=== PATIENT | female | born 1945 | race Caucasian/White ===

== ENCOUNTER 2018-05-25 13:05 | Inpatient (IN) | payer OTHER ==
--- OUTSIDE RECORDS SUMMARY | 2018-05-25 13:14 | XMS REPORT | Clinical Summary ---
:1945 Author Organization [facility] Address [address] [place] [address] Care Team Providers Name Role Phone Bertha Apodaca DO Primary Care Provider Allergies Active Allergy Reactions Severity Noted Date Comments Codeine Rash Low 02/19/2017 Rash on face Enalapril 02/19/2017 hand/face swelling Nhqupuq-Zvv-Ryi Reductase 02/19/2017 muscle pain, hand/face Inhibitors swelling Medications Medication Sig Dispensed Refills Start End Date Status Date aspirin (ECOTRIN) Take 81 mg by 0 Active 81 MG enteric mouth daily. coated tablet magnesium oxide 250 Take 250 mg by 0 Active mg tablet mouth daily. omega-3 fatty Take 1 capsule by 0 Active acids-fish oil mouth daily. (FISH OIL) 360-1,200 mg capsule vitamin E 400 UNIT Take 400 Units by 0 Active capsule mouth daily. vit B comp Take 1 tablet by 0 Active no.0-vwgqm-M-biotin mouth daily. (NEPHRO-BOO RX) 1-60-300 mg-mg-mcg tablet ezetimibe (ZETIA) Take 10 mg by 0 Active 10 mg tablet mouth nightly. 8 JANUVIA 50 mg Take 50 mg by 0 Active tablet mouth daily. 8 metoprolol tartrate Take 1 tablet (25 180 tablet 3 09/25/19 Active (LOPRESSOR) 25 mg mg total) by 8 19 tablet mouth 2 (two) times a day. hydrALAZINE Take 25 mg by 0 Active (APRESOLINE) 25 MG mouth. tablet losartan (COZAAR) Take 50 mg by 0 Active 50 MG tablet mouth daily. loratadine Take 10 mg by 0 Active (CLARITIN) 10 mg mouth daily. tablet torsemide (DEMADEX) Take 2 tablets 180 tablet 3 01/08/20 Active 20 MG tablet (40 mg total) by 8 19 mouth daily. potassium chloride TAKE ONE TABLET 90 tablet 3 Active (KLOR-CON) 10 MEQ BY MOUTH ONCE 8 CR DAILY tabletIndications: Diastolic congestive heart failure (HCC), Essential hypertension, Pure hypercholesterolemi a, SOB (shortness of breath) losartan (COZAAR) Take 50 mg by 0 06/29/20 Discontinued 100 MG tablet mouth daily. 7 LANTUS 100 unit/mL Inject 100 Units 0 06/29/20 Discontinued injection (vial) under the skin 7 nightly. furosemide (LASIX) Take 1 tablet (40 90 tablet 3 06/29/20 Discontinued 40 mg mg total) by 7 17 tabletIndications: mouth daily. Diastolic congestive heart failure, unspecified congestive heart failure chronicity, Essential hypertension, Pure hypercholesterolemi a, SOB (shortness of breath) potassium chloride Take 1 tablet (10 90 tablet 3 04/07/20 Discontinued (KLOR-CON) 10 MEQ mEq total) by 7 18 CR mouth daily. tabletIndications: Diastolic congestive heart failure, unspecified congestive heart failure chronicity, Essential hypertension, Pure hypercholesterolemi a, SOB (shortness of breath) DOCOSAHEXANOIC Take by mouth. 0 06/05/20 Discontinued ACID/EPA (FISH OIL 17 ORAL) spironolactone Take 25 mg by 0 06/29/20 Discontinued (ALDACTONE) 25 MG mouth daily. 17 tablet acetaminophen Take 2 tablets 0 07/29/19 (TYLENOL) 325 MG (650 mg total) by 7 18 tablet mouth every 6 (six) hours as needed for fever (GREATER than 100.4) for up to 30 days. traMADol (ULTRAM) Take 1 tablet (50 0 07/29/19 50 mg tablet mg total) by 7 18 mouth every 6 (six) hours as needed for moderate pain for up to 30 days. hydrALAZINE Take 1 tablet (25 90 tablet 0 07/29/19 (APRESOLINE) 25 MG mg total) by 7 18 tablet mouth every 8 (eight) hours for 30 days. ipratropium-albuter Take 3 mL by 270 mL 0 07/29/19 ol (DUO-NEB) nebulization 7 18 0.5-2.5 mg/mL every 6 (six) nebulizer hours while awake for 30 days. metoprolol tartrate Take 0.5 tablets 30 tablet 0 07/29/19 (LOPRESSOR) 25 mg (12.5 mg total) 7 18 tablet by mouth 2 (two) times a day for 30 days. insulin GLARGINE Inject 38 Units 11.4 mL 0 07/30/19 (LANTUS) 100 under the skin 7 18 unit/mL injection daily for 30 (vial) days. insulin lispro Inject 0-7 Units 10 mL 12 07/29/19 (HumaLOG) 100 under the skin 3 7 18 unit/mL injection (three) times a day with meals for 30 days. insulin lispro Inject 14 Units 10 mL 12 07/23/19 Discontinued (HumaLOG) 100 under the skin 7 18 unit/mL injection daily with breakfast for 30 days. insulin lispro Inject 14 Units 10 mL 12 07/23/19 Discontinued (HumaLOG) 100 under the skin 7 18 unit/mL injection daily before lunch for 30 days. insulin lispro Inject 16 Units 10 mL 12 07/29/19 (HumaLOG) 100 under the skin 7 18 unit/mL injection daily before dinner for 30 days. docusate sodium Take 1 capsule 60 capsule 0 07/29/19 (COLACE) 100 MG (100 mg total) by 7 18 capsule mouth 2 (two) times a day for 30 days. furosemide (LASIX) Take 1 tablet (40 30 tablet 0 07/23/19 Discontinued 40 mg tablet mg total) by 7 18 mouth daily for 30 days. isosorbide Take 1 tablet (10 90 tablet 0 07/29/19 dinitrate (ISORDIL) mg total) by 7 18 10 MG tablet mouth 3 (three) times a day for 30 days. cholecalciferol, Take 1 capsule 30 capsule 0 07/30/19 vitamin D3, (2,000 Units 7 18 (VITAMIN D3) 2,000 total) by mouth unit capsule daily for 30 capsule days. furosemide (LASIX) Take 1 tablet (40 30 tablet 4 08/22/19 40 mg tablet mg total) by 8 18 mouth 2 (two) times a day for 30 days. furosemide (LASIX) Take 40 mg by 0 01/08/20 Discontinued 40 mg tablet mouth. 8 18 Active Problems Problem Noted Date Edema 01/07/2018 Coronary artery disease involving [place] coronary artery of [place] heart 09/24 without angina pectoris PAD (peripheral artery disease) 09/24/2017 Atelectasis of left lung 06/18/2017 Pleural effusion, left 06/18/2017 Acute postoperative respiratory insufficiency 06/18/2017 S/P CABG x 4 06/12/2017 Anemia due to surgical blood loss, acute superimposed on chronic anemia 2016 Acute kidney injury superimposed on chronic kidney disease 06/12/2017 Ischemic cardiomyopathy 06/12/2017 Type 2 diabetes mellitus with stage 3 chronic kidney disease, with 06/12/2017 long-term current use of insulin NSTEMI (non-ST elevated myocardial infarction) 06/05/2017 SOB (shortness of breath) 02/19/2017 Essential hypertension 02/19/2017 Pure hypercholesterolemia 02/19/2017 Type 2 diabetes mellitus Resolved Problems Problem Noted Date Resolved Date Metabolic acidosis 06/12/2017 06/19/2017 Encounters Date Type Specialty Care Team Description 04/11/2018 Documentation Endocrinology Jennie Pardo MA 04/07/2018 Refill Cardiology Bro Aburto Med Refill 01/15/2018 Telephone Cardiology Muriel Quintana MA Result - Labs 01/07/2018 Lab Lab Bro Aburto MD 01/07/2018 Office Visit Cardiology Bro Aburto, Edema, unspecified type (Primary Dx); Coronary artery disease involving [place] coronary artery of [place] heart without angina pectoris; S/P CABG x 4 10/11/2017 Orders Only Cardiology Mark Fish MA 10/03/2017 Telephone Cardiology Mark Fish MA Results (lower extremity aterial report) 10/02/2017 Orders Only Cardiology Mark Fish MA 09/24/2017 Office Visit Cardiology Bro Aburto, Coronary artery disease involving [place] coronary artery of [place] heart without angina pectoris (Primary Dx); PAD (peripheral artery disease); S/P CABG x 4; Essential hypertension 07/23/2017 Office Visit Cardiology Bro Aburto, S/P CABG x 4 MD (Primary Dx) 06/12/2017 Surgery Cardiothoracic MacGabriel, Cabg, With Surgery Cecelia Casillas MD Endoscopic Vein Harvesting on Left leg CRUZ - LAD, SVG- PDA, OM , Diagonal 06/12/2017 Anesthesia Event Cardiology Brian Jacques MD 06/05/2017 Hospital Encounter Cardiology Quintana, NSTEMI (non-ST elevated myocardial infarction) (Primary Dx); - [place] Coronary artery disease involving [place] heart with unstable angina pectoris, unspecified vessel or lesion type; 06/29/2017 MD [place] Chronic congestive heart failure, unspecified congestive heart failure type; Bro Aburto, Chronic obstructive pulmonary disease, unspecified COPD type; SOB (shortness of breath); S/P CABG x 4 after 05/24/2017 Family History Relation Name Status Comments Father Mother Social History Tobacco Use Types Packs/Day Years Used Date Never Smoker Smokeless Tobacco: Never Used Alcohol Use Drinks/Week oz/Week Comments No Sex Assigned at Date Recorded Not on file Job Start Date Occupation Industry Not on file Not on file Not on file Travel History Travel Start Travel End No recent travel history available. Last Filed Vital Signs Vital Sign Reading Time Taken Blood Pressure 158/72 01/07/2018 11:30 AM CDT Pulse 49 01/07/2018 11:30 AM CDT Temperature 36.3 C (97.4 F) 06/29/2017 7:42 AM [employer] Respiratory Rate 20 06/29/2017 8:16 AM [employer] Oxygen Saturation 96% 06/29/2017 8:12 AM [employer] Inhaled Oxygen Concentration - - Weight 85.3 kg (188 lb) 01/07/2018 11:30 AM CDT Height 162.6 cm (5' 4") 01/07/2018 11:30 AM CDT Body Mass Index 32.27 01/07/2018 11:30 AM CDT Plan of Treatment Date Type Specialty Care Team Description 06/03/2018 Office Visit Cardiology Bro Aburto MD [address] [facility] [address] [place] [id number] 09/23/2018 Office Visit Cardiology Bro Aburto MD [address] [facility] [address] [place] [id number] [phone] Health Maintenance Due Date Last Done Comments DIABETIC RETINAL EYE EXAM 1945 DIABETIC FOOT EXAM 1954 BREAST CANCER SCREENING 1994 SHINGRIX VACCINE (1 of 2) 1994 ZOSTER VACCINE 2004 PNEUMOCOCCAL POLYSACCHARIDE VACCINE AGE 65 AND OVER 2009 PNEUMOCOCCAL-13 2009 INFLUENZA VACCINE 01/29/2018 COLON CANCER SCREENING 06/06/2027 06/06/2017 Implants Implanted Type Area Vp Packaging Device Shelf Model / Identifier Expiration Serial / Date Lot Lead Pace Francesco Mycrdl Unipol Tmpry Streamline - [id number] Cardiovascular N/A : MEDTRON[employer] RUST - [id number] / Implanted: 06/12/2017 (Quantity not on file) Implants N/A CARDIAC SRGRY / Procedures Procedure Name Priority Date/Time Associated Comments Diagnosis TRANSFUSE RED BLOOD CELLS Routine 03/05/2018 5:45 PM CDT BASIC METABOLIC PANEL Routine 01/07/2018 11:55 Edema, unspecified Results for this AM CDT type procedure are in Coronary artery the results disease involving section. [place] coronary artery of [place] heart without angina pectoris ECHOCARDIOGRAM 2D COMPLETE Routine 09/30/2017 11:02 Coronary artery Results for this W MMODE SPECTRAL COLOR AM CDT disease involving procedure are in DOPPLER (18330) [place] coronary the results artery of [place] section. heart without angina pectoris PAD (peripheral artery disease) US DUPLEX ARTERIAL LOWER Routine 09/24/2017 2:38 Coronary artery Results for this EXTREMITY BILATERAL PM CDT disease involving procedure are in [place] coronary the results artery of [place] section. heart without angina pectoris PAD (peripheral artery disease) POC GLUCOSE Routine 06/29/2017 12:00 Results for this PM [employer] procedure are in the results section. POC GLUCOSE Routine 06/29/2017 7:50 Results for this AM [employer] procedure are in the results section. POC GLUCOSE Routine 06/28/2017 9:02 Results for this PM [employer] procedure are in the results section. POC GLUCOSE Routine 06/28/2017 5:25 Results for this PM [employer] procedure are in the results section. XR CHEST 2 VW Routine 06/28/2017 5:02 Results for this PM [employer] procedure are in the results section. POC GLUCOSE Routine 06/28/2017 12:10 Results for this PM [employer] procedure are in the results section. POC GLUCOSE Routine 06/28/2017 7:54 Results for this AM [employer] procedure are in the results section. ZZESTIMATED GFR Routine 06/28/2017 4:00 Results for this AM [employer] procedure are in the results section. BASIC METABOLIC PANEL Routine 06/28/2017 4:00 Results for this AM [employer] procedure are in the results section. POC GLUCOSE Routine 06/27/2017 8:07 Results for this PM [employer] procedure are in the results section. POC GLUCOSE Routine 06/27/2017 5:44 Results for this PM [employer] procedure are in the results section. POC GLUCOSE Routine 06/27/2017 12:08 Results for this PM [employer] procedure are in the results section. POC GLUCOSE Routine 06/27/2017 7:43 Results for this AM [employer] procedure are in the results section. ZZESTIMATED GFR Routine 06/27/2017 4:00 Results for this AM [employer] procedure are in the results section. BASIC METABOLIC PANEL Routine 06/27/2017 4:00 Results for this AM [employer] procedure are in the results section. POC GLUCOSE Routine 06/26/2017 10:03 Results for this PM [employer] procedure are in the results section. POC GLUCOSE Routine 06/26/2017 5:15 Results for this PM [employer] procedure are in the results section. POC GLUCOSE Routine 06/26/2017 12:24 Results for this PM [employer] procedure are in the results section. POC GLUCOSE Routine 06/26/2017 7:44 Results for this AM [employer] procedure are in the results section. ZZESTIMATED GFR Routine 06/26/2017 4:45 Results for this AM [employer] procedure are in the results section. BASIC METABOLIC PANEL Routine 06/26/2017 4:45 Results for this AM [employer] procedure are in the results section. CBC HEMOGRAM Routine 06/26/2017 4:45 Results for this AM [employer] procedure are in the results section. POC GLUCOSE Routine 06/25/2017 8:42 Results for this PM [employer] procedure are in the results section. XR CHEST 1 VW PORTABLE Routine 06/25/2017 5:59 Results for this PM [employer] procedure are in the results section. POC GLUCOSE Routine 06/25/2017 5:39 Results for this PM [employer] procedure are in the results section. POC GLUCOSE Routine 06/25/2017 11:55 Results for this AM [employer] procedure are in the results section. POC GLUCOSE Routine 06/25/2017 7:37 Results for this AM [employer] procedure are in the results section. CBC HEMOGRAM Routine 06/25/2017 4:30 Results for this AM [employer] procedure are in the results section. ZZESTIMATED GFR Routine 06/25/2017 4:00 Results for this AM [employer] procedure are in the results section. TOTAL IRON BINDING Routine 06/25/2017 4:00 Results for this CAPACITY AM [employer] procedure are in the results section. FERRITIN LEVEL Routine 06/25/2017 4:00 Results for this AM [employer] procedure are in the results section. BASIC METABOLIC PANEL Routine 06/25/2017 4:00 Results for this AM [employer] procedure are in the results section. POC GLUCOSE Routine 06/24/2017 9:19 Results for this PM [employer] procedure are in the results section. POC GLUCOSE Routine 06/24/2017 5:11 Results for this PM [employer] procedure are in the results section. POC GLUCOSE Routine 06/24/2017 1:05 Results for this PM [employer] procedure are in the results section. POC GLUCOSE Routine 06/24/2017 8:57 Results for this AM [employer] procedure are in the results section. POC GLUCOSE Routine 06/24/2017 7:13 Results for this AM [employer] procedure are in the results section. CBC HEMOGRAM Routine 06/24/2017 4:45 Results for this AM [employer] procedure are in the results section. ZZESTIMATED GFR Routine 06/24/2017 4:00 Results for this AM [employer] procedure are in the results section. BASIC METABOLIC PANEL Routine 06/24/2017 4:00 Results for this AM [employer] procedure are in the results section. POC GLUCOSE Routine 06/23/2017 9:20 Results for this PM [employer] procedure are in the results section. POC GLUCOSE Routine 06/23/2017 5:38 Results for this PM [employer] procedure are in the results section. POC GLUCOSE Routine 06/23/2017 11:46 Results for this AM [employer] procedure are in the results section. ZZESTIMATED GFR Routine 06/23/2017 8:22 Results for this AM [employer] procedure are in the results section. BASIC METABOLIC PANEL Routine 06/23/2017 8:22 Results for this AM [employer] procedure are in the results section. POC GLUCOSE Routine 06/23/2017 7:33 Results for this AM [employer] procedure are in the results section. POC GLUCOSE Routine 06/22/2017 5:25 Results for this PM [employer] procedure are in the results section. POC GLUCOSE Routine 06/22/2017 11:51 Results for this AM [employer] procedure are in the results section. POC GLUCOSE Routine 06/22/2017 7:14 Results for this AM [employer] procedure are in the results section. CBC HEMOGRAM Routine 06/22/2017 4:48 Results for this AM [employer] procedure are in the results section. ZZESTIMATED GFR Routine 06/22/2017 12:00 Results for this AM [employer] procedure are in the results section. PHOSPHORUS LEVEL Routine 06/22/2017 12:00 Results for this AM [employer] procedure are in the results section. IONIZED CALCIUM Routine 06/22/2017 12:00 Results for this AM [employer] procedure are in the results section. MAGNESIUM LEVEL Routine 06/22/2017 12:00 Results for this AM [employer] procedure are in the results section. BASIC METABOLIC PANEL Routine 06/22/2017 12:00 Results for this AM [employer] procedure are in the results section. POC GLUCOSE Routine 06/21/2017 8:39 Results for this PM [employer] procedure are in the results section. POC GLUCOSE Routine 06/21/2017 6:02 Results for this PM [employer] procedure are in the results section. POC GLUCOSE Routine 06/21/2017 3:38 Results for this PM [employer] procedure are in the results section. POC GLUCOSE Routine 06/21/2017 11:30 Results for this AM [employer] procedure are in the results section. PROTHROMBIN TIME WITH INR STAT 06/21/2017 9:43 Results for this AM [employer] procedure are in the results section. POC GLUCOSE Routine 06/21/2017 7:38 Results for this AM [employer] procedure are in the results section. XR CHEST 1 VW PORTABLE Routine 06/21/2017 7:16 Results for this AM [employer] procedure are in the results section. POC GLUCOSE Routine 06/21/2017 4:11 Results for this AM [employer] procedure are in the results section. ZZESTIMATED GFR Routine 06/21/2017 12:32 Results for this AM [employer] procedure are in the results section. PHOSPHORUS LEVEL Routine 06/21/2017 12:32 Results for this AM [employer] procedure are in the results section. MAGNESIUM LEVEL Routine 06/21/2017 12:32 Results for this AM [employer] procedure are in the results section. IONIZED CALCIUM Routine 06/21/2017 12:32 Results for this AM [employer] procedure are in the results section. BASIC METABOLIC PANEL Routine 06/21/2017 12:32 Results for this AM [employer] procedure are in the results section. HC COMPLETE BLD COUNT Routine 06/21/2017 12:25 Results for this W/AUTO DIFF AM [employer] procedure are in the results section. POC GLUCOSE Routine 06/20/2017 4:00 Results for this PM [employer] procedure are in the results section. POC GLUCOSE Routine 06/20/2017 12:05 Results for this PM [employer] procedure are in the results section. POC GLUCOSE Routine 06/20/2017 8:06 Results for this AM [employer] procedure are in the results section. XR CHEST 1 VW PORTABLE Routine 06/20/2017 7:10 Results for this AM [employer] procedure are in the results section. ZZESTIMATED GFR Routine 06/20/2017 2:21 Results for this AM [employer] procedure are in the results section. PHOSPHORUS LEVEL Routine 06/20/2017 2:21 Results for this AM [employer] procedure are in the results section. MAGNESIUM LEVEL Routine 06/20/2017 2:21 Results for this AM [employer] procedure are in the results section. IONIZED CALCIUM Routine 06/20/2017 2:21 Results for this AM [employer] procedure are in the results section. BASIC METABOLIC PANEL Routine 06/20/2017 2:21 Results for this AM [employer] procedure are in the results section. TYPE AND SCREEN Routine 06/20/2017 2:10 Results for this AM [employer] procedure are in the results section. HC COMPLETE BLD COUNT Routine 06/20/2017 2:00 Results for this W/AUTO DIFF AM [employer] procedure are in the results section. POC GLUCOSE Routine 06/20/2017 12:02 Results for this AM [employer] procedure are in the results section. POC GLUCOSE Routine 06/19/2017 8:21 Results for this PM [employer] procedure are in the results section. POC GLUCOSE Routine 06/19/2017 3:52 Results for this PM [employer] procedure are in the results section. POC GLUCOSE Routine 06/19/2017 12:15 Results for this PM [employer] procedure are in the results section. POC GLUCOSE Routine 06/19/2017 9:50 Results for this AM [employer] procedure are in the results section. POC GLUCOSE Routine 06/19/2017 7:38 Results for this AM [employer] procedure are in the results section. XR CHEST 1 VW PORTABLE Routine 06/19/2017 7:10 Results for this AM [employer] procedure are in the results section. ECG 12-LEAD Routine 06/19/2017 6:14 Results for this AM [employer] procedure are in the results section. POC GLUCOSE Routine 06/19/2017 4:03 Results for this AM [employer] procedure are in the results section. ZZESTIMATED GFR Routine 06/19/2017 3:05 Results for this AM [employer] procedure are in the results section. IONIZED CALCIUM Routine 06/19/2017 3:05 Results for this AM [employer] procedure are in the results section. PHOSPHORUS LEVEL Routine 06/19/2017 3:05 Results for this AM [employer] procedure are in the results section. MAGNESIUM LEVEL Routine 06/19/2017 3:05 Results for this AM [employer] procedure are in the results section. BASIC METABOLIC PANEL Routine 06/19/2017 3:05 Results for this AM [employer] procedure are in the results section. HC COMPLETE BLD COUNT Routine 06/19/2017 3:05 Results for this W/AUTO DIFF AM [employer] procedure are in the results section. POC GLUCOSE Routine 06/19/2017 2:16 Results for this AM [employer] procedure are in the results section. POC GLUCOSE Routine 06/18/2017 10:55 Results for this PM [employer] procedure are in the results section. POC GLUCOSE Routine 06/18/2017 7:46 Results for this PM [employer] procedure are in the results section. POC GLUCOSE Routine 06/18/2017 6:07 Results for this PM [employer] procedure are in the results section. POC GLUCOSE Routine 06/18/2017 3:52 Results for this PM [employer] procedure are in the results section. XR CHEST 1 VW PORTABLE STAT 06/18/2017 3:51 Results for this PM [employer] procedure are in the results section. US THORACENTESIS WITH Routine 06/18/2017 2:47 Results for this IMAGING PM [employer] procedure are in the results section. GRAM STAIN Routine 06/18/2017 2:46 Results for this PM [employer] procedure are in the results section. ANAEROBIC CULTURE Routine 06/18/2017 2:46 Results for this PM [employer] procedure are in the results section. AEROBIC CULTURE Routine 06/18/2017 2:46 Results for this PM [employer] procedure are in the results section. CELL COUNT AND Routine 06/18/2017 2:39 Results for this DIFFERENTIAL, BODY FLUID PM [employer] procedure are in the results section. LDH, MISC FLUID Routine 06/18/2017 2:39 Results for this PM [employer] procedure are in the results section. GLUCOSE LEVEL, MISC FLUID Routine 06/18/2017 2:39 Results for this PM [employer] procedure are in the results section. POC GLUCOSE Routine 06/18/2017 2:04 Results for this PM [employer] procedure are in the results section. POC GLUCOSE Routine 06/18/2017 12:29 Results for this PM [employer] procedure are in the results section. US CHEST Routine 06/18/2017 10:55 Results for this AM [employer] procedure are in the results section. POC GLUCOSE Routine 06/18/2017 9:56 Results for this AM [employer] procedure are in the results section. CT CHEST WO CONTRAST STAT 06/18/2017 9:53 Results for this AM [employer] procedure are in the results section. POC GLUCOSE Routine 06/18/2017 7:56 Results for this AM [employer] procedure are in the results section. XR CHEST 1 VW PORTABLE Routine 06/18/2017 7:22 Results for this AM [employer] procedure are in the results section. POC GLUCOSE Routine 06/18/2017 6:26 Results for this AM [employer] procedure are in the results section. ECG 12-LEAD Routine 06/18/2017 6:17 Results for this AM [employer] procedure are in the results section. POC GLUCOSE Routine 06/18/2017 4:35 Results for this AM [employer] procedure are in the results section. POC GLUCOSE Routine 06/18/2017 2:31 Results for this AM [employer] procedure are in the results section. PARTIAL THROMBOPLASTIN Routine 06/18/2017 2:12 Results for this TIME (PTT) AM [employer] procedure are in the results section. PROTHROMBIN TIME WITH INR Routine 06/18/2017 2:12 Results for this AM [employer] procedure are in the results section. ZZESTIMATED GFR Routine 06/18/2017 2:10 Results for this AM [employer] procedure are in the results section. IONIZED CALCIUM Routine 06/18/2017 2:10 Results for this AM [employer] procedure are in the results section. PHOSPHORUS LEVEL Routine 06/18/2017 2:10 Results for this AM [employer] procedure are in the results section. MAGNESIUM LEVEL Routine 06/18/2017 2:10 Results for this AM [employer] procedure are in the results section. BASIC METABOLIC PANEL Routine 06/18/2017 2:10 Results for this AM [employer] procedure are in the results section. HC COMPLETE BLD COUNT Routine 06/18/2017 2:10 Results for this W/AUTO DIFF AM [employer] procedure are in the results section. HOMOCYSTINE, PLASMA Routine 06/18/2017 2:10 Results for this AM [employer] procedure are in the results section. FOLATE LEVEL Routine 06/18/2017 2:10 Results for this AM [employer] procedure are in the results section. VITAMIN D 25 HYDROXY LEVEL Routine 06/18/2017 2:10 Results for this AM [employer] procedure are in the results section. VITAMIN B12 LEVEL Routine 06/18/2017 2:10 Results for this AM [employer] procedure are in the results section. THYROID STIMULATING Routine 06/18/2017 2:10 Results for this HORMONE AM [employer] procedure are in the results section. T4, FREE Routine 06/18/2017 2:10 Results for this AM [employer] procedure are in the results section. POC GLUCOSE Routine 06/17/2017 10:16 Results for this PM [employer] procedure are in the results section. POC GLUCOSE Routine 06/17/2017 7:12 Results for this PM [employer] procedure are in the results section. MAGNESIUM LEVEL Routine 06/17/2017 6:19 Results for this PM [employer] procedure are in the results section. POTASSIUM LEVEL Routine 06/17/2017 6:19 Results for this PM [employer] procedure are in the results section. POC GLUCOSE Routine 06/17/2017 5:15 Results for this PM [employer] procedure are in the results section. POC GLUCOSE Routine 06/17/2017 3:03 Results for this PM [employer] procedure are in the results section. POC GLUCOSE Routine 06/17/2017 12:58 Results for this PM [employer] procedure are in the results section. POC GLUCOSE Routine 06/17/2017 11:01 Results for this AM [employer] procedure are in the results section. URINALYSIS, AUTOMATED WITH Routine 06/17/2017 10:49 Results for this MICROSCOPY AM [employer] procedure are in the results section. EEG AWAKE/DROWSY LESS THAN Routine 06/17/2017 10:00 Results for this 41 MIN AM [employer] procedure are in the results section. POC GLUCOSE Routine 06/17/2017 9:08 Results for this AM [employer] procedure are in the results section. XR CHEST 1 VW PORTABLE Routine 06/17/2017 7:33 Results for this AM [employer] procedure are in the results section. POC GLUCOSE Routine 06/17/2017 7:08 Results for this AM [employer] procedure are in the results section. ECG 12-LEAD Routine 06/17/2017 5:29 Results for this AM [employer] procedure are in the results section. POC GLUCOSE Routine 06/17/2017 5:04 Results for this AM [employer] procedure are in the results section. POC GLUCOSE Routine 06/17/2017 2:57 Results for this AM [employer] procedure are in the results section. IONIZED CALCIUM, ARTERIAL Timed 06/17/2017 2:45 Results for this AM [employer] procedure are in the results section. HC COMPLETE BLD COUNT Timed 06/17/2017 2:45 Results for this W/AUTO DIFF AM [employer] procedure are in the results section. ARTERIAL BLOOD GAS Timed 06/17/2017 2:45 Results for this AM [employer] procedure are in the results section. POC GLUCOSE Routine 06/17/2017 2:08 Results for this AM [employer] procedure are in the results section. ZZESTIMATED GFR Timed 06/17/2017 2:00 Results for this AM [employer] procedure are in the results section. PHOSPHORUS LEVEL Timed 06/17/2017 2:00 Results for this AM [employer] procedure are in the results section. MAGNESIUM LEVEL Timed 06/17/2017 2:00 Results for this AM [employer] procedure are in the results section. BASIC METABOLIC PANEL Timed 06/17/2017 2:00 Results for this AM [employer] procedure are in the results section. POC GLUCOSE Routine 06/17/2017 12:51 Results for this AM [employer] procedure are in the results section. POC GLUCOSE Routine 06/16/2017 11:55 Results for this PM [employer] procedure are in the results section. POC GLUCOSE Routine 06/16/2017 10:35 Results for this PM [employer] procedure are in the results section. POC GLUCOSE Routine 06/16/2017 9:06 Results for this PM [employer] procedure are in the results section. POC GLUCOSE Routine 06/16/2017 8:06 Results for this PM [employer] procedure are in the results section. POC GLUCOSE Routine 06/16/2017 7:06 Results for this PM [employer] procedure are in the results section. POC GLUCOSE Routine 06/16/2017 6:09 Results for this PM [employer] procedure are in the results section. POC GLUCOSE Routine 06/16/2017 5:11 Results for this PM [employer] procedure are in the results section. POC GLUCOSE Routine 06/16/2017 3:49 Results for this PM [employer] procedure are in the results section. POC GLUCOSE Routine 06/16/2017 2:31 Results for this PM [employer] procedure are in the results section. POC GLUCOSE Routine 06/16/2017 11:46 Results for this AM [employer] procedure are in the results section. POC GLUCOSE Routine 06/16/2017 9:53 Results for this AM [employer] procedure are in the results section. POC GLUCOSE Routine 06/16/2017 7:49 Results for this AM [employer] procedure are in the results section. ECG 12-LEAD Routine 06/16/2017 6:16 Results for this AM [employer] procedure are in the results section. XR CHEST 1 VW PORTABLE Routine 06/16/2017 6:14 Results for this AM [employer] procedure are in the results section. POC GLUCOSE Routine 06/16/2017 5:10 Results for this AM [employer] procedure are in the results section. POC GLUCOSE Routine 06/16/2017 3:13 Results for this AM [employer] procedure are in the results section. ZZESTIMATED GFR Routine 06/16/2017 2:00 Results for this AM [employer] procedure are in the results section. PHOSPHORUS LEVEL Routine 06/16/2017 2:00 Results for this AM [employer] procedure are in the results section. MAGNESIUM LEVEL Routine 06/16/2017 2:00 Results for this AM [employer] procedure are in the results section. IONIZED CALCIUM Routine 06/16/2017 2:00 Results for this AM [employer] procedure are in the results section. BASIC METABOLIC PANEL Routine 06/16/2017 2:00 Results for this AM [employer] procedure are in the results section. HC COMPLETE BLD COUNT Routine 06/16/2017 1:49 Results for this W/AUTO DIFF AM [employer] procedure are in the results section. POC GLUCOSE Routine 06/16/2017 12:22 Results for this AM [employer] procedure are in the results section. POC GLUCOSE Routine 06/15/2017 7:53 Results for this PM [employer] procedure are in the results section. POC GLUCOSE Routine 06/15/2017 5:49 Results for this PM [employer] procedure are in the results section. CV ECHO 2D FOLLOW UP OR STAT 06/15/2017 4:00 Results for this LIMITED STUDY PM [employer] procedure are in the results section. POC GLUCOSE Routine 06/15/2017 3:58 Results for this PM [employer] procedure are in the results section. ARTERIAL BLOOD GAS STAT 06/15/2017 2:50 Results for this PM [employer] procedure are in the results section. POC GLUCOSE Routine 06/15/2017 2:02 Results for this PM [employer] procedure are in the results section. MAGNESIUM LEVEL STAT 06/15/2017 1:55 Results for this PM [employer] procedure are in the results section. POTASSIUM LEVEL STAT 06/15/2017 1:55 Results for this PM [employer] procedure are in the results section. CT HEAD WO CONTRAST STAT 06/15/2017 12:32 Results for this PM [employer] procedure are in the results section. POC GLUCOSE Routine 06/15/2017 11:42 Results for this AM [employer] procedure are in the results section. T3, FREE Routine 06/15/2017 11:04 Results for this AM [employer] procedure are in the results section. T4, FREE Routine 06/15/2017 10:21 Results for this AM [employer] procedure are in the results section. THYROID STIMULATING Routine 06/15/2017 10:21 Results for this HORMONE AM [employer] procedure are in the results section. POC GLUCOSE Routine 06/15/2017 10:01 Results for this AM [employer] procedure are in the results section. POC GLUCOSE Routine 06/15/2017 7:45 Results for this AM [employer] procedure are in the results section. ECG 12-LEAD Routine 06/15/2017 7:11 Results for this AM [employer] procedure are in the results section. XR CHEST 1 VW PORTABLE Routine 06/15/2017 6:20 Results for this AM [employer] procedure are in the results section. POC GLUCOSE Routine 06/15/2017 6:05 Results for this AM [employer] procedure are in the results section. POC GLUCOSE Routine 06/15/2017 5:10 Results for this AM [employer] procedure are in the results section. POC GLUCOSE Routine 06/15/2017 3:28 Results for this AM [employer] procedure are in the results section. VITAMIN D 25 HYDROXY LEVEL Routine 06/15/2017 2:05 Results for this AM [employer] procedure are in the results section. ZZESTIMATED GFR Routine 06/15/2017 2:00 Results for this AM [employer] procedure are in the results section. TYPE AND SCREEN Timed 06/15/2017 2:00 Results for this AM [employer] procedure are in the results section. PHOSPHORUS LEVEL Routine 06/15/2017 2:00 Results for this AM [employer] procedure are in the results section. MAGNESIUM LEVEL Routine 06/15/2017 2:00 Results for this AM [employer] procedure are in the results section. IONIZED CALCIUM Routine 06/15/2017 2:00 Results for this AM [employer] procedure are in the results section. HC COMPLETE BLD COUNT Routine 06/15/2017 2:00 Results for this W/AUTO DIFF AM [employer] procedure are in the results section. BASIC METABOLIC PANEL Routine 06/15/2017 2:00 Results for this AM [employer] procedure are in the results section. POC GLUCOSE Routine 06/15/2017 1:35 Results for this AM [employer] procedure are in the results section. TROPONIN Timed 06/15/2017 12:00 Results for this AM [employer] procedure are in the results section. POC GLUCOSE Routine 06/14/2017 11:24 Results for this PM [employer] procedure are in the results section. POC GLUCOSE Routine 06/14/2017 10:19 Results for this PM [employer] procedure are in the results section. POC GLUCOSE Routine 06/14/2017 9:08 Results for this PM [employer] procedure are in the results section. POTASSIUM, SYRINGE Routine 06/14/2017 8:26 Results for this PM [employer] procedure are in the results section. POC GLUCOSE Routine 06/14/2017 7:43 Results for this PM [employer] procedure are in the results section. POC GLUCOSE Routine 06/14/2017 7:06 Results for this PM [employer] procedure are in the results section. ARTERIAL BLOOD GAS Routine 06/14/2017 4:56 Results for this PM [employer] procedure are in the results section. XR CHEST 1 VW PORTABLE STAT 06/14/2017 4:41 Results for this PM [employer] procedure are in the results section. NE INSERT NON-TUNNEL CV Routine 06/14/2017 3:58 S/P CABG x 4 Results for this CATH PM [employer] procedure are in the results section. POC GLUCOSE Routine 06/14/2017 3:56 Results for this PM [employer] procedure are in the results section. NE INSERT Routine 06/14/2017 3:54 S/P CABG x 4 Results for this CATH,ART,PERCUT,SHORTTERM PM [employer] procedure are in the results section. ZZESTIMATED GFR STAT 06/14/2017 3:25 Results for this PM [employer] procedure are in the results section. ARTERIAL BLOOD GAS STAT 06/14/2017 3:25 Results for this PM [employer] procedure are in the results section. TROPONIN STAT 06/14/2017 3:25 Results for this PM [employer] procedure are in the results section. BASIC METABOLIC PANEL STAT 06/14/2017 3:25 Results for this PM [employer] procedure are in the results section. HC COMPLETE BLD COUNT STAT 06/14/2017 3:25 Results for this W/AUTO DIFF PM [employer] procedure are in the results section. ECG 12-LEAD STAT 06/14/2017 2:09 Results for this PM [employer] procedure are in the results section. ECG 12-LEAD STAT 06/14/2017 2:09 PM [employer] POC GLUCOSE Routine 06/14/2017 1:08 Results for this PM [employer] procedure are in the results section. MAGNESIUM LEVEL STAT 06/14/2017 11:58 Results for this AM [employer] procedure are in the results section. POTASSIUM LEVEL STAT 06/14/2017 11:58 Results for this AM [employer] procedure are in the results section. POC GLUCOSE Routine 06/14/2017 11:37 Results for this AM [employer] procedure are in the results section. XR CHEST 1 VW PORTABLE STAT 06/14/2017 11:31 Results for this AM [employer] procedure are in the results section. LINE/DRAIN REMOVAL Routine 06/14/2017 10:54 S/P CABG x 4 Results for this AM [employer] procedure are in the results section. POC GLUCOSE Routine 06/14/2017 10:52 Results for this AM [employer] procedure are in the results section. POC GLUCOSE Routine 06/14/2017 8:55 Results for this AM [employer] procedure are in the results section. POC GLUCOSE Routine 06/14/2017 7:48 Results for this AM [employer] procedure are in the results section. ECG 12-LEAD Routine 06/14/2017 6:36 Results for this AM [employer] procedure are in the results section. POTASSIUM, SYRINGE Routine 06/14/2017 6:10 Results for this AM [employer] procedure are in the results section. POC GLUCOSE Routine 06/14/2017 5:57 Results for this AM [employer] procedure are in the results section. XR CHEST 1 VW PORTABLE Routine 06/14/2017 5:48 Results for this AM [employer] procedure are in the results section. POC GLUCOSE Routine 06/14/2017 5:04 Results for this AM [employer] procedure are in the results section. POC GLUCOSE Routine 06/14/2017 3:51 Results for this AM [employer] procedure are in the results section. POC GLUCOSE Routine 06/14/2017 3:08 Results for this AM [employer] procedure are in the results section. POC GLUCOSE Routine 06/14/2017 2:14 Results for this AM [employer] procedure are in the results section. ZZESTIMATED GFR Routine 06/14/2017 2:10 Results for this AM [employer] procedure are in the results section. IONIZED CALCIUM Routine 06/14/2017 2:10 Results for this AM [employer] procedure are in the results section. PHOSPHORUS LEVEL Routine 06/14/2017 2:10 Results for this AM [employer] procedure are in the results section. MAGNESIUM LEVEL Routine 06/14/2017 2:10 Results for this AM [employer] procedure are in the results section. BASIC METABOLIC PANEL Routine 06/14/2017 2:10 Results for this AM [employer] procedure are in the results section. HC COMPLETE BLD COUNT Routine 06/14/2017 1:43 Results for this W/AUTO DIFF AM [employer] procedure are in the results section. POC GLUCOSE Routine 06/14/2017 12:52 Results for this AM [employer] procedure are in the results section. POC GLUCOSE Routine 06/14/2017 12:07 Results for this AM [employer] procedure are in the results section. POC GLUCOSE Routine 06/13/2017 11:32 Results for this PM [employer] procedure are in the results section. POC GLUCOSE Routine 06/13/2017 10:35 Results for this PM [employer] procedure are in the results section. POC GLUCOSE Routine 06/13/2017 9:03 Results for this PM [employer] procedure are in the results section. POTASSIUM LEVEL Routine 06/13/2017 8:00 Results for this PM [employer] procedure are in the results section. POC GLUCOSE Routine 06/13/2017 7:55 Results for this PM [employer] procedure are in the results section. POC GLUCOSE Routine 06/13/2017 7:09 Results for this PM [employer] procedure are in the results section. POC GLUCOSE Routine 06/13/2017 5:58 Results for this PM [employer] procedure are in the results section. POC GLUCOSE Routine 06/13/2017 4:56 Results for this PM [employer] procedure are in the results section. POTASSIUM LEVEL Routine 06/13/2017 4:00 Results for this PM [employer] procedure are in the results section. POC GLUCOSE Routine 06/13/2017 3:31 Results for this PM [employer] procedure are in the results section. POC GLUCOSE Routine 06/13/2017 3:06 Results for this PM [employer] procedure are in the results section. POC GLUCOSE Routine 06/13/2017 12:57 Results for this PM [employer] procedure are in the results section. POTASSIUM LEVEL Routine 06/13/2017 12:15 Results for this PM [employer] procedure are in the results section. POC GLUCOSE Routine 06/13/2017 11:49 Results for this AM [employer] procedure are in the results section. POC GLUCOSE Routine 06/13/2017 10:57 Results for this AM [employer] procedure are in the results section. XR CHEST 1 VW PORTABLE STAT 06/13/2017 9:59 Results for this AM [employer] procedure are in the results section. POC GLUCOSE Routine 06/13/2017 9:46 Results for this AM [employer] procedure are in the results section. LINE/DRAIN REMOVAL Routine 06/13/2017 9:13 S/P CABG x 4 Results for this AM [employer] procedure are in the results section. POC GLUCOSE Routine 06/13/2017 8:53 Results for this AM [employer] procedure are in the results section. XR CHEST 1 VW PORTABLE Routine 06/13/2017 7:16 Results for this AM [employer] procedure are in the results section. POC GLUCOSE Routine 06/13/2017 7:02 Results for this AM [employer] procedure are in the results section. POC GLUCOSE Routine 06/13/2017 5:56 Results for this AM [employer] procedure are in the results section. POTASSIUM LEVEL STAT 06/13/2017 5:45 Results for this AM [employer] procedure are in the results section. HEMOGLOBIN & HEMATOCRIT STAT 06/13/2017 5:45 Results for this AM [employer] procedure are in the results section. ECG 12-LEAD Routine 06/13/2017 5:25 Results for this AM [employer] procedure are in the results section. POC GLUCOSE Routine 06/13/2017 5:04 Results for this AM [employer] procedure are in the results section. POC GLUCOSE Routine 06/13/2017 4:12 Results for this AM [employer] procedure are in the results section. ZZESTIMATED GFR Routine 06/13/2017 2:34 Results for this AM [employer] procedure are in the results section. IONIZED CALCIUM Routine 06/13/2017 2:34 Results for this AM [employer] procedure are in the results section. PHOSPHORUS LEVEL Routine 06/13/2017 2:34 Results for this AM [employer] procedure are in the results section. MAGNESIUM LEVEL Routine 06/13/2017 2:34 Results for this AM [employer] procedure are in the results section. BASIC METABOLIC PANEL Routine 06/13/2017 2:34 Results for this AM [employer] procedure are in the results section. PARTIAL THROMBOPLASTIN Routine 06/13/2017 2:15 Results for this TIME (PTT) AM [employer] procedure are in the results section. PROTHROMBIN TIME WITH INR Routine 06/13/2017 2:15 Results for this AM [employer] procedure are in the results section. HC COMPLETE BLD COUNT Routine 06/13/2017 2:15 Results for this W/AUTO DIFF AM [employer] procedure are in the results section. POC GLUCOSE Routine 06/13/2017 2:10 Results for this AM [employer] procedure are in the results section. POC GLUCOSE Routine 06/13/2017 1:13 Results for this AM [employer] procedure are in the results section. POC GLUCOSE Routine 06/12/2017 11:53 Results for this PM [employer] procedure are in the results section. POC GLUCOSE Routine 06/12/2017 11:29 Results for this PM [employer] procedure are in the results section. POC GLUCOSE Routine 06/12/2017 10:08 Results for this PM [employer] procedure are in the results section. POC GLUCOSE Routine 06/12/2017 9:00 Results for this PM [employer] procedure are in the results section. POC GLUCOSE Routine 06/12/2017 7:58 Results for this PM [employer] procedure are in the results section. ECG PRE/POST OP Routine 06/12/2017 6:12 Results for this PM [employer] procedure are in the results section. POC GLUCOSE Routine 06/12/2017 6:03 Results for this PM [employer] procedure are in the results section. ARTERIAL BLOOD GAS Routine 06/12/2017 6:00 Results for this PM [employer] procedure are in the results section. POC GLUCOSE Routine 06/12/2017 5:03 Results for this PM [employer] procedure are in the results section. XR CHEST 1 VW PORTABLE Routine 06/12/2017 4:36 Results for this PM [employer] procedure are in the results section. POC GLUCOSE Routine 06/12/2017 3:53 Results for this PM [employer] procedure are in the results section. IONIZED CALCIUM, ARTERIAL Routine 06/12/2017 3:30 Results for this PM [employer] procedure are in the results section. ZZESTIMATED GFR Routine 06/12/2017 3:30 Results for this PM [employer] procedure are in the results section. PROTHROMBIN TIME WITH INR Routine 06/12/2017 3:30 Results for this PM [employer] procedure are in the results section. PHOSPHORUS LEVEL Routine 06/12/2017 3:30 Results for this PM [employer] procedure are in the results section. PARTIAL THROMBOPLASTIN Routine 06/12/2017 3:30 Results for this TIME (PTT) PM [employer] procedure are in the results section. MAGNESIUM LEVEL Routine 06/12/2017 3:30 Results for this PM [employer] procedure are in the results section. FIBRINOGEN Routine 06/12/2017 3:30 Results for this PM [employer] procedure are in the results section. CBC HEMOGRAM Routine 06/12/2017 3:30 Results for this PM [employer] procedure are in the results section. BASIC METABOLIC PANEL Routine 06/12/2017 3:30 Results for this PM [employer] procedure are in the results section. ARTERIAL BLOOD GAS Routine 06/12/2017 3:30 Results for this PM [employer] procedure are in the results section. IONIZED CALCIUM, ARTERIAL STAT 06/12/2017 2:26 Results for this PM [employer] procedure are in the results section. GLUCOSE LEVEL, SYRINGE STAT 06/12/2017 2:26 Results for this PM [employer] procedure are in the results section. HEMOGLOBIN, SYRINGE STAT 06/12/2017 2:26 Results for this PM [employer] procedure are in the results section. POTASSIUM, SYRINGE STAT 06/12/2017 2:26 Results for this PM [employer] procedure are in the results section. SODIUM LEVEL, SYRINGE STAT 06/12/2017 2:26 Results for this PM [employer] procedure are in the results section. ARTERIAL BLOOD GAS, STAT 06/12/2017 2:26 Results for this CORRECTED PM [employer] procedure are in the results section. ROTATIONAL Routine 06/12/2017 12:11 Results for this THROMBOELASTOMETRY PM [employer] procedure are in the results section. ROTATIONAL Routine 06/12/2017 12:10 Results for this THROMBOELASTOMETRY PM [employer] procedure are in the results section. ANESTHESIA SANDRO Routine 06/12/2017 12:08 PM [employer] Procedure Note - Brian Jacques MD - 06/12/2017 12:06 PM NAVIGATION OFFICER Procedure Performed: SANDRO Start Time: End Time: Preanesthesia Checklist: Patient identified, IV assessed, risks and benefits discussed, monitors and equipment assessed, procedure being performed at surgeon's request, anesthesia consent obtained. General Procedure Information Diagnostic Indications for Echo: assessment of ascending aorta, assessment of surgical repair, defect repair evaluation and hemodynamic monitoring Physician Requesting Echo: CECELIA MACARIO Location performed: OR Intubated Bite block placed Heart visualized Probe Insertion: Easy Probe Type: Multiplane Modalities: Pulse wave Doppler, continuous wave Doppler, color flow mapping and 2D only Echocardiographic and Doppler Measurements Ventricles Right Ventricle: Cavity size normal. Hypertrophy not present. Thrombus not present. Global function mildly impaired. Left Ventricle: Cavity size normal. Hypertrophy present. Thrombus not present. Global Function moderately impaired. Ejection Fraction 35%. Valves Aortic Valve: Annulus normal. Stenosis not present. Regurgitation absent. Leaflets normal. Leaflet motions normal. Mitral Valve: Annulus normal. Regurgitation +2. Leaflets normal. Leaflet motions normal. Tricuspid Valve: Annulus normal. Stenosis not present. Regurgitation +1. Leaflets normal. Pulmonic Valve: Annulus normal. Stenosis not present. Regurgitation absent. Aorta Ascending Aorta: Size normal. Dissection not present. Plaque thickness less than 3 mm. Mobile plaque not present. Aortic Arch: Size normal. Dissection not present. Plaque thickness less than 3 mm. Mobile plaque not present. Descending Aorta: Size normal. Dissection not present. Plaque thickness less than 3 mm. Mobile plaque not present. Atria Right Atrium: Size normal. Spontaneous echo contrast not present. Left Atrium: Size normal. Spontaneous echo contrast not present. Left atrial appendage normal. Septa Atrial Septum: Intra-atrial septal morphology normal. Ventricular Septum: Intra-ventricular septum morphology normal. Diastolic Function Measurements: Diastolic Dysfunction Grade=I E=ms A=ms E/A Ratio= DT=ms S/D= IVRT= Other Findings Pericardium: normal Pleural Effusion: none Pulmonary Arteries: normal Pulmonary Venous Flow: blunted (decreased) systolic flow Anesthesia Information Performed Personally Anesthesiologist: BRIAN JACQUES ARTERIAL LINE Routine 06/12/2017 12:06 PM NAVIGATION OFFICER Procedure Note - Brian Jacques MD - 06/12/2017 12:06 PM NAVIGATION OFFICER Arterial line Performed by: BRIAN JACQUES Authorized by: BRIAN JACQUES Patient Location: OR Staff: Anesthesiologist: BRIAN JACQUES Performed by: Anesthesiologist Pre-procedure: patient identified, IV checked, site and side verified, risks and benefits discussed, procedure verified, surgical consent complete, patient position confirmed, monitors and equipment checked and pre-op evaluation complete MSBT: antiseptic used, all elements of maximal sterile barrier technique followed, hand hygiene performed, cap/gown used by other personnel and solutions labeled Indications: Indications: hemodynamic monitoring Anesthesia: Anesthesia: General Procedure Details: Arterial Line placement: Placed post induction Line placement site: Femoral Line placement side: Right Arterial line gauge: 20 G Number of attempts: 1 Ultrasound guidance used: Yes Post-procedure: Post-procedure: Line sutured Post procedure circulation, sensation, movement: Normal Patient tolerance: Patient tolerated the procedure well with no immediate complications FIBRINOGEN STAT 06/12/2017 12:05 PM NAVIGATION OFFICER ARTERIAL BLOOD GAS STAT 06/12/2017 12:05 PM NAVIGATION OFFICER PROTHROMBIN TIME WITH INR STAT 06/12/2017 12:05 PM NAVIGATION OFFICER PLATELET COUNT STAT 06/12/2017 12:05 PM NAVIGATION OFFICER GLUCOSE LEVEL, SYRINGE STAT 06/12/2017 12:05 PM NAVIGATION OFFICER IONIZED CALCIUM, ARTERIAL STAT 06/12/2017 12:05 PM NAVIGATION OFFICER HEMOGLOBIN, SYRINGE STAT 06/12/2017 12:05 PM NAVIGATION OFFICER POTASSIUM, SYRINGE STAT 06/12/2017 12:05 PM NAVIGATION OFFICER SODIUM LEVEL, SYRINGE STAT 06/12/2017 12:05 PM NAVIGATION OFFICER GLUCOSE LEVEL, SYRINGE STAT 06/12/2017 11:35 AM NAVIGATION OFFICER IONIZED CALCIUM, ARTERIAL STAT 06/12/2017 11:35 AM NAVIGATION OFFICER HEMOGLOBIN, SYRINGE STAT 06/12/2017 11:35 AM NAVIGATION OFFICER SODIUM LEVEL, SYRINGE STAT 06/12/2017 11:35 AM NAVIGATION OFFICER POTASSIUM, SYRINGE STAT 06/12/2017 11:35 AM NAVIGATION OFFICER ARTERIAL BLOOD GAS, STAT 06/12/2017 11:35 AM NAVIGATION OFFICER Results for this CORRECTED procedure are in the results section. CENTRAL LINE Routine 06/12/2017 10:51 AM NAVIGATION OFFICER Procedure Note - Brian Jacques MD - 06/12/2017 10:43 AM NAVIGATION OFFICER Central line Performed by: BRIAN JACQUES Authorized by: BRIAN JACQUES Patient Location: OR Staff: Anesthesiologist: BRIAN JACQUES Resident/NUCLEAR AUXILIARY OPERATOR/AA: CHARLOTTE DAWSON Performed by: Resident/NUCLEAR AUXILIARY OPERATOR/AA Preprocedure:patient identified, IV checked, site and side verified, risks and benefits discussed, procedure verified, surgical consent complete, patient position confirmed, monitors and equipment checked and pre-op evaluation complete MSBT: antiseptic used during central venous catheter insertion, all elements of maximal sterile barrier technique followed, hand hygiene performed prior to central venous catheter insertion, cap/gown used by other personnel during central venous catheter insertion, solutions labeled and all ports not used during insertion clamped Indications: Indications: Central pressure monitoring and vascular access Anesthesia: Anesthesia: General Procedure details: Patient position: Trendelenburg Catheter Type: Triple lumen Catheter Size: 9 Fr Catheter Site: internal jugular vein Catheter site laterality: Right Ultrasound guidance used: Yes Ultrasound image saved: No Number of attempts: 1 Successful placement: Yes Guidewire removal: Guidewire removal is confirmed Guidewire removal witnessed by: BRIAN JACQUES Post-procedure: Post-procedure: line sutured, sterile dressing applied per protocol and ports flushed with saline Post-procedure: Blood cleaned with CHG and sterile caps on all hubs Assessment: Blood return through all ports and free fluid flow Patient tolerance: Patient tolerated the procedure well with no immediate complications PA CATHETER Routine 06/12/2017 10:51 AM NAVIGATION OFFICER Procedure Note - Brian Jacques MD - 06/12/2017 10:44 AM NAVIGATION OFFICER PA catheter Performed by: BRIAN JACQUES Authorized by: BRIAN JACQUES Patient Location: OR Staff: Anesthesiologist: BRIAN JACQUES Resident/NUCLEAR AUXILIARY OPERATOR/AA: CHARLOTTE DAWSON Performed by: Resident/NUCLEAR AUXILIARY OPERATOR/AA Preprocedure: patient identified, IV checked, site and side verified, risks and benefits discussed, procedure verified, surgical consent complete, patient position confirmed, monitors and equipment checked and pre-op evaluation complete MSBT: antiseptic used, all elements of maximal sterile barrier technique followed, hand hygiene performed, cap/gown used by other personnel and solutions labeled Procedure details: PA Catheter Type: DAY TRADER and oximetric PA Catheter Size: 9 PA Catheter Side: Right PA Catheter Site: Internal jugular PA Catheter secured at: 48 cm PA Catheter placed: PA Catheter placed without difficulty Waveform: PA Catheter wave confirmed Ports flushed: All ports flushed pre-procedure Balloon checked: Balloon checked prior to insertion Post-procedure: No arrhythmia: No arrhythmias noted Patient tolerance: Patient tolerated the procedure well with no immediate complications ARTERIAL LINE Routine 06/12/2017 10:43 AM NAVIGATION OFFICER Procedure Note - Brian Jacques MD - 06/12/2017 10:41 AM NAVIGATION OFFICER Arterial line Performed by: BRIAN JACQUES Authorized by: BRIAN JACQUES Patient Location: OR Staff: Anesthesiologist: BRIAN JACQUES Resident/NUCLEAR AUXILIARY OPERATOR/AA: CHARLOTTE DAWSON Performed by: Anesthesiologist and resident/NUCLEAR AUXILIARY OPERATOR/AA Pre-procedure: patient identified, IV checked, site and side verified, risks and benefits discussed, procedure verified, surgical consent complete, patient position confirmed, monitors and equipment checked and pre-op evaluation complete MSBT: antiseptic used, all elements of maximal sterile barrier technique followed, hand hygiene performed, cap/gown used by other personnel and solutions labeled Indications: Indications: multiple ABGs and hemodynamic monitoring Anesthesia: Anesthesia: General and local infiltration Procedure Details: Arterial Line placement: Placed pre-induction and placed post induction Line placement site: Radial and femoral Line placement side: Right Arterial line gauge: 20 G Number of attempts: 1 Ultrasound guidance used: Yes Post-procedure: Post-procedure: Line sutured and sterile dressing applied Post procedure circulation, sensation, movement: Unable to assess Patient tolerance: Patient tolerated the procedure well with no immediate complications Notes: Radial a line positional femoral a line subsequently placed NE AN ELECTIVE ENDOTRACHEAL AIRWAY Routine 06/12/2017 10:43 AM NAVIGATION OFFICER Procedure Note - Brian Jacques MD - 06/12/2017 10:40 AM NAVIGATION OFFICER Airway Performed by: BRIAN JACQUES Authorized by: BRIAN JACQUES Location: OR Urgency: Elective Difficult Airway: No Anesthesiologist: BRIAN JACQUES Resident/NUCLEAR AUXILIARY OPERATOR/AA: CHARLOTTE DAWSON Performed by: resident/NUCLEAR AUXILIARY OPERATOR/AA Preoxygenated with 100% O2: Yes C-spine Precautions Maintained Throughout: No Mask Ventilation: Easy mask Final Airway Type: Endotracheal airway Final Endotracheal Airway: ETT Cuffed: Yes Technique Used: Direct laryngoscopy Devices/Methods Used in Placement: Intubating stylet Insertion Site: Oral Blade Type: Art Laryngoscope Blade/Videolaryngoscope Blade Size: 2 ETT Size (mm): 7.0 Cuff at minimum occlusion pressure: Yes Measured from: Lips ETT to Lips (cm): 20 Placement Verified by: CO2 detection, direct visualization and equal breath sounds Laryngoscopic view: Grade I - full view of glottis Rapid Sequence Induction (RSI): No Modified RSI: No Number of Attempts at Approach: 1 GLUCOSE LEVEL, SYRINGE STAT 06/12/2017 9:18 AM NAVIGATION OFFICER IONIZED CALCIUM, ARTERIAL STAT 06/12/2017 9:18 AM NAVIGATION OFFICER HEMOGLOBIN, SYRINGE STAT 06/12/2017 9:18 AM NAVIGATION OFFICER POTASSIUM, SYRINGE STAT 06/12/2017 9:18 AM NAVIGATION OFFICER SODIUM LEVEL, SYRINGE STAT 06/12/2017 9:18 AM NAVIGATION OFFICER ARTERIAL BLOOD GAS, CORRECTED STAT 06/12/2017 9:18 AM NAVIGATION OFFICER POC GLUCOSE Routine 06/12/2017 6:00 AM NAVIGATION OFFICER US CAROTID DUPLEX BILATERAL Routine 06/11/2017 10:42 PM NAVIGATION OFFICER ECG 12-LEAD Routine 06/11/2017 10:06 PM NAVIGATION OFFICER POC GLUCOSE Routine 06/11/2017 8:57 PM NAVIGATION OFFICER PREPARE RBC Timed 06/11/2017 7:45 PM NAVIGATION OFFICER PREPARE RBC Timed 06/11/2017 7:45 PM NAVIGATION OFFICER TYPE AND SCREEN Timed 06/11/2017 7:45 PM NAVIGATION OFFICER POC GLUCOSE Routine 06/11/2017 5:29 PM NAVIGATION OFFICER POC GLUCOSE Routine 06/11/2017 11:20 AM NAVIGATION OFFICER POC GLUCOSE Routine 06/11/2017 7:20 AM NAVIGATION OFFICER ZZESTIMATED GFR Routine 06/11/2017 5:24 AM NAVIGATION OFFICER BASIC METABOLIC PANEL Routine 06/11/2017 5:24 AM NAVIGATION OFFICER HC COMPLETE BLD COUNT W/AUTO Routine 06/11/2017 5:24 AM NAVIGATION OFFICER Results for this DIFF procedure are in the results section. ANTI XA, UNFRACTIONATED Routine 06/11/2017 5:24 AM NAVIGATION OFFICER POC GLUCOSE Routine 06/10/2017 10:07 PM NAVIGATION OFFICER POC GLUCOSE Routine 06/10/2017 5:31 PM NAVIGATION OFFICER XR CHEST 2 VW Routine 06/10/2017 4:17 PM NAVIGATION OFFICER POC GLUCOSE Routine 06/10/2017 11:29 AM NAVIGATION OFFICER ECHOCARDIOGRAM Routine 06/10/2017 10:59 AM NAVIGATION OFFICER Results for this TRANSESOPHAGEAL procedure are in the results section. POC GLUCOSE Routine 06/10/2017 7:19 AM NAVIGATION OFFICER ANTI XA, UNFRACTIONATED Routine 06/10/2017 3:30 AM NAVIGATION OFFICER POC GLUCOSE Routine 06/09/2017 8:28 PM NAVIGATION OFFICER POC GLUCOSE Routine 06/09/2017 5:16 PM NAVIGATION OFFICER ANTI XA, UNFRACTIONATED Routine 06/09/2017 1:15 PM NAVIGATION OFFICER POC GLUCOSE Routine 06/09/2017 11:38 AM NAVIGATION OFFICER ZZESTIMATED GFR STAT 06/09/2017 9:55 AM NAVIGATION OFFICER B NATRIURETIC PEPTIDE STAT 06/09/2017 9:55 AM NAVIGATION OFFICER CBC HEMOGRAM STAT 06/09/2017 9:55 AM NAVIGATION OFFICER BASIC METABOLIC PANEL STAT 06/09/2017 9:55 AM NAVIGATION OFFICER POC GLUCOSE Routine 06/09/2017 8:37 AM NAVIGATION OFFICER ANTI XA, UNFRACTIONATED Routine 06/09/2017 6:42 AM NAVIGATION OFFICER POC GLUCOSE Routine 2017 11:58 PM NAVIGATION OFFICER ANTI XA, UNFRACTIONATED Routine 2017 11:00 PM NAVIGATION OFFICER POC GLUCOSE Routine 2017 8:52 PM NAVIGATION OFFICER POC GLUCOSE Routine 2017 8:36 PM NAVIGATION OFFICER POC GLUCOSE Routine 2017 5:47 PM NAVIGATION OFFICER ANTI XA, UNFRACTIONATED Routine 2017 5:03 PM NAVIGATION OFFICER POC GLUCOSE Routine 2017 12:42 PM NAVIGATION OFFICER ANTI XA, UNFRACTIONATED Routine 2017 8:29 AM NAVIGATION OFFICER TROPONIN Routine 2017 7:51 AM NAVIGATION OFFICER ECG 12-LEAD STAT 2017 7:38 AM NAVIGATION OFFICER POC GLUCOSE Routine 2017 7:21 AM NAVIGATION OFFICER ZZESTIMATED GFR Routine 2017 2:09 AM NAVIGATION OFFICER COMPREHENSIVE METABOLIC PANEL Routine 2017 2:09 AM NAVIGATION OFFICER ANTI XA, UNFRACTIONATED Timed 2017 2:00 AM NAVIGATION OFFICER HC COMPLETE BLD COUNT W/AUTO Routine 2017 2:00 AM NAVIGATION OFFICER Results for this DIFF procedure are in the results section. POC GLUCOSE Routine 06/07/2017 9:12 PM NAVIGATION OFFICER ANTI XA, UNFRACTIONATED Routine 06/07/2017 5:55 PM NAVIGATION OFFICER POC GLUCOSE Routine 06/07/2017 5:50 PM NAVIGATION OFFICER B NATRIURETIC PEPTIDE Routine 06/07/2017 12:32 PM NAVIGATION OFFICER TYPE AND SCREEN Routine 06/07/2017 12:32 PM NAVIGATION OFFICER HEMOGLOBIN A1C Routine 06/07/2017 12:32 PM NAVIGATION OFFICER POC GLUCOSE Routine 06/07/2017 12:12 PM NAVIGATION OFFICER BLOOD CULTURE, AEROBIC & Routine 06/07/2017 11:30 AM NAVIGATION OFFICER Results for this ANAEROBIC procedure are in the results section. BLOOD CULTURE, AEROBIC & Routine 06/07/2017 11:30 AM NAVIGATION OFFICER Results for this ANAEROBIC procedure are in the results section. ANTI XA, UNFRACTIONATED Routine 06/07/2017 8:35 AM NAVIGATION OFFICER POC GLUCOSE Routine 06/07/2017 8:04 AM NAVIGATION OFFICER ZZESTIMATED GFR Routine 06/07/2017 1:30 AM NAVIGATION OFFICER ANTI XA, UNFRACTIONATED Routine 06/07/2017 1:30 AM NAVIGATION OFFICER HC COMPLETE BLD COUNT W/AUTO Routine 06/07/2017 1:30 AM NAVIGATION OFFICER Results for this DIFF procedure are in the results section. COMPREHENSIVE METABOLIC PANEL Routine 06/07/2017 1:30 AM NAVIGATION OFFICER POC GLUCOSE Routine 06/07/2017 1:08 AM NAVIGATION OFFICER OCCULT BLOOD, STOOL Routine 06/06/2017 10:35 PM NAVIGATION OFFICER POC GLUCOSE Routine 06/06/2017 9:13 PM NAVIGATION OFFICER ANTI XA, UNFRACTIONATED Routine 06/06/2017 5:45 PM NAVIGATION OFFICER POC GLUCOSE Routine 06/06/2017 5:15 PM NAVIGATION OFFICER POC GLUCOSE Routine 06/06/2017 12:03 PM NAVIGATION OFFICER TROPONIN Timed 06/06/2017 12:00 PM NAVIGATION OFFICER ECHOCARDIOGRAM 2D COMPLETE W Routine 06/06/2017 10:32 AM NAVIGATION OFFICER Results for this MMODE SPECTRAL COLOR DOPPLER procedure are in the (99559) results section. ANTI XA, UNFRACTIONATED STAT 06/06/2017 8:53 AM NAVIGATION OFFICER TROPONIN Timed 06/06/2017 8:00 AM NAVIGATION OFFICER POC GLUCOSE Routine 06/06/2017 7:28 AM NAVIGATION OFFICER HC COMPLETE BLD COUNT W/AUTO Routine 06/06/2017 6:10 AM NAVIGATION OFFICER Results for this DIFF procedure are in the results section. ZZESTIMATED GFR Routine 06/06/2017 6:00 AM NAVIGATION OFFICER LIPID PANEL Routine 06/06/2017 6:00 AM NAVIGATION OFFICER COMPREHENSIVE METABOLIC PANEL Routine 06/06/2017 6:00 AM NAVIGATION OFFICER ECG 12-LEAD Routine 06/06/2017 5:30 AM NAVIGATION OFFICER ECG 12-LEAD Routine 06/06/2017 2:00 AM NAVIGATION OFFICER ANTI XA, UNFRACTIONATED Routine 06/06/2017 1:00 AM NAVIGATION OFFICER TROPONIN Timed 06/06/2017 12:00 AM NAVIGATION OFFICER POC GLUCOSE Routine 06/05/2017 10:42 PM NAVIGATION OFFICER ECG ED PRELIMINARY Routine 06/05/2017 5:39 PM NAVIGATION OFFICER Results for this INTERPRETATION procedure are in the results section. NE CRITICAL CARE, E/M 30-74 Routine 06/05/2017 5:39 PM NAVIGATION OFFICER Results for this MINUTES procedure are in the results section. ANTI XA, UNFRACTIONATED Routine 06/05/2017 5:05 PM NAVIGATION OFFICER PROTHROMBIN TIME WITH INR Routine 06/05/2017 5:05 PM NAVIGATION OFFICER PARTIAL THROMBOPLASTIN TIME Routine 06/05/2017 5:05 PM NAVIGATION OFFICER Results for this (PTT) procedure are in the results section. XR CHEST 1 VW PORTABLE STAT 06/05/2017 3:56 PM NAVIGATION OFFICER ZZESTIMATED GFR STAT 06/05/2017 3:46 PM NAVIGATION OFFICER B NATRIURETIC PEP, I-STAT STAT 06/05/2017 3:46 PM NAVIGATION OFFICER TROPONIN, I-STAT STAT 06/05/2017 3:46 PM NAVIGATION OFFICER COMPREHENSIVE METABOLIC PANEL STAT 06/05/2017 3:46 PM NAVIGATION OFFICER PROTHROMBIN TIME WITH INR, STAT 06/05/2017 3:46 PM NAVIGATION OFFICER Results for this I-STAT procedure are in the results section. HC COMPLETE BLD COUNT W/AUTO STAT 06/05/2017 3:46 PM NAVIGATION OFFICER Results for this DIFF procedure are in the results section. ECG 12-LEAD STAT 06/05/2017 3:33 PM NAVIGATION OFFICER after 05/24/2017 Results Transfuse RBC (03/05/2018 5:45 PM CDT)Basic metabolic panel (01/07/2018 11:55 AM CDT)Only the most recent of21 resultswithin the time period is included. Glucose 116 (H) 65 - 99 mg/dL [facility] BUN, whole blood 41 (H) 8 - 27 mg/dL [facility] Creatinine 1.51 (H) 0.57 - 1.00 mg/dL [facility] EGFR Non-Afr. [place]an 34 (L) >59 mL/min/1.73 [facility] EGFR 39 (L) >59 mL/min/1.73 [facility] BUN/creatinine ratio 27 12 - 28 [facility] Sodium 142 134 - 144 mmol/L [facility] Potassium 4.9 3.5 - 5.2 mmol/L [facility] Chloride 97 96 - 106 mmol/L [facility] CO2 28 20 - 29 mmol/L [facility] Calcium 9.7 8.7 - 10.3 mg/dL [facility] Specimen Blood Narrative Performed At Performed at:01 - [facility] [address] [place], [id number] Log Carrier Operator: Magdaleno Arredondo MD, Phone:[phone] Performing Organization Address City/State/Zipcode Phone Number [facility] Echocardiogram complete w contrast and 3D if needed (09/30/2017 11:02 AM CDT) Narrative Performed At [facility] Ech[facility] Report Pat.Name:MARILEE GONZALEZ Pat.ID:[id number] St.Date: 09/30/2017Refer.MD:BRO ABURTO MD Exam Time: 11:23:00 AM Study Type:Routine Echo Height:64inWeight: 186lb BSA: 1.9 r8RMBCyd:1945,72Y Sex: FEMALEBP:136/75 HR:67 bpmSonogrphr: Ge Ramires RDCS Pat. Stat.:OutpatientRoom:[address] Study Status:Final Echo Event ID:[id number] Order ID:[id number] Reason for Study:Coronary Artery Disease History / Clinical:Coronary Artery Disease Procedures:2D Echo, Colorflow Doppler Race:C SUMMARY: LV EF is grossly normal.Unable to assess regional wall motion; no RN available to administer IV contrast. Diastolic dysfunction Grade II (Moderate): Impaired relaxation with elevated LV filling pressures. Moderate pulmonary artery hypertension. FINDINGS: LV: LV size is normal. There is moderate concentric LV hypertrophy.LV EF is grossly normal. Unable to assess regionalwall motion; no RN available to administer IV contrast.Estimated EF is 50-60%. RV: RV size is normal. RV systolic function is grossly normal. LA: LA volume is enlarged. RA: RA volume is difficult to assess. AO: Aortic root diameter is normal. ELOY: No pericardial effusion. AV: No structural AV abnormalities noted. MV: No structural MV abnormalities noted. PV: Pulmonic valve not well seen. TV: Tricuspid valve not well seen. Mild tricuspid regurgitation Piper: Diastolic dysfunction Grade II (Moderate): Impaired relaxationwith elevated LV filling pressures. Other:Estimated PA systolic pressure is 63 mmHg, assuming a mean RAPof 10 mmHg. MEASUREMENTS: 2D Parasternal Long Guthrie LVOT 2 cmLVPWd1.6 cm LVIDd3.5 cmIndex1.9 cm/m LA Ds3.3 cm LVIDs2.5 cmAo Rtd 3.2 cm Index1.7 cm/m LV%fs 28.6 % LV Lwwe318.7 g(87-129) IVSd 1.3 cmRWT0.9 LA Biplane LA 4Ch Area 26.3 cm2 LA Vol 100.6 ml Index52.9 ml/m LA 2Ch Area 23.1 cm2 DOPPLER TV Pressure Gradient TV PkVel 364 cm/sTV PG 53 mmHg Signed 10/01/2017 12:32 PM Aravind Kohler M.D. Procedure Note Interface, Radiology Results In - 10/01/2017 12:32 PM CDT [facility] Echocardiography Report Pat.Name: MARILEE GONZALEZ Bubba Pat.ID: [id number] .Date: 09/30/2017 Refer.MD: BRO ABURTO MD Exam Time: 11:23:00 AM Study Type:Routine Echo Height: 64in Weight: 186lb BSA: 1.9 m2 Age: 11 1945,72Y Sex: FEMALE BP: 136/75 HR: 67 bpm Sonogrphr: Ge Ramires RDCS Pat. Stat.:Outpatient Room: [address] Study Status:Final Echo Event ID:[id number] Order ID: [id number] Reason for Study:Coronary Artery Disease History / Clinical:Coronary Artery Disease Procedures:2D Echo, Colorflow Doppler Race: C SUMMARY: LV EF is grossly normal. Unable to assess regional wall motion; no RN available to administer IV contrast. Diastolic dysfunction Grade II (Moderate): Impaired relaxation with elevated LV filling pressures. Moderate pulmonary artery hypertension. FINDINGS: LV: LV size is normal. There is moderate concentric LV hypertrophy. LV EF is grossly normal. Unable to assess regional wall motion; no RN available to administer IV contrast. Estimated EF is 50-60%. RV: RV size is normal. RV systolic function is grossly normal. LA: LA volume is enlarged. RA: RA volume is difficult to assess. AO: Aortic root diameter is normal. ELOY: No pericardial effusion. AV: No structural AV abnormalities noted. MV: No structural MV abnormalities noted. PV: Pulmonic valve not well seen. TV: Tricuspid valve not well seen. Mild tricuspid regurgitation Piper: Diastolic dysfunction Grade II (Moderate): Impaired relaxation with elevated LV filling pressures. Other: Estimated PA systolic pressure is 63 mmHg, assuming a mean RAP of 10 mmHg. MEASUREMENTS: 2D Parasternal Long Guthrie LVOT 2 cm LVPWd 1.6 cm LVIDd 3.5 cm Index 1.9 cm/m LA Ds 3.3 cm LVIDs 2.5 cm Ao Rtd 3.2 cm Index 1.7 cm/m LV%fs 28.6 % LV Mass 186.7 g (87-129) IVSd 1.3 cm RWT 0.9 LA Biplane LA 4Ch Area 26.3 cm2 LA Vol 100.6 ml Index 52.9 ml/m LA 2Ch Area 23.1 cm2 DOPPLER TV Pressure Gradient TV PkVel 364 cm/s TV PG 53 mmHg Signed 10/01/2017 12:32 PM Aravind Kohler M.D. Performing Organization Address City/State/Zipcode Phone Number [facility] [id number] [place] [address] Pv duplex arterial lower extremity (09/24/2017 2:38 PM CDT) Narrative Performed At [facility] Lower Extremity Arterial Report Pat.Name:MARILEE GONZALEZ Pat.ID:[id number] St.Date: 09/24/2017 Refer.MD:BRO ABURTO MD Exam Time: 1:29:00 PMStudy Type:LE Arterial DOBAge:1945,72Y Sex: FEMALE Sonogrphr: Vesna Tobias RDMS, RDCS, RVT Pat. Stat.:Outpatient Room:[place] [address]: [id number] Echo Event ID:[id number] Order ID:[id number] Reason for Study:Claudication Race:C SUMMARY: DUPLEX SCAN OBSERVATIONS: Duplex of the bilateral lower extremities was done. RIGHT: The common femoral, profunda, superfical femoral, popliteal, posterior tibial and anterior tibial have biphasic flow.There is no evidence of stenosis.The peroneal has monophasic flow. Limited visualization of the peroneal artery. LEFT: The common femoral, profunda femoral, superficial and popliteal arteries have biphasic flow. There is no evidence of stenosis.The proximal and mid segment of the posterior tibial artery has absent color and Doppler flow suggestive of an occlusion.Monophasic flow is seen distally in the posterior tibial.Dorsalis pedis has monophasic flow. The peroneal was not seen. PRELIMINARY FINDINGS: 1. 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 MEASUREMENTS: DOPPLER Right SENIOR GRAPHIC DESIGNER prox SENIOR GRAPHIC DESIGNER prox PSV 141 cm/sCFA prox EDV24.2 cm/s Right Profunda Profunda PSV94.9 cm/sProfunda EDV1.86 cm/s Profunda Right Profunda 60 deg Right SFA Dist SFA Dist PSV82.5 cm/sSFA Dist EDV5.63 cm/s Right SFA Mid SFA Mid KUC156 cm/sSFA Mid EDV 1.88 cm/s Right SFA Prox SFA Prox PSV92.1 cm/sSFA Prox EDV8.37 cm/s Right Pop Dist Pop Dist PSV49.1 cm/sPop Dist EDV5.95 cm/s Right Pop Prox Pop Prox PSV69.5 cm/sPop Prox EDV1.78 cm/s Right GUM ROLLING MACHINE TENDER Prox GUM ROLLING MACHINE TENDER Prox PSV68.3 cm/sPTA Prox EDV 0 cm/s Right GUM ROLLING MACHINE TENDER Dist GUM ROLLING MACHINE TENDER Dist PSV26.8 cm/s Tibial Post Right Tibial Po 0 cm/s Right GUM ROLLING MACHINE TENDER Mid GUM ROLLING MACHINE TENDER Mid PSV 35.6 cm/sPTA Mid EDV0 cm/s Right Peroneal Dist Peroneal Dist P51.3 cm/s Dors Pedis Right Dors Pedi55.3 cm/s Left Dors Pedis59.4 cm/s Right Dors Pedi 0 cm/s Left Dors Pedis 0 cm/s Right Dors Pedi54 degLeft Dors Pedis52 deg Left Profunda Profunda PSV96.2 cm/s Left SFA Dist SFA Dist PSV79 cm/sSFA Dist EDV 0 cm/s Left SFA Mid SFA Mid QLM708 cm/sSFA Mid EDV0 cm/s Left SFA Prox SFA Prox PSV 138 cm/s Left Pop Dist Pop Dist PSV61.3 cm/s Left Pop Prox Pop Prox PSV64.1 cm/s Left MICHELE Prox MICHELE Prox PSV55.6 cm/s Tibial Art Left Tibial Art 0 cm/s Left GUM ROLLING MACHINE TENDER Dist GUM ROLLING MACHINE TENDER Dist PSV41.5 cm/s Signed 09/25/2017 04:55 PM Bro Aburto MD Procedure Note Interface, Radiology Results In - 09/25/2017 4:56 PM CDT [facility] Lower Extremity Arterial Report Pat.Name: MARILEE GONZALEZ Pat.ID: [id number] St.Date: 09/24/2017 Refer.MD: BRO ABURTO MD Exam Time: 1:29:00 PM Study Type:LE Arterial Age: 12 1945,72Y Sex: FEMALE Sonogrphr: Vesna Tobias RDMS, RDCS, RVT Pat. Stat.:Outpatient Room: [place] CPT - 4: 91634 Echo Event ID:[id number] Order ID: [id number] Reason for Study:Claudication Race: C SUMMARY: DUPLEX SCAN OBSERVATIONS: Duplex of the bilateral lower extremities was done. RIGHT: The common femoral, profunda, superfical femoral, popliteal, posterior tibial and anterior tibial have biphasic flow. There is no evidence of stenosis. The peroneal has monophasic flow. Limited visualization of the peroneal artery. LEFT: The common femoral, profunda femoral, superficial and popliteal arteries have biphasic flow. There is no evidence of stenosis. The proximal and mid segment of the posterior tibial artery has absent color and Doppler flow suggestive of an occlusion. Monophasic flow is seen distally in the posterior tibial. Dorsalis pedis has monophasic flow. The peroneal was not seen. PRELIMINARY FINDINGS: 1. 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 MEASUREMENTS: DOPPLER Right SENIOR GRAPHIC DESIGNER prox SENIOR GRAPHIC DESIGNER prox PSV 141 cm/s SENIOR GRAPHIC DESIGNER prox EDV 24.2 cm/s Right Profunda Profunda PSV 94.9 cm/s Profunda EDV 1.86 cm/s Profunda Right Profunda 60 deg Right SFA Dist SFA Dist PSV 82.5 cm/s SFA Dist EDV 5.63 cm/s Right SFA Mid SFA Mid PSV 113 cm/s SFA Mid EDV 1.88 cm/s Right SFA Prox SFA Prox PSV 92.1 cm/s SFA Prox EDV 8.37 cm/s Right Pop Dist Pop Dist PSV 49.1 cm/s Pop Dist EDV 5.95 cm/s Right Pop Prox Pop Prox PSV 69.5 cm/s Pop Prox EDV 1.78 cm/s Right GUM ROLLING MACHINE TENDER Prox GUM ROLLING MACHINE TENDER Prox PSV 68.3 cm/s GUM ROLLING MACHINE TENDER Prox EDV 0 cm/s Right GUM ROLLING MACHINE TENDER Dist GUM ROLLING MACHINE TENDER Dist PSV 26.8 cm/s Tibial Post Right Tibial Po 0 cm/s Right GUM ROLLING MACHINE TENDER Mid GUM ROLLING MACHINE TENDER Mid PSV 35.6 cm/s GUM ROLLING MACHINE TENDER Mid EDV 0 cm/s Right Peroneal Dist Peroneal Dist P 51.3 cm/s Dors Pedis Right Dors Pedi 55.3 cm/s Left Dors Pedis 59.4 cm/s Right Dors Pedi 0 cm/s Left Dors Pedis 0 cm/s Right Dors Pedi 54 deg Left Dors Pedis 52 deg Left Profunda Profunda PSV 96.2 cm/s Left SFA Dist SFA Dist PSV 79 cm/s SFA Dist EDV 0 cm/s Left SFA Mid SFA Mid PSV 109 cm/s SFA Mid EDV 0 cm/s Left SFA Prox SFA Prox PSV 138 cm/s Left Pop Dist Pop Dist PSV 61.3 cm/s Left Pop Prox Pop Prox PSV 64.1 cm/s Left MICHELE Prox MICHELE Prox PSV 55.6 cm/s Tibial Art Left Tibial Art 0 cm/s Left GUM ROLLING MACHINE TENDER Dist GUM ROLLING MACHINE TENDER Dist PSV 41.5 cm/s Signed 09/25/2017 04:55 PM Bro Aburto MD Performing Organization Address City/State/Zipcode Phone Number [facility] [address] [place] [address] POC glucose (06/29/2017 12:00 PM NAVIGATION OFFICER)Only the most recent of171 resultswithin the time period is included. POC glucose 126 (H) 65 - 99 mg/dL [facility] DEPARTMENT OF PATHOLOGY AND Comment: GENOMIC MEDICINE [facility] Notified RN Meter ID: [id number] Carbonizer: Jessee Cat Performing Organization Address City/[facility]/Zipcode Phone Number [facility] DEPARTMENT OF PATHOLOGY AND [address] [place] [address] GENOMIC MEDICINE XR Chest 2 Vw (06/28/2017 5:02 PM NAVIGATION OFFICER)Only the most recent of2 resultswithin the time period is included. Narrative Performed At EXAMINATION:XR CHEST 2 VW [facility] CLINICAL HISTORY:Post-op surgery COMPARISON:06/25/2017 IMPRESSION: 1.Sternotomy wires are present. The cardiomediastinal silhouette is moderately enlarged. 2.There is no evidence of pulmonary edema. There is persistent retrocardiac consolidation, right basilar volume loss, and small bilateral pleural effusions, slightly greater on the left. 3.Regional skeletal structures are slightly osteopenic. 4.Status post cholecystectomy. Procedure Note Interface, Radiology Results Incoming - 06/28/2017 5:08 PM NAVIGATION OFFICER EXAMINATION: XR CHEST 2 VW CLINICAL HISTORY: Post-op surgery COMPARISON: 06/25/2017 IMPRESSION: 1. Sternotomy wires are present. The cardiomediastinal silhouette is moderately enlarged. 2. There is no evidence of pulmonary edema. There is persistent retrocardiac consolidation, right basilar volume loss, and small bilateral pleural effusions , slightly greater on the left. 3. Regional skeletal structures are slightly osteopenic. 4. Status post cholecystectomy. Performing Organization Address City/[facility]/Zipcode Phone Number [facility] [address] [place] [address] Estimated GFR (06/28/2017 4:00 AM NAVIGATION OFFICER)Only the most recent of24 resultswithin the time period is included. GFR Non Af Amer 32 (A) mL/min/1.73 m2 [facility] DEPARTMENT OF PATHOLOGY AND GENOMIC MEDICINE GFR Af Amer 38 (A) mL/min/1.73 m2 [facility] DEPARTMENT OF Comment: PATHOLOGY AND GENOMIC Chronic kidney disease: <60 mL/min/1.73m2 MEDICINE Kidney failure: <15 mL/min/1.73m2 The estimated GFR is calculated from the IDMS-traceable Modification of Diet in Renal Disease Equation. The accuracy of the calculation is poor when the creatinine is normal. Calculated values >90 mL/min/1.73m2 are not reported. This equation has not been validated in children (<18 years), women, the elderly (>70 years), or ethnic groups other than Caucasians and Americans. Specimen Plasma specimen Performing Organization Address City/State/Zipcode Phone Number [facility] PATHOLOGY AND [address] [place] [phone] [employer] [facility] CBC hemogram (06/26/2017 4:45 AM NAVIGATION OFFICER)Only the most recent of6 resultswithin the time period is included. WBC 12.99 (H) 4.50 - 11.00 k/uL [facility] DEPARTMENT OF PATHOLOGY AND GENOMIC MEDICINE RBC 2.73 (L) 4.20 - 5.50 m/uL [facility] DEPARTMENT OF PATHOLOGY AND GENOMIC MEDICINE HGB 8.6 (L) 12.0 - 16.0 g/dL [facility] DEPARTMENT OF PATHOLOGY AND GENOMIC MEDICINE HCT 26.5 (L) 37.0 - 47.0 % [facility] DEPARTMENT OF PATHOLOGY AND GENOMIC MEDICINE MCV 97.1 82.0 - 100.0 fL [facility] DEPARTMENT OF PATHOLOGY AND GENOMIC MEDICINE MCH 31.5 27.0 - 34.0 pg [facility] DEPARTMENT OF PATHOLOGY AND GENOMIC MEDICINE MCHC 32.5 31.0 - 37.0 g/dL [facility] DEPARTMENT OF PATHOLOGY AND GENOMIC MEDICINE RDW - SD 47.8 37.0 - 55.0 fL [facility] DEPARTMENT OF PATHOLOGY AND GENOMIC MEDICINE MPV 9.8 8.8 - 13.2 fL [facility] DEPARTMENT OF PATHOLOGY AND GENOMIC MEDICINE Platelet count 573 (H) 150 - 400 k/uL [facility] DEPARTMENT OF PATHOLOGY AND GENOMIC MEDICINE Nucleated RBC 0.00 /100 WBC [facility] DEPARTMENT OF PATHOLOGY AND GENOMIC MEDICINE Specimen Blood Performing Organization Address City/State/[facility] Phone Number [facility] DEPARTMENT PATHOLOGY AND [address] [place] [phone] [employer] [facility] XR Chest 1 Vw Portable (06/25/2017 5:59 PM NAVIGATION OFFICER)Only the most recent of16 resultswithin the time period is included. Narrative Performed At EXAMINATION: Portable chest x-ray HM [facility] CLINICAL HISTORY:Post-op surgery COMPARISON: Most recent available chest x-ray. The heart is enlarged. Sternal wires are aligned. There are degenerative changes in the dorsal spine. IMPRESSION: There isretrocardiac atelectasis and small/moderate left pleural effusion, unchanged from the prior study. [id number] Procedure Note Hm Interface, Radiology Results Incoming - 06/25/2017 6:06 PM NAVIGATION OFFICER EXAMINATION: Portable chest x-ray CLINICAL HISTORY: Post-op surgery COMPARISON: Most recent available chest x-ray. The heart is enlarged. Sternal wires are aligned. There are degenerative changes in the dorsal spine. IMPRESSION: There is retrocardiac atelectasis and small/moderate left pleural effusion, unchanged from the prior study. [id number] Performing Organization Address [facility] Phone Number [facility] [address] [place] [phone] Total iron binding capacity (06/25/2017 4:00 AM NAVIGATION OFFICER) Iron level 35 (L) 37 - 145 ug/dL [facility] DEPARTMENT OF PATHOLOGY AND GENOMIC MEDICINE Iron binding capacity 229 200 - 400 ug/dL [facility] DEPARTMENT OF PATHOLOGY AND GENOMIC MEDICINE % Saturation 15.3 15.0 - 38.0 % [facility] DEPARTMENT OF PATHOLOGY AND GENOMIC MEDICINE Specimen Plasma specimen Performing Organization Address [facility] Phone Number [facility] DEPARTMENT OF PATHOLOGY AND [address] [place] [phone] GENOMIC MEDICINE Ferritin level (06/25/2017 4:00 AM NAVIGATION OFFICER) Ferritin level 247 (H) 13 - 150 ng/mL [facility] DEPARTMENT OF PATHOLOGY AND GENOMIC MEDICINE Specimen Plasma specimen Performing Organization Address [facility] Phone Number [facility] DEPARTMENT OF PATHOLOGY AND [address] [place] [phone] GENOMIC MEDICINE Phosphorus level (06/22/2017 12:00 AM NAVIGATION OFFICER)Only the most recent of11 resultswithin the time period is included. Phosphorus 4.1 2.4 - 4.5 mg/dL [facility] DEPARTMENT OF PATHOLOGY AND GENOMIC MEDICINE Specimen Plasma specimen Performing Organization Address [facility] Phone Number [facility] DEPARTMENT OF PATHOLOGY AND [address] [place] [phone] GENOMIC MEDICINE Magnesium level (06/22/2017 12:00 AM NAVIGATION OFFICER)Only the most recent of14 resultswithin the time period is included. Magnesium 2.5 (H) 1.6 - 2.4 mg/dL [facility] DEPARTMENT OF PATHOLOGY AND GENOMIC MEDICINE Specimen Plasma specimen Performing Organization Address [facility] Phone Number [facility] DEPARTMENT OF PATHOLOGY AND [address] [place] [address] Ionized calcium (06/22/2017 12:00 AM NAVIGATION OFFICER)Only the most recent of9 resultswithin the time period is included. pH 7.48 [facility] DEPARTMENT OF PATHOLOGY AND GENOMIC MEDICINE Ionized calcium 1.11 1.11 - 1.32 mmol/L [facility] DEPARTMENT OF PATHOLOGY AND GENOMIC MEDICINE Specimen Plasma specimen Performing Organization Address [facility] Phone Number [facility] DEPARTMENT OF PATHOLOGY AND [address] [place] [address] Prothrombin time with INR (06/21/2017 9:43 AM NAVIGATION OFFICER)Only the most recent of6 resultswithin the time period is included. Prothrombin time 14.7 12.0 - 15.0 sec [facility] DEPARTMENT OF PATHOLOGY AND GENOMIC MEDICINE INR 1.1 [facility] DEPARTMENT OF Comment: PATHOLOGY AND GENOMIC The International Normalized Ratio (INR) is a therapeutic MEDICINE monitoring tool for patients who are stable on oral anticoagulant therapy. An INR of 2.0-3.0 is suggested for deep vein thrombosis/pulmonary embolism. Specimen Blood Performing Organization Address [facility] Phone Number [facility] DEPARTMENT OF PATHOLOGY AND [address] [place] [address] CBC with platelet and differential (06/21/2017 12:25 AM NAVIGATION OFFICER)Only the most recent of15 resultswithin the time period is included. WBC 14.08 (H) 4.50 - 11.00 k/uL [facility] DEPARTMENT OF PATHOLOGY AND GENOMIC MEDICINE RBC 2.69 (L) 4.20 - 5.50 m/uL [facility] DEPARTMENT OF PATHOLOGY AND GENOMIC MEDICINE HGB 8.4 (L) 12.0 - 16.0 g/dL [facility] DEPARTMENT OF PATHOLOGY AND GENOMIC MEDICINE HCT 25.2 (L) 37.0 - 47.0 % [facility] DEPARTMENT OF PATHOLOGY AND GENOMIC MEDICINE MCV 93.7 82.0 - 100.0 fL [facility] DEPARTMENT OF PATHOLOGY AND GENOMIC MEDICINE MCH 31.2 27.0 - 34.0 pg [facility] DEPARTMENT OF PATHOLOGY AND GENOMIC MEDICINE MCHC 33.3 31.0 - 37.0 g/dL [facility] DEPARTMENT OF PATHOLOGY AND GENOMIC MEDICINE RDW - SD 45.3 37.0 - 55.0 fL [facility] DEPARTMENT OF PATHOLOGY AND GENOMIC MEDICINE MPV 10.1 8.8 - 13.2 fL [facility] DEPARTMENT OF PATHOLOGY AND GENOMIC MEDICINE Platelet count 407 (H) 150 - 400 k/uL [facility] DEPARTMENT OF PATHOLOGY AND GENOMIC MEDICINE Nucleated RBC 0.00 /100 WBC [facility] DEPARTMENT OF PATHOLOGY AND GENOMIC MEDICINE Neutrophils 74.4 (H) 39.0 - 69.0 % [facility] DEPARTMENT OF PATHOLOGY AND GENOMIC MEDICINE Lymphocytes 10.7 (L) 25.0 - 45.0 % [facility] DEPARTMENT OF PATHOLOGY AND GENOMIC MEDICINE Monocytes 8.4 0.0 - 10.0 % [facility] DEPARTMENT OF PATHOLOGY AND GENOMIC MEDICINE Eosinophils 5.0 0.0 - 5.0 % [facility] DEPARTMENT OF PATHOLOGY AND GENOMIC MEDICINE Basophils 0.5 0.0 - 1.0 % [facility] DEPARTMENT OF PATHOLOGY AND GENOMIC MEDICINE Immature granulocytes 1.0Comment: 0.0 - 1.0 % [facility] DEPARTMENT OF "Immature PATHOLOGY AND GENOMIC granulocytes" MEDICINE (promyelocytes, myelocytes, metamyelocytes) Specimen Blood Performing Organization Address City/[facility]/Zipcode Phone Number [facility] DEPARTMENT OF PATHOLOGY AND [address] [place] [address] GENOMIC MEDICINE Type and screen (06/20/2017 2:10 AM NAVIGATION OFFICER)Only the most recent of4 resultswithin the time period is included. ABO grouping B [facility] DEPARTMENT OF PATHOLOGY AND GENOMIC MEDICINE Rh type POS [facility] DEPARTMENT OF PATHOLOGY AND GENOMIC MEDICINE Antibody screen (gel) NEG [facility] DEPARTMENT OF PATHOLOGY AND GENOMIC MEDICINE Specimen Blood Performing Organization Address City/[facility]/Zipcode Phone Number [facility] DEPARTMENT OF PATHOLOGY AND [address] [place] [address] [phone] [facility] MEDICINE ECG 12 lead (06/19/2017 6:14 AM NAVIGATION OFFICER)Only the most recent of13 resultswithin the time period is included. Ventricular rate 82 [facility] Atrial rate 82 [facility] NE interval 166 [facility] QRSD interval 144 [facility] QT interval 396 [facility] QTC interval 462 [facility] P axis 1 49 [facility] QRS axis 1 -33 [facility] T wave axis 47 [facility] EKG impression Normal sinus rhythm-Possible Left atrial enlargement-Left axis deviation-Right bundle branch block-Inferior infarct , age undetermined- Abnormal ECG-In automated comparison with ECG of 18-JUN-2017 06:17, [facility] MUSE -Sinus rhythm has replaced Electronic ventricular pacemaker- 9: 54:15 PM Performing Organization Address [facility] Phone Number [facility] MUSE [address] [place] [address] US Thoracentesis With Imaging (06/18/2017 2:47 PM NAVIGATION OFFICER) Narrative Performed At EXAMINATION:US THORACENTESIS WITH IMAGING [facility] CLINICAL HISTORY: pleural effusion COMPARISON:None. TECHNIQUE: The procedure's risks, benefits, and alternatives were discussed with the patient and written, informed consent was obtained. Using ultrasound guidance, left pleural effusion was localized and the overlying posterior chest was prepped and draped in the usual sterile fashion. 1% buffered lidocaine was used for local anesthesia. A 5 Bahraini Yueh catheter was inserted into the pleural space. 450 cc of pleural fluid was removed. The patient tolerated the procedure without difficulty and postprocedure chest x-ray is pending. IMPRESSION: Successful ultrasound-guided left thoracentesis. [facility]-[id number] Procedure Note [facility], Radiology Results Incoming - 06/18/2017 3:32 PM NAVIGATION OFFICER EXAMINATION: US THORACENTESIS WITH IMAGING CLINICAL HISTORY: pleural effusion COMPARISON:None. TECHNIQUE: The procedure's risks, benefits, and alternatives were discussed with the patient and written, informed consent was obtained. Using ultrasound guidance, left pleural effusion was localized and the overlying posterior chest was prepped and draped in the usual sterile fashion. 1 % buffered lidocaine was used for local anesthesia. A 5 Bahraini Yueh catheter was inserted into the pleural space. 450 cc of pleural fluid was removed. The patient tolerated the procedure without difficulty and postprocedure chest x-ray is pending. IMPRESSION: Successful ultrasound-guided left thoracentesis. [facility]-[id number] Performing Organization Address City/[facility] Phone Number [facility] [address] [place] [address] Aerobic culture (06/18/2017 2:46 PM NAVIGATION OFFICER) Aerobic culture isolate No growth after 3 days. [facility] DEPARTMENT OF Comment: PATHOLOGY AND GENOMIC Specimen Information MEDICINE Specimen Source: Pleural fluid Specimen Site: Left chest Specimen Pleural fluid - Pleural Fluid Performing Organization Address City/[facility] Cent[facility]ode Phone Number [facility] DEPARTMENT OF PATHOLOGY AND [address] [place] [phone] GENOMIC MEDICINE Gram stain (06/18/2017 2:46 PM NAVIGATION OFFICER) Gram stain isolate Rare WBC's [facility] DEPARTMENT OF PATHOLOGY No organisms seen AND GENOMIC MEDICINE Comment: Specimen Information Specimen Source: Pleural fluid Specimen Site: Left chest Specimen Pleural fluid Performing Organization Address City/[facility] Cent[facility]ode Phone Number [facility] DEPARTMENT OF PATHOLOGY AND [address] [place] [phone] [facility] MEDICINE Anaerobic culture (06/18/2017 2:46 PM NAVIGATION OFFICER) Anaerobic culture No anaerobic organisms isolated. [facility] DEPARTMENT OF isolate Comment: PATHOLOGY AND GENOMIC Specimen Information MEDICINE Specimen Source: Pleural fluid Specimen Site: Left chest Specimen Pleural fluid - Pleural Fluid Performing Organization Address [facility] Phone Number [facility] DEPARTMENT OF PATHOLOGY AND [address] [place] [phone] GENOMIC MEDICINE Cell count and differential, body fluid (06/18/2017 2:39 PM NAVIGATION OFFICER) [facility] fluid type Pleural [facility] DEPARTMENT OF PATHOLOGY AND GENOMIC MEDICINE Color, fluid [place] [facility] DEPARTMENT OF PATHOLOGY AND GENOMIC MEDICINE Appearance, fluid Cloudy (A) [facility] DEPARTMENT OF PATHOLOGY AND GENOMIC MEDICINE RBC, fluid 46,000 /CMM [facility] DEPARTMENT OF PATHOLOGY AND GENOMIC MEDICINE Nucleated cells, fluid 1,771 /CMM [facility] DEPARTMENT OF PATHOLOGY AND GENOMIC MEDICINE Fluid mononuclear cell See Diff [facility] DEPARTMENT OF PATHOLOGY AND GENOMIC MEDICINE Neutrophils, fluid 28 % [facility] DEPARTMENT OF PATHOLOGY AND GENOMIC MEDICINE Lymphocytes, fluid 42 % [facility] DEPARTMENT OF PATHOLOGY AND GENOMIC MEDICINE Eosinophils, fluid 1 % [facility] DEPARTMENT OF PATHOLOGY AND GENOMIC MEDICINE Mesothelial cells, fluid 1 % [facility] DEPARTMENT OF PATHOLOGY AND GENOMIC MEDICINE Macrophages, fluid 28 % [facility] DEPARTMENT OF PATHOLOGY AND GENOMIC MEDICINE Specimen Fluid Performing Organization Address [facility] Cent[facility]ode Phone Number [facility] DEPARTMENT OF PATHOLOGY AND [address] [place] [phone] GENOMIC MEDICINE LDH, misc fluid (06/18/2017 2:39 PM NAVIGATION OFFICER) Fluid type Pleural [facility] DEPARTMENT OF PATHOLOGY AND GENOMIC MEDICINE LDH, fluid 956 U/L [facility] DEPARTMENT OF PATHOLOGY AND Comment: GENOMIC MEDICINE Analysis performed on Alia 8000 analyzer. This is not an approved methodology for this specimen type;accuracy and clinical significance uncertain. Specimen Fluid Performing Organization Address City/[facility]/Zipcode Phone Number [facility] DEPARTMENT OF PATHOLOGY AND [address] [place] [address] GENOMIC MEDICINE Glucose level, misc fluid (06/18/2017 2:39 PM NAVIGATION OFFICER) Fluid type Pleural [facility] DEPARTMENT OF PATHOLOGY AND GENOMIC MEDICINE Glucose, fluid 90 mg/dL [facility] DEPARTMENT OF PATHOLOGY Comment: AND GENOMIC MEDICINE Analysis performed on Alia 8000 analyzer. This is not an approved methodology for this specimen type;accuracy and clinical significance uncertain. Specimen Fluid Performing Organization Address [facility]/Zipcode Phone Number [facility] DEPARTMENT OF PATHOLOGY AND [address] [place] [address] GENOMIC MEDICINE US Chest (06/18/2017 10:55 AM NAVIGATION OFFICER) Narrative Performed At EXAM: [facility] Limited chest ultrasound. INDICATION: Evaluate for pleural effusion. COMPARISON: None. TECHNIQUE: Multiple grayscale images of the chest were obtained. FINDINGS: Limited evaluation of the right chest demonstrates a small right pleural effusion with approximately 150 cc. No definite internal septation/loculation. Limited evaluation of the left chest demonstrates a moderate left pleural effusion containing approximately 500 cc. Again, no evidence of internal septation/loculation. Incidental note of atelectatic lung floating within the both pleural effusions. IMPRESSION: Small right and moderate left simple pleural effusions with adjacent, commensurate atelectasis. Procedure Note [facility], Radiology Results Incoming - 06/18/2017 11:17 AM NAVIGATION OFFICER EXAM: Limited chest ultrasound. INDICATION: Evaluate for pleural effusion. COMPARISON: None. TECHNIQUE: Multiple grayscale images of the chest were obtained. FINDINGS: Limited evaluation of the right chest demonstrates a small right pleural effusion with approximately 150 cc. No definite internal septation/loculation. Limited evaluation of the left chest demonstrates a moderate left pleural effusion containing approximately 500 cc. Again, no evidence of internal septation/loculation. Incidental note of atelectatic lung floating within the both pleural effusions. IMPRESSION: Small right and moderate left simple pleural effusions with adjacent, commensurate atelectasis. Performing Organization Address City/[facility]/Zipcode Phone Number [facility] [address] [place] [address] CT Chest Wo Contrast (06/18/2017 9:53 AM NAVIGATION OFFICER) Narrative Performed At EXAMINATION: CT CHEST WO CONTRAST HM [facility] CLINICAL HISTORY: pleural effusion TECHNIQUE:Axial images of the chest were obtained without intravenous contrast. The lack of intravenous contrast reduces the sensitivity of the exam and evaluating vasculature. CT imaging was performed with iterative reconstruction technique and/or automated exposure control to reduce radiation dose. COMPARISON:Chest radiograph dated 06/18/2017 FINDINGS: CHEST: 1. Aorta: The thoracic aorta is nonaneurysmal. 2. Heart: Heart is mildly enlarged. 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 Epicardial pacing leads in place. 3. Pericardial Fluid: No pericardial effusion. 4. Mediastinum: No enlarged adenopathy at the base the neck. No suspicious adenopathy within the axilla, mediastinum, or hilum. 5. Airways: Central airways are patent. Small mucous plugs are present within the subsegmental bronchi of the left lower lobe. . Mild peripheral bronchiectasis. 6. Lungs: There is complete left lower lobe atelectasis with partial atelectasis of the left upper lobe. Partial right lower lobe atelectasis. 7. Pleural Fluid: Small right pleural effusion. Moderate size left pleural effusion. Minimal hyperdensity layering within the left pleural effusion posteriorly as seen on series 2, image 71 may represent blood products or proteinaceous material. 8. Bones: Prior sternotomy with diastases of the manubrium by approximately 2 cm. No evidence of an abscess in the subcutaneous fat of the chest wall. Minimal edema within the anterior mediastinum is likely postoperative. 9. Upper Abdomen: Limited evaluation of the upper abdomen demonstrate mild atherosclerotic disease. No free air or fluid. 10. Other Findings: None IMPRESSION: Moderate size left pleural effusion with complete collapse of the left lower lobe and partial left upper lobe atelectasis. Layering hyperdensity within the posterior aspect of the pleural fluid may represent blood products or proteinaceous material. Small right pleural effusion. Additional findings as above. [id number] Procedure Note Hm Interface, Radiology Results Incoming - 06/18/2017 10:09 AM NAVIGATION OFFICER EXAMINATION: CT CHEST WO CONTRAST CLINICAL HISTORY: pleural effusion TECHNIQUE: Axial images of the chest were obtained without intravenous contrast. The lack of intravenous contrast reduces the sensitivity of the exam and evaluating vasculature. CT imaging was performed with iterative reconstruction technique and/or automated exposure control to reduce radiation dose. COMPARISON: Chest radiograph dated 06/18/2017 FINDINGS: CHEST: 1. Aorta: The thoracic aorta is nonaneurysmal. 2. Heart: Heart is mildly enlarged. 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 Epicardial pacing leads in place. 3. Pericardial Fluid: No pericardial effusion. 4. Mediastinum: No enlarged adenopathy at the base the neck. No suspicious adenopathy within the axilla, mediastinum, or hilum. 5. Airways: Central airways are patent. Small mucous plugs are present within the subsegmental bronchi of the left lower lobe. . Mild peripheral bronchiectasis. 6. Lungs: There is complete left lower lobe atelectasis with partial atelectasis of the left upper lobe. Partial right lower lobe atelectasis. 7. Pleural Fluid: Small right pleural effusion. Moderate size left pleural effusion. Minimal hyperdensity layering within the left pleural effusion posteriorly as seen on series 2, image 71 may represent blood products or proteinaceous material. 8. Bones: Prior sternotomy with diastases of the manubrium by approximately 2 cm. No evidence of an abscess in the subcutaneous fat of the chest wall. Minimal edema within the anterior mediastinum is likely postoperative. 9. Upper Abdomen: Limited evaluation of the upper abdomen demonstrate mild atherosclerotic disease. No free air or fluid. 10. Other Findings: None IMPRESSION: Moderate size left pleural effusion with complete collapse of the left lower lobe and partial left upper lobe atelectasis. Layering hyperdensity within the posterior aspect of the pleural fluid may represent blood products or proteinaceous material. Small right pleural effusion. Additional findings as above. [id number] Performing Organization Address [facility] Phone Number [facility] [address] [place] [address] Partial thromboplastin time, activated (06/18/2017 2:12 AM NAVIGATION OFFICER)Only the most recent of4 resultswithin the time period is included. PTT 32.8 23.0 - 36.0 sec [facility] PATHOLOGY Comment: AND [employer] PTT therapeutic range for unfractionated heparin is 61.0-112.0 seconds which corresponds to Anti-Xa 0.3-0.7 U/ml. Specimen Blood Performing Organization Address [facility] Cent[facility]ode Phone Number [facility]OLOGY AND [address] [place] [address] [employer] Homocystine, plasma (06/18/2017 2:10 AM NAVIGATION OFFICER) Homocysteine 18.6 (H) 0.0 - 15.0 umol/L [facility] DEPART[facility] OF Comment: PATHOLOGY AND GENOMIC The risk for coronary vascular disease increases progressively MEDICINE with homocysteine concentration.A 3.4 times greater risk is associated with a homocysteine concentration of greater than 15.8 umol/L as compared to a concentration below 14.1 umol/L. Specimen Plasma specimen Performing Organization Address City/[facility]ode Phone Number [facility] OF PATHOLOGY AND [address] [place] [address] Vitamin D 25 hydroxy level (06/18/2017 2:10 AM NAVIGATION OFFICER)Only the most recent of2 resultswithin the time period is included. Vitamin D, 25-hydroxy 24.0 (L) 30.0 - 150.0 [facility] DEPART[facility] OF Comment: ng/mL PATHOLOGY AND GENOMIC This assay reports the sum of 25-hydroxy vitamin D3 and 25-hydroxy vitamin MEDICINE D2. Reference range: 0-17 years: Deficiency: less than 20ng/mL Optimum level: greater than or equal to 20 ng/mL. 18 years and older: Deficiency: less than 20ng/mL Insufficiency: 20-29 ng/mL Optimum Level: 30-80 ng/mL The assay reportable range is 3.4155.9 ng/mL. Levels higher than 150 ng/mL may be associated with toxicity. If toxicity is clinically suspected and the reported result is >155.9 ng/mL,contact lab for alternative methods to obtain a definitivelevel. If separate quantitation of 25-hydroxy vitamin D3 and 25-hydroxy vitamin D2 is needed, please contact lab for alternative methods. Specimen Blood Performing Organization Address [facility] Cent[facility]ode Phone Number [facility] DE[facility] OF PATHOLOGY AND [address] [place] [phone] [facility] Thyroid stimulating hormone (06/18/2017 2:10 AM NAVIGATION OFFICER)Only the most recent of2 resultswithin the time period is included. TSH 3.15 0.27 - 4.20 uIU/mL [facility] DEPARTMENT OF PATHOLOGY AND GENOMIC [facility] Specimen Plasma specimen Performing Organization Address City/[facility]/Zipcode Phone Number [facility] DEPARTMENT OF PATHOLOGY AND [address] [place] [phone] [facility] T4, free (06/18/2017 2:10 AM NAVIGATION OFFICER)Only the most recent of2 resultswithin the time period is included. T4, free 1.0 0.9 - 1.7 ng/dL [facility] DEPART[facility] OF PATHOLOGY AND GENOMIC MEDICINE Specimen Plasma specimen Performing Organization Address City/[facility]ode Phone Number [facility] OF PATHOLOGY AND [address] [place] [address] Folate level (06/18/2017 2:10 AM NAVIGATION OFFICER) Folate 16.8 4.8 - 24.2 ng/mL [facility] DEPARTMENT OF PATHOLOGY AND GENOMIC MEDICINE Specimen Serum Performing Organization Address [facility]ode Phone Number [facility] DE[facility] OF PATHOLOGY AND [address] [place] [address] Vitamin B12 level (06/18/2017 2:10 AM NAVIGATION OFFICER) Vitamin B12 767 211 - 946 pg/mL [facility] OF PATHOLOGY Comment: AND [facility] MEDICINE Significant overlap exists between normal and deficiency states. However, most patients with deficiencies will have Serum B12 <200 pg/mL. Specimen Serum Performing Organization Address [facility] Phone Number [facility] DEPARTMENT OF PATHOLOGY AND [address] [place] [address] Potassium level (06/17/2017 6:19 PM NAVIGATION OFFICER)Only the most recent of7 resultswithin the time period is included. Potassium 3.9 3.5 - 5.0 mEq/L [facility] DEPARTMENT OF PATHOLOGY AND GENOMIC MEDICINE Specimen Plasma specimen Performing Organization Address [facility] Phone Number [facility] DEPARTMENT OF PATHOLOGY AND [address] [place] [address] Urinalysis, automated with microscopy (06/17/2017 10:49 AM NAVIGATION OFFICER) Color, UA Straw [facility] DEPARTMENT OF PATHOLOGY AND GENOMIC MEDICINE Appearance, UA Clear [facility] DEPARTMENT OF PATHOLOGY AND GENOMIC MEDICINE Specific gravity, UA 1.011 1.001 - 1.035 [facility] DE[facility] OF PATHOLOGY AND GENOMIC MEDICINE pH, UA 5.0 5.0 - 8.5 [facility] DEPARTMENT OF PATHOLOGY AND GENOMIC MEDICINE Protein, UA Negative Negative [facility] DE[facility]MENT OF PATHOLOGY AND GENOMIC MEDICINE Glucose, UA Negative Negative [facility] DE[facility]MENT OF PATHOLOGY AND GENOMIC MEDICINE Ketones, UA Negative Negative [facility] DE[facility]MENT OF PATHOLOGY AND GENOMIC MEDICINE Bilirubin, UA Negative Negative [facility] DEPARTMENT OF PATHOLOGY AND GENOMIC MEDICINE Blood, UA Negative Negative [facility] DE[facility]MENT OF PATHOLOGY AND GENOMIC MEDICINE Nitrite, UA Negative Negative [facility] DE[facility]MENT OF PATHOLOGY AND GENOMIC MEDICINE Urobilinogen, UA <2.0 <2.0 [facility] DEPARTMENT OF PATHOLOGY AND GENOMIC MEDICINE Leukocyte esterase, UA Negative Negative [facility] DE[facility]MENT OF PATHOLOGY AND GENOMIC MEDICINE Epithelial cells, UA <1 /HPF [facility] DE[facility]MENT OF PATHOLOGY AND GENOMIC MEDICINE Round epithelial cells, UA <1 0 - 1 /HPF [facility] DEPARTMENT OF PATHOLOGY AND GENOMIC MEDICINE WBC, UA <1 0 - 4 /HPF [facility] DEPARTMENT OF PATHOLOGY AND GENOMIC MEDICINE RBC, UA <1 0 - 2 /HPF [facility] DEPARTMENT OF PATHOLOGY AND GENOMIC MEDICINE Bacteria, UA None seen None seen [facility] DEPARTMENT OF PATHOLOGY AND GENOMIC MEDICINE Hyaline casts, UA 1 /LPF [facility] DE[facility]MENT OF PATHOLOGY AND GENOMIC MEDICINE Yeast, UA None seen [facility] DE[facility]MENT OF PATHOLOGY AND GENOMIC MEDICINE Yeast with pseudohyphae, UA None seen [facility] DE[facility]MENT OF PATHOLOGY AND GENOMIC MEDICINE Specimen Urine Performing Organization Address [facility] Phone Number [facility] DEPART[facility] PATHOLOGY AND [address] EEG (routine) (06/17/2017 10:00 AM NAVIGATION OFFICER) Narrative Performed At EEG AWAKE AND DROWSY Date of Service: 06/17/17 Awake Recordings: The occipital dominant rhythm is 7-9 Hz. 4-5 Hz and 1.5-3 Hz activity is present in all regions. 18-22 Hz activity was present in all regions. Sleep Recording: No sleep was recorded. Hyperventilation: Was not performed. Photic Stimulation: Was not performed. Impression: The findings are consistent with a mild diffuse disturbance in brain function. No seizures occurred. ICD-10 Code: R569 Ionized calcium, arterial (06/17/2017 2:45 AM NAVIGATION OFFICER)Only the most recent of6 resultswithin the time period is included. Ionized calcium, arterial 1.10 (L) 1.11 - 1.32 mmol/L [facility] DEPARTMENT OF PATHOLOGY AND GENOMIC MEDICINE Specimen Blood Performing Organization Address City/[facility] Phone Number [facility] DEPARTMENT OF PATHOLOGY AND [address] [place] [address] [facility] Arterial blood gas (06/17/2017 2:45 AM NAVIGATION OFFICER)Only the most recent of7 resultswithin the time period is included. pH, arterial 7.44 7.35 - 7.45 [facility] DEPARTMENT OF PATHOLOGY AND GENOMIC MEDICINE pCO2, arterial 44 35 - 45 mmHg [facility] DEPARTMENT OF PATHOLOGY AND GENOMIC MEDICINE pO2, arterial 86 80 - 90 mmHg [facility] DEPARTMENT OF PATHOLOGY AND GENOMIC MEDICINE Bicarbonate, arterial 29.3 (H) 21.0 - 28.0 mmol/L [facility] DE[facility]MENT OF PATHOLOGY AND GENOMIC MEDICINE Base excess, arterial 5 (H) -2 - 2 mEq/L [facility] DEPARTMENT OF PATHOLOGY AND GENOMIC MEDICINE O2 saturation, arterial 97 95 - 100 % [facility] DEPARTMENT OF PATHOLOGY AND GENOMIC MEDICINE Specimen Blood Performing Organization Address City/State/Zipcode Phone Number [facility] DEPARTMENT OF PATHOLOGY AND [address] [place] [address] [employer] MEDICINE Echocardiogram 2d limited (06/15/2017 4:00 PM NAVIGATION OFFICER) Narrative Performed At [facility] Echocardiography Report [address] [place] [address] Pat.Name:MARILEE GONZALEZ Pat.ID:[id number] .Date: 06/15/2017Refer.MD:CECELIA MACARIO MD Exam Time: 4:31:00 PMStudy Type:Routine Echo Height:64inWeight: 195lb BSA: 1.94 m2 DOBAge:1945,72Y Sex: FEMALEBP:129/55 HR:83 bpmSonogrphr: SIMON Underwood, [facility] Pat. Stat.:Inpatient Room:[place] [address] Study Status:Final Echo Event ID:[id number] Order ID:[id number] Reason for Study:Post Cardiac Arrest Procedures:Portable, Stat, Intravenous Optison Contrast, 2D Echo,Colorflow Doppler Limited Race:C SUMMARY: Wall motion abnormalities present. LV EF is moderately depressed. Wall motion abnormalities are similar to prior report on 06-06-2017. No pericardial effusion. FINDINGS: LV: LV size is normal. LV EF is moderately depressed. Septal motionis paradoxical secondary to LBBB or conduction abnormality.Estimated EF is 35-39%. RV: RV size is normal. RV systolic function is normal. LA: LA size is normal. RA: RA size is normal. AO: Aortic root diameter is normal. ELOY: No pericardial effusion. AV: No structural AV abnormalities noted. MV: No structural MV abnormalities noted. PV: No structural PV abnormalities noted. TV: No structural TV abnormalities noted. Piper: Unable to assess diastolic function. Other:Insufficient TR jet to estimate PA systolic pressure. MEASUREMENTS: 2D Parasternal Long [place]rie LVIDs2.8 cmLA Ds4 cm LV%fs 30.4 % Ao An2.2 cm LVOT 2.2 cmAo Rtd 3.1 cm Index1.6 cm/m LVIDd4.2 cmIndex2.1 cm/m LV Awdg292.6 g(87-129) IVSd 1.1 cmLVM Index 80.7 g/m2 LVPWd1.1 cmRWT0.5 WALL MOTION: RESTING WALL MOTION: Wall Index=1.5 Signed 06/15/2017 04:56 PM Aravind Kohler M.D. Procedure Note Interface, Radiology Results In - 06/15/2017 4:56 PM NAVIGATION OFFICER Echocardiography Report [address] [address], [place] [address] [facility].Name: MARILEE GONZALEZ Pat.ID: [id number] .Date: 06/15/2017 Refer.MD: CECELIA MACARIO MD Exam Time: 4:31:00 PM Study Type:Routine Echo Height: 64in Weight: 195lb BSA: 1.94 m2 Age: 11 1945,72Y Sex: FEMALE BP: 129/55 HR: 83 bpm Sonogrphr: SIMON Underwood, [facility] Pat. Stat.:Inpatient Room: [place] [address] Study Status:Final Echo Event ID:[id number] Order ID: [id number] Reason for Study:Post Cardiac Arrest Procedures:Portable, Stat, Intravenous Optison Contrast, 2D Echo,Colorflow Doppler Limited Race: C SUMMARY: Wall motion abnormalities present. LV EF is moderately depressed. Wall motion abnormalities are similar to prior report on 06-06-2017. No pericardial effusion. FINDINGS: LV: LV size is normal. LV EF is moderately depressed. Septal motion is paradoxical secondary to LBBB or conduction abnormality. Estimated EF is 35-39%. RV: RV size is normal. RV systolic function is normal. LA: LA size is normal. RA: RA size is normal. AO: Aortic root diameter is normal. ELOY: No pericardial effusion. AV: No structural AV abnormalities noted. MV: No structural MV abnormalities noted. PV: No structural PV abnormalities noted. TV: No structural TV abnormalities noted. Piper: Unable to assess diastolic function. Other: Insufficient TR jet to estimate PA systolic pressure. MEASUREMENTS: 2D Parasternal Long G[place]rie LVIDs 2.8 cm LA Ds 4 cm LV%fs 30.4 % Ao An 2.2 cm LVOT 2.2 cm Ao Rtd 3.1 cm Index 1.6 cm/m LVIDd 4.2 cm Index 2.1 cm/m LV Mass 156.6 g (87-129) IVSd 1.1 cm LVM Index 80.7 g/m2 LVPWd 1.1 cm RWT 0.5 WALL MOTION: RESTING WALL MOTION: Wall Index=1.5 Signed 06/15/2017 04:56 PM Aravind Kohler M.D. Performing Organization Address City/State/[facility] Cent[facility]ode Phone Number [facility] [address] [place] [address] CT Head Wo Contrast (06/15/2017 12:32 PM NAVIGATION OFFICER) Narrative Performed At EXAMINATION:CT HEAD WO CONTRAST [facility] CLINICAL HISTORY:AMSr o brain bleed COMPARISON:None. TECHNIQUE: Noncontrast head CT performed using radiation dose reduction techniques.Technical factors are evaluated and adjusted to ensure appropriate moderation of exposure.Automated dose management technology is applied to adjust radiation exposure while achieving a diagnostic quality image. FINDINGS: There is no evidence of intracranial hemorrhage, mass lesion, or midline shift. There is chronic lacunar infarction involving the left basal ganglia. There are mild nonspecific areas of hypoattenuation in the periventricular white matter, likely sequela from chronic ischemic microangiopathy. There is no evidence of acute territorial infarction. Ventricles, sulci, and cisterns are mildly prominent from cerebral volume loss. There is no extra-axial fluid collection. There is calcification along bilateral cavernous-supraclinoid ICAs. Visualized paranasal sinuses and mastoid air cells are clear. Bones, orbits, and soft tissues are unremarkable. IMPRESSION: 1. No evidence of acute intracranial abnormality. 2. Chronic ischemic changes as described. [facility]-[id number] Procedure Note Hm Interface, Radiology Results Incoming - 06/15/2017 12:48 PM NAVIGATION OFFICER EXAMINATION: CT HEAD WO CONTRAST CLINICAL HISTORY: AMS r o brain bleed COMPARISON: None. TECHNIQUE: Noncontrast head CT performed using radiation dose reduction techniques. Technical factors are evaluated and adjusted to ensure appropriate moderation of exposure. Automated dose management technology is applied to adjust radiation exposure while achieving a diagnostic quality image. FINDINGS: There is no evidence of intracranial hemorrhage, mass lesion, or midline shift. There is chronic lacunar infarction involving the left basal ganglia. There are mild nonspecific areas of hypoattenuation in the periventricular white matter, likely sequela from chronic ischemic microangiopathy. There is no evidence of acute territorial infarction. Ventricles, sulci, and cisterns are mildly prominent from cerebral volume loss. There is no extra-axial fluid collection. There is calcification along bilateral cavernous-supraclinoid ICAs. Visualized paranasal sinuses and mastoid air cells are clear. Bones, orbits, and soft tissues are unremarkable. IMPRESSION: 1. No evidence of acute intracranial abnormality. 2. Chronic ischemic changes as described. [facility]-[id number] Performing Organization Address City/[facility]/Zipcode Phone Number [facility] [address] [place] [address] T3, free (06/15/2017 11:04 AM NAVIGATION OFFICER) T3, free 1.4 (L) 2.4 - 4.2 pg/mL [facility] Comment: REFERENCE INTERVAL: Triiodothyronine, Free (Free T3) Access complete set of age- and/or gender-specific reference intervals for this test in the [facility] Test Directory ([employer]). Performed by [facility], [address] [place], [place] [id number] [email or web address], Balta Romero MD - Lab. Director Specimen Serum Performing Organization Address [facility] Centercode Phone Number [facility] [address] [place] [address] Troponin (06/15/2017 12:00 AM NAVIGATION OFFICER)Only the most recent of6 resultswithin the time period is included. Troponin 1.24 (H) 0.00 - 0.30 ng/mL [facility] DEPARTMENT OF PATHOLOGY Comment: AND GENOMIC MEDICINE 0.30 - 1.49 ng/mlMay indicate increased risk of acute coronary syndrome. >=1.5 ng/mlConsistent with acute myocardial infarction. The diagnostic value of a single normal or non-diagnostic result is questionable.Serial samples at 2-6 hour intervals are required to rule out acute myocardial injury. Specimen Plasma specimen Performing Organization Address City/State/Zipcode Phone Number [facility] DEPARTMENT OF PATHOLOGY AND [address] [place] [address] [employer] Potassium, syringe (06/14/2017 8:26 PM NAVIGATION OFFICER)Only the most recent of6 resultswithin the time period is included. Potassium, syringe 4.7 3.5 - 5.0 mEq/L [facility] DEPARTMENT OF PATHOLOGY AND GENOMIC MEDICINE Specimen Blood Performing Organization Address City/[facility]ode Phone Number [facility] DEPARTMENT OF PATHOLOGY AND [address] [place] [address] [facility] CENTRAL LINE (06/14/2017 3:58 PM NAVIGATION OFFICER) Narrative Performed At Arpita Teresa NP 06/14/20173:58 PM Central Line Insertion Performed by: ARPITA TERESA Authorized by: ARPITA TERESA Consent: Consent obtained:Emergent situation Pre-procedure details: Skin preparation:2% chlorhexidine Anesthesia (see MAR for exact dosages): Anesthesia method:Local infiltration Local anesthetic:Lidocaine 1% w/o epi Procedure details: Catheter size:7 Fr Catheter site: femoral vein Catheter Site Laterality:Left Patient position:Flat Landmarks identified: yes Ultrasound guidance: yes Sterile ultrasound techniques: Sterile gel and sterile probe covers were used Number of attempts:2 Successful placement: yes Post-procedure details: Post-procedure:Dressing applied and line sutured Assessment:Blood return through all ports and free fluid flow Patient tolerance of procedure:Tolerated well, no immediate complications Insert arterial line (06/14/2017 3:54 PM NAVIGATION OFFICER) Narrative Performed At Arpita Teresa NP 06/14/20173:54 PM Arterial Line Insertion Date/Time: 06/14/2017 3:53 PM Performed by: ARPITA TERESA Authorized by: ARPITA TERESA Consent: Consent obtained:Emergent situation Consent given by:Patient Indications: Indications: hemodynamic monitoring Pre-procedure details: Skin preparation:2% Chlorhexidine Anesthesia (see MAR for exact dosages): Anesthesia method:Local infiltration Local anesthetic:Lidocaine 1% w/o epi Procedure details: Location:L femoral Needle gauge:20 G Placement technique:Ultrasound guided and Seldinger Number of attempts:2 Transducer: waveform confirmed Post-procedure details: Post-procedure:Biopatch applied, secured with tape, sterile dressing applied and sutured Patient tolerance of procedure:Tolerated well, no immediate complications Line/Drain Removal (06/14/2017 10:54 AM NAVIGATION OFFICER) Narrative Performed At Arpita Teresa NP 06/14/2017 10:54 AM Line/Drain Removal Date/Time: 06/14/2017 10:53 AM Performed by: ARPITA TERESA Authorized by: ARPITA TERESA Pre-procedure details: Line or drain removed:Chest tube Patient position:Supine Chest Tube Removal: Chest tube removed from suction: Yes Removal procedure: Catheter intact?:Yes Insertion site:No redness, no swelling and no drainage Breath held: Yes Dressing applied::4x4 sterile gauze, adhesive bandage and occlusive Patient tolerance of procedure: Patient tolerated the procedure well with no immediate complications Comments: Amnjeet chest tube removed. CXR ordered. Line/Drain Removal (06/13/2017 9:13 AM NAVIGATION OFFICER) Narrative Performed At Arpita Teresa NP 06/13/20179:13 AM Line/Drain Removal Date/Time: 06/13/2017 9:12 AM Performed by: ARPITA TERESA Authorized by: ARPITA TERESA Pre-procedure details: Line or drain removed:Chest tube Patient position:Supine Chest Tube Removal: Chest tube removed from suction: Yes Removal procedure: Catheter intact?:Yes Insertion site:No redness, no swelling and no drainage Breath held: Yes Dressing applied::4x4 sterile gauze, adhesive bandage and occlusive Patient tolerance of procedure: Patient tolerated the procedure well with no immediate complications Comments: 2 chest tubes removed. Manjeet chest tube remains per [facility]. CXR ordered. Hemoglobin & hematocrit (06/13/2017 5:45 AM NAVIGATION OFFICER) HGB 8.4 (L) 12.0 - 16.0 g/dL [facility] DEPARTMENT OF PATHOLOGY AND GENOMIC MEDICINE HCT 24.7 (L) 37.0 - 47.0 % [facility] DEPARTMENT OF PATHOLOGY AND GENOMIC MEDICINE Specimen Blood Performing Organization Address City/State/Zipcode Phone Number [facility] DEPARTMENT OF PATHOLOGY AND [address] [place] [address] GENOMIC MEDICINE ECG Pre/Post Op (06/12/2017 6:12 PM NAVIGATION OFFICER) Ventricular rate 92 [facility] Atrial rate 92 [facility] NE interval 184 [facility] QRSD interval 124 [facility] QT interval 386 [facility] QTC interval 477 [facility] P axis 1 35 [facility] QRS axis 1 -54 [facility] T wave axis 62 [facility] MUSE EKG impression Normal sinus rhythm with sinus arrhythmia-Right bundle branch block-Left anterior fascicular block-^^^ Bifascicular block ^^^-Inferior infarct (cited on or before 06-JUN-2017)-T wave abnormality, consider lateral ischemia-Abnormal ECG-In automated [facility] comparison with ECG of 11-JUN-2017 22:06,-Left anterior fascicular block is now present-Minimal criteria for Anterior infarct are no longer present-Serial changes of Inferior infarct present- Performing Organization Address City/[facility] Phone Number [facility] [address] [place] [id number] Fibrinogen (06/12/2017 3:30 PM NAVIGATION OFFICER)Only the most recent of2 resultswithin the time period is included. Fibrinogen 191 (L) 200 - 450 mg/dL [facility] DEPARTMENT OF PATHOLOGY AND GENOMIC MEDICINE Specimen Blood Performing Organization Address [facility] Phone Number [facility] DEPARTMENT OF PATHOLOGY AND [address] [place] [phone] GENOMIC MEDICINE Sodium level, syringe (06/12/2017 2:26 PM NAVIGATION OFFICER)Only the most recent of4 resultswithin the time period is included. Sodium, syringe 138 135 - 148 mEq/L [facility] DEPARTMENT OF PATHOLOGY AND GENOMIC MEDICINE Specimen Blood Performing Organization Address City/[facility] Phone Number [facility] DEPARTMENT OF PATHOLOGY AND [address] [place] [address] GENOMIC MEDICINE Hemoglobin, syringe (06/12/2017 2:26 PM NAVIGATION OFFICER)Only the most recent of4 resultswithin the time period is included. Hemoglobin, syringe 8.0 (L) 12.0 - 16.0 g/dL [facility] DEPARTMENT OF PATHOLOGY AND GENOMIC MEDICINE Specimen Blood Performing Organization Address City/[facility] Phone Number [facility] DEPARTMENT OF PATHOLOGY AND [address] [place] [address] Glucose level, syringe (06/12/2017 2:26 PM NAVIGATION OFFICER)Only the most recent of4 resultswithin the time period is included. Glucose, syringe 170 (H) 65 - 99 mg/dL [facility] DEPARTMENT OF PATHOLOGY AND GENOMIC MEDICINE Specimen Blood Performing Organization Address [facility] Phone Number [facility] DEPARTMENT OF PATHOLOGY AND [address] [place] [address] Arterial blood gas, corrected (06/12/2017 2:26 PM NAVIGATION OFFICER)Only the most recent of3 resultswithin the time period is included. pH, arterial 7.32 (L) 7.35 - 7.45 [facility] DEPARTMENT OF PATHOLOGY AND GENOMIC MEDICINE pCO2, arterial 40 35 - 45 mmHg [facility] DEPARTMENT OF PATHOLOGY AND GENOMIC MEDICINE pO2, arterial 230 (H) 80 - 90 mmHg [facility] DEPARTMENT OF PATHOLOGY AND GENOMIC MEDICINE Temperature, Celsius 37.0 Degrees C [facility] DEPARTMENT OF PATHOLOGY AND GENOMIC MEDICINE O2 saturation, arterial 99 95 - 100 % [facility] DEPARTMENT OF PATHOLOGY AND GENOMIC MEDICINE pH, arterial corrected 7.32 [facility] DEPARTMENT OF PATHOLOGY AND GENOMIC MEDICINE pCO2, arterial corrected 40 mmHg [facility] DEPARTMENT OF PATHOLOGY AND GENOMIC MEDICINE pO2, arterial corrected 230 mmHg [facility] DEPARTMENT OF PATHOLOGY AND GENOMIC MEDICINE Base excess, arterial -5 (L) -2 - 2 mEq/L [facility] DEPARTMENT OF PATHOLOGY AND GENOMIC MEDICINE Specimen Blood Performing Organization Address City/[facility] Phone Number [facility] DEPARTMENT OF PATHOLOGY AND [address] [place] [address] Rotational thromboelastometry (06/12/2017 12:11 PM NAVIGATION OFFICER)Only the most recent of2 resultswithin the time period is included. Test type FIBTEM [facility] DEPARTMENT OF PATHOLOGY AND GENOMIC MEDICINE Specimen description On Pump [facility] DEPARTMENT OF PATHOLOGY AND GENOMIC MEDICINE Amplitude, 20 min 16 mm [facility] DEPARTMENT OF PATHOLOGY AND GENOMIC MEDICINE Maximum clot firmness 17 mm [facility] DEPARTMENT OF PATHOLOGY AND GENOMIC MEDICINE Reference see below [facility] DEPARTMENT OF Comment: PATHOLOGY AND GENOMIC MEDICINE Test TypeCT (sec)CFT (sec)a angle(deg)A20 (mm)MCF (mm) [id number] 45-110 70-81 51-72 51-72 [id number] 48-127 65-80 50-70 52-70 FIBTEM n/a n/an/a -24 HEPTEM HEPTEM should be compared to INTEM. INTEM-HEPTEM results allow assessment of hemostasis without the overlaying heparin effect. APTEM APTEM should be compared to EXTEM in order to obtain evidence of fibrinolytic activity. Specimen Plasma specimen Performing Organization Address City/[facility]/Zipcode Phone Number [facility] DEPARTMENT OF PATHOLOGY AND [address] [place] [address] Platelet count (06/12/2017 12:05 PM NAVIGATION OFFICER) Platelet count 219 150 - 400 k/uL [facility] DEPARTMENT OF PATHOLOGY AND GENOMIC MEDICINE Performing Organization Address [facility] Phone Number [facility] DEPARTMENT OF PATHOLOGY AND [address] [place] [address] PV carotid duplex (06/11/2017 10:42 PM NAVIGATION OFFICER) Narrative Performed At [facility] Carotid Artery Duplex Report [id number] [place] [address] For quality control supervisor purposes, the categorization of the degree of the stenosis of this exam is based on criteria described in the IAC carotid stenosis grading white paper( www.intersocietal.org/Vascular) and [address] Michael Hogan., et al. Carotid artery stenosis: clinton-scale and Doppler US diagnosis--Society of Radiologists in Ultrasound Consensus Conference. Radiology. 2003 Nov; 229(2):340-6. Pat.Name:MARILEE GONZALEZ Pat.ID:[id number] St.Date: 06/11/2017Refer.MD:BRO ABURTO MD Exam Time: 9:13:00 PMStudy Type:Carotid Height:64inWeight: 194lb BSA: 1.93 m2 DOBAge:1945,72Y Sex: FEMALESonogrphr: Dung Robles RVT, JERMAINE Pat. Stat.:Inpatient Room:[address] TapeVol: ROBBIN, CPT - 4: 91858 Echo Event ID:[id number] Order ID:[id number] Reason for Study:Pre cardiac work-up. PMH of CHF, HTN, HLD, DM, LA, COPD. Race:C SUMMARY: PHYSICAL ASSESSMENT BloodPulsesCarotid Pressure Carotid TemporalBruit Right 138/64 ++0 Left IV ++0 CAROTID ARTERY SCAN RIGHT: There is hard plaque in the common carotid artery. There is hard and calcified plaque noted in the bulb extending into the proximal internal carotid artery. Colorflow is disturbed with elevated velocities noted in the proximal internal carotid artery. LEFT: There is hard plaque in the common carotid artery. There is hard and calcified plaque noted in the bulb extending into the proximal internal carotid artery. Colorflow is normal PRELIMINARY FINDINGS 1. Non-stenotic plaque in the common carotid artery,bilaterally. 2. 50- 69% stenosis in the right internal carotid artery. 3. <50%stenosis in the left internal carotid artery. 4. Antegrade vertebral artery flow, bilaterally. PHYSICIAN INTERPRETATION Bilateral carotid duplex examination demonstrated atherosclerotic plaques in the bulbs/CCAs. 50- 69% stenosis in the right internal carotid artery.<50% stenosis in the left internal carotid artery. Both vertebral arteries are antegrade. Carotid Findings:RightLeft Verteb.Flw AntegradeAntegrade Subclavian Biphasic Biphasic MEASUREMENTS: DOPPLER Right CCA Dist CCA Dist PSV67.7 cm/sCCA Dist EDV17.6 cm/s Right CCA Mid CCA Mid PSV 77.4 cm/sCCA Mid EDV 19.2 cm/s Right CCA Prox CCA Prox PSV 130 cm/sCCA Prox EDV20.7 cm/s Right ECA ECA QQL738 cm/sECA EDV 11.1 cm/s Right ICA Dist ICA Dist PSV82.5 cm/Isabelle Dist EDV16 cm/s Right ICA Mid ICA Mid QBE071 cm/Isabelle Mid EDV 25.6 cm/s Right Vertebral Vertebral PSV 31.4 cm/sVertebral EDV0 cm/s Right Subclavian Subclavian PSV96.4 cm/sSubclavian EDV 0 cm/s Left CCA Dist CCA Dist PSV84.3 cm/sCCA Dist EDV19.3 cm/s Left CCA Mid CCA Mid PSV 74.2 cm/sCCA Mid EDV 20.8 cm/s Left CCA Prox CCA Prox PSV 105 cm/sCCA Prox EDV19.2 cm/s Left ECA ECA PSV 89.4 cm/sECA EDV 9.61 cm/s Left ICA Dist ICA Dist PSV62.1 cm/Isabelle Dist EDV17.7 cm/s Left ICA Mid ICA Mid PSV 78.7 cm/Isabelle Mid EDV 21.5 cm/s Left Vertebral Vertebral PSV 59 cm/sVertebral EDV 15.6 cm/s Left Subclavian Subclavian PSV 101 cm/sSubclavian EDV 0 cm/s ICA Prox ICA Prox PSV 160 cm/s Right ICA Prox ICA Prox EDV41.7 cm/s Left ICA Prox ICA Prox PSV 112 cm/Isabelle Prox EDV37.3 cm/s Right ECA Prox ECA Prox PSV 128 cm/sECA Prox EDV11.1 cm/s Left ECA Prox ECA Prox PSV89.4 cm/sECA Prox EDV 9.6 cm/s ICA/CCA Ratio ICA/CCA PSV 2.07 Left ICA/CCA Ratio ICA/CCA PSV 1.51 Signed 06/11/2017 11:50 PM Yola Astorga MD, RPVI Procedure Note Interface, Radiology Results In - 06/11/2017 11:50 PM [facility] Carotid Artery Duplex Report [id number] [address] For quality control supervisor purposes, the categorization of the degree of the stenosis of this exam is based on criteria described in the IAC carotid stenosis grading white paper( www.intersocietal.org/Vascular) and [address] Michael Hogan., et al. Carotid artery stenosis: clinton-scale and Doppler US diagnosis--Society of Radiologists in Ultrasound Consensus Conference. Radiology. 2003 May; 229(2):340-6. Pat.Name: MARILEE GONZALEZ Pat.ID: [id number] .Date: 06/11/2017 Refer.MD: BRO ABURTO MD Exam Time: 9:13:00 PM Study Type:Carotid Height: 64in Weight: 194lb BSA: 1.93 m2 Age: 11 1945,72Y Sex: FEMALE Sonogrphr: Dung Robles RVT, RDMS Pat. Stat.:Inpatient Room: R4380-Z Tape Vol: , CPT - 4: 80756 Echo Event ID:[id number] Order ID: [id number] Reason for Study:Pre cardiac work-up. PMH of CHF, HTN, HLD, DM, LA, COPD. Race: C SUMMARY: PHYSICAL ASSESSMENT Blood Pulses Carotid Pressure Carotid Temporal Bruit Right 138/64 + + 0 Left IV + + 0 CAROTID ARTERY SCAN RIGHT: There is hard plaque in the common carotid artery. There is hard and calcified plaque noted in the bulb extending into the proximal internal carotid artery. Colorflow is disturbed with elevated velocities noted in the proximal internal carotid artery. LEFT: There is hard plaque in the common carotid artery. There is hard and calcified plaque noted in the bulb extending into the proximal internal carotid artery. Colorflow is normal PRELIMINARY FINDINGS 1. Non-stenotic plaque in the common carotid artery, bilaterally. 2. 50- 69% stenosis in the right internal carotid artery. 3. <50% stenosis in the left internal carotid artery. 4. Antegrade vertebral artery flow, bilaterally. PHYSICIAN INTERPRETATION Bilateral carotid duplex examination demonstrated atherosclerotic plaques in the bulbs/CCAs. 50- 69% stenosis in the right internal carotid artery. <50% stenosis in the left internal carotid artery. Both vertebral arteries are antegrade. Carotid Findings: Right Left Verteb.Flw Antegrade Antegrade Subclavian Biphasic Biphasic MEASUREMENTS: DOPPLER Right CCA Dist CCA Dist PSV 67.7 cm/s CCA Dist EDV 17.6 cm/s Right CCA Mid CCA Mid PSV 77.4 cm/s CCA Mid EDV 19.2 cm/s Right CCA Prox CCA Prox PSV 130 cm/s CCA Prox EDV 20.7 cm/s Right ECA ECA PSV 127 cm/s ECA EDV 11.1 cm/s Right ICA Dist ICA Dist PSV 82.5 cm/s ICA Dist EDV 16 cm/s Right ICA Mid ICA Mid PSV 107 cm/s ICA Mid EDV 25.6 cm/s Right Vertebral Vertebral PSV 31.4 cm/s Vertebral EDV 0 cm/s Right Subclavian Subclavian PSV 96.4 cm/s Subclavian EDV 0 cm/s Left CCA Dist CCA Dist PSV 84.3 cm/s CCA Dist EDV 19.3 cm/s Left CCA Mid CCA Mid PSV 74.2 cm/s CCA Mid EDV 20.8 cm/s Left CCA Prox CCA Prox PSV 105 cm/s CCA Prox EDV 19.2 cm/s Left ECA ECA PSV 89.4 cm/s ECA EDV 9.61 cm/s Left ICA Dist ICA Dist PSV 62.1 cm/s ICA Dist EDV 17.7 cm/s Left ICA Mid ICA Mid PSV 78.7 cm/s ICA Mid EDV 21.5 cm/s Left Vertebral Vertebral PSV 59 cm/s Vertebral EDV 15.6 cm/s Left Subclavian Subclavian PSV 101 cm/s Subclavian EDV 0 cm/s ICA Prox ICA Prox PSV 160 cm/s Right ICA Prox ICA Prox EDV 41.7 cm/s Left ICA Prox ICA Prox PSV 112 cm/s ICA Prox EDV 37.3 cm/s Right ECA Prox ECA Prox PSV 128 cm/s ECA Prox EDV 11.1 cm/s Left ECA Prox ECA Prox PSV 89.4 cm/s ECA Prox EDV 9.6 cm/s ICA/CCA Ratio ICA/CCA PSV 2.07 Left ICA/CCA Ratio ICA/CCA PSV 1.51 Signed 06/11/2017 11:50 PM Yola Astorga MD, RPVI Performing Organization Address [facility] Phone Number [facility] [address] [place] [address] Prepare RBC, 1 Units (06/11/2017 7:45 PM NAVIGATION OFFICER)Only the most recent of2 resultswithin the time period is included. Product name Aph Red Cells AS1 LR Irrad [facility] DEPARTMENT OF PATHOLOGY AND GENOMIC MEDICINE Unit number [id number] [facility] DEPARTMENT OF PATHOLOGY AND GENOMIC MEDICINE Product code [id number] [facility] DEPARTMENT OF PATHOLOGY AND GENOMIC MEDICINE Dispense status Transfused [facility] DEPARTMENT OF PATHOLOGY AND GENOMIC MEDICINE Blood expiration date [id number] [facility] DEPARTMENT OF PATHOLOGY AND GENOMIC MEDICINE Blood type code 7300 [facility] DEPARTMENT OF PATHOLOGY AND GENOMIC MEDICINE Blood type B POSITIVE [facility] DEPARTMENT OF PATHOLOGY AND GENOMIC MEDICINE Performing Organization Address [facility] Phone Number [facility] DEPARTMENT OF PATHOLOGY AND [address] [place] [address] MEDICINE Anti Xa, unfractionated (06/11/2017 5:24 AM NAVIGATION OFFICER)Only the most recent of15 resultswithin the time period is included. Anti Xa, unfractionated <0.10 (L)Comment: 0.30 - 0.70 U/mL [facility] DEPARTMENT OF Therapeutic Range: PATHOLOGY AND GENOMIC 0.30 - 0.70 U/mL MEDICINE Specimen Blood Performing Organization Address [facility] Phone Number [facility] DEPARTMENT PATHOLOGY AND [address] [place] [address] Echocardiogram transesophageal (06/10/2017 10:59 AM NAVIGATION OFFICER) Narrative Performed At [facility] Transesophageal Echo Report [address] [place] [address], , [place] [address] Pat.Name:MARILEE GONZALEZ Pat.ID:[id number] .Date: 06/10/2017Refer.MD:BRO ABURTO MD Exam Time: 8:48:00 AMStudy Type:SANDRO Height:64inWeight: 192lb BSA: 1.92 m2 DOBAge:1945,72Y Sex: FEMALEBP:128/61 HR:67 bpmSonogrphr: Gallo Bahena MD Pat. Stat.:Inpatient Study Status:Final Echo Event ID:[id number] Order ID:[id number] Procedures:Transesophageal Echo with Colorflow Doppler Race:C SUMMARY: Mitral annular calcification. No abnormal mass identified. FINDINGS: SANDRO:The attending shovel logger performed the SANDRO procedure and waspresent for the entire duration. The patient was counseledand an informed consent was obtained. Topical and intravenousanesthesia was administered. The esophagus was intubatedwithout difficulty. The probe was passed to the gastricfundus and all standard echocardiographic views wereobtained. The patient tolerated the procedure well. LV: LV size is normal. LV EF is normal. Overall wall motion is normal.Estimated EF is 60-64%. RV: RV size is normal. RV systolic function is normal. LA: LA volume is enlarged. No thrombus or mass is visualized in theLA or LA appendage. RA: RA size is normal. AO: Mild atherosclerotic changes seen in the aortic arch and descendingaorta. ELOY: No pericardial effusion. AV: Mild thickening and calcification of AV leaflets. Lambl's Excresence. MV: Mild thickening and calcification of mitral leaflets. Mild mitralannular calcification. Mild mitral regurgitation. PV: No structural PV abnormalities noted. TV: No structural TV abnormalities noted. Mild tricuspid regurgitation SANDRO: Anesthesia: Moderate SedationASA Class: 3 Physician: Kulwant Escobar MD Manifold Operator: Gallo Bahena MD Pre TEEBP HR Post SANDRO BP HR 128/61 09913/58 58 Meds:Viscous xylocaine, Cetacaine spray to oropharynx, Versed 2 mg IV, Fentanyl 50 mcg IV Complications: None Condition: Stable Signed 06/10/2017 11:07:00 AM Kulwant Escobar MD Procedure Note Interface, Radiology Results In - 06/10/2017 12:14 PM NAVIGATION OFFICER Transesophageal Echo Report [id number], [place], [place] [address] Pat.Name: MARILEE GONZALEZ Pat.ID: [id number] St.Date: 06/10/2017 Refer.MD: BRO ABURTO MD Exam Time: 8:48:00 AM Study Type:SANDRO Height: 64in Weight: 192lb BSA: 1.92 m2 Age: 11 1945,72Y Sex: FEMALE BP: 128/61 HR: 67 bpm Sonogrphr: Gallo Bahena MD Pat. Stat.:Inpatient Study Status:Final Echo Event ID:[id number] Order ID: [id number] Procedures:Transesophageal Echo with Colorflow Doppler Race: C SUMMARY: Mitral annular calcification. No abnormal mass identified. FINDINGS: SANDRO: The attending shovel logger performed the SANDRO procedure and was present for the entire duration. The patient was counseled and an informed consent was obtained. Topical and intravenous anesthesia was administered. The esophagus was intubated without difficulty. The probe was passed to the gastric fundus and all standard echocardiographic views were obtained. The patient tolerated the procedure well. LV: LV size is normal. LV EF is normal. Overall wall motion is normal. Estimated EF is 60-64%. RV: RV size is normal. RV systolic function is normal. LA: LA volume is enlarged. No thrombus or mass is visualized in the LA or LA appendage. RA: RA size is normal. AO: Mild atherosclerotic changes seen in the aortic arch and descending aorta. ELOY: No pericardial effusion. AV: Mild thickening and calcification of AV leaflets. Lambl's Excresence. MV: Mild thickening and calcification of mitral leaflets. Mild mitral annular calcification. Mild mitral regurgitation. PV: No structural PV abnormalities noted. TV: No structural TV abnormalities noted. Mild tricuspid regurgitation SANDRO: Anesthesia: Moderate Sedation ASA Class: 3 Physician: Kulwant Escobar MD Manifold Operator: Gallo Bahena MD Pre SANDRO BP HR Post SANDRO BP HR 128/61 67 109/58 58 Meds: Viscous xylocaine, Cetacaine spray to oropharynx, Versed 2 mg IV, Fentanyl 50 mcg IV Complications: None Condition: Stable Signed 06/10/2017 11:07:00 AM Kulwant Escobar MD Performing Organization Address [facility] Phone Number [facility] [address] [place] [address] B natriuretic peptide (06/09/2017 9:55 AM NAVIGATION OFFICER)Only the most recent of2 resultswithin the time period is included. BNP 130 (H) 0 - 100 pg/mL [facility] DEPARTMENT OF PATHOLOGY AND GENOMIC MEDICINE Specimen Blood Performing Organization Address City/[facility] Phone Number [facility] DEPARTMENT OF PATHOLOGY AND [address] [place] [address] GENOMIC MEDICINE Comprehensive metabolic panel (2017 2:09 AM NAVIGATION OFFICER)Only the most recent of4 resultswithin the time period is included. Sodium 137 135 - 148 mEq/L [facility] DEPARTMENT OF PATHOLOGY AND GENOMIC MEDICINE Potassium 4.5 3.5 - 5.0 mEq/L [facility] DEPARTMENT OF PATHOLOGY AND GENOMIC MEDICINE Chloride 96 (L) 98 - 112 mEq/L [facility] DEPARTMENT OF PATHOLOGY AND GENOMIC MEDICINE CO2 26 24 - 31 mEq/L [facility] DEPARTMENT OF PATHOLOGY AND GENOMIC MEDICINE Anion gap 15 7 - 15 mEq/L [facility] DEPARTMENT OF Comment: PATHOLOGY AND GENOMIC Starting from September , anion gap calculation MEDICINE no longer incorporates potassium. Please note the change. BUN 43 (H) 8 - 23 mg/dL [facility] DEPARTMENT OF PATHOLOGY AND GENOMIC MEDICINE Creatinine 1.6 (H) 0.5 - 0.9 mg/dL [facility] DEPARTMENT OF PATHOLOGY AND GENOMIC MEDICINE Glucose 316 (H) 65 - 99 mg/dL [facility] DEPARTMENT OF PATHOLOGY AND GENOMIC MEDICINE Calcium 9.2 8.8 - 10.2 mg/dL [facility] DEPARTMENT OF PATHOLOGY AND GENOMIC MEDICINE Protein 7.3 6.3 - 8.3 g/dL [facility] DEPARTMENT OF Comment: PATHOLOGY AND GENOMIC 4.6-7.0 g/dL MEDICINE 1 week 4.4-7.6 g/dL 7 months-1year5.1-7.3 g/dL 1-2 years5.6-7.5 g/dL >3 years6.0-8.0 g/dL 18-150 6.3-8.3 g/dL Albumin 3.2 (L) 3.5 - 5.0 g/dL [facility] DEPARTMENT OF PATHOLOGY AND GENOMIC MEDICINE A/G ratio 0.8 0.7 - 3.8 [facility] DEPARTMENT OF PATHOLOGY AND GENOMIC MEDICINE Alkaline phosphatase 70 35 - 104 U/L [facility] DEPARTMENT OF PATHOLOGY AND GENOMIC MEDICINE AST 20 10 - 35 U/L [facility] DEPARTMENT OF PATHOLOGY AND GENOMIC MEDICINE ALT 16 5 - 50 U/L [facility] DEPARTMENT OF PATHOLOGY AND GENOMIC MEDICINE Total bilirubin <0.2 0.0 - 1.2 mg/dL [facility] DEPARTMENT OF PATHOLOGY AND GENOMIC MEDICINE Specimen Plasma specimen Performing Organization Address City/State/Zipcode Phone Number [facility] DEPARTMENT OF PATHOLOGY AND [address] [place] [address] [facility] Hemoglobin A1c (06/07/2017 12:32 PM NAVIGATION OFFICER) Hemoglobin A1C 9.0 (H) 4.0 - 5.6 % [facility] DEPARTMENT OF PATHOLOGY Comment: AND [facility] HbA1c cutoffs for diagnosing diabetes: 4.0% - 5.6%=normal 5.7% - 6.4%=increased risk for diabetes (prediabetes) >=6.5%=diabetes Goals for glycemic control (ADA 2016) < 7.0%Target for non adults with diabetes. More or less stringent targets may be appropriate for individual patients. <7.5% Target for Children and adolescents with type 1 diabetes. Specimen Blood Performing Organization Address City/[facility] Phone Number [facility] DEPARTMENT OF PATHOLOGY AND [address] [place] [address] Blood culture, aerobic & anaerobic (06/07/2017 11:30 AM NAVIGATION OFFICER)Only the most recent of2 resultswithin the time period is included. Blood culture isolate No growth after 5 days of incubation. [facility] DEPARTMENT OF Comment: PATHOLOGY AND GENOMIC Specimen Information MEDICINE Specimen Source: Blood Specimen Site: Antecubital Specimen Blood - Antecubital Performing Organization Address [facility] Phone Number [facility] DEPARTMENT OF PATHOLOGY AND [address] [place] [address] MEDICINE Occult blood, stool (06/06/2017 10:35 PM NAVIGATION OFFICER) Occult blood, stool Negative for occult blood. [facility] DEPARTMENT OF PATHOLOGY Comment: AND [employer] MEDICINE Specimen Information Specimen Source: Stool Specimen Site: Nonpreserved Specimen Stool - Nonpreserved Performing Organization Address [facility] Phone Number [facility] DEPARTMENT OF PATHOLOGY AND [address] [place] [address] Echocardiogram complete w contrast and 3D if needed (06/06/2017 10:32 AM NAVIGATION OFFICER) Narrative Performed At [facility] Echocardiography Report [id number] [place] [address] Pat.Name:MARILEE GONZALEZ Pat.ID:[id number] .Date: 06/06/2017 Refer.MD:BRO ABURTO MD Exam Time: 9:57:00 AMStudy Type:Routine Echo Height:64inWeight: 193lb BSA: 1.93 m2 DOBAge:1945,71Y Sex: FEMALEBP:154/74 HR:84 bpmSonogrphr: MARCUS Prather Pat. Stat.:Inpatient Room:D1017 Study Status:Final Echo Event ID:[id number] Order ID:[id number] Reason for Study:SOB, NSTEMI Procedures:2D Echo, Colorflow Doppler, Intravenous Definity Contrast Race:C SUMMARY: LV EF is mildly depressed. Overall wall motion is normal except for the apex and mid anterior septum which are akinetic. RV systolic function is normal. Moderate mitral annular calcification.There appears to be a small mobile echogenic mass attached to the calcified posterior annulus. This may be a vegetation.Recommend further evaluation with SANDRO if clinically indicated. Diastolic dysfunction Grade II (Moderate): Impaired relaxation with elevated LV filling pressures. FINDINGS: LV: LV size is normal. LV EF is mildly depressed. Estimated EF is45-49%. Overall wall motion is normal except for the apexand mid anterior septum which are akinetic. RV: RV size is normal. RV systolic function is normal. RV wall motionis normal. LA: LA volume is difficult to assess. RA: RA volume is difficult to assess. AO: Aortic root diameter is normal in size. Calcifications in ascendingaorta. ELOY: No pericardial effusion. AV: Mild calcification of AV leaflets. MV: Moderate mitral annular calcification.There appears to be asmall mobile echogenic mass attached to the calcified posteriorannulus.This may be a vegetation.Recommend furtherevaluation with SANDRO if clinically indicated. PV: Pulmonic valve not well seen. TV: No structural TV abnormalities noted. Piper: Diastolic dysfunction Grade II (Moderate): Impaired relaxationwith elevated LV filling pressures. Other:Insufficient TR jet to estimate PA systolic pressure. MEASUREMENTS: 2D Parasternal Long [place] LVOT 2 cmLA Ds3.1 cm LVIDd4.9 cmIndex2.5 cm/m Ao Rtd 3.1 cm Index1.6 cm/m LVIDs2.8 cmLV Vkra559.3 g(87-129) LV%fs 43 % LVM Index 87.7 g/m2 IVSd 1.1 cmRWT0.3 LVPWd0.8 cm DOPPLER Stroke Vol mario 1.8 cm CO3.9 l/min TVI21.1 cm CI2 l/m/m2 Tm320 aiudIO04 bpm SV 53.6 ml Signed 06/06/2017 07:26 PM Naa Saul M.D. Procedure Note Interface, Radiology Results In - 06/06/2017 7:27 PM NAVIGATION OFFICER Echocardiography Report [id number] [place] [address] Pat.Name: MARILEE GONZALEZ Pat.ID: [id number] St.Date: 06/06/2017 Refer.MD: BRO ABURTO MD Exam Time: 9:57:00 AM Study Type:Routine Echo Height: 64in Weight: 193lb BSA: 1.93 m2 Age: 11 1945,71Y Sex: FEMALE BP: 154/74 HR: 84 bpm Sonogrphr: MARCUS Prather Pat. Stat.:Inpatient Room: [facility] Study Status:Final Echo Event ID:[id number] Order ID: [id number] Reason for Study:SOB, NSTEMI Procedures:2D Echo, Colorflow Doppler, Intravenous Definity Contrast Race: C SUMMARY: LV EF is mildly depressed. Overall wall motion is normal except for the apex and mid anterior septum which are akinetic. RV systolic function is normal. Moderate mitral annular calcification. There appears to be a small mobile echogenic mass attached to the calcified posterior annulus. This may be a vegetation. Recommend further evaluation with SANDRO if clinically indicated. Diastolic dysfunction Grade II (Moderate): Impaired relaxation with elevated LV filling pressures. FINDINGS: LV: LV size is normal. LV EF is mildly depressed. Estimated EF is 45-49%. Overall wall motion is normal except for the apex and mid anterior septum which are akinetic. RV: RV size is normal. RV systolic function is normal. RV wall motion is normal. LA: LA volume is difficult to assess. RA: RA volume is difficult to assess. AO: Aortic root diameter is normal in size. Calcifications in ascending aorta. ELOY: No pericardial effusion. AV: Mild calcification of AV leaflets. MV: Moderate mitral annular calcification. There appears to be a small mobile echogenic mass attached to the calcified posterior annulus. This may be a vegetation. Recommend further evaluation with SANDRO if clinically indicated. PV: Pulmonic valve not well seen. TV: No structural TV abnormalities noted. Piper: Diastolic dysfunction Grade II (Moderate): Impaired relaxation with elevated LV filling pressures. Other: Insufficient TR jet to estimate PA systolic pressure. MEASUREMENTS: 2D Parasternal Long G[place]rie LVOT 2 cm LA Ds 3.1 cm LVIDd 4.9 cm Index 2.5 cm/m Ao Rtd 3.1 cm Index 1.6 cm/m LVIDs 2.8 cm LV Mass 169.3 g (87-129) LV%fs 43 % LVM Index 87.7 g/m2 IVSd 1.1 cm RWT 0.3 LVPWd 0.8 cm DOPPLER Stroke Vol mario 1.8 cm CO 3.9 l/min TVI 21.1 cm CI 2 l/m/m2 Tm 320 msec HR 72 bpm SV 53.6 ml Signed 06/06/2017 07:26 PM Naa Saul M.D. Performing Organization Address City/State/Zipcode Phone Number [facility] [address] [place] [address] Lipid panel (06/06/2017 6:00 AM NAVIGATION OFFICER) Cholesterol 275 (H) <200 mg/dL [facility] DEPARTMENT OF PATHOLOGY AND GENOMIC MEDICINE Triglycerides 420 (H) <150 mg/dL [facility] DEPARTMENT OF PATHOLOGY AND GENOMIC MEDICINE HDL cholesterol 22 (L) >40 mg/dL [facility] DEPARTMENT OF PATHOLOGY AND GENOMIC MEDICINE LDL cholesterol 187 (H)Comment: Result <100 mg/dL [facility] DEPARTMENT obtained by direct LDL PATHOLOGY AND GENOMIC measurement MEDICINE Lipid panel interpretation SeeBelow [facility] DEPARTMENT OF Comment: PATHOLOGY AND GENOMIC Total Cholesterol (mg/dL) MEDICINE <200 Desirable 476-939Rcbctocsme-lsyy >=240High Triglycerides (mg/dL) <150 Normal 056-973Hdzmzgnols-zbjp 200-499High >=500Very high HDL Cholesterol (mg/dL) <40Low (male) <40Low (female) LDL Cholesterol (mg/dL) <100 Optimal 100-129Near or above optimal 134-833Vwsnaxkyqv-gvyo 160-189High >=190Very high Risk Catergories that modify LDL goals. Risk CatergoriesLDL goal (mg/dL) CHD and CHD risk equivalent<100 (10-year risk >20%) Multiple (2+) risk factors <130 (10-year risk=<20%) 0-1 risk factors <160 (<10-year risk) Defining levels of lipids in metabolic syndrome Triglycerides>=150 mg/dL HDL Cholesterol Men<40 mg/dL Women<40 mg/dL Non-HDL cholesterol is a second target for therapy in persons with high triglycerides (>=200 mg/dL) Specimen Plasma specimen Performing Organization Address City/State/Zipcode Phone Number [facility] DEPARTMENT OF PATHOLOGY AND [address] [place] [address] GENOMIC MEDICINE ECG ED Preliminary Interpretation - NOT AN ORDER (06/05/2017 5:39 PM NAVIGATION OFFICER) Narrative Performed At Nelda Quintana MD 06/05/20175:39 PM ECG ED Preliminary Interpretation - Not an Order Performed by: NELDA QUINTANA Authorized by: NELDA QUINTANA ECG reviewed by ED Physician in the absence of a shovel logger: yes Previous ECG: Previous ECG:Unavailable Interpretation: Interpretation: abnormal Rate: ECG rate:73 ECG rate assessment: normal Rhythm: Rhythm: sinus rhythm Ectopy: Ectopy: none QRS: QRS intervals:Wide Conduction: Conduction: abnormal Abnormal conduction: bifascicular block ST segments: ST segments:Normal T waves: T waves: inverted Inverted:V2 Comments: bifasicular block, unable to view prior ekg but based on read, change is noted CRITICAL CARE (06/05/2017 5:39 PM NAVIGATION OFFICER) Narrative Performed At Nelda Quintana MD 06/05/20175:39 PM Critical Care Performed by: NELDA QUINTANA Authorized by: NELDA QUINTANA Critical care provider statement: Critical care time (minutes):30 Critical care was necessary to treat or prevent imminent or life-threatening deterioration of the following conditions: nstemi. Critical care was time spent personally by me on the following activities:Discussions with consultants, discussions with primary provider, evaluation of patient's response to treatment, examination of patient, ordering and performing treatments and interventions, ordering and review of laboratory studies, ordering and review of radiographic studies, pulse oximetry, re-evaluation of patient's condition, review of old charts and development of treatment plan with patient or surrogate Troponin, I-Stat (06/05/2017 3:46 PM NAVIGATION OFFICER) Troponin, I-Stat 0.79 (H) 0.00 - 0.08 ng/mL DEPARTMENT OF Comment: PATHOLOGY AND GENOMIC 0.09 - 1.49 ng/mlMay indicate increased risk of acute [facility] coronary syndrome. [facility] >=1.5 ng/mlConsistent with acute myocardial infarction. The diagnostic value of a single normal or non-diagnostic result is questionable.Serial samples at 2-6 hour intervals are required to rule out acute myocardial injury. Specimen Plasma specimen Performing Organization Address City/State/Zipcode Phone Number DEPARTMENT OF PATHOLOGY AND [address] [place] [address] [facility] Prothrombin time with INR, I-Stat (06/05/2017 3:46 PM NAVIGATION OFFICER) POC prothrombin time 12.4 11.0 - 14.5 sec [facility] POC INR 1.0 DEPARTMENT OF Comment: PATHOLOGY AND GENOMIC The International Normalized Ratio (INR) is a [facility] monitoring tool for patients who are stable on oral [facility] vitamin K antagonist therapy. An INR of 2.0-3.0 is suggested for deep vein thrombosis/pulmonary embolism. An INR of 2.5-3.5 (high dose) is suggested for some patients with mechanical heart valves) Specimen Blood Performing Organization Address City/[facility]/Zipcode Phone Number DEPARTMENT OF PATHOLOGY AND [address] [place] [phone] [facility] B natriuretic pep, I-Stat (06/05/2017 3:46 PM NAVIGATION OFFICER) BNP, I-Stat 323 (H) 0 - 100 pg/mL DEPARTMENT OF PATHOLOGY AND GENOMIC [facility] Specimen Blood Performing Organization Address City/[facility]/Zipcode Phone Number DEPARTMENT OF PATHOLOGY AND [address] [place] [phone] [facility] after 05/24/2017 Insurance Payer Benefit Plan / Group Subscriber ID Type Phone Address [employer] [facility] xxxxxxxxx HMO Advance Directives Patient has advance care planning documents on file. For more information, please contact:Claude Ellington[address] [place] [address]
--- OUTSIDE RECORDS SUMMARY | 2018-05-25 13:15 | XMS REPORT ---
:1945 Author Organization eClinicalWorks Care Team Providers Name Role Phone Apodaca, Na Provider Role Unavailable Allergies, Adverse Reactions, Alerts Substance Reaction Event Type Vicodin Info Not Available Drug Allergy Neurontin Info Not Available Drug Allergy Lyrica Info Not Available Drug Allergy Lipitor Info Not Available Drug Allergy Glucophage Info Not Available Drug Allergy Codeine Sulfate Info Not Available Drug Allergy Problems Problem Type Condition Code Onset Dates Condition Status Problem Atherosclerosis of coronary artery I25.10 Active of [place] heart without angina pectoris, unspecified vessel or lesion type Assessment 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 B96.1 Active pneumoniae] as the cause of diseases classified elsewhere Problem Hypertension I10 Active Assessment Urinary tract infection, site not N39.0 Active specified Problem Mixed hyperlipidemia E78.2 Active Problem Seasonal allergic rhinitis J30.2 Active Problem Renal failure N19 Active Problem Rosacea L71.9 Active Assessment Hypertension I10 Active Assessment Diabetes mellitus, type 2 E11.9 Active Assessment Dermatitis L30.9 Active Assessment Mixed hyperlipidemia E78.2 Active Problem Klebsiella pneumoniae [K. B96.1 Active pneumoniae] as the cause of diseases classified elsewhere Problem Stage 3 chronic kidney disease N18.3 Active Problem Dermatitis L30.9 Active Problem Urinary tract infection, site not N39.0 Active specified Medications Medication Code Code Instructions Start End Status Dosage System Date Date Furosemide ND 31543757822 40 MG Orally Active 1 tablet Once a day Zetia [facility] 90481266581 10 MG Orally Active 1 tablet Once a day Tresiba ND 01766850200 100 UNIT/ML November 07, Active 40 units once FlexTouch Subcutaneous 2018 daily and increase by 2 unit every 4 days until fastng glucose less 120 Januvia [facility] 98340457726 50 MG Orally Active not defined HydrALAZINE HCl ND 87724563933 25 MG Orally Aug 15, Active 1 tablet with Three times a 2018 food day Lantus MahsaoStar [facility] 74161504448 100 UNIT/ML Active not defined Subcutaneous Metoprolol [facility] [address]-64 25 MG Orally Active 1/2 tablet Tartrate Twice a day with food NovoFine Plus [facility] 97590518747 32G X 4 MM SC Active as directed once daily Combivent [facility] 84033957187 20-100 MCG/ACT Active 1 puff Respimat Inhalation Four times a day Albuterol-Ipratr ND 0 Active not defined opium Ryan Contour [facility] 17832604825 N/A Active USE TO TEST Test BLOOD GLUCOSE THREE TIMES DAILY Triamcinolone [facility] 10366764116 0.1 % Active 1 application Acetonide Externally to affected Twice a day area Docusate Sodium [facility] [address]-84 100 MG Orally Active 1 capsule as Twice a day needed Tramadol HCl ND 55198178166 50 MG Orally Active 1 tablet as every 6 hrs needed TRUEplus Lancets [facility] 68480253733 N/A Active USE TO TEST 28G BLOOD GLUCOSE THREE TIMES DAILY Senexon [facility] 73595231920 8.6 MG Orally Active 2 tablets at Once a day bedtime as needed Results No Known Results Summary Purpose eClinicalWorks Submission
--- OUTSIDE RECORDS SUMMARY | 2018-05-25 13:15 | XMS REPORT ---
[...] Type Condition Code Onset Dates Condition Status Assessment Nonadherence with dietary Z91.11 Active restriction Assessment Nonadherence to medication Z91.14 Active Assessment Mixed hyperlipidemia E78.2 Active Problem Renal failure N19 Active Assessment Hypertension I10 Active Problem GERD (gastroesophageal reflux K21.9 Active disease) Assessment Uncontrolled type 2 diabetes E11.65 Active mellitus with hyperglycemia Problem Obesity E66.9 Active Problem Urinary incontinence, unspecified R32 Active type Problem Hypertension I10 Active Problem Uncontrolled type 2 diabetes E11.65 Active mellitus with hyperglycemia Problem Nonadherence to medication Z91.14 Active Assessment Blurry vision, bilateral H53.8 Active Problem Diabetic retinopathy associated E11.319 Active with controlled type 2 diabetes mellitus Assessment Diabetic retinopathy associated E11.319 Active with controlled type 2 diabetes mellitus Problem Diabetes mellitus, type 2 E11.9 Active Problem Sleep apnea, unspecified G47.30 Active Problem Nonadherence with dietary Z91.11 Active restriction Problem Seasonal allergic rhinitis J30.2 Active Problem Stage 3 chronic kidney disease N18.3 Active Problem Dermatitis L30.9 Active Problem Atherosclerosis of coronary artery I25.10 Active of [place] heart without angina pectoris, unspecified vessel or lesion type Problem Klebsiella pneumoniae [K. 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 Medications Medication Code Code Instructions Start End Status Dosage System Date Date Tresiba [facility] 31654684312 100 UNIT/ML Active 40 units once FlexTouch Subcutaneous daily and increase by 2 unit every 4 days until fastng glucose less 120 Ryan Contour [facility] 46062790753 N/A Active USE TO TEST Test BLOOD GLUCOSE THREE TIMES DAILY Senexon [facility] 13150570441 8.6 MG Orally Active 2 tablets at Once a day bedtime as needed Tramadol HCl ND 56288856033 50 MG Orally Active 1 tablet as every 6 hrs needed Albuterol-Iprat ND 0 Active not defined ropium TRUEplus [facility] 41621645589 N/A Active USE TO TEST Lancets 28G BLOOD GLUCOSE THREE TIMES DAILY Combivent [facility] 37499303547 20-100 MCG/ACT Active 1 puff Respimat Inhalation Four times a day Metoprolol [facility] [address]-80 25 MG Orally Active 1/2 tablet with Tartrate Twice a day food Zetia [facility] 13112925670 10 MG Orally Active 1 tablet Once a day Januvia [facility] 18672562902 50 MG Orally Active not defined NovoFine Plus [facility] 10792842762 32G X 4 MM SC Active as directed once daily Tresiba [facility] 44237845095 200 UNIT/ML Active INJECT 80 UNITS FlexTouch SUBCUTANEOUSLY ONCE DAILY AND INCREASE BY 3 UNITS EVERY 4 DAYS UNTIL FASTING BLOOD GLUCOSE LESS THAN 120 Lantus SoloStar [facility] 95452734862 100 UNIT/ML Active not defined Subcutaneous Docusate Sodium [facility] [address]-42 100 MG Orally Active 1 capsule as Twice a day needed Triamcinolone [facility] 96901164377 0.1 % Active 1 application Acetonide Externally to affected Twice a day area HydrALAZINE HCl ND 39188437331 25 MG Orally Aug 15, Active 1 tablet with Three times a 2018 food day Furosemide ND 26043256141 40 MG Orally Active 1 tablet Once a day Results No Known Results Summary Purpose eClinicalWorks Submission
--- NOTE | 2018-05-25 14:23 | RAD REPORT ---
EXAM DESCRIPTION: RAD - Chest Single View - 05/25/2018 2:10 pm CLINICAL HISTORY: SWELLING Chest pain. COMPARISON: Chest Pa And Lat (2 Views) dated 10/28/2017; Chest Single View dated 12/05/2016; CHEST PA A ND LAT 2 VIEW dated 04/26/2015; CHEST SINGLE VIEW dated 08/13/2014 FINDINGS: Portable technique limits examination quality. Mild interstitial pulmonary edema is present. The heart is mildly enlarged in size with changes of a prior CABG. No displaced fractures. IMPRESSION: Mild CHF versus volume overload.
--- NOTE | 2018-05-25 14:47 | RAD REPORT ---
EXAM DESCRIPTION: US - Extrem Venous W Compress Nick - 05/25/2018 2:41 pm CLINICAL HISTORY: SWELLING Bilateral leg edema and swelling. COMPARISON: Extrem Venous W Compress Nick dated 12/05/2016 TECHNIQUE: Real-time sonographic interrogation of the left and right lower extremity deep venous sys tems was performed. FINDINGS: Normal compressibility, flow augmentation, phasic flow and spontaneous flow is identified in both the left and right lower extremity deep venous systems. IMPRESSION: No sonographic evidence of left or right lower extremity deep venous thrombosis.
[2018-05-25 15:16] LABS: Absolute Lymphocytes (CBC) 1.5 K/uL (0.7-4.9); Absolute Monocytes 0.6 K/uL (0.1-1.3); Absolute Neutrophil 6.9 K/uL (1.8-8.0); Basophils % 1.1 % (0-1.3); Eosinophils % 2.4 % (0-4.4); Hematocrit 39.9 % (36.0-45.0); Lymphocytes % 16.5 % (15.3-44.8); MCH 31.9 pg (27.0-35.0); MCV 91.3 fL (80-100); MPV 8.5 fL (7.6-11.3); Monocytes % 6.6 % (3.3-12.3); RBC Red Blood Cell Count 4.37 M/uL (3.86-4.86)
[2018-05-25 15:17] LABS: Protime INR 1.07
[2018-05-25 15:36] LABS: Magnesium 1.8 mg/dL (1.8-2.4)
[2018-05-25 15:39] LABS: Troponin (Emerg Dept Use Only) 0.59 ng/mL (0.0-0.045)
--- NOTE | 2018-05-25 16:11 | EDPHYS ---
Physician Documentation [facility] Name: Agata Felix Age: 72 yrs Sex: Female : 1945 Arrival Date: 05/25/2018 Time: 13:09 Bed 30 Private MD: Bertha Apodaca ED Physician Stewart Resendiz HPI: 05/25 16:13 This 72 yrs old Female presents to ER via Ambulatory with complaints of kb Blisters On Legs. 16:13 The patient presents with swelling, blisters . The complaints affect the right and left kb lower legs. Context: resulted from CHF, the patient can fully bear weight, the patient is able to ambulate. Onset: The symptoms/episode began/occurred 1 week(s) ago. Modifying factors: The symptoms are alleviated by nothing. the symptoms are aggravated by nothing. Associated signs and symptoms: Pertinent positives: swelling, Pertinent negatives calf tenderness, fever, nausea, numbness, rash, tingling, vomiting, warmth, weakness. Treatment prior to arrival includes: no previous treatment. Severity of symptoms: At their worst the symptoms were moderate, in the emergency department the symptoms are unchanged. The patient has experienced similar episodes in the past. The patient has not recently seen a physician. Pt presents with swelling to right and left lower legs and blisters to right lower leg. Reports this happens when she gets fluid overload from CHF. Denies shortness of breath or chest pain. Denies fever. Historical: - Allergies: 13:34 Codeine; aj1 13:34 Ttxpevf-Zib-Ayi Reductase Inhibitors; aj1 13:34 Hydrocodone-Acetaminophen; aj1 - Home Meds: 13:37 furosemide 40 mg Oral tab 1 tab once daily [Active]; aspirin 81 mg Oral TbEC 1 tab once aj1 daily [Active]; ezetimibe oral oral once daily [Active]; hydralazine 10 mg Oral tab 1 tab three times daily [Active]; metoprolol tartrate 25 mg Oral tab 1 tab 2 times per day [Active]; biotin 1,000 mcg oral chew daily [Active]; Vitamin D Oral 1,000 unit daily [Active]; magnesium oxide 250 mg Oral tab daily [Active]; Vitamin E Oral once daily [Active]; potassium chloride 10 mEq Oral cpER 1 cap once daily [Active]; - PMHx: 13:34 Diabetes - NIDDM; Hyperlipidemia; aj1 - Immunization history:: Flu vaccine is up to date. - Social history:: Smoking status: Patient/guardian denies using tobacco. - Ebola Screening: : Patient denies travel to an Ebola-affected area in the 21 days before illness onset. ROS: 16:11 Constitutional: Negative for fever, chills, and weight loss, ENT: Negative for injury, kb pain, and discharge, Neck: Negative for injury, pain, and swelling, Respiratory: Negative for shortness of breath, cough, wheezing, and pleuritic chest pain, Abdomen/GI: Negative for abdominal pain, nausea, vomiting, diarrhea, and constipation, MS/Extremity: Negative for injury and deformity, Neuro: Negative for headache, weakness, numbness, tingling, and seizure. 16:11 Cardiovascular: Positive for edema, Negative for chest pain, orthopnea, palpitations, paroxysmal nocturnal dyspnea. 16:11 Skin: Positive for erythema, swelling, blisters to right lower leg. Exam: 16:11 Constitutional: This is a well developed, well nourished patient who is awake, alert, kb and in no acute distress. Head/Face: Normocephalic, atraumatic. Chest/axilla: Normal chest wall appearance and motion. Nontender with no deformity. No lesions are appreciated. Cardiovascular: Regular rate and rhythm with a normal S1 and S2. No gallops, murmurs, or rubs. Normal PMI, no JVD. No pulse deficits. Respiratory: Lungs have equal breath sounds bilaterally, clear to auscultation and percussion. No rales, rhonchi or wheezes noted. No increased work of breathing, no retractions or nasal flaring. Abdomen/GI: Soft, non-tender, with normal bowel sounds. No distension or tympany. No guarding or rebound. No evidence of tenderness throughout. Neuro: Awake and alert, GCS 15, oriented to person, place, time, and situation. Cranial nerves II-XII grossly intact. Motor strength 5/5 in all extremities. Sensory grossly intact. Cerebellar exam normal. Normal gait. 16:11 Musculoskeletal/extremity: Extremities: grossly normal except: noted in the right lower leg and left lower leg: erythema, swelling, ROM: intact in all extremities, Circulation is intact in all extremities. Sensation intact. 16:11 Skin: blisters to right lower leg. 16:13 Cardiovascular: Edema: 1+ edema to level of left ankle and right ankle. kb Vital Signs: 13:37 BP 159 / 69; Pulse 62; Resp 20; Temp 97.2; Pulse Ox 96% on R/A; Weight 82.55 kg (R); aj1 Height 5 ft. 4 in. (162.56 cm) (R); 16:00 BP 145 / 69; Pulse 56; Resp 18; Pulse Ox 96% on R/A; tl3 17:30 BP 177 / 68; Pulse 59; Resp 18; Pulse Ox 96% on R/A; tl3 19:41 BP 139 / 68; Pulse 62; Resp 18; Pulse Ox 94% on R/A; tl3 13:37 Body Mass Index 31.24 (82.55 kg, 162.56 cm) aj1 MDM: 13:40 Patient medically screened. kb 16:00 Data reviewed: vital signs, nurses notes. Data interpreted: Pulse oximetry: on room air kb is 96 %. Interpretation: normal. Counseling: I had a detailed discussion with the patient and/or guardian regarding: the historical points, exam findings, and any diagnostic results supporting the discharge/admit diagnosis, lab results, radiology results, the need for further work-up and treatment in the hospital. Physician consultation: Edith Hatch MD was contacted at 16:00, regarding admission, to the telemetry unit. patient's condition, and will see patient in ED, shortly. 05/25 13:55 Order name: Basic Metabolic Panel kb 05/25 13:55 Order name: CBC with Diff; Complete Time: 15:17 kb 05/25 13:55 Order name: Magnesium; Complete Time: 15:40 kb 05/25 13:55 Order name: NT PRO-BNP; Complete Time: 15:40 kb 05/25 13:55 Order name: PT-INR; Complete Time: 15:19 kb 05/25 13:55 Order name: Troponin (emerg Dept Use Only); Complete Time: 15:40 kb 05/25 13:55 Order name: XRAY Chest (1 view); Complete Time: 14:30 kb 05/25 13:55 Order name: Procalcitonin; Complete Time: 15:54 kb 05/25 13:55 Order name: Blood Culture Adult (2) kb 05/25 13:55 Order name: US Extremity Venous W Compression Nick; Complete Time: 14:51 kb 05/25 13:56 Order name: Basic Metabolic Panel; Complete Time: 15:40 EDMS 05/25 17:29 Order name: Troponin (emerg Dept Use Only) tl3 05/25 18:05 Order name: Troponin (Emerg Dept Use Only) EDMS 05/25 13:55 Order name: EKG; Complete Time: 13:57 kb 05/25 13:55 Order name: Cardiac monitoring; Complete Time: 14:15 kb 05/25 13:55 Order name: EKG - Nurse/Tech; Complete Time: 15:17 kb 05/25 13:55 Order name: IV Saline Lock; Complete Time: 14:14 kb 05/25 13:55 Order name: Labs collected and sent; Complete Time: 15:17 kb 05/25 13:55 Order name: O2 Per Protocol; Complete Time: 14:15 kb 05/25 13:55 Order name: O2 Sat Monitoring; Complete Time: 14:15 kb 05/25 14:49 Order name: Labs - recollect needed; Complete Time: 16:03 eb Administered Medications: 16:15 Drug: Aspirin Chewable Tablet 324 mg Route: PO; tl3 17:28 Follow up: Response: No adverse reaction tl3 17:27 Drug: Lovenox 1 mg/kg Route: Sub-Q; Site: abdomen; tl3 17:28 Follow up: Response: No adverse reaction tl3 Disposition: 05/26 08:28 Co-signature as Attending Physician, Stewart Resendiz MD I agree with the assessment and christiano plan of care. Disposition: 05/25/18 16:10 Hospitalization ordered by Edith Hatch for Inpatient Admission. Preliminary diagnosis are Fluid overload, unspecified, Heart failure, unspecified, Non-ST elevation (NSTEMI) myocardial infarction. - Bed requested for Telemetry/MedSurg (Inpatient). - Status is Inpatient Admission. tl3 - Condition is Stable. - Problem is new. - Symptoms are unchanged. UTI on Admission? No Signatures: Dispatcher [employer] EDTX Marina Mullen, CAROL-C CASTING WHEEL OPERATOR HELPER-Addie Winters RN RN aj1 Karolina Rodriguez RN Stewart Palomares MD MD cha Lowrey, Tammy, RN RN tl3 Merline Vickers Corrections: (The following items were deleted from the chart) 11/25 17:19 16:10 Hospitalization Ordered by Edith Hatch MD for Inpatient Admission. Preliminary dw diagnosis is Fluid overload, unspecified; Heart failure, unspecified; Non-ST elevation (NSTEMI) myocardial infarction. Bed requested for Telemetry/MedSurg (Inpatient). Status is Inpatient Admission. Condition is Stable. Problem is new. Symptoms are unchanged. UTI on Admission? No. kb 19:59 17:19 05/25/2018 16:10 Hospitalization Ordered by Edith Hatch MD for Inpatient tl3 Admission. Preliminary diagnosis is Fluid overload, unspecified; Heart failure, unspecified; Non-ST elevation (NSTEMI) myocardial infarction. Bed requested for Telemetry/MedSurg (Inpatient). Status is Inpatient Admission. Condition is Stable. Problem is new. Symptoms are unchanged. UTI on Admission? No. dw
--- NOTE | 2018-05-25 16:11 | ER ---
Nurse's Notes [facility] Name: Agata Felix Age: 72 yrs Sex: Female : 1945 Arrival Date: 05/25/2018 Time: 13:09 Bed 30 Private MD: Bertha Apodaca Diagnosis: Fluid overload, unspecified;Heart failure, unspecified;Non-ST elevation (NSTEMI) myocardial infarction Presentation: 05/25 13:31 Presenting complaint: Patient states: Redness to her right lower leg for the past week, aj1 that started blistering 2 days ago. Now shes starting to have blistering on right left leg as well. Denies fever. Transition of care: patient was not received from another setting of care. Onset of symptoms was May 2018. Risk Assessment: Do you want to hurt yourself or someone else? Patient reports no desire to harm self or others. Initial Sepsis Screen: Does the patient meet any 2 criteria? No. Patient's initial sepsis screen is negative. Does the patient have a suspected source of infection? Yes: Skin breakdown/wound. Care prior to arrival: None. 13:31 Method Of Arrival: Ambulatory aj1 13:31 Acuity: LUBA 3 aj1 Triage Assessment: 13:34 General: Appears in no apparent distress. comfortable, Behavior is calm, cooperative, aj1 appropriate for age. Pain: Complains of pain in right leg Pain currently is 2 out of 10 on a pain scale. Neuro: Level of Consciousness is awake, alert, obeys commands. Cardiovascular: Patient's skin is warm and dry. Respiratory: Airway is patent Respiratory effort is even, unlabored, Respiratory pattern is regular, symmetrical. Historical: - Allergies: 13:34 Codeine; aj1 13:34 Wscydae-Bju-Fon Reductase Inhibitors; aj1 13:34 Hydrocodone-Acetaminophen; aj1 - Home Meds: 13:37 furosemide 40 mg Oral tab 1 tab once daily [Active]; aspirin 81 mg Oral TbEC 1 tab once aj1 daily [Active]; ezetimibe oral oral once daily [Active]; hydralazine 10 mg Oral tab 1 tab three times daily [Active]; metoprolol tartrate 25 mg Oral tab 1 tab 2 times per day [Active]; biotin 1,000 mcg oral chew daily [Active]; Vitamin D Oral 1,000 unit daily [Active]; magnesium oxide 250 mg Oral tab daily [Active]; Vitamin E Oral once daily [Active]; potassium chloride 10 mEq Oral cpER 1 cap once daily [Active]; - PMHx: 13:34 Diabetes - NIDDM; Hyperlipidemia; aj1 - Immunization history:: Flu vaccine is up to date. - Social history:: Smoking status: Patient/guardian denies using tobacco. - Ebola Screening: : Patient denies travel to an Ebola-affected area in the 21 days before illness onset. Screenin:00 Abuse screen: Denies threats or abuse. Nutritional screening: No deficits noted. tl3 Tuberculosis screening: No symptoms or risk factors identified. Fall Risk None identified. Assessment: 14:00 General: Appears in no apparent distress. comfortable, well groomed, well developed, tl3 well nourished, Behavior is calm, cooperative, appropriate for age. Pain: Complains of pain in right leg. Neuro: Level of Consciousness is awake, alert, obeys commands, Oriented to person, place, time, situation, Appropriate for age. Cardiovascular: Patient's skin is warm and dry. Respiratory: Airway is patent Respiratory effort is even, unlabored, Respiratory pattern is regular, symmetrical. GI: No signs and/or symptoms were reported involving the gastrointestinal system. : Denies incontinence. EENT: No deficits noted. No signs and/or symptoms were reported regarding the EENT system. Derm: Wound noted right leg. Musculoskeletal: No signs and/or symptoms reported regarding the musculoskeletal system. 16:01 Reassessment: No changes from previously documented assessment. Patient and/or family tl3 updated on plan of care and expected duration. Pain level reassessed. Patient is alert, oriented x 3, equal unlabored respirations, skin warm/dry/pink. pt bed changed, new gown and brief provided, no further needs at this time. 17:30 Reassessment: Patient appears in no apparent distress at this time. No changes from tl3 previously documented assessment. Patient and/or family updated on plan of care and expected duration. Pain level reassessed. Patient is alert, oriented x 3, equal unlabored respirations, skin warm/dry/pink. 2nd Troponin drawn and sent to lab, no needs at this time. 19:41 Reassessment: Patient appears in no apparent distress at this time. No changes from tl3 previously documented assessment. Patient and/or family updated on plan of care and expected duration. Pain level reassessed. Patient is alert, oriented x 3, equal unlabored respirations, skin warm/dry/pink. Vital Signs: 13:37 BP 159 / 69; Pulse 62; Resp 20; Temp 97.2; Pulse Ox 96% on R/A; Weight 82.55 kg (R); aj1 Height 5 ft. 4 in. (162.56 cm) (R); 16:00 BP 145 / 69; Pulse 56; Resp 18; Pulse Ox 96% on R/A; tl3 17:30 BP 177 / 68; Pulse 59; Resp 18; Pulse Ox 96% on R/A; tl3 19:41 BP 139 / 68; Pulse 62; Resp 18; Pulse Ox 94% on R/A; tl3 13:37 Body Mass Index 31.24 (82.55 kg, 162.56 cm) aj1 ED Course: 13:09 Patient arrived in ED. rg4 13:09 Bertha Apodaca MD is Private Physician. rg4 13:33 Triage completed. aj1 13:37 Arm band placed on Patient placed in an exam room. aj1 13:40 Marina Mullen FNP-C is PHCP. kb 13:40 Stewart Resendiz MD is Attending Physician. kb 14:07 Latesha Chew, MARIO is Primary Nurse. tl3 14:10 XRAY Chest (1 view) In Process Unspecified. EDMS 14:14 Inserted saline lock: 20 gauge in right antecubital area, using aseptic technique. mt Blood collected. 14:20 Patient taken to ultrasound. via wheelchair. aa4 14:41 US Extremity Venous W Compression Nick In Process Unspecified. EDMS 14:42 Ultrasound completed. Patient tolerated well. Patient moved back from ultrasound. aa4 16:00 Patient has correct armband on for positive identification. Placed in gown. Bed in low tl3 position. Call light in reach. Side rails up X2. Adult w/ patient. Pulse ox on. NIBP on. 16:00 No provider procedures requiring assistance completed. tl3 16:10 Edith Hatch MD is Hospitalizing Provider. kb 17:29 Basic Metabolic Panel Sent. tl3 19:48 Patient admitted, IV remains in place. tl3 Administered Medications: 16:15 Drug: Aspirin Chewable Tablet 324 mg Route: PO; tl3 17:28 Follow up: Response: No adverse reaction tl3 17:27 Drug: Lovenox 1 mg/kg Route: Sub-Q; Site: abdomen; tl3 17:28 Follow up: Response: No adverse reaction tl3 Outcome: 16:10 Decision to Hospitalize by Provider. kb 19:47 Admitted to Med/surg accompanied by tech, via wheelchair, with chart, Report called to tl3 MARIO Renae 19:47 Condition: stable 19:47 Instructed on the need for admit, Demonstrated understanding of instructions. 19:59 Patient left the ED. tl3 Signatures: Dispatcher [employer] EDMS Marina Mullen, DUMPER BAILER OPERATOR-C DUMPER BAILER OPERATOR-Addie Winters, RN RN aj1 Grace Burt Rubi rg4 Thompson, Moriah mt Lowrey, Tammy, RN RN tl3
[2018-05-25] MEDS ORDERED: ENOXAPARIN 80 MG/0.8 ML SQ ONE (16:15)
[2018-05-25] MEDS ORDERED: ASPIRIN 81 MG CHEWABLE TABLET ONE (16:15)
[2018-05-25] MEDS ORDERED: ALBUTEROL 2.5 MG/3 ML NEB SOL NEB PRN (19:55)
[2018-05-25] MEDS ORDERED: ONDANSETRON 4 MG/2 ML VIAL IV PRN (19:55)
[2018-05-25 22:17] VITALS: BMI 31.0
[2018-05-26] MEDS: HOME MED 1 EA UNK (Ipratropium/Albuterol Sulfate [Combivent Respimat 20-100 Mcg] 4 GM) IH SCH ×5 (05:15→23:55)
[2018-05-26 06:29] LABS: Absolute Lymphocytes (CBC) 1.7 K/uL (0.7-4.9); Absolute Monocytes 0.8 K/uL (0.1-1.3); Absolute Neutrophil 5.8 K/uL (1.8-8.0); Basophils % 0.9 % (0-1.3); Eosinophils % 2.5 % (0-4.4); Hematocrit 35.3 % (36.0-45.0); Lymphocytes % 19.8 % (15.3-44.8); MCH 31.4 pg (27.0-35.0); MCV 90.5 fL (80-100); MPV 8.4 fL (7.6-11.3); Monocytes % 9.4 % (3.3-12.3)
[2018-05-26 06:31] LABS: Urine Appearance CLOUDY; Urine Bilirubin NEGATIVE (NEG); Urine Blood TRACE (NEG); Urine Color YELLOW; Urine Glucose NEGATIVE (NEG); Urine Protein 2+ (NEG)
[2018-05-26 06:33] LABS: Urine Microscopic Reflex ORDER UMIC
[2018-05-26 06:42] LABS: Albumin 2.6 g/dL (3.4-5.0); Bilirubin Total 0.4 mg/dL (0.2-1.0); Magnesium 1.9 mg/dL (1.8-2.4); Potassium 3.7 mmol/L (3.5-5.1); Protein, Total 6.8 g/dL (6.4-8.2)
[2018-05-26 06:44] LABS: Urine Bacteria LOADED /HPF (<20); Urine Culture Reflex Order REFLEXED; Urine RBC <5 /HPF (NONE SEEN)
[2018-05-26] MEDS ORDERED: POTASSIUM CL SA 10 MEQ TAB PO ONE (07:00)
--- NOTE | 2018-05-26 07:36 | EKG ---
Test Date: 2018-05-25 Test Time: 15:13:45 Hand Mold Maker: HUONG MEASUREMENT RESULTS: Intervals: Rate: 62 SD: 206 QRSD: 124 QT: 466 QTc: 472 [place]: P: 63 SD: 206 QRS: -49 T: 86 INTERPRETIVE STATEMENTS: Normal sinus rhythm Possible Left atrial enlargement Right bundle branch block Left anterior fascicular block Bifascicular block Possible Lateral infarct, age undetermined Abnormal ECG Compared to ECG 12/05/2016 17:05:16 Right bundle-branch block now present Left anterior fascicular block now present Bifascicular block now present Myocardial infarct finding still present Electronically Signed On 05-26-18 07:35:29 BUSINESS PLANNING ANALYST by Carlos Retana
[2018-05-26] MEDS ORDERED: ENOXAPARIN 40 MG/0.4 ML SQ SCH (09:00)
[2018-05-26] MEDS ORDERED: VALSARTAN 160 MG TAB PO SCH (09:00)
[2018-05-26] MEDS ORDERED: VALSARTAN 80 MG TAB PO SCH (09:00)
[2018-05-26] MEDS: ENOXAPARIN 30 MG/0.3 ML SQ SCH (09:03)
--- NOTE | 2018-05-26 11:14 | P.HP ---
Certification for Inpatient Patient admitted to: Inpatient With expected LOS: >2 Midnights Patient will require the following post-hospital care: None Practitioner: I am a practitioner with admitting privileges, knowledge of patient current condition, hospital course, and medical plan of care. Services: Services provided to patient in accordance with Admission requirements found in Title 42 Section 412.3 of the Code of Federal Regulations Patient History Date of Service: 05/25/18 Reason for admission: ANJANA; NSTEMI; Dehydration; Bullous lesions of the legs; ?? pemphigus History of Present Illness: Patient is a 72-year-old female who is admitted to the hospital with erythema of the bilateral lower extremities. She has bullous lesions on the legs. This could be bullous pemphigus. However, she has been treated for cellulitis. She is also on diuretics and she looks to be in acute renal failure. Will go ahead and put her on IV antibiotics but she may need Dermatology and steroids. Her chest x-ray shows some mild pulmonary edema; however, patient is not short of breath nor is she hypoxic. At this time will go ahead and admit patient to the hospital and continue with IV antibiotics. She will need to follow with Dermatology and evaluation for bullous pemphigus. At this time I would star steroids however with the acute renal insufficiency I would hold off until this improves. Once the renal function improves then may be able to give her steroids to see if this improves her lesions until she can get in to see Dermatology. Allergies codeine Allergy (Unknown, Verified 05/26/18 04:53) Itching/Hives/Rash hydrocodone Allergy (Unknown, Verified 05/26/18 04:53) Increased heartbeat Ybkbliq-Bub-Viq Reductase Inhibitor Allergy (Unknown, Verified 05/26/18 04:53) Hives gabapentin Allergy (Verified 05/26/18 04:53) Shortness of breath metformin Allergy (Verified 05/26/18 04:53) Diarrhea Home Medications: Aspirin 81 mg PO DAILY 05/26/18 Biotin 1,000 mcg PO DAILY 05/26/18 Cholecalciferol (Vitamin D3) [Vitamin D 1000 Iu Tab] 1,000 unit PO DAILY Ezetimibe 10 mg PO DAILY 05/26/18 Hydralazine [Apresoline] 25 mg PO TID 05/26/18 Insulin Degludec [Tresiba Flextouch U-100] 50 unit SQ DAILY 05/26/18 Magnesium Oxide [Magnesium] 250 mg PO BID 05/26/18 Metoprolol Tartrate [Lopressor] 25 mg PO BID 05/26/18 Cutler-3 Fatty Acids/Fish Oil [Fish Oil 1,000 mg Capsule] 2 each PO DAILY Omeprazole 20 mg PO DAILY 05/26/18 Potassium Chloride [K-Tab] 10 meq PO DAILY 05/26/18 Torsemide [Demadex*] 40 mg PO BID 05/26/18 Vitamin B Complex [B Complex] 1 each PO DAILY 05/26/18 Vitamin E 400 unit PO DAILY 05/26/18 - Past Medical/Surgical History Has patient received pneumonia vaccine in the past: Yes Diabetic: Yes -: htn, diabetes -: Hyperlipidemia -: appendectomy -: cholecystectomy -: tubal ligation - Family History Mother Medical History: Kidney disease Father Medical History: Heart disease Sister Medical History: Cancer Notes: Kidney cancer - Social History Smoking Status: Never smoker Alcohol use: No CD- Drugs: No Caffeine use: Yes Place of Residence: Home Review of Systems 10-point ROS is otherwise unremarkable Physical Examination - Vital Signs Temperature: 97.9 F Blood Pressure: 146/65 Pulse: 57 Respirations: 18 Pulse Ox (%): 95 - Physical Exam General: Alert, In no apparent distress, Oriented x3 HEENT: Atraumatic, PERRLA, Mucous membr. moist/pink, EOMI, Sclerae nonicteric Neck: Supple, 2+ carotid pulse no bruit, No LAD, Without JVD or thyroid abnormality Respiratory: Clear to auscultation bilaterally, Normal air movement Cardiovascular: Regular rate/rhythm, Normal S1 S2, No murmurs Gastrointestinal: Normal bowel sounds, Soft and benign, Non-distended, No tenderness Integumentary: Tenderness/swelling, Other (Blistering on the bilateral lower extremities) Neurological: Normal gait, Normal speech, Normal strength at 5/5 x4 extr, Normal tone, Sensation intact, Cranial nerves 3-12 intact, Normal affect Lymphatics: No axilla or inguinal lymphadenopathy - Studies Laboratory Data (last 24 hrs) 05/25/18 14:55: PT 12.6 H, INR 1.07 05/25/18 14:55: WBC 9.4, Hgb 13.9, Hct 39.9, Plt Count 290 05/25/18 14:55: Sodium 142, Potassium 4.0, BUN 38 H, Creatinine 1.90 H, Glucose 217 H, Magnesium 1.8 Assessment & Plan - Problems (Diagnosis) (1) Bilateral lower leg cellulitis Current Visit: Yes Status: Acute (2) Acute kidney injury Current Visit: Yes Status: Acute (3) Dehydration Current Visit: Yes Status: Acute (4) Bullous eruption, localized Current Visit: Yes Status: Acute (5) Diabetes mellitus Current Visit: No Status: Acute (6) Hypertension Current Visit: No Status: Acute (7) NSTEMI (non-ST elevated myocardial infarction) Current Visit: Yes Status: Acute - Plan 1. Continue with IV antibiotic 2. Continue with local wound care 3. Wound care consultation 4. Gentle IV hydration 5. Monitor CBC 6. ?? oral steroids once renal function improved 7. Echo to evaluate EF 8. Medical treatment 9. GI and DVT prophylaxis Discharge Plan: Home Plan to discharge in: Greater than 2 days - Advance Directives Does patient have a Living Will: Yes Does patient have a Durable POA for Healthcare: Yes - Code Status/Comfort Care Code Status Assessed: Yes Code Status: Full Code Critical Care: No Time Spent Managing PTS Care (In Minutes): 50
[2018-05-26] MEDS: HYDRALAZINE HCL 25 MG TABLET PO SCH ×2 (13:03→20:47)
--- NOTE | 2018-05-26 14:28 | P.PN ---
Subjective Date of Service: 05/26/18 Chief Complaint: ANJANA; NSTEMI; Dehydration; Bullous lesions of the legs; ?? pemphigus Patient seen and examined at bedside. No family at bedside. Chart reviewed and Case discussed with nursing staff. Patient reports bullous lesions on right lower extremity, not as painful as the were initially. States that overnight there was some discharge/weeping from them. Denies any chest pain, shortness of breath, dizziness, syncopal/presyncopal episode, fevers, chills, abdominal pain, nausea or vomiting. Review of Systems As noted Physical Examination - Vital Signs Temperature: 97.9 F Blood Pressure: 146/65 Pulse: 57 Respirations: 18 Pulse Ox (%): 95 - Physical Exam General: Alert, In no apparent distress, Oriented x3 HEENT: Atraumatic, PERRLA, EOMI Neck: Supple, JVD not distended Respiratory: Clear to auscultation bilaterally, Normal air movement Cardiovascular: Regular rate/rhythm, Normal S1 S2 Gastrointestinal: Normal bowel sounds, No tenderness Musculoskeletal: No tenderness Integumentary: Other (2 bullae noted a right lower extremity, no discharge/ weeping noted at this time. Did note a fluid level inside bullae. Redness noted on bilateral lower extremities.) Neurological: Normal speech, Normal tone, Normal affect Lymphatics: No axilla or inguinal lymphadenopathy - Studies Laboratory Data (last 24 hrs) 05/25/18 14:55: PT 12.6 H, INR 1.07 05/25/18 14:55: WBC 9.4, Hgb 13.9, Hct 39.9, Plt Count 290 05/25/18 14:55: Sodium 142, Potassium 4.0, BUN 38 H, Creatinine 1.90 H, Glucose 217 H, Magnesium 1.8 Assessment And Plan - Plan This is a 72-year-old female with: Bilateral lower leg cellulitis Continue IV antibiotics Acute kidney injury Creatinine improving, though not back to baseline. Baseline creatinine seems to be 1.2-1.4 Continue to monitor Avoid nephrotoxic drugs and renally dose antibiotics as needed Bullous eruption, localized Wound care consultation placed Cultures of discharge from lesions, if possible Continue IV antibiotics with ciprofloxacin. Possible or steroids once renal function has improved ( ? Bullous pemphigoid) Diabetes mellitus, type 2, insulin dependent. Continue Accu-Cheks. Sliding scale insulin. Will adjust as needed Essential hypertension Restart home medication Elevated troponin levels Patient with prior elevated troponin levels in November of 2016, workup at that time negative. At this time denying any chest pain, shortness of breath, dizziness, lightheadedness. Cardiology consulted Echo ordered to evaluate for ejection fraction Stress test ordered by Cardiology, pending for tomorrow. DVT prophylaxis: Lovenox GI prophylaxis: Not needed Diet: Regular, NPO after midnight for pending stress test Disposition: Pending symptomatic treatment, stress test and echo. Continue IV antibiotics
[2018-05-26] MEDS: ACETAMINOPHEN 500 MG TAB PO PRN (17:34)
--- NOTE | 2018-05-26 19:09 | CON ---
CARDIOLOGY CONSULT Chief Complaint: Swelling of her legs. Reason For Consult: Abnormal troponin test. History Of Present Illness: Mrs. Felix has a history of diabetes for more than 20 years, coronary heart disease with coronary bypass surgery roughly a year ago at [facility]. She did well f ollowing her bypass surgery, did not need any revascularization after that. She has had other episod es of cellulitis, but this time they are blisters, especially on the right leg. The patient has laurence l insufficiency. Creatinine 2.0. GFR in the mid 20s. She is not having chest pain or shortness of breath. She has a history of congestive heart failure, coronary heart disease, diabetes, hypertensio n, dyslipidemia. It seems she is intolerant of all of the statins that have been tried on her. Also , intolerant to codeine and hydrocodone. Medications: Insulin, Tarceva, Zetia, Demadex, aspirin, omeprazole, hydralazine, metoprolol, choleca lciferol, magnesium oxide, and potassium chloride. Physical Examination: General: She is alert, oriented, pleasant. She is not in any distress. Lungs: Clear. Heart: Reveals no significant murmur or gallop. Abdomen: Soft. Extremities: Revealed very dense and hard edema of both legs from the shins downward. There are mil dly red, not warm to the touch, not tender, and some blisters about 1-1/2 to 2 cm in diameter are pre sent on the inner aspect of the right blakely. Distal pulses are not palpable. The wounds from her byp ass surgery on the left leg seemed to have healed nicely. Laboratory Data: Reveals troponins of 0.59 and 0.53. Her electrocardiogram shows sinus rhythm, left atrial enlargement, right bundle-branch block, left anterior fascicular block, possible lateral infa rct. Impression: The patient's troponins do not seem to have that typical rise and fall pattern consisten t with acute coronary syndrome, not associated with chest pain or EKG changes. I am going to recomme nd we get an echo and nuclear stress test while we see if her heart is unstable without chest pain an d knowing she has renal insufficiency it is probably best not to have even drawn the troponin, but si nce it is we are obligated to try and make sure she is not suffering from an acute coronary syndrome without symptoms, so we will do the noninvasive workup. Thank you very much for your kind referral of Mrs. Felix. I will follow her with you. OBDULIA/NAYE Voice ID: [id number] Report ID: [id number]
[2018-05-26] MEDS: INSULIN GLARGINE 100 UNITS/ML SQ SCH (20:46)
[2018-05-26] MEDS: Ciprofloxacin 200mg IV 200 MG/100 ML IV.SOLN. IV SCH (20:47)
[2018-05-26] MEDS: METOPROLOL TAR 25 MG TAB PO SCH (20:47)
[2018-05-26] MEDS ORDERED: NA CHLORIDE 0.9% 250 ML ONE (20:59)
[2018-05-26] MEDS ORDERED: INSULIN GLARGINE 100 UNITS/ML SQ SCH (21:00)
[2018-05-26] MEDS ORDERED: D50W 25 GM/50 ML SYRINGE IV PRN (23:21)
[2018-05-26] MEDS ORDERED: GLUCAGON 1 MG/VIAL IM PRN (23:21)
[2018-05-27] MEDS: HOME MED 1 EA UNK (Ipratropium/Albuterol Sulfate [Combivent Respimat 20-100 Mcg] 4 GM) IH SCH ×4 (05:28→23:27)
[2018-05-27 06:00] LABS: Absolute Lymphocytes (CBC) 1.6 K/uL (0.7-4.9); Absolute Monocytes 0.7 K/uL (0.1-1.3); Absolute Neutrophil 5.5 K/uL (1.8-8.0); Basophils % 0.9 % (0-1.3); Eosinophils % 2.8 % (0-4.4); Hematocrit 36.5 % (36.0-45.0); Lymphocytes % 19.8 % (15.3-44.8); MCH 31.5 pg (27.0-35.0); MCV 90.8 fL (80-100); MPV 8.6 fL (7.6-11.3); Monocytes % 8.4 % (3.3-12.3); RBC Red Blood Cell Count 4.02 M/uL (3.86-4.86)
[2018-05-27 06:20] LABS: Albumin 2.7 g/dL (3.4-5.0); Bilirubin Total 0.4 mg/dL (0.2-1.0); Potassium 4.2 mmol/L (3.5-5.1)
[2018-05-27] MEDS: INSULIN -REGULAR HUMAN 50 UNIT/0.5 ML ML SQ SCH ×4 (07:30→21:04)
[2018-05-27] MEDS: ENOXAPARIN 30 MG/0.3 ML SQ SCH (08:10)
[2018-05-27] MEDS: EZETIMIBE 10 MG TAB PO SCH (08:10)
[2018-05-27] MEDS: Ciprofloxacin 200mg IV 200 MG/100 ML IV.SOLN. IV SCH ×2 (08:10→21:01)
[2018-05-27] MEDS: VITAMIN D 1000 UNIT TAB PO SCH (08:11)
[2018-05-27] MEDS: METOPROLOL TAR 25 MG TAB PO SCH ×2 (08:11→21:01)
[2018-05-27] MEDS: ASPIRIN 81 MG CHEWABLE TABLET PO SCH (08:11)
[2018-05-27] MEDS: HYDRALAZINE HCL 25 MG TABLET PO SCH ×3 (08:11→21:02)
[2018-05-27] MEDS: VITAMIN E 400 IU CAP PO SCH (08:11)
[2018-05-27] MEDS: VITAMIN B COMPLEX 1 CAP PO SCH (08:11)
[2018-05-27] MEDS: BIOTIN 1000 MCG PO SCH (08:12)
[2018-05-27] MEDS ORDERED: REGADENOSON 0.4 MG/5 ML SYR IV ONE (08:23)
--- NOTE | 2018-05-27 12:44 | TREADPHA ---
DX: ABNORMAL TROPONIN Date of Study: 05/27/2018 Ht: 5 4 Wt: 188 lb 6 oz Consulting Physician: WILIAN MEDICATIONS: TYLENOL, ASPIRIN, CIPRO, DEXTROSE, LOVENOX, ZETIA. GLUCAGEN, APRESOLINE, NOVOLIN R, LOPRESSOR HISTORY: 72 YEAR OLD FEMALE WITH COMPLAINTS OF CHEST PAIN. MEDICAL HISTORY OF CONGESTIVE HEART FAILURE, DIABETES MELLITUS AND HYPERLIPIDEMIA PHYSICIAL EXAMINATION: RESTING B.P.: 144/57 RESTING H.R.: 55 RESTING EKG: SINUS BRADYCARDIA. RIGHT BUNDLE BRANCH BLOCK, LEFT AXIS DEVIATION PROTOCOL: LEXISCAN EXERCISE TIME: 3:30 B.P. AT PEAK STRESS: 112/55 IMPRESSION: LEXISCAN INJECTED. CARDIOLITE INJECTED PER PROTOCOL. SEE NUCLEAR MEDICINE REPORT. NO SUPRAVENTRICULAR TACHYCARDIA. NO VENTRICULAR TACHYCARDIA. ONE PREMATURE VENTRICULAR COMPLEX DURING RECOVERY.
[2018-05-27] MEDS: INSULIN GLARGINE 100 UNITS/ML SQ SCH (21:04)
[2018-05-27] MEDS: ACETAMINOPHEN 500 MG TAB PO PRN (21:51)
--- NOTE | 2018-05-27 21:52 | PN ---
Date of Progress Note: 05/27/2018 Subjective: The patient was seen and examined. Chart reviewed, and case discussed with RN. Dorothy cho atus is full. Review of Systems: Negative except as above. The patient denies any chest pain. Medications: List reviewed. Physical Examination: Vital Signs: Temperature 97.6, heart rate 58, blood pressure 151/67, respirations 20, and O2 97% on 1 L via nasal cannula. General: Awake, alert, and oriented x3. Elderly female, obese. CV: S1, S2. Regular rate and rhythm. Peripheral pulses present. No murmurs. Respiratory: Moving air well bilaterally. No wheezing or stridor. Gastrointestinal: Abdomen is soft, nontender, nondistended. Positive bowel sounds. Extremities: No clubbing, cyanosis, or edema. Neurologic: Nonfocal. Cranial nerves 2-12 intact grossly. Speech is normal. Skin: No rashes. Normal skin turgor. Laboratory Data: Sodium 142, potassium 4.2, chloride 105, CO2 32, BUN 40, creatinine 1.5, glucose 24 2, and calcium 8.6. WBC 8.1, H and H 12.6 and 36.5, and platelets 270. Urine culture, 4+ gram-negat rosalio rods. Blood cultures, no growth to date. Pharmacological stress test: No SVT, no ventricular t achycardia, and 1 premature ventricular complex during recovery. Cardiac imaging, nuclear medicine s tudy pending. Assessment And Plan: A 72-year-old female with; 1.Bilateral lower extremity cellulitis. We will continue with IV antibiotics. Blood cultures negat rosalio to date. 2.Acute cystitis without hematuria. Urine culture growing gram-negative rods. We will await on ID and sensitivity. Continue IV antibiotics. 3.Acute on chronic kidney injury. Baseline creatinine is around 1.4, stage III. We will continue t o monitor creatinine level. Avoid nephrotoxins. 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 We will continue with wound care. May need s teroids once renal function improves and we will need to have Dermatology evaluation as an outpatient and continue antibiotics for now. We will obtain cultures if the patient has any drainage. 5.Diabetes mellitus, type 2, insulin dependent, with hyperglycemia. We will continue sliding scale insulin and Accu-Cheks. 6.Essential hypertension, stable. 7.Elevated troponin level. Cardiac stress test is being done today. No NSTEMI. Echocardiogram pen ding. We will follow up with stress results. Continue current treatment. Await results from urine culture, stress test, and echocardiogram. Like ly discharge in the next 24-48 hours depending on clinical response. GI and DVT prophylaxis addresse vargas BINGHAM/NAYE Voice ID: [id number] Report ID: [id number]
--- NOTE | 2018-05-27 23:52 | PN ---
Dr. Retana saw her for diastolic congestive heart failure, diabetes, hypertension, and dyslipidemia. She had come in with leg blisters. Leg blisters have improved. She had a bifascicular block on EKG . Lexiscan was ordered and was pending at the time of this dictation. No change in therapy at this point. LEON/NAYE Voice ID: [id number] Report ID: [id number]
[2018-05-28] MEDS: HOME MED 1 EA UNK (Ipratropium/Albuterol Sulfate [Combivent Respimat 20-100 Mcg] 4 GM) IH SCH (04:40)
[2018-05-28 06:06] LABS: Absolute Monocytes 0.8 K/uL (0.1-1.3); Absolute Neutrophil 5.5 K/uL (1.8-8.0); Eosinophils % 3.1 % (0-4.4); Hematocrit 34.6 % (36.0-45.0); Lymphocytes % 23.2 % (15.3-44.8); MCH 31.7 pg (27.0-35.0); MCV 90.5 fL (80-100); MPV 8.2 fL (7.6-11.3); Monocytes % 9.1 % (3.3-12.3); RBC Red Blood Cell Count 3.83 M/uL (3.86-4.86)
[2018-05-28 06:19] LABS: Albumin 2.6 g/dL (3.4-5.0); Bilirubin Total 0.4 mg/dL (0.2-1.0); Potassium 4.1 mmol/L (3.5-5.1); Protein, Total 6.8 g/dL (6.4-8.2)
--- NOTE | 2018-05-28 06:21 | RAD REPORT ---
EXAM DESCRIPTION: NM - Rest Stress Cardiac Imaging - 05/27/2018 12:36 pm CLINICAL HISTORY: Chest pain COMPARISON: None. TECHNIQUE: The patient was administered approximately 10 mCi of Tc 99m Sestamibi prior to resting SP ECT imaging of the heart. The patient was then administered approximately 30 mCi of Tc 99m Sestamibi following exercise or pharmacologic stress. Multiplanar SPECT images were reviewed. FINDINGS: The end diastolic volume is 127 ml, the end systolic volume is 69 ml, and the ejection fra ction is 46 %. No stress-induced ischemic changes are identifiable. There is a large fixed defect involving anterior wall base to apex. Moderately large fixed defect involves the inferolateral wall also from base to a pex. IMPRESSION: No stress-induced ischemia. Large area of scarring on the anterior wall and moderately large area of scarring inferolateral wall. End-diastolic volume of 127 mL and ejection fraction of 46%.
[2018-05-28] MEDS: INSULIN -REGULAR HUMAN 50 UNIT/0.5 ML ML SQ SCH (07:30)
--- NOTE | 2018-05-28 08:57 | ECHO ---
HEIGHT: 5 ft 4 in WEIGHT: 191 lb 0 oz DATE OF STUDY: 05/26/[address]: Carlos Retana MD 2-DIMENSIONAL: YES M.MODE: YES DOPPLER: YES COLOR FLOW: YES TDS: NO PORTABLE: NO DEFINITY: NO BUBBLE STUDY: NO DIAGNOSIS: EDEMA CARDIAC HISTORY: CATHERIZATION: YES SURGERY: YES PROSTHETIC VALVE: NO PACEMAKER: NO MEASUREMENTS (cm) DIASTOLIC (NORMALS) SYSTOLIC (NORMALS) IVSd 1.1 (0.6-1.2) LA Diam 4.5 (1.9-4.0) LVEF 61% LVIDd 4.7 (3.5-5.7) LVIDs 3.2 (2.0-3.5) %FS 33% LVPWd 1.1 (0.6-1.2) Ao Diam 2.8 (2.0-3.7) 2 DIMENSIONAL ASSESSMENT: RIGHT ATRIUM: NORAML LEFT ATRIUM: DILATED RIGHT VENTRICLE: NORMAL LEFT VENTRICLE: NORMAL TRICUSPID VALVE: NORMAL MITRAL VALVE: NORMAL PULMONIC VALVE: NORMAL AORTIC VALVE: NORMAL PERICARDIAL EFFUSION: NONE AORTIC ROOT: NORMAL LEFT VENTRICULAR WALL MOTION: NORMAL. DOPPLER/COLOR FLOW: TRACE OF MITRAL AND TRICUSPID REGURGITATION. NORMAL RIGHT VENTRICULAR SYSTOLIC PRESSURE. COMMENTS: NORMAL LEFT VENTRICULAR EJECTION FRACTION. DILATED LEFT ATRIUM. TRACE OF MITRAL AND TRICUSPID REGURGITATION. TECHNOLOGIST: NICOLE PAZ
[2018-05-28] MEDS: BIOTIN 1000 MCG PO SCH (09:00)
[2018-05-28] MEDS: METOPROLOL TAR 25 MG TAB PO SCH (09:00)
[2018-05-28] MEDS: Ciprofloxacin 200mg IV 200 MG/100 ML IV.SOLN. IV SCH (09:01)
[2018-05-28] MEDS: VITAMIN B COMPLEX 1 CAP PO SCH (09:04)
[2018-05-28] MEDS: ASPIRIN 81 MG CHEWABLE TABLET PO SCH (09:04)
[2018-05-28] MEDS: HYDRALAZINE HCL 25 MG TABLET PO SCH (09:05)
[2018-05-28] MEDS: VITAMIN E 400 IU CAP PO SCH (09:05)
[2018-05-28] MEDS: ENOXAPARIN 30 MG/0.3 ML SQ SCH (09:06)
[2018-05-28] MEDS: VITAMIN D 1000 UNIT TAB PO SCH (09:06)
[2018-05-28] MEDS: EZETIMIBE 10 MG TAB PO SCH (09:06)
[2018-05-28 09:51] VITALS: BP 196/74; TEMP 97.8
[2018-05-28 10:36] VITALS: O2SAT 92
--- NOTE | 2018-05-29 09:44 | DS ---
Date of Discharge: 05/28/2018 Consultants: Dr. Retana with Cardiology and Dr. Correa with Cardiology. Admitting Diagnoses: 1.Bilateral lower leg cellulitis. 2.Acute kidney injury. 3.Dehydration. 4.Bullous pemphigoid. 5.Diabetes mellitus type 2. 6.Essential hypertension. 7.Plc-NK-lthwqwdpo myocardial infarction. Discharge Diagnoses: 1.Bilateral lower extremity cellulitis. Blood cultures negative. 2.Acute cystitis without hematuria secondary to Klebsiella. 3.Wsrdd-va-gpkpfse kidney injury stage III, improving. 4.Bullous pemphigoid of the lower extremity, localized. 5.Diabetes mellitus type 2, insulin dependent with hyperglycemia. 6.Essential hypertension. 7.Elevated troponin level. No gfa-YN-ryjauzwgw myocardial infarction. Echocardiogram shows EF of 6 1%. Stress test negative. 8.Obesity, body mass index of 32. Hospital Course: The patient is a 72-year-old female with past medical history of diabetes, hyperten samia, hyperlipidemia, comes in with lower extremity erythema. The patient also had some bullous lesi ons on the legs, likely bullous pemphigoid. The patient was started on treatment for cellulitis, how ever, was also found to be in acute kidney failure along with some pulmonary edema. She also had jen e elevated troponin levels. The patient was seen by Cardiology and a stress test was done which did not show any stress-induced ischemia. The patient did have large scarred areas. The patient's kidne y function improved. She, otherwise, did well. Her white count was normal. She did not appear sept ic. Her procalcitonin was negative. Regarding her bullous pemphigoid, she states allergies to stero ids, says that she has swelling with steroids, therefore, she will need to go to Dermatology versus i mmunologist for further evaluation and treatment. The patient did also have the UTI secondary to Kle bsiella oxytoca, which was pansensitive. Echocardiogram was done, which showed EF of 61%. The patie nt was then cleared for discharge from Cardiology standpoint. The patient will be discharged home on antibiotics. Followup: Follow up with primary care physician in 2-3 days. Follow up with crime scene examiner in 2 week s. Follow up with per diem physical therapist, Dr. Retana in 2 weeks. Return to ER for worsening condition. Diet: Low-sodium, fluid-restricted diet. Activity: As tolerated. Physical Examination: General: Awake, alert, oriented x3, in no acute distress. CV: S1, S2. No murmurs. Respiratory: Moving air well bilaterally. Abdomen: Abdomen is soft, nontender, nondistended. Positive bowel sounds. Extremities: No clubbing, cyanosis. Trace pedal edema. Skin: Redness on the right lower extremity with some bullous pemphigoid lesions. Neurologic: Nonfocal. Total time spent in discharging the patient was 33 minutes. /NAYE Voice ID: [id number] Report ID: [id number]
== END 2018-05-28 11:11 | disposition home health service (06) | DRG 603 ==
LOC: ER 13:05 → ERHOLD 16:08 → 2ND 19:50
PROVIDERS: ADMIT Family Medicine; ATTEND Family Medicine
DX: L03.116 Cellulitis of left lower limb (principal); L12.0 Bullous pemphigoid; N30.00 Acute cystitis without hematuria; N17.9 Acute kidney failure, unspecified; I13.0 Hypertensive heart and chronic kidney disease with heart failure and stage 1 through stage 4 chronic kidney disease, or unspecified chronic kidney disease; I50.32 Chronic diastolic (congestive) heart failure; L03.115 Cellulitis of right lower limb; B96.1 Klebsiella pneumoniae [K. pneumoniae] as the cause of diseases classified elsewhere; E11.22 Type 2 diabetes mellitus with diabetic chronic kidney disease; E11.65 Type 2 diabetes mellitus with hyperglycemia; N18.3 Chronic kidney disease, stage 3 (moderate); Z79.4 Long term (current) use of insulin; E66.9 Obesity, unspecified; Z68.32 Body mass index [BMI] 32.0-32.9, adult; Z88.5 Allergy status to narcotic agent; Z88.8 Allergy status to other drugs, medicaments and biological substances; E86.0 Dehydration; I25.10 Atherosclerotic heart disease of native coronary artery without angina pectoris; Z95.1 Presence of aortocoronary bypass graft
CPT/HCPCS: 36415; 71045; 78452; 80048; 80053; 81003; 81015; 82962; 83735; 83880; 84100; 84145; 84484; 85025; 85610; 87040; 87077; 87086; 87088; 87186; 93005; 93017; 93306; 93970; 94760; 96372; 99285; A9500; J0744; J1650; J2785

== ENCOUNTER 2018-11-17 17:57 | Inpatient (IN) | payer MEDICARE, OTHER ==
--- OUTSIDE RECORDS SUMMARY | 2018-11-17 17:59 | XMS REPORT | Clinical Summary ---
:1945 Author Organization [facility] Address [address] [place] [address] Care Team Providers Name Role Phone Bertha Apodaca DO Primary Care Provider Allergies Active Allergy Reactions Severity Noted Date Comments Codeine Rash Low 02/19/2017 Rash on face Enalapril 02/19/2017 hand/face swelling Ynqiqgi-Ffo-Jin Reductase 02/19/2017 muscle pain, hand/face Inhibitors swelling Medications Medication Sig Dispensed Refills Start Date End Date Status aspirin (ECOTRIN) Take 81 mg by 0 Active 81 MG enteric mouth daily. coated tablet magnesium oxide Take 250 mg by 0 Active 250 mg tablet mouth daily. omega-3 fatty Take 1 capsule 0 Active acids-fish oil by mouth (FISH OIL) daily. 360-1,200 mg capsule vitamin E 400 UNIT Take 400 Units 0 Active capsule by mouth daily. vit B comp Take 1 tablet 0 Active no.1-vifbw-O-bioti by mouth n (NEPHRO-BOO RX) daily. 1-60-300 mg-mg-mcg tablet ezetimibe (ZETIA) Take 10 mg by 0 07/12/2017 Active 10 mg tablet mouth nightly. JANUVIA 50 mg Take 50 mg by 0 07/12/2017 Active tablet mouth daily. hydrALAZINE Take 25 mg by 0 Active (APRESOLINE) 25 MG mouth. tablet losartan (COZAAR) Take 50 mg by 0 Active 50 MG tablet mouth daily. loratadine Take 10 mg by 0 Active (CLARITIN) 10 mg mouth daily. tablet torsemide Take 2 tablets 180 tablet 3 01/07/2018 01/07/2019 Active (DEMADEX) 20 MG (40 mg total) tablet by mouth daily. potassium chloride TAKE ONE 90 tablet 3 04/07/2018 Active (KLOR-CON) 10 MEQ TABLET BY CR MOUTH ONCE tabletIndications: DAILY Diastolic congestive heart failure (HCC), Essential hypertension, Pure hypercholesterolem ia, SOB (shortness of breath) furosemide (LASIX) TAKE ONE 90 tablet 3 06/05/2018 Active 40 mg TABLET BY tabletIndications: MOUTH ONCE Diastolic DAILY congestive heart failure (HCC), Essential hypertension, Pure hypercholesterolem ia, SOB (shortness of breath) potassium chloride Take 1 tablet 90 tablet 3 02/19/2017 04/07/2018 Discontinued (KLOR-CON) 10 MEQ (10 mEq total) CR by mouth tabletIndications: daily. Diastolic congestive heart failure, unspecified congestive heart failure chronicity, Essential hypertension, Pure hypercholesterolem ia, SOB (shortness of breath) metoprolol Take 1 tablet 180 tablet 3 09/24/2017 09/24/2018 tartrate (25 mg total) (LOPRESSOR) 25 mg by mouth 2 tablet (two) times a day. furosemide (LASIX) Take 40 mg by 0 12/29/2017 01/07/2018 Discontinued 40 mg tablet mouth. Active Problems Problem Noted Date Edema 01/07/2018 Coronary artery disease involving solomon coronary artery of solomon heart 09/24 without angina pectoris PAD (peripheral [...] Pure hypercholesterolemia 02/19/2017 Type 2 diabetes mellitus Encounters Date Type Specialty Care Team Description 11/11/2018 Office Visit Cardiology Ankit Reis MD S/P CABG x 4 ( Primary Dx); Edema, unspecified type; Essential hypertension; Coronary artery disease involving solomon coronary artery of solomon heart without angina pectoris 10/03/2018 Orders Only Cardiology Dulce Maria Mukherjee MA 06/04/2018 Refill Cardiology Ankit Reis MD Med Refill 06/03/2018 Office Visit Cardiology Ankit Reis MD Chest pain, unspecified type (Primary Dx); S/P CABG x 4 05/26/2018 Telephone Cardiology Mark Fish MA Patient 04/11/2018 Documentation Endocrinology Jennie Pardo MA 04/07/2018 Refill Cardiology Ankit Reis MD Med Refill 01/15/2018 Telephone Cardiology Muriel Quintana MA Result - Labs 01/07/2018 Lab Lab Ankit Reis MD 01/07/2018 Office Visit Cardiology Ankit Reis MD Edema, unspecified type (Primary Dx); Coronary artery disease involving solomon coronary artery of solomon heart without angina pectoris; S/P CABG x 4 after 11/16/2017 Family History Relation Name Status Comments Father [...] Vital Sign Reading Time Taken Blood Pressure 190/77 11/11/2018 2:58 PM CDT Pulse 54 11/11/2018 2:58 PM CDT Temperature - - Respiratory Rate - - Oxygen Saturation - - Inhaled Oxygen Concentration - - Weight 88 kg (194 lb) 11/11/2018 2:58 PM CDT Height 162.6 cm (5' 4") 11/11/2018 2:58 PM CDT Body Mass Index 33.3 11/11/2018 2:58 PM CDT Plan of Treatment Date Type Specialty Care Team Description 11/21/2018 Appointment Procedural Cardiology 05/12/2019 Office Visit Cardiology Ankit Reis MD [address] [facility] [address] [place] [id number] Health Maintenance Due Date Last Done Comments DIABETIC RETINAL EYE EXAM 1944 DIABETIC FOOT EXAM 1954 CERVICAL CANCER SCREENING 1965 BREAST CANCER SCREENING 1994 SHINGLES VACCINES (#1) 1994 65+ PNEUMOCOCCAL VACCINE (1 of 2 - PCV13) 2009 PNEUMOCOCCAL POLYSACCHARIDE VACCINE AGE 65 AND OVER 2009 INFLUENZA VACCINE 01/29/2019 COLON CANCER SCREENING 06/06/2027 06/06/2017 Implants Implanted Type Area Drug Room Operator Device Shelf Model / Identifier Expiration Serial / Date Lot Lead Pace Francesco Mycrdl Unipol Tmpry Streamline - [id number] Cardiovascular N/A : [employer] [place] - [id number] / Implanted: 06/12/2017 (Quantity not on file) Implants N/A CARDIAC SRGRY / Procedures Procedure Name Priority Date/Time Associated Diagnosis Comments ECG 12-LEAD Routine 06/03/2018 11:33 AM Chest pain, Results for this BULK CLERK unspecified type procedure are in the results section. TRANSFUSE RED BLOOD Routine 03/05/2018 5:45 PM CELLS CDT BASIC METABOLIC Routine 01/07/2018 11:55 AM Edema, unspecified Results for this PANEL CDT type procedure are in Coronary artery the results disease involving section. solomon coronary artery of solomon heart without angina pectoris after 11/16/2017 Results ECG 12 lead (06/03/2018 11:33 AM BULK CLERK) Ventricular rate 55 [facility] Atrial rate 55 [facility] TN interval 222 [facility] QRSD interval 130 [facility] QT interval 464 [facility] QTC interval 443 [facility] P axis 1 63 [facility] QRS axis 1 -48 [facility] T wave axis 84 [facility] EKG impression Sinus bradycardia with 1st degree AV block-Right bundle branch block-Left anterior fascicular block-^^^ Bifascicular block ^^^-Abnormal ECG-In automated comparison with ECG of 19-JUN-2017 06:14,-Signifi [facility] cant changes have occurred- Specimen Narrative Performed At Performing Organization Address City/State/Zipcode Phone Number [facility] [address] [place] [address] Transfuse RBC (03/05/2018 5:45 PM CDT)Basic metabolic panel (01/07/2018 11:55 AM CDT) Glucose 116 (H) 65 - 99 mg/dL [facility] BUN, whole blood 41 (H) 8 - 27 mg/dL [facility] Creatinine 1.51 (H) 0.57 - 1.00 mg/dL [facility] EGFR Non-Afr. Nepalese 34 (L) >59 mL/min/1.73 [facility] EGFR 39 (L) >59 mL/min/1.73 [facility] BUN/creatinine ratio 27 12 - 28 [facility] Sodium 142 134 - 144 mmol/L [facility] Potassium 4.9 3.5 - 5.2 mmol/L [facility] Chloride 97 96 - 106 mmol/L [facility] CO2 28 20 - 29 mmol/L [facility] Calcium 9.7 8.7 - 10.3 mg/dL [facility] Specimen Blood Narrative Performed At Performed at:[address] - [facility] [address] [place], [id number] Fishing Accessories Maker: Magdaleno Arredondo MD, Phone:[phone] Performing Organization Address City/State/Zipcode Phone Number [facility] after 11/16/2017 Advance Directives Patient has advance care planning documents on file. For more information, please contact:Claude Ellington[address] [place] [address]
--- OUTSIDE RECORDS SUMMARY | 2018-11-17 18:00 | XMS REPORT ---
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 B96.1 Active pneumoniae] as the cause of diseases classified elsewhere Problem Sleep apnea, unspecified G47.30 Active Problem Nonadherence to medication Z91.14 Active Problem Nonadherence with dietary Z91.11 Active restriction Problem Bullous pemphigoid L12.0 Active Problem Cellulitis of left leg L03.116 Active Problem Dermatitis L30.9 Active Problem Urinary tract infection, site not N39.0 Active specified Problem Hospital discharge follow-up Z09 Active Problem Stage 3 chronic kidney disease N18.3 Active Problem Diabetic retinopathy associated E11.319 Active with controlled type 2 diabetes mellitus Problem Uncontrolled type 2 diabetes E11.65 Active mellitus with hyperglycemia Problem Hypertensive urgency I16.0 Active Problem Mild congestive heart failure I50.9 Active Problem Hypertension I10 Active Problem Rosacea L71.9 Active Problem GERD (gastroesophageal reflux K21.9 Active disease) Problem Obesity E66.9 Active Problem Urinary incontinence, unspecified R32 Active type Problem Diabetes mellitus, type 2 E11.9 Active Problem Renal failure N19 Active Problem Mixed hyperlipidemia E78.2 Active Medications No Known Medications Results No Known Results Summary Purpose eClinical[employer] Submission
--- OUTSIDE RECORDS SUMMARY | 2018-11-17 18:00 | XMS REPORT ---
[...] Atherosclerosis of coronary artery I25.10 Active of [place] [facility] without angina pectoris, unspecified vessel or [...] Atherosclerosis of coronary artery I25.10 Active of [place] [facility] without angina pectoris, unspecified vessel or [...] Status Dosage System Date Date Furosemide ND 32426203863 40 MG Orally Active 1 tablet Once a day Zetia [facility] 37546100480 10 MG Orally Active 1 tablet Once a day Tresiba ND 13778644663 100 UNIT/ML November 07, Active 40 units once FlexTouch Subcutaneous 2018 daily and increase by 2 unit every 4 days until fastng glucose less 120 Januvia [facility] 10944338462 50 MG Orally Active not defined HydrALAZINE HCl ND 29513366900 25 MG Orally Aug 15, Active 1 tablet with Three times a 2018 food day Lantus MahsaoStar [facility] 81298925814 100 UNIT/ML Active not defined Subcutaneous Metoprolol [facility] [address]-22 25 MG Orally Active 1/2 tablet Tartrate Twice a day with food NovoFine Plus [facility] 74351315362 32G X 4 MM SC Active as directed once daily Combivent [facility] 68056071118 20-100 MCG/ACT Active 1 puff Respimat Inhalation Four times a day Albuterol-Ipratr ND 0 Active not defined opium Ryan Contour [facility] 29895548648 N/A Active USE TO TEST Test BLOOD GLUCOSE THREE TIMES DAILY Triamcinolone [facility] 56758747444 0.1 % Active 1 application Acetonide Externally to affected Twice a day area Docusate Sodium [facility] [address]-77 100 MG Orally Active 1 capsule as Twice a day needed Tramadol HCl ND 51865920314 50 MG Orally Active 1 tablet as every 6 hrs needed TRUEplus Lancets [facility] 63730552103 N/A Active USE TO TEST 28G BLOOD GLUCOSE THREE TIMES DAILY Senexon [facility] 19074166305 8.6 MG Orally Active 2 tablets at Once a day bedtime as needed Results No Known Results Summary Purpose eClinicalWorks Submission
--- OUTSIDE RECORDS SUMMARY | 2018-11-17 18:00 | XMS REPORT ---
:1945 Author Organization eClinicalWorks Care Team Providers Name Role Phone Apodaca, Na Provider Role Unavailable Allergies No Known Allergies Problems Problem Type Condition Code Onset Dates Condition Status Problem Atherosclerosis of coronary artery I25.10 Active of [place] heart without angina pectoris, unspecified vessel or [...] Active Problem Mixed hyperlipidemia E78.2 Active Medications Medication Code System Code Instructions Start Date End Date Status Dosage Levaquin NDC 11766941914 500 MG Orally Jun 11, Jun 18, Active 1 tablet Once a day 2017 2017 Results No Known Results Summary Purpose eClinicalWorks Submission
--- OUTSIDE RECORDS SUMMARY | 2018-11-17 18:00 | XMS REPORT ---
:1945 Author Organization eClinicalWorks Care Team Providers Name Role Phone Apodaca, Na Provider Role Unavailable Allergies No Known Allergies Problems Problem Type Condition Code Onset Dates Condition Status Problem Atherosclerosis of coronary artery I25.10 Active of [place] heart without angina pectoris, unspecified vessel or [...]
--- OUTSIDE RECORDS SUMMARY | 2018-11-17 18:00 | XMS REPORT ---
:1945 Author Organization [facility] Address [address] [place] [address] Dr. Rivas [address] [place] [id number] Care Team Providers Name Role Phone Unavailable Unavailable Unavailable Problems This patient has no known problems. Allergies, Adverse Reactions, Alerts This patient has no known allergies or adverse reactions. Medications This patient has no known medications.
--- OUTSIDE RECORDS SUMMARY | 2018-11-17 18:00 | XMS REPORT ---
[...] Atherosclerosis of coronary artery I25.10 Active of [place] heart without angina pectoris, unspecified vessel or lesion type Problem Klebsiella pneumoniae [K. 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 Medications Medication Code Code Instructions Start End Status Dosage System Date Date Tresiba [facility] [id number] 100 UNIT/ML Active 40 units once FlexTouch Subcutaneous daily and increase by 2 unit every 4 days until fastng glucose less 120 Ryan Contour [facility] [id number] N/A Active USE TO TEST Test BLOOD GLUCOSE THREE TIMES DAILY Senexon [facility] 30558770839 8.6 MG Orally Active 2 tablets at Once a day bedtime as needed Tramadol HCl ND 83203440859 50 MG Orally Active 1 tablet as every 6 hrs needed Albuterol-Iprat ND 0 Active not defined ropium TRUEplus [facility] 40676802199 N/A Active USE TO TEST Lancets 28G BLOOD GLUCOSE THREE TIMES DAILY Combivent [facility] 39843574810 20-100 MCG/ACT Active 1 puff Respimat Inhalation Four times a day Metoprolol [facility] [address]-39 25 MG Orally Active 1/2 tablet with Tartrate Twice a day food Zetia [facility] 68086337491 10 MG Orally Active 1 tablet Once a day Januvia [facility] 11542381135 50 MG Orally Active not defined NovoFine Plus [facility] 05236891378 32G X 4 MM SC Active as directed once daily Tresiba [facility] 19567045225 200 UNIT/ML Active INJECT 80 UNITS FlexTouch SUBCUTANEOUSLY ONCE DAILY AND INCREASE BY 3 UNITS EVERY 4 DAYS UNTIL FASTING BLOOD GLUCOSE LESS THAN 120 Lantus SoloStar [facility] 68602781440 100 UNIT/ML Active not defined Subcutaneous Docusate Sodium [facility] [address]-66 100 MG Orally Active 1 capsule as Twice a day needed Triamcinolone [facility] 78734157138 0.1 % Active 1 application Acetonide Externally to affected Twice a day area HydrALAZINE HCl ND 46977477138 25 MG Orally Aug 15, Active 1 tablet with Three times a 2018 food day Furosemide ND 05627081445 40 MG Orally Active 1 tablet Once a day Results No Known Results Summary Purpose eClinicalWorks Submission
--- OUTSIDE RECORDS SUMMARY | 2018-11-17 18:01 | XMS REPORT ---
:1945 Author Organization eClinicalWorks Care Team Providers Name Role Phone Apodaca, Na Provider Role Unavailable Allergies No Known Allergies Problems Problem Type Condition Code Onset Dates Condition Status Problem Atherosclerosis of coronary artery I25.10 Active of [place] heart without angina pectoris, unspecified vessel or [...]
--- OUTSIDE RECORDS SUMMARY | 2018-11-17 18:01 | XMS REPORT ---
[...] Condition Code Onset Dates Condition Status Assessment Bullous pemphigoid L12.0 Active Assessment Mixed hyperlipidemia E78.2 Active Assessment Uncontrolled type 2 diabetes E11.65 Active mellitus with hyperglycemia Assessment Cellulitis of left leg L03.116 Active Assessment Hypertensive urgency I16.0 Active Assessment Diabetic retinopathy associated E11.319 Active with controlled type 2 diabetes mellitus Assessment Mild congestive heart failure I50.9 Active Assessment Hospital discharge follow-up Z09 Active Problem Atherosclerosis of coronary artery I25.10 Active of [place] heart without angina pectoris, unspecified vessel or [...] Problem Mild congestive heart failure I50.9 Active Assessment Blister (nonthermal), right lower S80.821A Active leg, initial encounter Problem Hypertension I10 Active Assessment Acute cystitis without hematuria N30.00 Active Problem Rosacea L71.9 Active Assessment Right low back pain, unspecified M54.5 Active chronicity, with sciatica presence unspecified Problem GERD (gastroesophageal reflux K21.9 Active disease) Assessment Local infection of the skin and L08.9 Active subcutaneous tissue, unspecified Problem Obesity E66.9 Active Problem Urinary incontinence, unspecified R32 Active type Assessment Stage 3 chronic kidney disease N18.3 Active Problem Diabetes mellitus, type 2 E11.9 Active Problem Renal failure N19 Active Problem Mixed hyperlipidemia E78.2 Active Medications Medication Code Code Instructions Start End Status Dosage System Date Date Triamcinolone [facility] 95155014345 0.1 % Active 1 application to Acetonide Externally affected area Twice a day HydrALAZINE HCl [facility] 51159858059 25 MG Orally Aug 15, Active 1 tablet with Three times a 2018 food day TRUEplus [facility] 33356435321 N/A Active USE TO TEST Lancets 28G BLOOD GLUCOSE THREE TIMES DAILY Januvia [facility] 49778833419 50 MG Orally Active not defined Albuterol-Iprat ND 0 Active not defined ropium Combivent [facility] 85841268822 20-100 MCG/ACT Active 1 puff Respimat Inhalation Four times a day Senexon [facility] 28810945140 8.6 MG Orally Active 2 tablets at Once a day bedtime as needed NovoFine Plus [facility] 96272116907 32G X 4 MM SC Active as directed once daily Ryan Contour [facility] 81835258545 N/A Active USE TO TEST Test BLOOD GLUCOSE THREE TIMES DAILY Zetia [facility] 60510658217 10 MG Orally Active 1 tablet Once a day Lantus SoloStar ND 18334556352 100 UNIT/ML Active not defined Subcutaneous Furosemide ND 67379137315 40 MG Orally Active 1 tablet Once a day Tramadol HCl [facility] 88279622095 50 MG Orally Active 1 tablet as every 6 hrs needed Metoprolol [facility] 54273973934 25 MG Orally Active 1/2 tablet with Tartrate Twice a day food Docusate Sodium ND 59333544487 100 MG Orally Active 1 capsule as Twice a day needed Tresiba [facility] 02795166294 200 UNIT/ML Active INJECT 80 UNITS FlexTouch SUBCUTANEOUSLY ONCE DAILY AND INCREASE BY 3 UNITS EVERY 4 DAYS UNTIL FASTING BLOOD GLUCOSE LESS THAN 120 Tresiba [facility] 18458772062 100 UNIT/ML Active 40 units once FlexTouch Subcutaneous daily and increase by 2 unit every 4 days until fastng glucose less 120 Results Name Result Date Reference Range Unit Abnormality Flag CULTURE, AEROBIC BACTERIA ----CULTURE, AEROBIC BACTERIA SEE NOTE [id number] Summary Purpose eClinicalWorks Submission
--- OUTSIDE RECORDS SUMMARY | 2018-11-17 18:01 | XMS REPORT ---
:1945 Author Organization eClinicalWorks Care Team Providers Name Role Phone Apodaca, Na Provider Role Unavailable Allergies No Known Allergies Problems Problem Type Condition Code Onset Dates Condition Status Problem Atherosclerosis of coronary artery I25.10 Active of [place] heart without angina pectoris, unspecified vessel or [...]
--- OUTSIDE RECORDS SUMMARY | 2018-11-17 18:02 | XMS REPORT ---
:1945 Author Organization eClinicalWorks Care Team Providers Name Role Phone Apodaca, Na Provider Role Unavailable Allergies No Known Allergies Problems Problem Type Condition Code Onset Dates Condition Status Problem Atherosclerosis of coronary artery I25.10 Active of [place] heart without angina pectoris, unspecified vessel or lesion type Problem Klebsiella pneumoniae [K. B96.1 Active pneumoniae] as the cause of diseases classified elsewhere Problem Stage 3 chronic kidney disease N18.3 Active Problem Sleep apnea, unspecified G47.30 Active Problem Nonadherence with dietary Z91.11 Active restriction Problem Urinary tract infection, site not N39.0 Active specified Problem Nonadherence to medication Z91.14 Active Problem Diabetic retinopathy associated E11.319 Active with controlled type 2 diabetes mellitus Problem Uncontrolled type 2 diabetes E11.65 Active mellitus with hyperglycemia Problem Psoriasis L40.9 Active Problem Hospital discharge follow-up Z09 Active Problem Obesity E66.9 Active Problem GERD (gastroesophageal reflux K21.9 Active disease) Problem Essential hypertension I10 Active Problem Dermatitis L30.9 Active Problem Hypertensive urgency I16.0 Active Problem Mild congestive heart failure I50.9 Active Problem Bullous pemphigoid L12.0 Active Problem Cellulitis of left leg L03.116 Active Problem Renal failure N19 Active Problem Mixed hyperlipidemia E78.2 Active Problem Hypertension I10 Active Problem Rosacea L71.9 Active Problem Seasonal allergic rhinitis J30.2 Active Problem 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
--- OUTSIDE RECORDS SUMMARY | 2018-11-17 18:02 | XMS REPORT ---
[...] Condition Code Onset Dates Condition Status Assessment Cellulitis of right lower limb L03.115 Active Assessment Cellulitis of left lower extremity L03.116 Active Assessment Mixed hyperlipidemia E78.2 Active Assessment Essential hypertension I10 Active Assessment Mild congestive heart failure I50.9 Active Assessment Uncontrolled type 2 diabetes E11.65 Active mellitus with hyperglycemia Problem Atherosclerosis of coronary artery I25.10 Active of [place] heart without angina pectoris, unspecified vessel or [...] Problem Cellulitis of left leg L03.116 Active Assessment Diabetic retinopathy associated E11.319 Active with controlled type 2 diabetes mellitus Problem Renal failure N19 Active Assessment Stage 3 chronic kidney disease N18.3 Active Problem Mixed hyperlipidemia E78.2 Active Problem Hypertension I10 Active Problem Rosacea L71.9 Active Problem Seasonal allergic rhinitis J30.2 Active Problem 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 54197230487 50 MG Orally Active not defined Senexon [facility] 56515574219 8.6 MG Orally Active 2 tablets at Once a day bedtime as needed Docusate Sodium ND 53136552879 100 MG Orally Active 1 capsule as Twice a day needed NovoFine Plus [facility] 75761901862 32G X 4 MM SC Active as directed once daily Zetia [facility] 02917726663 10 MG Orally Active 1 tablet Once a day Furosemide ND 62874757507 40 MG Orally Active 1 tablet Once a day HydrALAZINE HCl [facility] 33679184537 25 MG Orally Aug 15, Active 1 tablet with Three times a 2018 food day TRUEplus [facility] 25173667138 N/A Active USE TO TEST Lancets 28G BLOOD GLUCOSE THREE TIMES DAILY Albuterol-Iprat ND 0 Active not defined ropium Combivent [facility] 41636115219 20-100 MCG/ACT Active 1 puff Respimat Inhalation Four times a day Tresiba [facility] 33086006413 100 UNIT/ML Active 36 units once FlexTouch Subcutaneous daily and increase by 2 unit every 4 days until fastng glucose less [address] [facility] 76136186591 200 UNIT/ML Active INJECT 80 UNITS FlexTouch SUBCUTANEOUSLY ONCE DAILY AND INCREASE BY 3 UNITS EVERY 4 DAYS UNTIL FASTING BLOOD GLUCOSE LESS THAN [address] [facility] 75487974111 0.1 % Active 1 application to Acetonide Externally affected area Twice a day Lantus SoloStar [facility] 61015436352 100 UNIT/ML Active not defined Subcutaneous Tramadol HCl [facility] 83218950202 50 MG Orally Active 1 tablet as every 6 hrs needed Ryan Contour [facility] 19333819340 N/A Active USE TO TEST Test BLOOD GLUCOSE THREE TIMES DAILY Metoprolol [facility] 92320960602 25 MG Orally Active 1/2 tablet with Tartrate Twice a day food Results No Known Results Summary Purpose eClinicalWorks Submission
--- OUTSIDE RECORDS SUMMARY | 2018-11-17 18:02 | XMS REPORT ---
:1945 Author Organization eClinicalWorks Care Team Providers Name Role Phone Apodaca, Na Provider Role Unavailable Allergies No Known Allergies Problems Problem Type Condition Code Onset Dates Condition Status Problem Atherosclerosis of coronary artery I25.10 Active of [place] heart without angina pectoris, unspecified vessel or [...] Diabetes mellitus, type 2 E11.9 Active Medications No Known Medications Results No Known Results Summary Purpose eClinicalWorks Submission
--- OUTSIDE RECORDS SUMMARY | 2018-11-17 18:02 | XMS REPORT ---
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 Active with controlled type 2 diabetes mellitus Assessment Mixed hyperlipidemia E78.2 Active Assessment Mild congestive heart failure I50.9 Active Assessment Uncontrolled type 2 diabetes E11.65 Active mellitus with hyperglycemia Problem Atherosclerosis of coronary artery I25.10 Active of [place] heart without angina pectoris, unspecified vessel or [...] Cellulitis of left leg L03.116 Active Assessment Stage 3 chronic kidney disease N18.3 Active Problem Renal failure N19 Active Assessment Bullous pemphigoid L12.0 Active Problem Mixed hyperlipidemia E78.2 Active Problem Hypertension I10 Active Problem Rosacea L71.9 Active Problem Seasonal allergic rhinitis J30.2 Active Problem 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 Problem Urinary incontinence, unspecified R32 Active type Problem Diabetes mellitus, type 2 E11.9 Active Medications Medication Code Code Instructions Start End Status Dosage System Date Date Lina Baird [facility] 12898959257 100 UNIT/ML Active not defined Subcutaneous Furosemide ND 11197733548 40 MG Orally Active 1 tablet Once a day Docusate Sodium ND 04561565294 100 MG Orally Active 1 capsule as Twice a day needed Metoprolol [facility] 05289607297 25 MG Orally Active 1/2 tablet with Tartrate Twice a day food Tresiba [facility] 86655429676 200 UNIT/ML Active INJECT 80 UNITS FlexTouch SUBCUTANEOUSLY ONCE DAILY AND INCREASE BY 3 UNITS EVERY 4 DAYS UNTIL FASTING BLOOD GLUCOSE LESS THAN 120 TRUEplus [facility] 01998390043 N/A Active USE TO TEST Lancets 28G BLOOD GLUCOSE THREE TIMES DAILY NovoFine Plus [facility] 94400298455 32G X 4 MM SC Active as directed once daily Zetia [facility] 91827989357 10 MG Orally Active 1 tablet Once a day Tresiba [facility] 31583019425 100 UNIT/ML Active 36 units once FlexTouch Subcutaneous daily and increase by 2 unit every 4 days until fastng glucose less 120 Tramadol HCl ND 12464023844 50 MG Orally Active 1 tablet as every 6 hrs needed Albuterol-Iprat ND 0 Active not defined ropium Combivent [facility] 62783480226 20-100 MCG/ACT Active 1 puff Respimat Inhalation Four times a day Senexon [facility] 35129838092 8.6 MG Orally Active 2 tablets at Once a day bedtime as needed Ryan Contour [facility] 09417167863 N/A Active USE TO TEST Test BLOOD GLUCOSE THREE TIMES DAILY HydrALAZINE HCl [facility] 51909832129 25 MG Orally Aug 15, Active 1 tablet with Three times a 2018 food day Triamcinolone [facility] 88184579800 0.1 % Active 1 application to Acetonide Externally affected area Twice a day Januvia [facility] 09137368837 50 MG Orally Active not defined Results No Known Results Summary Purpose eClinicalWorks Submission
--- OUTSIDE RECORDS SUMMARY | 2018-11-17 18:03 | XMS REPORT ---
[...] Atherosclerosis of coronary artery I25.10 Active of [place] heart without angina pectoris, unspecified vessel or [...] Start End Status Dosage System Date Date NovoFine Plus [facility] 40761760564 32G X 4 MM SC Active as directed once daily Combivent [facility] 37552407021 20-100 MCG/ACT Active 1 puff Respimat Inhalation Four times a day Furosemide [facility] 54842504384 40 MG Orally Active 1 tablet Once a day Tresiba [facility] 44915552187 200 UNIT/ML Active INJECT 80 UNITS FlexTouch SUBCUTANEOUSLY ONCE DAILY AND INCREASE BY 3 UNITS EVERY 4 DAYS UNTIL FASTING BLOOD GLUCOSE LESS THAN [address] [facility] 09803503480 50 MG Orally Active not defined Ryan Contour [facility] 83821689465 N/A Active USE TO TEST Test BLOOD GLUCOSE THREE TIMES DAILY Tresiba [facility] 27289110898 100 UNIT/ML Active 36 units once FlexTouch Subcutaneous daily and increase by 2 unit every 4 days until fastng glucose less 120 Tramadol HCl ND 64917886899 50 MG Orally Active 1 tablet as every 6 hrs needed TRUEplus [facility] 79474672985 N/A Active USE TO TEST Lancets 28G BLOOD GLUCOSE THREE TIMES DAILY Zetia [facility] 16674439817 10 MG Orally Active 1 tablet Once a day HydrALAZINE HCl [facility] 58475095724 25 MG Orally Aug 15, Active 1 tablet with Three times a 2018 food day Senexon [facility] 75027514273 8.6 MG Orally Active 2 tablets at Once a day bedtime as needed Albuterol-Iprat ND 0 Active not defined ropium Triamcinolone [facility] 11241787381 0.1 % Active 1 application to Acetonide Externally affected area Twice a day Lantus SoloStar ND 60458142774 100 UNIT/ML Active not defined Subcutaneous Docusate Sodium ND 21952100777 100 MG Orally Active 1 capsule as Twice a day needed Metoprolol ND 01721999527 25 MG Orally Active 1/2 tablet with Tartrate Twice a day food Prilosec OTC [facility] 89619912131 20 MG Orally March Active 1 tablet Once a day 2018 Results No Known Results Summary Purpose eClinicalWorks Submission
--- OUTSIDE RECORDS SUMMARY | 2018-11-17 18:03 | XMS REPORT ---
:1945 Author Organization [employer] Care Team Providers Name Role Phone Apodaca, Na Provider Role Unavailable Allergies No Known Allergies Problems Problem Type Condition Code Onset Dates Condition Status Assessment Uncontrolled type 2 diabetes E11.65 Active mellitus with hyperglycemia Problem Atherosclerosis of coronary artery I25.10 Active of knik heart without angina pectoris, unspecified vessel or [...] Status Dosage System Date Date Tresiba [facility] [id number] 100 UNIT/ML Active 36 units once FlexTouch Subcutaneous daily and increase by 2 unit every 4 days until fastng glucose less 120 Triamcinolone ND [id number] 0.1 % Active 1 application Acetonide Externally to affected Twice a day area HydrALAZINE HCl [facility] [id number] 25 MG Orally Aug 15, Active 1 tablet with Three times a 2018 food day Metoprolol [facility] [id number] 25 MG Orally Active 1/2 tablet Tartrate Twice a day with food Results No Known Results Summary Purpose eClinicalWorks Submission
[2018-11-17] MEDS ORDERED: IPRATROPIUM BROM 0.5MG/2.5ML ONE ×2 (18:56→21:24)
[2018-11-17] MEDS ORDERED: ALBUTEROL 2.5 MG/3 ML NEB SOL ONE ×2 (18:56→21:24)
[2018-11-17 19:18] LABS: Absolute Monocytes 0.6 K/uL (0.1-1.3); Absolute Neutrophil 5.8 K/uL (1.8-8.0); Basophils % 0.6 % (0-1.3); Eosinophils % 1.8 % (0-4.4); Hematocrit 40.6 % (36.0-45.0); Lymphocytes % 23.1 % (15.3-44.8); MPV 8.6 fL (7.6-11.3); Monocytes % 7.2 % (3.3-12.3); RBC Red Blood Cell Count 4.45 M/uL (3.86-4.86)
[2018-11-17 19:23] LABS: Protime INR 1.08
--- NOTE | 2018-11-17 19:24 | RAD REPORT ---
EXAM DESCRIPTION: Nesha Single View11/17/2018 7:19 pm CLINICAL HISTORY: sob COMPARISON: May 2018 FINDINGS: Mild right basilar opacity. The heart is mildly enlarged. Postsurgical changes involve the chest. IMPRESSION: Mild right basilar opacity may represent infiltrate or atelectasis
[2018-11-17] MEDS ORDERED: ASPIRIN 81 MG CHEWABLE TABLET ONE (19:29)
[2018-11-17 19:54] LABS: Albumin 3.1 g/dL (3.4-5.0); Bilirubin Direct 0.3 mg/dL (0-0.2); Bilirubin Total 0.6 mg/dL (0.2-1.0); Magnesium 2.6 mg/dL (1.8-2.4); Protein, Total 7.6 g/dL (6.4-8.2); Troponin (Emerg Dept Use Only) 0.41 ng/mL (0.0-0.045)
--- NOTE | 2018-11-17 20:49 | EDPHYS ---
Physician Documentation [facility] Name: Agata Felix Age: 73 yrs Sex: Female : 1945 Arrival Date: 11/17/2018 Time: 17:58 Bed 5 Private MD: Bertha Apodaca ED Physician Ora Espinosa HPI: 11/17 18:40 This 73 yrs old Female presents to ER via Wheelchair with complaints of cp Breathing Difficulty. Historical: - Allergies: 18:05 Codeine; aj1 18:05 Hydrocodone-Acetaminophen; aj1 18:05 Gjxspjy-Ter-Dsf Reductase Inhibitors; aj1 - Home Meds: 18:05 furosemide 40 mg Oral tab 1 tab once daily [Active]; aspirin 81 mg Oral TbEC 1 tab once aj1 daily [Active]; ezetimibe 10 mg Oral once daily [Active]; hydralazine 25 mg oral tab three times a day [Active]; metoprolol tartrate 25 mg Oral tab 1 tab 2 times per day [Active]; biotin 1,000 mcg Oral chew daily [Active]; Vitamin D Oral 1000 unit daily [Active]; magnesium oxide 250 mg Oral tab daily [Active]; vitamin E Oral once daily [Active]; potassium chloride 10 mEq Oral cpER 1 cap once daily [Active]; Tresiba FlexTouch U-100 100 unit/mL (3 mL) subcutaneous inpn 50 units [Active]; omeprazole 20 mg Oral cpDR 1 cap once daily [Active]; - PMHx: 18:05 Diabetes - NIDDM; Hyperlipidemia; CHF; aj1 - Immunization history:: Flu vaccine is up to date. - Social history:: Smoking status: Patient/guardian denies using tobacco. - Ebola Screening: : Patient denies travel to an Ebola-affected area in the 21 days before illness onset. ROS: 18:45 Constitutional: Negative for body aches, chills, fever, poor PO intake. cp 18:45 Eyes: Negative for injury, pain, redness, and discharge. cp 18:45 ENT: Negative for drainage from ear(s), ear pain, sore throat, difficulty swallowing, difficulty handling secretions. 18:45 Cardiovascular: Positive for chest tightness, Negative for edema, palpitations. 18:45 Respiratory: Positive for shortness of breath, at rest. Negative for cough, wheezing. 18:45 Abdomen/GI: Negative for abdominal pain, nausea, vomiting, and diarrhea, black/tarry stool, rectal bleeding. 18:45 Back: Negative for pain at rest, pain with movement. 18:45 : Negative for urinary symptoms. 18:45 Skin: Negative for cellulitis, rash. 18:45 Neuro: Negative for altered mental status, dizziness, headache, syncope, weakness. 18:45 All other systems are negative. Exam: 18:52 Constitutional: The patient appears in no acute distress, alert, awake, cp non-diaphoretic, non-toxic, well developed, well nourished. 18:52 Head/Face: Normocephalic, atraumatic. Eyes: Pupils equal round and reactive to light, cp extra-ocular motions intact. Lids and lashes normal. Conjunctiva and sclera are non-icteric and not injected. Cornea within normal limits. Periorbital areas with no swelling, redness, or edema. ENT: Nares patent. No nasal discharge, no septal abnormalities noted. Tympanic membranes are normal and external auditory canals are clear. Oropharynx with no redness, swelling, or masses, exudates, or evidence of obstruction, uvula midline. Mucous membranes moist. 18:52 Neck: ROM/movement: is normal, is supple, no meningismus, no nuchal rigidity. 18:52 Chest/axilla: Inspection: normal, Palpation: is normal, no crepitus, no tenderness. 18:52 Cardiovascular: Rate: bradycardic, Rhythm: regular, Edema: is not appreciated, JVD: is not appreciated. 18:52 Respiratory: mild respiratory distress is noted, Respirations: labored breathing, that is mild, Breath sounds: decreased breath sounds, that are mild, throughout, stridor, is not appreciated. 18:52 Abdomen/GI: Inspection: abdomen appears normal, Bowel sounds: active, all quadrants, Palpation: abdomen is soft and non-tender, in all quadrants, rebound tenderness, is not appreciated, involuntary guarding, is not appreciated. 18:52 Back: pain, is absent, ROM is normal. 18:52 Skin: no rash present. 18:52 Neuro: Orientation: to person, place \T\ time. Mentation: is normal, Motor: moves all fours, strength is normal. 19:06 ECG was reviewed by the Attending Physician. Vital Signs: 18:05 BP 157 / 51; Pulse 53; Resp 18; Temp 97.3; Pulse Ox 96% on R/A; Weight 91.17 kg (R); aj1 Height 5 ft. 4 in. (162.56 cm) (R); Pain 0/10; 19:05 BP 197 / 59; Pulse 58; Resp 22; Temp 97.9; Pulse Ox 98% on 2 lpm NC; Pain 0/10; rr5 20:40 BP 192 / 77; Pulse 62; Resp 19; Temp 97.8; Pulse Ox 98% on 2 lpm NC; rr5 22:35 BP 166 / 110; Pulse 64; Resp 17; Pulse Ox 99% on 2 lpm NC; rr5 23:00 BP 178 / 105; Pulse 61; Resp 17; Temp 98; Pulse Ox 99% on 2 lpm NC; Pain 0/10; rr5 23:30 BP 154 / 67; Pulse 62; Resp 18; Temp 98; Pulse Ox 97% on 2 lpm NC; Pain 0/10; rr5 23:57 BP 147 / 51; Pulse 63; Resp 17; Temp 97.9; Pulse Ox 99% on 2 lpm NC; Pain 0/10; rr5 18:05 Body Mass Index 34.50 (91.17 kg, 162.56 cm) aj1 MDM: 18:38 Patient medically screened. cp 19:00 Differential diagnosis: CHF exacerbation, Chronic Obstructive Pulmonary Disease cp Myocardial Infarction pneumonia, Pneumothorax pulmonary edema, Pulmonary Embolism Sepsis Unstable Angina. 20:45 Data reviewed: vital signs, nurses notes, lab test result(s), EKG, radiologic studies, cp plain films, and as a result, I will admit patient. 20:45 Test interpretation: by ED physician or midlevel provider: ECG, plain radiologic cp studies. 20:46 Physician consultation: Ora Manriquez MD was called at 20:47, was contacted at 20:47, regarding admission, to the medical/surgical unit. patient's condition. 11/17 18:38 Order name: Basic Metabolic Panel; Complete Time: 20:11 11/17 18:38 Order name: CBC with Diff; Complete Time: 19:41 11/17 19:41 Interpretation: Reviewed. 11/17 18:38 Order name: LFT's; Complete Time: 20:11 cp 11/17 18:38 Order name: Magnesium; Complete Time: 20:11 cp 11/17 18:38 Order name: NT PRO-BNP; Complete Time: 20:11 cp 11/17 18:38 Order name: PT-INR; Complete Time: 19:41 cp 11/17 19:41 Interpretation: Reviewed. cp 11/17 18:38 Order name: Troponin (emerg Dept Use Only); Complete Time: 20:11 cp 11/17 18:38 Order name: XRAY Chest (1 view); Complete Time: 19:41 cp 11/17 21:18 Order name: Troponin I EDMS 11/17 21:21 Order name: Echo with Doppler EDMS 11/17 21:21 Order name: Echo with Doppler EDMS 11/17 21:22 Order name: Renal Ultrasound-Complete EDNJ 11/17 21:33 Order name: Urine Dipstick--Ancillary (enter results) [facility] 11/17 21:44 Order name: Urine Dipstick-Ancillary; Complete Time: 23:06 EDNJ 11/17 18:38 Order name: EKG; Complete Time: 18:40 cp 11/17 18:38 Order name: Cardiac monitoring; Complete Time: 18:40 cp 11/17 18:38 Order name: EKG - Nurse/Tech; Complete Time: 19:13 cp 11/17 18:38 Order name: IV Saline Lock; Complete Time: 19:13 cp 11/17 18:38 Order name: Labs collected and sent; Complete Time: 19:13 cp 11/17 21:18 Order name: CONS Physician Consult EDNJ 11/17 21:19 Order name: CONS Physician Consult EDNJ 11/17 21:19 Order name: NPO EDNJ 11/17 18:38 Order name: O2 Per Protocol; Complete Time: 18:40 cp 11/17 18:38 Order name: O2 Sat Monitoring; Complete Time: 18:40 cp EC:06 Rate is 54 beats/min. Rhythm is regular. RI interval is prolonged at 212 msec. QRS cp interval is prolonged at 144 msec. QT interval is normal. T waves are Inverted in leads aVL, aVR, V1, V2. Interpreted by me. Reviewed by me. Administered Medications: 18:38 Drug: Albuterol - atroVENT (3:1) (2.5 mg - 0.5 mg) 3 ml Route: Nebulizer; hj 19:14 Follow up: Response: No adverse reaction hj 19:10 Drug: Aspirin Chewable Tablet 324 mg Route: PO; hj 19:18 Follow up: Response: No adverse reaction hj 20:40 Drug: Lasix 20 mg Route: IVP; Site: right antecubital; rr5 21:39 Follow up: Response: No adverse reaction rr5 20:42 Drug: Lovenox 1 mg/kg Route: Sub-Q; Site: right lower abdomen; rr5 21:39 Follow up: Response: No adverse reaction rr5 21:20 Drug: Albuterol 2.5 mg Route: Inhalation; rr5 22:30 Follow up: Response: No adverse reaction rr5 21:20 Drug: AtroVENT Aerosol 0.5 mg Route: Inhalation; rr5 22:30 Follow up: Response: No adverse reaction rr5 23:20 Drug: hydrALAZINE 5 mg Route: IV; Rate: bolus; Site: right antecubital; rr5 23:48 Follow up: Response: No adverse reaction; IV Status: Completed infusion rr5 23:21 Drug: HydrALAZINE 25 mg Route: PO; rr5 23:48 Follow up: Response: No adverse reaction rr5 Disposition: 21:00 Critical Care:. cp Disposition: 11/17/18 20:48 Hospitalization ordered by Ora Manriquez for Inpatient Admission. Preliminary diagnosis are Unspecified combined systolic (congestive) and diastolic (congestive) heart failure, Dyspnea. - Bed requested for Telemetry/MedSurg (Inpatient). - Status is Inpatient Admission. rr5 - Condition is Stable. - Problem is new. - Symptoms have improved. UTI on Admission? No Critical care time excluding procedures: 21:00 Critical care time: Bedside Care: 25 minutes, Consultation: 5 minutes, Family cp Intervention: 5 minutes. Total time: 35 minutes Addendum: 11/24/2018 19:54 Co-signature as Attending Physician, Ora Espinosa MD. m a2 Signatures: Dispatcher [employer] Addie Melendez RN RN aj1 Sher Turk RN RN hj Page, Corey, PA PA cp Garcia, Cindy, RN RN Ora Espinosa MD MD mt2 César Rapp RN RN rr5 Corrections: (The following items were deleted from the chart) 11/17 23:04 20:48 Hospitalization Ordered by Ora Manriquez MD for Inpatient Admission. Preliminary cg diagnosis is Unspecified combined systolic (congestive) and diastolic (congestive) heart failure; Dyspnea. Bed requested for Telemetry/MedSurg (Inpatient). Status is Inpatient Admission. Condition is Stable. Problem is new. Symptoms have improved. UTI on Admission? No. cp 11/18 00:04 11/17 23:04 11/17/2018 20:48 Hospitalization Ordered by Ora Manriquez MD for Inpatient rr5 Admission. Preliminary diagnosis is Unspecified combined systolic (congestive) and diastolic (congestive) heart failure; Dyspnea. Bed requested for Telemetry/MedSurg (Inpatient). Status is Inpatient Admission. Condition is Stable. Problem is new. Symptoms have improved. UTI on Admission? No. cg
--- NOTE | 2018-11-17 20:49 | ER ---
Nurse's Notes [facility] Name: Agata Felix Age: 73 yrs Sex: Female : 1945 Arrival Date: 11/17/2018 Time: 17:58 Bed 5 Private MD: Bertha Apodaca Diagnosis: Unspecified combined systolic (congestive) and diastolic (congestive) heart failure;Dyspnea Presentation: 11/17 17:59 Presenting complaint: Patient states: "I can't breath very well" Reports shortness of aj1 breath for the past couple of days. Denies fever, states that she has felt '"lousy" the past couple days. Reports history of CHF states that her legs were swollen a couple of days ago but are looking better now. Transition of care: patient was not received from another setting of care. Onset of symptoms was November 15, 2017. Risk Assessment: Do you want to hurt yourself or someone else? Patient reports no desire to harm self or others. Initial Sepsis Screen: Does the patient meet any 2 criteria? Does the patient have a suspected source of infection? No. Patient's initial sepsis screen is negative. 17:59 Method Of Arrival: Wheelchair aj1 17:59 Acuity: LUBA 3 aj1 Triage Assessment: 18:05 General: Appears in no apparent distress. comfortable, Behavior is calm, cooperative, aj1 appropriate for age. Pain: Denies pain. Neuro: Level of Consciousness is awake, alert, obeys commands, Oriented to person, place, time, situation. Cardiovascular: Patient's skin is warm and dry. Respiratory: Reports shortness of breath Airway is patent Respiratory effort is even, unlabored, Respiratory pattern is regular, symmetrical, Onset: The symptoms/episode began/occurred gradually, the patient has mild shortness of breath. Historical: - Allergies: 18:05 Codeine; aj1 18:05 Hydrocodone-Acetaminophen; aj1 18:05 Xwlwbwn-Owi-Uhw Reductase Inhibitors; aj1 - Home Meds: 18:05 furosemide 40 mg Oral tab 1 tab once daily [Active]; aspirin 81 mg Oral TbEC 1 tab once aj1 daily [Active]; ezetimibe 10 mg Oral once daily [Active]; hydralazine 25 mg oral tab three times a day [Active]; metoprolol tartrate 25 mg Oral tab 1 tab 2 times per day [Active]; biotin 1,000 mcg Oral chew daily [Active]; Vitamin D Oral 1000 unit daily [Active]; magnesium oxide 250 mg Oral tab daily [Active]; vitamin E Oral once daily [Active]; potassium chloride 10 mEq Oral cpER 1 cap once daily [Active]; Tresiba FlexTouch U-100 100 unit/mL (3 mL) subcutaneous inpn 50 units [Active]; omeprazole 20 mg Oral cpDR 1 cap once daily [Active]; - PMHx: 18:05 Diabetes - NIDDM; Hyperlipidemia; CHF; aj1 - Immunization history:: Flu vaccine is up to date. - Social history:: Smoking status: Patient/guardian denies using tobacco. - Ebola Screening: : Patient denies travel to an Ebola-affected area in the 21 days before illness onset. Screenin:30 Abuse screen: Denies threats or abuse. Denies injuries from another. Nutritional rr5 screening: No deficits noted. Tuberculosis screening: No symptoms or risk factors identified. Fall Risk IV access (20 points). Total Zambrano Fall Scale indicates No Risk (0-24 pts). Assessment: 19:05 General: Appears in no apparent distress. comfortable, Behavior is calm, cooperative, rr5 appropriate for age. Pain: Denies pain. Neuro: Level of Consciousness is awake, alert, obeys commands, Oriented to person, place, time, situation, Appropriate for age. Cardiovascular: Capillary refill < 3 seconds Patient's skin is warm and dry. Rhythm is sinus rhythm. 19:05 Respiratory: Reports Airway is patent Respiratory effort is even, unlabored, rr5 Respiratory pattern is regular, symmetrical, Breath sounds with wheezes. GI: No signs and/or symptoms were reported involving the gastrointestinal system. : No signs and/or symptoms were reported regarding the genitourinary system. EENT: No signs and/or symptoms were reported regarding the EENT system. Derm: Skin is intact, Skin temperature is warm. Musculoskeletal: Capillary refill < 3 seconds, Range of motion: intact in all extremities, Swelling present in right leg and left leg Reports she have cellulitis. but it much better now. 20:10 Reassessment: Patient appears in no apparent distress at this time. No changes from rr5 previously documented assessment. Patient is alert, oriented x 3, equal unlabored respirations, skin warm/dry/pink. 20:40 Reassessment: Patient appears in no apparent distress at this time. Patient is alert, rr5 oriented x 3, equal unlabored respirations, skin warm/dry/pink. for admission. agreed for the plan of care. sandwich given with good appetite noted. 21:10 Reassessment: Patient appears in no apparent distress at this time. audible wheezing rr5 sound. ED provider aware with order made and carried out. 22:00 Reassessment: Patient appears in no apparent distress at this time. Patient and/or rr5 family updated on plan of care and expected duration. Pain level reassessed. Patient is alert, oriented x 3, equal unlabored respirations, skin warm/dry/pink. 23:10 Reassessment: Patient appears in no apparent distress at this time. no complaints made. rr5 awaiting for room availability. 23:55 Reassessment: Patient appears in no apparent distress at this time. Patient is alert, rr5 oriented x 3, equal unlabored respirations, skin warm/dry/pink. BP rechecked 147/51 mmHg. transferred to room via stretcher Patient states symptoms have improved. Vital Signs: 18:05 BP 157 / 51; Pulse 53; Resp 18; Temp 97.3; Pulse Ox 96% on R/A; Weight 91.17 kg (R); aj1 Height 5 ft. 4 in. (162.56 cm) (R); Pain 0/10; 19:05 BP 197 / 59; Pulse 58; Resp 22; Temp 97.9; Pulse Ox 98% on 2 lpm NC; Pain 0/10; rr5 20:40 BP 192 / 77; Pulse 62; Resp 19; Temp 97.8; Pulse Ox 98% on 2 lpm NC; rr5 22:35 BP 166 / 110; Pulse 64; Resp 17; Pulse Ox 99% on 2 lpm NC; rr5 23:00 BP 178 / 105; Pulse 61; Resp 17; Temp 98; Pulse Ox 99% on 2 lpm NC; Pain 0/10; rr5 23:30 BP 154 / 67; Pulse 62; Resp 18; Temp 98; Pulse Ox 97% on 2 lpm NC; Pain 0/10; rr5 23:57 BP 147 / 51; Pulse 63; Resp 17; Temp 97.9; Pulse Ox 99% on 2 lpm NC; Pain 0/10; rr5 18:05 Body Mass Index 34.50 (91.17 kg, 162.56 cm) aj1 ED Course: 17:58 Patient arrived in ED. rg4 17:58 Bertha Apodaca MD is Private Physician. rg4 18:03 Triage completed. aj1 18:05 Arm band placed on Patient placed in an exam room. aj1 18:29 Stewart Ruelas PA is PHCP. cp 18:29 Ora Espinosa MD is Attending Physician. cp 18:30 Sher Turk, RN is Primary Nurse. hj 19:05 Patient has correct armband on for positive identification. Placed in gown. Bed in low rr5 position. Call light in reach. Side rails up X2. telemetry monitor on. Pulse ox on. NIBP on. 19:10 Initial lab(s) drawn, by me, sent to lab. Inserted saline lock: 22 gauge in right hj antecubital area, using aseptic technique. Blood collected. 19:14 XRAY Chest (1 view) In Process Unspecified. EDMS 20:47 Ora Manriquez MD is Hospitalizing Provider. cp 22:56 Primary Nurse role handed off by Sher Turk, RN bb 23:08 César Rapp, MARIO is Primary Nurse. rr5 23:42 No provider procedures requiring assistance completed. Patient admitted, IV remains in rr5 place. intact. Administered Medications: 18:38 Drug: Albuterol - atroVENT (3:1) (2.5 mg - 0.5 mg) 3 ml Route: Nebulizer; hj 19:14 Follow up: Response: No adverse reaction hj 19:10 Drug: Aspirin Chewable Tablet 324 mg Route: PO; hj 19:18 Follow up: Response: No adverse reaction hj 20:40 Drug: Lasix 20 mg Route: IVP; Site: right antecubital; rr5 21:39 Follow up: Response: No adverse reaction rr5 20:42 Drug: Lovenox 1 mg/kg Route: Sub-Q; Site: right lower abdomen; rr5 21:39 Follow up: Response: No adverse reaction rr5 21:20 Drug: Albuterol 2.5 mg Route: Inhalation; rr5 22:30 Follow up: Response: No adverse reaction rr5 21:20 Drug: AtroVENT Aerosol 0.5 mg Route: Inhalation; rr5 22:30 Follow up: Response: No adverse reaction rr5 23:20 Drug: hydrALAZINE 5 mg Route: IV; Rate: bolus; Site: right antecubital; rr5 23:48 Follow up: Response: No adverse reaction; IV Status: Completed infusion rr5 23:21 Drug: HydrALAZINE 25 mg Route: PO; rr5 23:48 Follow up: Response: No adverse reaction rr5 Outcome: 20:48 Decision to Hospitalize by Provider. cp 23:42 Admitted to Tele accompanied by tech, via stretcher, room 409, with oxygen, with chart, rr5 Report called to suzy 23:42 Condition: stable 23:42 Instructed on the need for admit. 11/18 00:04 Patient left the ED. rr5 Signatures: Dispatcher [employer] EDAddie Waldrop RN RN aj1 Jennie Powell RN RN bb Sher Turk RN RN hj Page, Corey, PA PA cp Garcia, Rubi rg4 César Rapp RN RN rr5 Corrections: (The following items were deleted from the chart) 11/17 23:32 23:30 BP 154 / 67; Pulse 62bpm; Resp 98bpm; Pulse Ox 97% 2 lpm Nasal Cannula; Temp 98F; rr5 Pain 0/10; rr5 23:56 19:05 Musculoskeletal: Capillary refill < 3 seconds, Range of motion: intact in all rr5 extremities, rr5
[2018-11-17] MEDS ORDERED: FUROSEMIDE 20 MG/ 2ML VIAL ONE (20:51)
[2018-11-17] MEDS ORDERED: ENOXAPARIN 100 MG/ML SYR SQ ONE (20:52)
[2018-11-17] MEDS ORDERED: ALPRAZOLAM 0.25 MG TABLET PO PRN (21:08)
[2018-11-17] MEDS ORDERED: ACETAMINOPHEN 500 MG TAB PO PRN (21:08)
[2018-11-17] MEDS ORDERED: ONDANSETRON 4 MG/2 ML VIAL IV PRN (21:08)
[2018-11-17] MEDS ORDERED: MAGNESIUM HYDROXIDE 8% 30 ML PO PRN (21:08)
[2018-11-17 21:40] LABS: Urine Blood 1+ (NEG); Urine Glucose NEGATIVE (NEG); Urine Protein 2+ (NEG); Urine pH 5.5 (5.0-7.0)
[2018-11-17] MEDS ORDERED: Levofloxacin500mg IV 500 MG/100 ML BAG IV ONE (22:00)
[2018-11-17] MEDS ORDERED: NA CHLORIDE 0.9% 1,000 ML IV SCH ×2 (22:00)
[2018-11-17] MEDS ORDERED: HYDRALAZINE HCL 20 MG/ML VIAL ONE (23:22)
[2018-11-17] MEDS ORDERED: HYDRALAZINE HCL 10 MG TABLET ONE (23:23)
[2018-11-18] MEDS ORDERED: Levofloxacin500mg IV 500 MG/100 ML BAG IV ONE (01:00)
[2018-11-18] MEDS: PIPER/TAZO/NS 2.25gm 2.25 GM/50 ML BAG IV SCH ×4 (01:00→17:00)
[2018-11-18] MEDS: FUROSEMIDE 40 MG/4 ML VIAL IV SCH ×2 (01:31→08:01)
[2018-11-18] MEDS ORDERED: PIPERACIL/TAZO 2.25 GM VIAL IV ONE (01:57)
[2018-11-18] MEDS ORDERED: NA CHLORIDE 0.9% 50 ML ONE (02:45)
[2018-11-18 05:16] VITALS: BMI 33.8
[2018-11-18] MEDS: METOPROLOL TAR 25 MG TAB PO SCH ×2 (06:00→16:13)
--- NOTE | 2018-11-18 06:16 | EKG ---
Test Date: 2018-11-17 Test Time: 18:52:03 Chicken Catcher: MICHELLE MEASUREMENT RESULTS: Intervals: Rate: 54 NM: 212 QRSD: 144 QT: 478 QTc: 453 Henry: P: 41 NM: 212 QRS: -48 T: 88 INTERPRETIVE STATEMENTS: Sinus bradycardia with 1st degree AV block Right bundle branch block Left anterior fascicular block Bifascicular block Possible Lateral infarct, age undetermined Cannot rule out Inferior infarct (masked by fascicular block?), age undetermined Abnormal ECG Compared to ECG 05/25/2018 15:13:45 First degree AV block now present Sinus rhythm no longer present Bifascicular block still present Myocardial infarct finding still present Electronically Signed On 11-18-18 06:15:57 CDT by Carlos Retana
[2018-11-18 06:19] LABS: Absolute Lymphocytes (CBC) 1.4 K/uL (0.7-4.9); Absolute Monocytes 0.7 K/uL (0.1-1.3); Absolute Neutrophil 5.5 K/uL (1.8-8.0); Basophils % 0.6 % (0-1.3); Eosinophils % 1.6 % (0-4.4); Hematocrit 37.3 % (36.0-45.0); Lymphocytes % 18.2 % (15.3-44.8); MPV 8.6 fL (7.6-11.3); Monocytes % 8.9 % (3.3-12.3); RBC Red Blood Cell Count 4.11 M/uL (3.86-4.86)
[2018-11-18 06:31] LABS: Albumin 2.9 g/dL (3.4-5.0); Bilirubin Total 0.8 mg/dL (0.2-1.0); Magnesium 2.3 mg/dL (1.8-2.4); Phosphorus 4.2 mg/dL (2.5-4.9); Potassium 4.5 mmol/L (3.5-5.1); Protein, Total 7.2 g/dL (6.4-8.2)
--- NOTE | 2018-11-18 08:26 | RAD REPORT ---
EXAM DESCRIPTION: US - Renal Ultrasound-Complete - 11/17/2018 10:52 pm CLINICAL HISTORY: ANJANA Flank pain COMPARISON: No comparisons FINDINGS: Both kidneys are normal in size, shape and echotexture. The right kidney measures 11.7 x 5.9 x 5.3 cm. No hydronephrosis, focal mass or perinephric fluid. The left kidney measures 11.3 x 6.0 x 5.3 cm. No hydronephrosis, focal mass or perinephric fluid. The urinary bladder is incompletely distended without gross abnormality seen. IMPRESSION: Unremarkable renal sonogram.
[2018-11-18] MEDS: ENOXAPARIN 30 MG/0.3 ML SQ SCH (10:00)
[2018-11-18] MEDS: CLOPIDOGREL 75 MG TABLET PO SCH (10:00)
[2018-11-18] MEDS: ASPIRIN EC 81 MG TAB PO SCH (10:00)
[2018-11-18] MEDS ORDERED: D50W 25 GM/50 ML SYRINGE IV PRN (10:16)
[2018-11-18] MEDS ORDERED: GLUCAGON 1 MG/VIAL IM PRN (10:16)
[2018-11-18] MEDS: INSULIN -REGULAR HUMAN 50 UNIT/0.5 ML ML SQ SCH ×3 (11:30→21:21)
--- NOTE | 2018-11-18 12:08 | P.CNS ---
Date of Consult: 11/18/18 Reason for Consult: CKD Chief Complaint: SOB History of Present Illness: A 73 Y/o woman with pMHx of DM, hypertension, CKD III recent GFR as per PT 25 pt presented for non-productive cough of 3 days duration pt denied sick contact or travel, stated her Wt increased no chest pain ,palpitation, nausea or vomiting Allergies codeine Allergy (Unknown, Verified 11/18/18 01:34) Itching/Hives/Rash hydrocodone Allergy (Unknown, Verified 11/18/18 01:34) Increased heartbeat Nulnmlp-Acv-Rbf Reductase Inhibitor Allergy (Unknown, Verified 11/18/18 01:34) Hives gabapentin Allergy (Verified 11/18/18 01:34) Shortness of breath metformin Allergy (Verified 11/18/18 01:34) Diarrhea Home Medications: Ascorbic Acid/Vitamin E/Biotin [Hair Skin Nails-Biotin Gummies] 1 each PO DAILY 11/18/18 Aspirin Chewable [Aspirin Chewable*] 1 tab PO DAILY 11/18/18 Biotin 1,000 mcg PO DAILY 11/18/18 Cholecalciferol (Vitamin D3) [Vitamin D 1000 Iu Tab*] 1 tab PO DAILY 11/18/18 Ezetimibe [Zetia] 10 mg PO DAILY 11/18/18 Fish Oil/Dha/Epa [Fish Oil 1,200 mg Fish Oil] 1 cap PO BID 11/18/18 Furosemide [Lasix] 40 mg PO DAILY 11/18/18 Hydralazine [Apresoline] 25 mg PO TID 11/18/18 Insulin Degludec [Tresiba] 50 units SQ DAILY 11/18/18 Magnesium Oxide [Magnesium] 500 mg PO DAILY 11/18/18 Metoprolol Succinate [Toprol Xl] 25 mg PO BID 11/18/18 Omeprazole 20 mg PO DAILY 11/18/18 Potassium Chloride [Klor-Con 10] 10 meq PO DAILY 11/18/18 Vitamin B Complex [B Complex] 1 tab PO DAILY 11/18/18 Vitamin E 400 unit PO DAILY 11/18/18 - Past Medical/Surgical History Diabetic: Yes -: htn, diabetes -: Hyperlipidemia -: chf -: appendectomy -: cholecystectomy -: tubal ligation - Family History Mother Medical History: Kidney disease Father Medical History: Heart disease Sister Medical History: Cancer Notes: Kidney cancer - Social History Alcohol use: No CD- Drugs: No Caffeine use: Yes Place of Residence: Home Physical Examination Temp Pulse Resp BP Pulse Ox 97.2 F 51 16 140/64 98 11/18/18 12:00 11/18/18 12:00 11/18/18 12:00 11/18/18 12:00 11/18/18 12:00 General: In no apparent distress, Oriented x3 HEENT: Atraumatic Neck: Supple, Without JVD or thyroid abnormality Respiratory: Normal air movement, Other (Decrease air entry to the bases ) Cardiovascular: No edema, Regular rate/rhythm, Normal S1 S2, No gallops, No rubs , No murmurs, Edema Gastrointestinal: Normal bowel sounds, Soft and benign Musculoskeletal: No swelling Laboratory Data (last 24 hrs) 11/17/18 19:10: PT 12.7 H, INR 1.08 11/17/18 19:10: WBC 8.6, Hgb 13.0, Hct 40.6, Plt Count 240 11/17/18 19:10: Sodium 144, Potassium 5.0, BUN 45 H, Creatinine 1.63 H, Glucose 88, Magnesium 2.6 H D, Total Bilirubin 0.6, AST 17, ALT 20, Alkaline Phosphatase 159 H - Problems (1) CKD (chronic kidney disease) stage 3, GFR 30-59 ml/min Current Visit: Yes Status: Chronic (2) Chronic diastolic CHF (congestive heart failure) Current Visit: No Status: Chronic (3) Diabetes mellitus Onset Date: 05/26/18 Current Visit: No Status: Chronic Conclusions/Impression: CKD III Cr at [facility] US : no hydro will dc IVF will give another 40mg of lasix and change to 40mg daily renal dose meds PNA cont abx CHF mild b/l pleural effusion Dc IVF lasix DM as per PCP
--- NOTE | 2018-11-18 12:25 | P.HP ---
Certification for Inpatient Patient admitted to: Inpatient With expected LOS: >2 Midnights Patient will require the following post-hospital care: None Practitioner: I am a practitioner with admitting privileges, knowledge of patient current condition, hospital course, and medical plan of care. Services: Services provided to patient in accordance with Admission requirements found in Title 42 Section 412.3 of the Code of Federal Regulations Patient History Date of Service: 11/17/18 Reason for admission: SOB History of Present Illness: Patient is a 73-year-old female who comes into the hospital with complaints of shortness of breath and chest pain. She has been having these symptoms for the last couple of days and her shortness of breath has gradually worsened. She came to the ER for further evaluation. In the ER she had multiple lab testing which revealed elevated troponin and worsening renal function. Patient also had elevated BNP. Patient recently had cardiac workup including echocardiogram and stress test. The echo was unremarkable and the stress test was negative. Patient was given IV hydration and patient will be admitted to the hospital for further evaluation. Allergies codeine Allergy (Unknown, Verified 11/18/18 01:34) Itching/Hives/Rash hydrocodone Allergy (Unknown, Verified 11/18/18 01:34) Increased heartbeat Gdjfscy-Fpk-Zux Reductase Inhibitor Allergy (Unknown, Verified 11/18/18 01:34) Hives gabapentin Allergy (Verified 11/18/18 01:34) Shortness of breath metformin Allergy (Verified 11/18/18 01:34) Diarrhea Home Medications: Ascorbic Acid/Vitamin E/Biotin [Hair Skin Nails-Biotin Gummies] 1 each PO DAILY 11/18/18 Aspirin Chewable [Aspirin Chewable*] 1 tab PO DAILY 11/18/18 Biotin 1,000 mcg PO DAILY 11/18/18 Cholecalciferol (Vitamin D3) [Vitamin D 1000 Iu Tab*] 1 tab PO DAILY 11/18/18 Ezetimibe [Zetia] 10 mg PO DAILY 11/18/18 Fish Oil/Dha/Epa [Fish Oil 1,200 mg Fish Oil] 1 cap PO BID 11/18/18 Furosemide [Lasix] 40 mg PO DAILY 11/18/18 Hydralazine [Apresoline] 25 mg PO TID 11/18/18 Insulin Degludec [Tresiba] 50 units SQ DAILY 11/18/18 Magnesium Oxide [Magnesium] 500 mg PO DAILY 11/18/18 Metoprolol Succinate [Toprol Xl] 25 mg PO BID 11/18/18 Omeprazole 20 mg PO DAILY 11/18/18 Potassium Chloride [Klor-Con 10] 10 meq PO DAILY 11/18/18 Vitamin B Complex [B Complex] 1 tab PO DAILY 11/18/18 Vitamin E 400 unit PO DAILY 11/18/18 - Past Medical/Surgical History Has patient received pneumonia vaccine in the past: Yes Diabetic: Yes -: HTN -: Hyperlipidemia -: CHF -: Diabetes -: appendectomy -: cholecystectomy -: tubal ligation - Family History Mother Medical History: Kidney disease Father Medical History: Heart disease Sister Medical History: Cancer Notes: Kidney cancer - Social History Smoking Status: Former smoker Alcohol use: No CD- Drugs: No Caffeine use: Yes Place of Residence: Home Review of Systems 10-point ROS is otherwise unremarkable Physical Examination - Vital Signs Temperature: 97.2 F Blood Pressure: 140/64 Pulse: 51 Respirations: 16 Pulse Ox (%): 98 - Physical Exam General: Alert, In no apparent distress, Oriented x3 HEENT: Atraumatic, PERRLA, Mucous membr. moist/pink, EOMI, Sclerae nonicteric Neck: Supple, 2+ carotid pulse no bruit, No LAD, Without JVD or thyroid abnormality Respiratory: Diminished, Crackles/rales Cardiovascular: Regular rate/rhythm, Normal S1 S2, No murmurs Gastrointestinal: Normal bowel sounds, Soft and benign, Non-distended, No tenderness Musculoskeletal: No clubbing, No swelling, No tenderness Integumentary: No rashes Neurological: Normal gait, Normal speech, Normal strength at 5/5 x4 extr, Normal tone, Sensation intact, Cranial nerves 3-12 intact, Normal affect Lymphatics: No axilla or inguinal lymphadenopathy - Studies Laboratory Data (last 24 hrs) 11/17/18 19:10: PT 12.7 H, INR 1.08 11/17/18 19:10: WBC 8.6, Hgb 13.0, Hct 40.6, Plt Count 240 11/17/18 19:10: Sodium 144, Potassium 5.0, BUN 45 H, Creatinine 1.63 H, Glucose 88, Magnesium 2.6 H D, Total Bilirubin 0.6, AST 17, ALT 20, Alkaline Phosphatase 159 H Assessment & Plan - Problems (Diagnosis) (1) CKD (chronic kidney disease) stage 3, GFR 30-59 ml/min Current Visit: Yes Status: Chronic (2) Hypertension Onset Date: 05/26/18 Current Visit: No Status: Acute (3) NSTEMI (non-ST elevated myocardial infarction) Onset Date: 12/06/16 Current Visit: No Status: Acute (4) SOB (shortness of breath) Onset Date: 12/06/16 Current Visit: No Status: Acute (5) Chronic diastolic CHF (congestive heart failure) Current Visit: No Status: Chronic (6) Diabetes mellitus Onset Date: 05/26/18 Current Visit: No Status: Chronic - Plan 1. Serial troponins and EKG 2. Cardiology consultation 3. Echocardiogram and further testing pending cardiology evaluation 4. Anti-platelet therapy, anti coagulation, beta-steven, statin, and O2 as needed 5. IV morphine for pain 6. Nitro p.r.n. 7. Nephrology consultation 8. GI/DVT prophylaxis Discharge Plan: Home Plan to discharge in: 48 Hours - Advance Directives Does patient have a Living Will: No Does patient have a Durable POA for Healthcare: Yes - Code Status/Comfort Care Code Status Assessed: Yes Code Status: Full Code Critical Care: No Time Spent Managing PTS Care (In Minutes): 45
[2018-11-18 13:09] LABS: Urine Appearance CLEAR; Urine Bilirubin NEGATIVE (NEG); Urine Blood TRACE (NEG); Urine Color YELLOW; Urine Glucose NEGATIVE (NEG); Urine Protein 2+ (NEG); Urine Urobilinogen 0.2 mg/dL (0.2-1.0); Urine pH 5.5 (5.0-7.0)
[2018-11-18 13:51] LABS: UR PROTEIN 102 mg/dL (<11.9)
[2018-11-18 13:56] LABS: UR CREAT < 13.0 mg/dL (20-320)
[2018-11-18 14:06] LABS: Urine Microscopic Reflex ORDER UMIC
[2018-11-18 14:13] LABS: Urine Bacteria NONE SEEN /HPF (<20); Urine Culture Reflex Order NOT NEEDED; Urine RBC <5 /HPF (NONE SEEN)
--- NOTE | 2018-11-18 14:49 | ECHO ---
HEIGHT: 5 ft 4 in WEIGHT: 197 lb 4.8 oz DATE OF STUDY: 11/18/[address]: Ora Manriquez MD 2-DIMENSIONAL: YES M.MODE: YES DOPPLER: YES COLOR FLOW: YES TDS: NO PORTABLE: NO DEFINITY: NO BUBBLE STUDY: NO DIAGNOSIS: CHEST PAIN RULE OUT ACS CARDIAC HISTORY: CATHERIZATION: YES SURGERY: YES PROSTHETIC VALVE: NO PACEMAKER: NO MEASUREMENTS (cm) DIASTOLIC (NORMALS) SYSTOLIC (NORMALS) IVSd 1.1 (0.6-1.2) LA Diam 3.2 (1.9-4.0) LVEF 51-55% LVIDd 4.2 (3.5-5.7) LVIDs 3.2 (2.0-3.5) %FS 23% LVPWd 1.2 (0.6-1.2) Ao Diam 2.7 (2.0-3.7) 2 DIMENSIONAL ASSESSMENT: RIGHT ATRIUM: NORMAL LEFT ATRIUM: DILATED RIGHT VENTRICLE: NORMAL LEFT VENTRICLE: NORMAL SIZE TRICUSPID VALVE: NORMAL MITRAL VALVE: MITRAL ANNULAR CALCIFICATION PULMONIC VALVE: NORMAL AORTIC VALVE: SCLEROSIS PERICARDIAL EFFUSION: NONE AORTIC ROOT: NORMAL LEFT VENTRICULAR WALL MOTION: DECREASED LEFT VENTRICULAR COMPLIANCE. DOPPLER/COLOR FLOW: MILD MITRAL AND TRICUSPID REGURGITATION. RIGHT VENTRICULAR SYSTOLIC PRESSURE 50mmHg. COMMENTS: NORMAL LEFT VENTRICULAR EJECTION FRACTION. DECREASED LEFT VENTRICULAR COMPLIANCE. MITRAL ANNULAR CALCIFICATION. AORTIC SCLEROSIS. MODERATE PULMONARY HYPERTENSION. RIGHT VENTRICULAR SYSTOLIC PRESSURE 50mmHg. TECHNOLOGIST: Bridget PATEL
[2018-11-18] MEDS ORDERED: FUROSEMIDE 40 MG/4 ML VIAL IV ONE (16:00)
--- NOTE | 2018-11-18 18:08 | P.PN ---
Subjective Date of Service: 11/18/18 Chief Complaint: SOB Subjective: Improving Patient seen and examined at bedside. No family at bedside. Chart reviewed and case discussed with nursing staff. Review of Systems 10-point ROS is otherwise unremarkable Physical Examination - Vital Signs Temperature: 97.6 F Blood Pressure: 186/54 Pulse: 61 Respirations: 16 Pulse Ox (%): 96 - Physical Exam General: Alert, In no apparent distress HEENT: Atraumatic, PERRLA, EOMI Neck: Supple, JVD not distended Respiratory: Clear to auscultation bilaterally, Normal air movement Cardiovascular: Regular rate/rhythm, Normal S1 S2 Gastrointestinal: Normal bowel sounds, No tenderness Musculoskeletal: No tenderness Integumentary: No rashes Neurological: Normal speech, Normal tone, Normal affect Lymphatics: No axilla or inguinal lymphadenopathy - Studies Laboratory Data (last 24 hrs) 11/17/18 19:10: PT 12.7 H, INR 1.08 11/17/18 19:10: WBC 8.6, Hgb 13.0, Hct 40.6, Plt Count 240 11/17/18 19:10: Sodium 144, Potassium 5.0, BUN 45 H, Creatinine 1.63 H, Glucose 88, Magnesium 2.6 H D, Total Bilirubin 0.6, AST 17, ALT 20, Alkaline Phosphatase 159 H Assessment And Plan - Current Problems (Diagnosis) (1) CKD (chronic kidney disease) stage 3, GFR 30-59 ml/min Current Visit: Yes Status: Chronic (2) Hypertension Onset Date: 05/26/18 Current Visit: No Status: Acute (3) Diabetes mellitus Onset Date: 05/26/18 Current Visit: No Status: Chronic (4) Chronic diastolic CHF (congestive heart failure) Current Visit: No Status: Chronic (5) NSTEMI (non-ST elevated myocardial infarction) Onset Date: 05/26/18 Current Visit: No Status: Acute (6) SOB (shortness of breath) Onset Date: 12/06/16 Current Visit: No Status: Acute (7) Pneumonia Current Visit: Yes Status: Acute Qualifiers: Pneumonia type: due to unspecified organism Laterality: right Lung location: lower lobe of lung Qualified Code(s): J18.1 - Lobar pneumonia, unspecified organism - Plan Unstable angina. Cardiology consulted, recommendations appreciated. No cardiac catheterization/intervention planned at this time. Echo ordered, pending. Continue Anti-platelet therapy, anti coagulation, beta-steven, statin, and O2 as needed IV morphine for pain Nitro p.r.n. Nephrology consultation, recommendations appreciated Continue IV antibiotics for pneumonia. Sputum cultures pending Accu-Cheks and mild sliding scale insulin for diabetes. GI/DVT prophylaxis
--- NOTE | 2018-11-19 00:24 | CON ---
Date of Consultation: 11/18/2018 Chief Complaint: Admitted on 11/17/2018 with shortness of breath and I saw the patient on 11/18/2018 . History Of Present Illness: Ms. Felix is a 73-year-old woman. She is known to us from previous o ffice visits and admissions. She has a complicated past medical history, which includes congestive h eart failure that is diastolic congestive heart failure, chronic. She came in with exacerbation of h er chronic congestive heart failure. She has a history of diabetes, dyslipidemia, gastroesophageal r eflux disease, hypertension, and history of CABG. She denied chest pain. Denied nausea, vomiting, d iaphoresis. She denied palpitation or syncope. She denied any fever, chills or cough. Allergies: SHE IS ALLERGIC TO IODINE, STATINS, METFORMIN, AND NEURONTIN. Medications: Her medications at home include Lasix, aspirin, Zetia, hydralazine, metoprolol, omepraz ole, and potassium. Review of Systems: Negative. Social History: Negative. Family History: Noncontributory. Physical Examination: Vital Signs: Stable. She was afebrile. She was in a sinus rhythm. HEENT Exam: Negative. Neck: Supple without any lymphadenopathy, bruit or JVD. Chest: Showed rales at both bases with some expiratory wheezing. Cardiac Exam: Revealed a regular rhythm and rate with an S4 gallops. No murmurs or rubs. Abdomen: Obese, but benign. Extremities: Revealed chronic venous changes with 1+ edema. The extremities were cool and dry. Pul ses were present distally bilaterally. Neurological: She was nonfocal. Diagnostic Data: Her EKG showed sinus bradycardia with right bundle-branch block and a left anterior hemiblock. Chest x-ray showed atelectasis versus bibasilar infiltrate. Labs: Laboratory evaluation showed , troponin was 0.41. Her BNP was 7912. Impression And Plan: 1.Acute exacerbation of chronic diastolic congestive heart failure. 2.Chronic renal insufficiency stage III. 3.Abnormal troponin and BNP secondary to congestive heart failure. 4.Abnormal EKG with sinus bradycardia and right bundle-branch block. 5.Diabetes, well controlled. 6.Dyslipidemia, well controlled. She is allergic to statins. 7.Gastroesophageal reflux disease. 8.Hypertension, well controlled. 9.Coronary artery disease, status post coronary artery bypass graft. I do not think we are dealing with acute coronary syndrome. Last echocardiogram in May 2018 was normal ejection fraction with decreased left ventricular compliance and we will get another echo today. A Lexiscan in May of 2018 was normal. I do not think we need to repeat that. If her symptoms do not improve, we will co nsider catheterization then. For now, I would continue aggressive diuresis while watching her kidney function. Again for diastolic congestive heart failure, the mainstay of therapy is beta blockers, L asix as well as . NB/MODL Voice ID: [id number] Report ID: [id number]
[2018-11-19] MEDS ORDERED: Levofloxacin 250mg IV 250 MG/50 ML BAG IV SCH (01:00)
[2018-11-19] MEDS: PIPER/TAZO/NS 2.25gm 2.25 GM/50 ML BAG IV SCH ×4 (01:31→16:56)
[2018-11-19] MEDS: METOPROLOL TAR 25 MG TAB PO SCH (06:00)
[2018-11-19] MEDS: INSULIN -REGULAR HUMAN 50 UNIT/0.5 ML ML SQ SCH ×4 (07:30→20:16)
[2018-11-19] MEDS ORDERED: HYDRALAZINE HCL 10 MG TABLET PO SCH (09:00)
[2018-11-19] MEDS ORDERED: FUROSEMIDE 40 MG/4 ML VIAL IV SCH ×2 (09:00→21:00)
[2018-11-19] MEDS: ENOXAPARIN 30 MG/0.3 ML SQ SCH (09:18)
[2018-11-19] MEDS: ASPIRIN EC 81 MG TAB PO SCH (09:18)
[2018-11-19] MEDS: CLOPIDOGREL 75 MG TABLET PO SCH (09:18)
[2018-11-19 10:43] LABS: Absolute Lymphocytes (CBC) 1.1 K/uL (0.7-4.9); Absolute Monocytes 0.6 K/uL (0.1-1.3); Absolute Neutrophil 4.7 K/uL (1.8-8.0); Basophils % 0.7 % (0-1.3); Eosinophils % 2.5 % (0-4.4); Lymphocytes % 16.8 % (15.3-44.8); MPV 8.7 fL (7.6-11.3); Monocytes % 9.3 % (3.3-12.3); RBC Red Blood Cell Count 3.99 M/uL (3.86-4.86)
[2018-11-19 10:54] LABS: Albumin 2.7 g/dL (3.4-5.0); Bilirubin Total 0.9 mg/dL (0.2-1.0); Potassium 4.2 mmol/L (3.5-5.1); Protein, Total 6.9 g/dL (6.4-8.2)
--- NOTE | 2018-11-19 12:00 | P.PN ---
Subjective Date of Service: 11/19/18 Chief Complaint: SOB Subjective: Improving Patient seen and examined at bedside. No family at bedside. Chart reviewed and case discussed with nursing staff. Reports improved breathing, still not back to baseline. Seems to be more sleepy this morning. Review of Systems 10-point ROS is otherwise unremarkable Physical Examination - Vital Signs Temperature: 97.1 F Blood Pressure: 139/72 Pulse: 59 Respirations: 18 Pulse Ox (%): 97 - Physical Exam General: Alert, In no apparent distress, Oriented x3, Other (Sleepy, arousable to answer questions appropriately) HEENT: Atraumatic, PERRLA, EOMI Neck: Supple, JVD not distended Respiratory: Diminished Cardiovascular: Regular rate/rhythm, Normal S1 S2 Gastrointestinal: Normal bowel sounds, No tenderness Musculoskeletal: No tenderness Integumentary: No rashes Neurological: Normal speech, Normal tone, Normal affect Lymphatics: No axilla or inguinal lymphadenopathy Assessment And Plan - Current Problems (Diagnosis) (1) NSTEMI (non-ST elevated myocardial infarction) Onset Date: 05/26/18 Current Visit: No Status: Acute Plan: Unstable angina. Cardiology consulted, recommendations appreciated. No cardiac catheterization/intervention planned at this time. Echo with 51-55% ejection fraction, diastolic dysfunction. Continue Anti-platelet therapy, anti coagulation, beta-steven, statin, and O2 as needed IV morphine for pain Nitro p.r.n. (2) Chronic diastolic CHF (congestive heart failure) Current Visit: No Status: Chronic Plan: Continue diuresis with IV Lasix b.i.d.. Continue heart failure guidelines Fluid restriction Daily weights (3) CKD (chronic kidney disease) stage 3, GFR 30-59 ml/min Current Visit: Yes Status: Chronic Plan: Nephrology consultation, recommendations appreciated (4) Pneumonia Current Visit: Yes Status: Acute Plan: Continue IV antibiotics for pneumonia. 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 Diabetes mellitus complication status: with kidney complications Diabetes mellitus complication detail: with chronic kidney disease Chronic kidney disease stage: stage 3 (moderate) Qualified Code(s): E11.22 - Type 2 diabetes mellitus with diabetic chronic kidney disease; N18.3 - Chronic kidney disease, stage 3 (moderate); Z79.4 - manager long term care (current) use of insulin (7) SOB (shortness of breath) Onset Date: 12/06/16 Current Visit: No Status: Acute Plan: Likely secondary to volume overload versus pneumonia Resolved - Plan DVT prophylaxis: Lovenox GI prophylaxis: Protonix Diet: Heart healthy/fluid restriction Disposition: Continue to monitor on the floor, pending symptomatic improvement. Continue diuresis. Anticipate discharge in the next 24-48 hr pending clinical improvement.
--- NOTE | 2018-11-19 12:52 | RAD REPORT ---
EXAM DESCRIPTION: RAD - Chest Single View - 11/19/2018 12:43 pm CLINICAL HISTORY: Shortness of breath COMPARISON: November 17 TECHNIQUE: AP portable chest image was obtained 1239 hours . FINDINGS: Lung volumes are low. Hazy opacification in the right base has not changed. No progressive mass or consolidation. Vasculature and interstitial markings are mildly prominent overall. Pattern i s not substantially changed. Heart and vasculature are normal. No measurable pleural effusion and no pneumothorax. No acute bony abnormality seen. No acute aortic findings suspected. IMPRESSION: Chest is not substantially different from November 17 examination. Mild failure or volume overload is favored over pneumonia.
[2018-11-19] MEDS: HYDRALAZINE HCL 25 MG TABLET PO SCH ×2 (13:54→20:05)
--- NOTE | 2018-11-19 15:08 | PN ---
Date of Progress Note: 11/19/2018 Subjective: The patient was admitted with shortness of breath, CHF exacerbation, chest pain. Objective: Vital Signs: When I saw the patient, blood pressure 141/77, pulse of 72. Chest: Faint crackles, bilateral base. The patient is on oxygen. Heart: S1, S2. Systolic murmur. Abdomen: Soft, nontender. Extremities: Trace edema. Laboratory Data: WBC 7.8, H and H 12.5/37.3, platelets 243. Sodium 146, potassium 4.5, bicarb 32, B UN 45, creatinine 1.6. GFR of 30. Calcium 9.3. BNP 6682. Current Medications: The patient on its include: 1.Levaquin. 2.Zosyn. 3.Plavix. 4.Lovenox. 5.Alprazolam. 6.Lasix 40. Assessment And Plan: 1.Acute kidney injury on chronic kidney disease, plateaued, close to her baseline. Baseline creatin ine back in 2018, 1.5 with GFR of 34. Still slightly on the wet side. I am going to go ahead and in crease Lasix to b.i.d. We will continue to monitor the patient. 2.Hypertension, controlled. We will utilize the blood pressure for more diuresis. I am going to pl mindy the patient on nitroglycerin patch. 3.Coronary artery disease as by Cardiology. 4.Hyperkalemia, has been resolved. KARINE Voice ID: [id number] Report ID: [id number]
[2018-11-19] MEDS: METOPROLOL XL 25 MG TAB PO SCH (20:05)
[2018-11-19] MEDS: DOCOSAHEXANOIC AC/EPA 1000 MG PO SCH (20:05)
[2018-11-20] MEDS: PIPER/TAZO/NS 2.25gm 2.25 GM/50 ML BAG IV SCH ×4 (06:00→17:10)
[2018-11-20 06:05] LABS: Absolute Lymphocytes (CBC) 1.3 K/uL (0.7-4.9); Absolute Monocytes 0.6 K/uL (0.1-1.3); Absolute Neutrophil 4.3 K/uL (1.8-8.0); Basophils % 0.8 % (0-1.3); Eosinophils % 3.7 % (0-4.4); Hematocrit 37.1 % (36.0-45.0); Lymphocytes % 20.5 % (15.3-44.8); MPV 8.8 fL (7.6-11.3); Monocytes % 9.2 % (3.3-12.3); RBC Red Blood Cell Count 4.14 M/uL (3.86-4.86)
[2018-11-20 06:20] LABS: Albumin 2.6 g/dL (3.4-5.0); Bilirubin Total 0.7 mg/dL (0.2-1.0); Phosphorus 4.2 mg/dL (2.5-4.9); Protein, Total 7.1 g/dL (6.4-8.2)
[2018-11-20] MEDS: PANTOPRAZOLE 40MG TABLET PO SCH (06:30)
[2018-11-20] MEDS: INSULIN -REGULAR HUMAN 50 UNIT/0.5 ML ML SQ SCH ×4 (07:30→21:18)
[2018-11-20] MEDS ORDERED: FUROSEMIDE 40 MG/4 ML VIAL IV SCH (08:00)
[2018-11-20] MEDS: BIOTIN 1000 MCG PO SCH (09:00)
[2018-11-20] MEDS: METOPROLOL XL 25 MG TAB PO SCH ×3 (09:00→21:19)
[2018-11-20] MEDS: HOME MED 1 EA UNK (Insulin Degludec [Tresiba] 50 UNITS) SQ SCH (09:00)
[2018-11-20] MEDS: [UNRECOGNIZED DRUG - OTHER] PO SCH (09:00)
[2018-11-20] MEDS: VITAMIN E PO SCH (09:00)
[2018-11-20] MEDS: ASCORBIC ACID PO SCH (09:00)
[2018-11-20] MEDS: BIOTIN PO SCH (09:00)
[2018-11-20] MEDS: NITROGLYCERIN 0.2 MG/HR (5 MG) PATCH TD SCH ×2 (09:28→10:15)
[2018-11-20] MEDS: EZETIMIBE 10 MG TAB PO SCH (09:28)
[2018-11-20] MEDS: HYDRALAZINE HCL 25 MG TABLET PO SCH ×3 (09:28→21:20)
[2018-11-20] MEDS: VITAMIN B COMPLEX 1 CAP PO SCH (09:28)
[2018-11-20] MEDS: POTASSIUM CL SA 10 MEQ TAB PO SCH (09:28)
[2018-11-20] MEDS: CLOPIDOGREL 75 MG TABLET PO SCH (09:29)
[2018-11-20] MEDS: VITAMIN D 1000 UNIT TAB PO SCH (09:29)
[2018-11-20] MEDS: DOCOSAHEXANOIC AC/EPA 1000 MG PO SCH ×2 (09:29→21:19)
[2018-11-20] MEDS: MAGNESIUM OXIDE 400 MG TAB PO SCH (09:29)
[2018-11-20] MEDS: VITAMIN E 400 IU CAP PO SCH (09:30)
[2018-11-20] MEDS: ENOXAPARIN 30 MG/0.3 ML SQ SCH (09:30)
[2018-11-20] MEDS: ASPIRIN 81 MG CHEWABLE TABLET PO SCH (09:30)
[2018-11-20] MEDS: HEPARIN 5000 UNIT/ML 1 ML VIAL IV SCH (17:09)
[2018-11-20] MEDS: FUROSEMIDE 40 MG/4 ML VIAL IV SCH (17:09)
--- NOTE | 2018-11-20 17:30 | P.PN ---
Subjective Date of Service: 11/20/18 Chief Complaint: SOB Subjective: Improving Patient seen and examined at bedside. No family at bedside. Chart reviewed and case discussed with nursing staff. Reports improved breathing, still not back to baseline. More awake and alert this morning. Review of Systems 10-point ROS is otherwise unremarkable Physical Examination - Vital Signs Temperature: 97.2 F Blood Pressure: 146/56 Pulse: 55 Respirations: 16 Pulse Ox (%): 98 - Physical Exam General: Alert, In no apparent distress HEENT: Atraumatic, PERRLA, EOMI Neck: Supple, JVD not distended Respiratory: Clear to auscultation bilaterally, Normal air movement Cardiovascular: Regular rate/rhythm, Normal S1 S2 Gastrointestinal: Normal bowel sounds, No tenderness Musculoskeletal: No tenderness Integumentary: No rashes Neurological: Normal speech, Normal tone, Normal affect Lymphatics: No axilla or inguinal lymphadenopathy Assessment And Plan - Current Problems (Diagnosis) (1) NSTEMI (non-ST elevated myocardial infarction) Onset Date: 05/26/18 Current Visit: No Status: Acute Plan: Unstable angina. Cardiology consulted, recommendations appreciated. No cardiac catheterization/intervention planned at this time. Echo with 51-55% ejection fraction, diastolic dysfunction. Continue Anti-platelet therapy, anti coagulation, beta-steven, statin, and O2 as needed IV morphine for pain Nitro p.r.n. (2) Chronic diastolic CHF (congestive heart failure) Current Visit: No Status: Chronic Plan: Continue diuresis with IV Lasix b.i.d.. Continue heart failure guidelines Fluid restriction Daily weights (3) CKD (chronic kidney disease) stage 3, GFR 30-59 ml/min Current Visit: Yes Status: Chronic Plan: Nephrology consultation, recommendations appreciated (4) Pneumonia Current Visit: Yes Status: Acute Plan: Continue IV antibiotics for pneumonia. Repeat chest x-ray stable, seems to favor volumer overload over PNA. Will likely DC antibiotics upon discharge. 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 Diabetes mellitus complication status: with kidney complications Diabetes mellitus complication detail: with chronic kidney disease Chronic kidney disease stage: stage 3 (moderate) Qualified Code(s): E11.22 - Type 2 diabetes mellitus with diabetic chronic kidney disease; N18.3 - Chronic kidney disease, stage 3 (moderate); Z79.4 - regional intermodal truck driver (current) use of insulin (7) SOB (shortness of breath) Onset Date: 12/06/16 Current Visit: No Status: Acute Plan: Likely secondary to volume overload versus pneumonia Resolved - Plan DVT prophylaxis: Lovenox GI prophylaxis: Protonix Diet: Heart healthy/fluid restriction Disposition: Continue to monitor on the floor, pending symptomatic improvement. Continue diuresis. Anticipate discharge in the next 24 hr pending clinical improvement.
--- NOTE | 2018-11-20 17:49 | PN ---
Date of Progress Note: 11/20/2018 Subjective: The patient was admitted with CHF exacerbation, acute kidney injury, patient being on di uresis, still has some shortness of breath but better. The patient with difficulty ambulating. Physical Examination: Vital Signs: When I saw the patient blood pressure 150/78, pulse of 52. Chest: Crackles bilateral. Heart: S1, S2 regular. Abdomen: Soft, nontender. Extremities: Plus edema. Laboratory Data: H and H 12.4/37.1. Sodium 142, potassium 4, bicarb 33, BUN 41, creatinine down to 1.8, GFR of 27, phos 4.2, calcium of 9. Current Medications: The patient on its include; Zosyn 2.25, Plavix, Lovenox, hydralazine 25 t.i.d., metoprolol, nitroglycerin, Lasix and pantoprazole. Assessment And Plan: 1.Acute kidney injury secondary to cardio renal. We will continue the patient on diuresis. I am go ing to go ahead and increase Lasix to 80 mg b.i.d. to establish better volume control as patient even balance on the last couple of days and I am going to go ahead and put the patient on fluid restricti on. 2.Hypertension. We will utilize blood pressure for more diuresis. 3.Bronchitis. Continue current antibiotic. Follow up with the primary. KARINE Voice ID: [id number] Report ID: [id number]
[2018-11-20 23:55] VITALS: TEMP 97.8
[2018-11-21] MEDS: HEPARIN 5000 UNIT/ML 1 ML VIAL IV SCH ×2 (00:48→08:44)
[2018-11-21] MEDS: PIPER/TAZO/NS 2.25gm 2.25 GM/50 ML BAG IV SCH ×3 (00:48→12:09)
[2018-11-21 06:08] LABS: Absolute Lymphocytes (CBC) 1.6 K/uL (0.7-4.9); Absolute Monocytes 0.8 K/uL (0.1-1.3); Absolute Neutrophil 4.9 K/uL (1.8-8.0); Eosinophils % 4.6 % (0-4.4); Hematocrit 37.5 % (36.0-45.0); Lymphocytes % 20.7 % (15.3-44.8); MPV 8.6 fL (7.6-11.3); Monocytes % 9.9 % (3.3-12.3)
[2018-11-21] MEDS: PANTOPRAZOLE 40MG TABLET PO SCH (06:29)
[2018-11-21 06:40] LABS: Albumin 2.6 g/dL (3.4-5.0); Bilirubin Total 0.6 mg/dL (0.2-1.0); Phosphorus 3.5 mg/dL (2.5-4.9); Potassium 3.7 mmol/L (3.5-5.1); Protein, Total 7.4 g/dL (6.4-8.2)
[2018-11-21 06:42] VITALS: O2SAT 95
[2018-11-21] MEDS: INSULIN -REGULAR HUMAN 50 UNIT/0.5 ML ML SQ SCH ×2 (07:30→12:09)
[2018-11-21] MEDS: NITROGLYCERIN 0.2 MG/HR (5 MG) PATCH TD SCH (08:42)
[2018-11-21] MEDS: DOCOSAHEXANOIC AC/EPA 1000 MG PO SCH (08:42)
[2018-11-21] MEDS: POTASSIUM CL SA 10 MEQ TAB PO SCH (08:42)
[2018-11-21] MEDS: CLOPIDOGREL 75 MG TABLET PO SCH (08:42)
[2018-11-21] MEDS: ASPIRIN 81 MG CHEWABLE TABLET PO SCH (08:42)
[2018-11-21] MEDS: HYDRALAZINE HCL 25 MG TABLET PO SCH ×2 (08:43→14:16)
[2018-11-21] MEDS: METOPROLOL XL 25 MG TAB PO SCH (08:43)
[2018-11-21] MEDS: VITAMIN B COMPLEX 1 CAP PO SCH (08:44)
[2018-11-21] MEDS: FUROSEMIDE 40 MG/4 ML VIAL IV SCH (08:44)
[2018-11-21] MEDS: VITAMIN D 1000 UNIT TAB PO SCH (08:44)
[2018-11-21] MEDS: MAGNESIUM OXIDE 400 MG TAB PO SCH (08:44)
[2018-11-21] MEDS: EZETIMIBE 10 MG TAB PO SCH (08:44)
[2018-11-21] MEDS: VITAMIN E 400 IU CAP PO SCH (08:44)
[2018-11-21] MEDS: BIOTIN 1000 MCG PO SCH (08:45)
[2018-11-21] MEDS: HOME MED 1 EA UNK (Insulin Degludec [Tresiba] 50 UNITS) SQ SCH (08:45)
[2018-11-21] MEDS: VITAMIN E PO SCH (08:45)
[2018-11-21] MEDS: [UNRECOGNIZED DRUG - OTHER] PO SCH (08:45)
[2018-11-21] MEDS: ASCORBIC ACID PO SCH (08:45)
[2018-11-21] MEDS: BIOTIN PO SCH (08:45)
[2018-11-21 13:41] VITALS: BP 174/65
--- NOTE | 2018-11-24 18:18 | P.DS ---
Admission Date: 11/17/18 Discharge Date: 11/21/18 Disposition: ROUTINE DISCHARGE Discharge Condition: GOOD Reason for Admission: SOB Consultations: Cardiology Nephrology - Problems (1) NSTEMI (non-ST elevated myocardial infarction) Onset Date: 05/26/18 Status: Acute (2) Chronic diastolic CHF (congestive heart failure) Status: Chronic (3) CKD (chronic kidney disease) stage 3, GFR 30-59 ml/min Status: Chronic (4) Pneumonia Status: Acute Qualifiers: Pneumonia type: due to unspecified organism Laterality: right Lung location: lower lobe of lung Qualified Code(s): J18.1 - Lobar pneumonia, unspecified organism (5) Hypertension Onset Date: 05/26/18 Status: Acute Qualifiers: Hypertension type: essential hypertension Qualified Code(s): I10 - Essential (primary) hypertension (6) Diabetes mellitus Onset Date: 05/26/18 Status: Chronic Qualifiers: Diabetes mellitus type: type 2 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 insulin use: with vermin exterminator use Diabetes mellitus complication status: with kidney complications Diabetes mellitus complication detail: with chronic kidney disease Chronic kidney disease stage: stage 3 (moderate) Qualified Code(s): E11.22 - Type 2 diabetes mellitus with diabetic chronic kidney disease; N18.3 - Chronic kidney disease, stage 3 (moderate); Z79.4 - residential (current) use of insulin (7) SOB (shortness of breath) Onset Date: 12/06/16 Status: Acute Brief History of Present Illness: Patient is a 73-year-old female who comes into the hospital with complaints of shortness of breath and chest pain. She has been having these symptoms for the last couple of days and her shortness of breath has gradually worsened. She came to the ER for further evaluation. In the ER she had multiple lab testing which revealed elevated troponin and worsening renal function. Patient also had elevated BNP. Patient recently had cardiac workup including echocardiogram and stress test. The echo was unremarkable and the stress test was negative. Patient was given IV hydration and patient will be admitted to the hospital for further evaluation. Hospital Course: Patient was admitted for non Stemi, stable angina. Cardiology was consulted. No cardiac catheterization/intervention was planned at this time. An echocardiogram was done, with 51-55% ejection fraction diastolic dysfunction. She was started on chest pain guidelines. She was provided with IV diuresis and heart failure guidelines were followed. Nephrology was consulted for her chronic kidney disease. Nephrotoxic medications were avoided. She was started on IV antibiotics for pneumonia but repeat chest x-ray seemed to favor volume overload over pneumonia and therefore her antibiotics were discontinued. She otherwise remained stable throughout the stay. Her diagnoses and treatment plan were explained to her, all questions were answered and patient verbalized understanding. She was then discharged home in a safe and stable manner. Vital Signs/Physical Exam: Temp Pulse Resp BP Pulse Ox 97.8 F 59 20 174/65 H 93 11/21/18 12:00 11/21/18 12:00 11/21/18 12:00 11/21/18 12:00 11/21/18 12:00 General: Alert, In no apparent distress HEENT: Atraumatic, PERRLA, EOMI Neck: Supple, JVD not distended Respiratory: Clear to auscultation bilaterally, Normal air movement Cardiovascular: Regular rate/rhythm, Normal S1 S2 Gastrointestinal: Normal bowel sounds, No tenderness Musculoskeletal: No tenderness Integumentary: No rashes Neurological: Normal speech, Normal tone, Normal affect Lymphatics: No axilla or inguinal lymphadenopathy Laboratory Data at Discharge: WBC 7.7 K/uL (4.3-10.9) D 11/21/18 05:34 Hgb 12.6 g/dL (12.0-15.0) 11/21/18 05:34 Hct 37.5 % (36.0-45.0) 11/21/18 05:34 Plt Count 250 K/uL (152-406) 11/21/18 05:34 PT 12.7 SECONDS (9.5-12.5) H 11/17/18 19:10 INR 1.08 11/17/18 19:10 Sodium 142 mmol/L (136-145) 11/21/18 05:34 Potassium 3.7 mmol/L (3.5-5.1) 11/21/18 05:34 BUN 39 mg/dL (7-18) H 11/21/18 05:34 Creatinine 2.09 mg/dL (0.55-1.3) H 11/21/18 05:34 Glucose 127 mg/dL (74-106) H 11/21/18 05:34 Phosphorus 3.5 mg/dL (2.5-4.9) 11/21/18 05:34 Magnesium 2.3 mg/dL (1.8-2.4) 11/18/18 05:53 Total Bilirubin 0.6 mg/dL (0.2-1.0) 11/21/18 05:34 AST 18 U/L (15-37) 11/21/18 05:34 ALT 18 U/L (12-78) 11/21/18 05:34 Alkaline Phosphatase 125 U/L (45-117) H 11/21/18 05:34 Troponin I 0.38 ng/mL (0.0-0.045) H 11/18/18 05:53 Triglycerides 118 mg/dL (<150) 11/18/18 05:53 Cholesterol 152 mg/dL (<200) 11/18/18 05:53 HDL Cholesterol 31 mg/dL (40-60) L 11/18/18 05:53 Cholesterol/HDL Ratio 4.90 11/18/18 05:53 Home Medications: Ascorbic Acid/Vitamin E/Biotin [Hair Skin Nails-Biotin Gummies] 1 each PO DAILY 11/18/18 Aspirin Chewable [Aspirin Chewable*] 1 tab PO DAILY 11/18/18 Biotin 1,000 mcg PO DAILY 11/18/18 Cholecalciferol (Vitamin D3) [Vitamin D 1000 Iu Tab*] 1 tab PO DAILY 11/18/18 Ezetimibe [Zetia] 10 mg PO DAILY 11/18/18 Fish Oil/Dha/Epa [Fish Oil 1,200 mg Fish Oil] 1 cap PO BID 11/18/18 Hydralazine [Apresoline] 25 mg PO TID 11/18/18 Insulin Degludec [Tresiba] 50 units SQ DAILY 11/18/18 Magnesium Oxide [Magnesium] 500 mg PO DAILY 11/18/18 Metoprolol Succinate [Toprol Xl] 25 mg PO BID 11/18/18 Omeprazole 20 mg PO DAILY 11/18/18 Potassium Chloride [Klor-Con 10] 10 meq PO DAILY 11/18/18 Vitamin B Complex [B Complex] 1 tab PO DAILY 11/18/18 Vitamin E 400 unit PO DAILY 11/18/18 Furosemide [Lasix] 80 mg PO BID #60 tablet 11/21/18 New Medications: Furosemide [Lasix] 80 mg PO BID #60 tablet Patient Discharge Instructions: Please follow up with your primary care physician in 2-3 days. Please follow up with Nephrology in 2 weeks. Diet: Renal Activity: Ad marilyn Followup: Ifeanyi Licona MD [ACTIVE - CAN ADMIT] - 1-2 Weeks (call to schedule an appointment ) Time spent managing pt's care (in minutes): 45
== END 2018-11-21 14:39 | disposition home or self-care (01) | DRG 281 ==
LOC: ER 17:57 → ERHOLD 21:08 → 4TH 23:43
PROVIDERS: ADMIT Hospitalist; ATTEND Family Medicine
DX: I21.4 Non-ST elevation (NSTEMI) myocardial infarction (principal); I50.32 Chronic diastolic (congestive) heart failure; I13.0 Hypertensive heart and chronic kidney disease with heart failure and stage 1 through stage 4 chronic kidney disease, or unspecified chronic kidney disease; N18.3 Chronic kidney disease, stage 3 (moderate); E11.22 Type 2 diabetes mellitus with diabetic chronic kidney disease; I12.9 Hypertensive chronic kidney disease with stage 1 through stage 4 chronic kidney disease, or unspecified chronic kidney disease; I45.10 Unspecified right bundle-branch block; R00.1 Bradycardia, unspecified; E78.5 Hyperlipidemia, unspecified; K21.9 Gastro-esophageal reflux disease without esophagitis; E66.9 Obesity, unspecified; Z68.33 Body mass index [BMI] 33.0-33.9, adult; Z79.82 Long term (current) use of aspirin; Z79.4 Long term (current) use of insulin; Z87.891 Personal history of nicotine dependence; Z95.1 Presence of aortocoronary bypass graft; Z88.5 Allergy status to narcotic agent
CPT/HCPCS: 36415; 71045; 76770; 80048; 80053; 80061; 80069; 80076; 81003; 81015; 82570; 82962; 83735; 83880; 84100; 84156; 84484; 85025; 85610; 93005; 93306; 94640; 96365; 96367; 96372; 96375; 97116; 97163; 97530; 99285; J0360; J1644; J1650; J1940; J2543; J7030

== ENCOUNTER 2020-05-26 10:23 | Emergency (ER) | payer OTHER ==
--- OUTSIDE RECORDS SUMMARY | 2020-05-26 10:25 | XMS REPORT | Clinical Summary ---
:1945 Author Organization [facility] Address [address] [place] [address] Care Team Providers Name Role Phone Betzy Apodaca DO Primary Care Provider Allergies Active Allergy Reactions Severity Noted Date Comments Codeine Rash Low 02/19/2017 Rash on face Enalapril 02/19/2017 hand/face swell ing Boxuztv-Qbr-Veb Reductase 02/19/2017 mu scle pain, hand/face Inhibitors swelling Medications Medication Sig Dispensed Refills Start Date End Date Status aspirin (ECOTRIN) Take 81 mg 0 A ctive 81 MG enteric by mouth coated tablet daily. magnesium oxide 250 Take 250 mg 0 Active mg tablet by mouth daily. omega-3 fatty Take 1 0 Active acids-fish oil capsule by (FISH OIL) mouth daily. 360-1,200 mg capsule vitamin E 400 UNIT Take 400 0 A ctive capsule Units by mouth daily. vit B comp Take 1 0 Active no.4-zpnvc-O-biotin tablet by (NEPHRO-BOO RX) mouth daily. 1-60-300 mg-mg-mcg tablet JANUVIA 50 mg Take 50 mg 0 07/12/2017 Acti ve tablet by mouth daily. hydrALAZINE Take 25 mg 0 Active (APRESOLINE) 25 MG by mouth 2 tablet (two) times a day. Patient is taking 25mg(50mg) 2 tablets twice a day loratadine Take 10 mg 0 Active (CLARITIN) 10 mg by mouth tablet daily. furosemide (LASIX) TAKE ONE 90 tablet 3 06/05/2018 Active 40 mg TABLET BY tabletIndications: MOUTH ONCE Diastolic DAILY congestive heart failure (HCC), Essential hypertension, Pure hypercholesterolemi a, SOB (shortness of breath) ezetimibe (ZETIA) Take 1 90 tablet 0 12/21/2019 A ctive 10 mg tablet tablet by mouth nightly spironolactone Take 1 90 tablet 0 05/23/2020 Acti ve (ALDACTONE) 25 MG tablet by tablet mouth once daily potassium chloride Take 1 90 tablet 0 05/23/2020 Active (KLOR-CON) 10 MEQ tablet by CR mouth once tabletIndications: daily Diastolic congestive heart failure (HCC), Essential hypertension, Pure hypercholesterolemi a, SOB (shortness of breath) ezetimibe (ZETIA) Take 10 mg 0 07/12/2017 Discontinued 10 mg tablet by mouth 0 (Reorde r) nightly. potassium chloride Take 1 90 tablet 3 12/25/2018 Discontinued (KLOR-CON) 10 MEQ tablet (10 0 CR mEq total) tabletIndications: by mouth Diastolic daily. congestive heart failure (HCC), Essential hypertension, Pure hypercholesterolemi a, SOB (shortness of breath) spironolactone Take 1 90 tablet 3 05/12/2019 Disc ontinued (ALDACTONE) 25 MG tablet (25 0 tablet mg total) by mouth daily. potassium chloride Take 1 90 tablet 0 09/25/2019 Discontinued (KLOR-CON) 10 MEQ tablet by 0 CR mouth once tabletIndications: daily Diastolic congestive heart failure (HCC), Essential hypertension, Pure hypercholesterolemi a, SOB (shortness of breath) ezetimibe (ZETIA) Take 1 90 tablet 0 10/26/2019 D iscontinued 10 mg tablet tablet (10 0 mg total) by mouth nightly. potassium chloride Take 1 90 tablet 0 12/14/2019 Discontinued (KLOR-CON) 10 MEQ tablet by 0 CR mouth once tabletIndications: daily Diastolic congestive heart failure (HCC), Essential hypertension, Pure hypercholesterolemi a, SOB (shortness of breath) Active Problems Problem Noted Date Stenosis of right carotid artery 06/16/2019 Edema 01/07/2018 CAD in [place] artery 09/24/2017 PAD (peripheral artery disease) 09/24/2017 Atelectasis of left lung 06/18/2017 Pleural effusion, left 06/18/2017 Acute postoperative respiratory insufficiency 06/18/20 17 Hx of CABG 06/12/2017 Anemia due to surgical blood loss, acute superimposed on chronic anemia 06/12/2017 Acute kidney injury superimposed on chronic kidney dis ease 06/12/2017 Ischemic cardiomyopathy 06/12/2017 Type 2 diabetes mellitus with stage 3 chronic kidney d isease, with 06/12/2017 long-term current use of insulin NSTEMI (non-ST elevated myocardial infarction) 017 SOB (shortness of breath) 02/19/2017 Essential hypertension 02/19/2017 Pure hypercholesterolemia 02/19/2017 Type 2 diabetes mellitus Encounters Date Type Specialty Care Team Description 05/22/2020 Refill Cardiology Ankit Aburto MD Med Refi ll 12/18/2019 Refill Cardiology Ankit Aburto MD Med Refi ll 12/12/2019 Refill Cardiology Ankit Aburto MD Med Refi ll 10/26/2019 Refill Cardiology Dulce Maria Mukherjee MA Med Ref ill 09/24/2019 Refill Cardiology Ankit Aburto MD Med Refi ll 06/16/2019 Office Visit Cardiology Ankit Aburto MD Hx of CA BG (Primary Dx); Ischemic cardio myopathy; Stenosis of rig ht carotid artery 06/12/2019 Telephone Cardiology Mark Fish MA Results (Nucle ar stress test) after 05/26/2019 Surgical History Surgery Date Site/Laterality Comments APPENDECTOMY CHOLECYSTECTOMY TUBAL LIGATION CARDIAC CATHERIZATION CABG, WITH ENDOSCOPIC VEIN 06/12/2017 Chest/N/A Proce dure: Cabg, With HARVESTING Endoscopic Vein Harvesting on Left leg JACKSON A - LAD, SVG- PDA, OM , D iagonal; Surgeon: Mian Elizabeth MD ; Location: [facility]; Service: Cardiot horacic; Laterality: N/A; Medical devices from this surgery are in t he Implants section . Medical History Medical History Date Comments CHF (congestive heart failure) (HCC) Hypertension Hyperlipidemia Type 2 diabetes mellitus (HCC) GA (mitral incompetence) COPD (chronic obstructive pulmonary disease) (HCC) Disease of thyroid gland HYPERTHYROID Family History Relation Name Status Comments Father Mother Social History Tobacco Use Types Packs/Day Years Used Date Never Smoker Smokeless Tobacco: Never Used Alcohol Use Drinks/Week oz/Week Comments No Sex Assigned at Date Recorded Not on file Last Filed Vital Signs Vital Sign Reading Time Taken Comments Blood Pressure 150/66 06/16/2019 8:58 AM BOOK JACKET COVER 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 Pulse 48 06/16/2019 8:58 AM BOOK JACKET COVER MACHINE OPERATOR Temperature - - Respiratory Rate - - Oxygen Saturation - - Inhaled Oxygen Concentration - - Weight 87.5 kg (193 lb) 06/16/2019 8:58 AM BOOK JACKET COVER MACHINE OPERATOR Height 162.6 cm (5' 4") 06/16/2019 8:58 AM BOOK JACKET COVER MACHINE OPERATOR Body Mass Index 33.13 06/16/2019 8:58 AM BOOK JACKET COVER MACHINE OPERATOR Plan of Treatment Date Type Specialty Care Team Description 06/14/2020 Office Visit Cardiology Ankit Aburto MD [address] [facility] [address] [place], [place] [address] [phone] Health Maintenance Due Date Last Done Comments DIABETES: RETINAL EYE EXAM 1954 DIABETIC FOOT EXAM 1954 BREAST CANCER SCREENING 1994 COLONOSCOPY SCREENING 1994 SHINGLES VACCINES (#1) 1994 65+ PNEUMOCOCCAL VACCINE (1 of 1 - PPSV23) 2009 INFLUENZA VACCINE 01/30/2020 Implants Implanted Type Area Mechanical Energy Engineer Device Shelf Model / Identifier Expiration Serial / Date Lot Lead Pace Francesco Mycrdl Unipol Tmpry Streamline - [id number] Cardio vascular N/A: [employer] [place] - [id number] / Implanted: 06/12/2017 at [facility] (Quantity not on file) Imp lants N/A CARDIAC SRGRY / Procedures Procedure Name Priority Date/Time Associated Comments Diagnosis NM MYOCARDIAL Routine 06/12/2019 3:20 PM CAD in [place] Result s for this PERFUSION REST BOOK JACKET COVER MACHINE OPERATOR artery procedure are in STRESS 1 DAY Hx of CABG the results section. CV STRESS TEST Routine 06/09/2019 11:30 AM CAD in [place] Resul ts for this BOOK JACKET COVER MACHINE OPERATOR artery procedure are in Hx of CABG the results section. after 05/26/2019 Results Nm myocardial perfusion (06/12/2019 3:20 PM BOOK JACKET COVER MACHINE OPERATOR) Pathologist Sig nature Target HR 145.00 bpm [facility] Specimen Narrative Performed At [facility] Nuclear Cardi ology and Cardiac CT [address] [address] Myocardial Pe rfusion Imaging Report Stress ECG tracings are availab le in MUSE, EPIC and CV Web All ECG interpretations a re included in this report Pat.Name: MARILEE GONZALEZ Pat.ID: [id number]Date: 06/09/2019 Refer.MD: ANKIT ABURTO MD Exam Time: 3:20:00 PM Study Type:Myocardial Perfusion Imaging Height: 64in Weight: 183lb BSA: 1.89 m2 Ag e: 1945,74Y Sex: FEMALE Nuclear Tech:Jayden CummingsNEHEMIAS Nuclear Event ID:[id number] Order ID: [id number] Reason for Study:CAD, unspecified*, hist ory of CABG Procedures: Single Day Rest / Stress Race: C Clinical Symptoms:Regadenoson SUMMARY: BASELINE ECG Normal Sinus Rhythm STRESS TEST RESULTS Maximal Predicted HR 145 beats/minute 85% Maximal Predicted HR 123 beats/minute Stress Test Duration 1 minutes 00 seco nds Resting Heart Rate 47 beats/minute Max imal Heart Rate 65 beats/minute Resting Blood Pressure 142/83 mmHg Max imal Blood Pressure 142/83 mmHg % Maximal Heart Rate Achieved 45% Symptoms During Test Nausea, Dyspnea Reason for Stopping Test As per regade noson protocol Maximal ST-segment shift None Stress-Induced Arrhythmias None Ischemic electrocardiographic changes (S T-segment depression) did not occur at peak regadenoson stress. _. STRESS TEST INTERPRETATION Normal ruddy l regadenoson stress test. _. SCINTIGRAPHIC RESULTS Perfusion Defect Size (% LV) 23% Total 0% Ischemia 23% Scar Left Ventricular Perfusion Results There is a mild apical septal, apical an terior, apical perfusion defect during stress which remains uncha nged with rest imaging. There is a mild basal and mid inferior and inf erolateral perfusion defect during stress which remains unchanged wi rest imaging. Gated SPECT Results The post stress left ventricular ejectio n fraction is 51% with hypokinesis of all hypoperfused comer. Left ventricular end-diastolic volume is 154 ml; end-systolic volume is 76 ml. The left ventricle is of normal size at stress and rest. The right ventricle is of normal size with normal wall motion. Conclusion Abnormal regadenoson Tc-99m sestamibi my ocardial perfusion study compatible with scar in the left anterio r descending and circumflex coronary artery vascular territory. The LVEF is low-normal. Comments The study results indicate a intermediat e (1%-2%) annual risk for a cardiac or non-fatal myocardial in farction. Study Quality/Artifacts The study quality is good. Comparison to Previous Study None available. FINDINGS: Signed 06/10/2019 04:09 PM Kulwant Escobar MD Procedure Note Interface, Radiology Results In - 2018 4:11 PM [facility] Nuclear Cardiology and Cardiac CT [address] [address] Myocardial Perfusion I maging Report Stress ECG tracings are available in [employer], [employer] and [employer] All ECG interpretations are in cluded in this report Pat.Name: MARILEE GONZALEZ Pat.I D: [id number] St.Date: 06/09/2019 Refer .MD: ANKIT ABURTO MD Exam Time: 3:20:00 PM Study Type:Myocardial Perfusion Imaging Height: 64in Weigh t: 183lb BSA: 1.89 m2 Age: 11 1945,74Y Sex: FEMALE Nucle ar Tech:NEHEMIAS [place] Nuclear Event ID:[id number] Order ID: [id number] Reason for Study:CAD, unspecified*, hist ory of CABG Procedures: Single Day Rest / Stress Race: C Clinical Symptoms:Regadenoson SUMMARY: BASELINE ECG Normal Sinus Rhythm STRESS TEST RESULTS Maximal Predicted HR 145 beats/minute 8 5% Maximal Predicted HR 123 beats/minute Stress Test Duration 1 minutes 00 secon ds Resting Heart Rate 47 beats/minute Maxi mal Heart Rate 65 beats/minute Resting Blood Pressure 142/83 mmHg Maxi mal Blood Pressure 142/83 mmHg % Maximal Heart Rate Achieved 45% Symptoms During Test Nausea, Dyspnea Reason for Stopping Test As per regaden oson protocol Maximal ST-segment shift None Stress-Induced Arrhythmias None Ischemic electrocardiographic changes (S T-segment depression) did not occur at peak regadenoson stress. _. STRESS TEST INTERPRETATION Normal ruddy l regadenoson stress test. _. SCINTIGRAPHIC RESULTS Perfusion Defect Size (% LV) 23% Total 0% Ischemia 23% Scar Left Ventricular Perfusion Results There is a mild apical septal, apical an terior, apical perfusion defect during stress which remains uncha nged with rest imaging. There is a mild basal and mid inferior and inf erolateral perfusion defect during stress which remains unchanged wi th rest imaging. Gated SPECT Results The post stress left ventricular ejectio n fraction is 51% with hypokinesis of all hypoperfused comer. Left ventricular end-diastolic volume is 154 ml; end-systolic volume is 76 ml. The left ventricle is of normal size at stress and rest. T he right ventricle is of normal size with normal wall motion. Conclusion Abnormal regadenoson Tc-99m sestamibi my ocardial perfusion study compatible with scar in the left anterio r descending and circumflex coronary artery vascular territory. The LVEF is low-normal. Comments The study results indicate a intermediat e (1%-2%) annual risk for a cardiac or non-fatal myocardial in farction. Study Quality/Artifacts The study quality is good. Comparison to Previous Study None available. FINDINGS: Signed 06/10/2019 04:09 PM Kulwant Escobar MD Performing Organization Address City/State/ZIP Code Phon e Number [facility] [id number] [place] [address] Cv stress test (06/09/2019 11:30 AM BOOK JACKET COVER MACHINE OPERATOR) Resting HR 47 [facility] Resting BP 142 [facility] Peak MET Achieved 1.0 [facility] Protocol Name Mark [facility] MUSE Time in Exercise 00:01:00 [facility] Phase Max Systolic BP 142 [facility] Max Diastolic BP 83 [facility] Max Heart Rate 65 [facility] Max Predicted Heart 145 [facility] Rate Target HR Formula (220 - Age)*85% [facility] Test Indication CORONARY ARTERY DISEASE [facility] Arrhy During Ex [facility] ECG Interp Before EX [facility] ECG Interp During Ex [facility] Ex Summary Comment [facility] MUSE Chest Pain Statement none [facility] MUSE Overall HR Response [facility] to Exercise Overall BP Response [facility] To Exercise Reason for As per Lexiscan [facility] MUSE Termination protocol Stress Test Waveform interpreted in [facility] MUSE Impression report associated with image study. No interpretation is provided as part of this Stress ECG report.--Electronically Signed By Kulwant Escobar MD ([id number]), newspaper photo editor Justin Villavicencio ([id number]) on 06/11/2019 3:16:26 PM Specimen Narrative Performed At This result has an attachment that is no t available. Performing Organization Address City/State/ZIP Code Phon e Number [facility] MUSE [address] [place] [address] after 05/26/2019 Insurance Payer Benefit Plan / Subscriber ID Effective Dates Phone Addre ss Type Group [employer] [id number] 2019-Presen O HMO MCR ADV t Advance Directives For more information, please contact: [phone] Type Date Recorded Patient Metal Checker Explanati on Advance Directives, Living Will and Medical Power of Bond Writer
--- OUTSIDE RECORDS SUMMARY | 2020-05-26 10:26 | XMS REPORT | Continuity of Care Document ---
:1945 Author Organization [facility] t Address [address] [place] [address] Care Team Providers Name Role Phone Betzy Apodaca DO Primary Care Physician Rachele Reis MD Attending Clinician Doctor Unassigned, Name Attending Clinician Unavailable Swapna MARTIN Attending Clinician Jozef LIM Attending Clinician Kvng LIM Attending Clinician Yaz ZAPATA Attending Clinician Unavailable Adriel Manriquez MD Attending Clinician Unavailable Polina ZAPATA Attending Clinician Unavailable Kvng LIM Admitting Clinician Payers Payer Name Policy Type Policy Effective Date Expiration Source Number Date [facility]NA [id number] [facility] [facility] [id number] 2020-Pr esentHMO Problems Condition Condition Condition Status Onset Resolution Last Treating Co mments Source Name Details Category Date Date Treatment Clinician Date Stenosis Stenosis Disease Active 2018-07 [place] of right of right 2-17 Method i carotid carotid 00:00: st artery artery 00 Edema Edema Disease Active [place] 7-10 Methodi 00:00: st 00 CAD in CAD in Disease Active [place] 3-27 Methodi artery artery 00:00: st 00 PAD PAD Disease Active [place] (periphera (periphera 3-27 Me thodi l artery l artery 00:00: st disease) disease) 00 Atelectasi Atelectasi Disease Active 2016-07 [place] s of left s of left 2-19 [place] lung lung 00:00: st 00 Pleural Pleural Disease Active 2016-07 [place] effusion, effusion, 2-19 [place] left left 00:00: st 00 Acute Acute Disease Active 2016-07 [place] postoperat postoperat 2-19 Me thodi rosalio rosalio 00:00: st respirator respirator 00 y y insufficie insufficie ncy ncy Hx of CABG Hx of CABG Disease Active 2016-07 H [place] 2-13 Methodi 00:00: st 00 Anemia due Anemia due Disease Active 2016-07 [place] to to 2-13 Methodi surgical surgical 00:00: st blood blood 00 loss, loss, acute acute superimpos superimpos ed on ed on chronic chronic anemia anemia Acute Acute Disease Active 2016-07 [place] kidney kidney 2-13 Methodi injury injury 00:00: st superimpos superimpos 00 ed on ed on chronic chronic kidney kidney disease disease Ischemic Ischemic Disease Active 2016-07 [place] cardiomyop cardiomyop 2-13 Me thodi athy athy 00:00: st 00 NSTEMI NSTEMI Disease Active 2016-07 [place] (non-ST (non-ST 2-06 Methodi elevated elevated 00:00: st myocardial myocardial 00 infarction infarction ) ) SOB SOB Disease Active [place] (shortness (shortness 8-22 Me thodi of breath) of breath) 00:00: st 00 Essential Essential Disease Active Sara ston hypertensi hypertensi 8-22 Me [place] on on 00:00: st 00 Pure Pure Disease Active [place] hyperchole hyperchole 8-22 Me thodi sterolemia sterolemia 00:00: st 00 Coronary Coronary Diagnosis Active [facility] artery artery [facility] - disease disease Memoria involving involving l [place] Outpati coronary coronary ent artery of artery of Clin ics [place] heart heart without without angina angina pectoris pectoris Secondary Secondary Problem Active [facility] diabetes diabetes [facility] - with with Memoria peripheral peripheral l neuropathy neuropathy [facility] ent Clinics Stage 3 Stage [address] [facility] chronic chronic [facility] - kidney kidney Memoria disease disease l [facility] ent Clinics Urinary Urinary Problem Active [facility] incontinen incontinen Erlinda kes - ce, ce, Memoria unspecifie unspecifie l d type d type [facility] Clinics Diabetes Diabetes Problem Active [facility] mellitus, mellitus, Luke s - type 2 type 2 Memoria l [facility] ent Clinics Sleep Sleep Problem Active [facility] apnea, apnea, Lukes - unspecifie unspecifie Me moria d d l [facility] ent Clinics Obesity Obesity Problem Active [facility] (BMI (BMI Lukes - 30.0-34.9) 30.0-34.9) Me moria l [facility] ent Clinics GERD GERD Problem Active [facility] (gastroeso (gastroeso Erlinda kes - phageal phageal Memoria reflux reflux l disease) disease) Outpat i ent Clinics Klebsiella Klebsiella Problem Active [facility] pneumoniae pneumoniae Erlinda kes - [K. [K. Memoria pneumoniae pneumoniae l ] as the ] as the Outpat i cause of cause of ent diseases diseases Clinic s classified classified elsewhere elsewhere Essential Essential Diagnosis Active C [facility] hypertensi hypertensi Erlinda kes - on on Memoria l [facility] ent Clinics Urinary Urinary Problem Active [facility] tract tract [facility] - infection, infection, Me moria site not site not l specified specified Outp at ent Clinics Mixed Mixed Diagnosis Active [facility] hyperlipid hyperlipid Erlinda kes - emia emia Memoria l [facility] Clinics Seasonal Seasonal Problem Active [facility] allergic allergic Lukes - rhinitis rhinitis Memori a l [facility] ent Clinics Renal Renal Problem Active [facility] failure failure [facility] - Memoria l [facility] Clinics Rosacea Rosacea Problem Active [facility] - Memoria l [facility] Clinics Dermatitis Dermatitis Problem Active [facility] - Memoria l [facility] ent Clinics Nonadheren Nonadheren Problem Active [facility] ce with ce with Lukes - dietary dietary Memoria restrictio restrictio l n n [facility] ent Clinics Nonadheren Nonadheren Problem Active [facility] ce to ce to [facility]ukes - medication medication Me moria l [facility] ent Clinics Uncontroll Uncontroll Diagnosis Active [facility] ed type 2 ed type 2 Luke s - diabetes diabetes Memori a mellitus mellitus l with with Outpati hyperglyce hyperglyce en t [email or web address] Diabetic Diabetic Problem Active [facility] retinopath retinopath Erlinda kes - y y Memoria associated associated l with with Outpati controlled controlled en t type 2 type 2 Clinics diabetes diabetes mellitus mellitus 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 Erlinda kes - Memoria l [facility] ent Clinics Cellulitis Cellulitis Problem Active [facility] of left of left [facility]ukes - leg leg Memoria l [facility] ent Clinics [facility] Problem Active [facility] discharge discharge Luke s - follow-up follow-up Emanuel zachary l [facility] ent Clinics Hypertensi Hypertensi Problem Active [facility] ve urgency ve urgency Erlinda kes - Memoria l [facility] ent Clinics Mild Mild Problem Active [facility] congestive congestive Erlinda kes - heart heart Memoria failure failure l [facility] ent Clinics Psoriasis Psoriasis Problem Active [facility] - Memoria l [facility] Clinics Chronic Chronic Problem Active [facility] diastolic diastolic Luke s - heart heart Memoria failure failure l [facility] ent Clinics Hypertensi Hypertensi Problem Active [facility] ve chronic ve chronic Erlinda kes - kidney kidney Memoria disease disease l with stage with stage Ou tpati 1 through 1 through ent stage 4 stage 4 Clinics chronic chronic kidney kidney disease, disease, or or unspecifie unspecifie d chronic d chronic kidney kidney disease disease Type 2 Type [address] diabetes diabetes [facility] - mellitus mellitus Memori a with with l diabetic diabetic Outpat i chronic chronic ent kidney kidney Clinics disease disease Stage 4 Stage [address] chronic chronic [facility] - kidney kidney Memoria disease disease l [facility] ent Clinics PAD PAD Problem Active [facility] (periphera (periphera Erlinda kes - l artery l artery Memori a disease) disease) l [facility] ent Clinics Biventricu Biventricu Problem Active [facility] lar heart lar heart Luke s - failure failure Memoria l [facility] ent Clinics Unspecifie Unspecifie Problem Active [facility] d systolic d systolic Erlinda kes - (congestiv (congestiv Me moria e) heart e) heart l failure failure [facility] Clinics 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 [facility]ukes - systolic systolic Memori a and and l diastolic diastolic Outp ati congestive congestive en t heart heart Clinics failure failure H/O four H/O four Problem Active [facility] vessel vessel [facility] - coronary coronary Memori a artery artery l bypass bypass Outpati graft graft ent Clinics Low back Low back Problem Active [facility] pain pain [facility] - Memoria l [facility] ent Clinics Other Other Problem Active [facility] chronic chronic [facility] - pain pain Memoria l [facility] ent Clinics On On Problem Active [facility] supplement supplement Erlinda kes - al oxygen al oxygen Emanuel zachary by nasal by nasal l cannula cannula [facility] ent Clinics Type 2 Type [address] diabetes diabetes [facility]ukes - mellitus mellitus Memori a with with l diabetic diabetic Outpat i nephropath nephropath en t y y Clinics Type 2 Type 2 Disease Active [place] diabetes diabetes Method i mellitus mellitus st Allergies, Adverse Reactions, Alerts Allergy Allergy Status Severity Reaction(s) Onset Inactive Treating Comm ents Source Name Type Date Date Clinician Codeine Propensi Active Rash Rash on [place] ty to 02-19 face Methodi adverse 00:00: st reaction 00 s to drug Enalapri Propensi Active hand/face Sara ston l ty to 02-19 swelling Methodi adverse 00:00: st reaction 00 s to drug Statins- Propensi Active muscle [place] Hmg-Coa ty to 02-19 pain, Methodi Reductas adverse 00:00: hand/face st e reaction 00 swelling Inhibito s to rs drug Neuronti Adverse Active Info Not [facility] n Reaction Available [facility] - Memoria l [facility] ent [facility] Lyrica Adverse Active Info Not [facility] Reaction Available [facility] - Memoria l [facility] ent [facility] Lipitor Adverse Active Info Not [facility] Reaction Available [facility] - Memoria l [facility] ent [facility] Vicodin Adverse Active Info Not [facility] Reaction Available [facility] - Memoria l [facility] ent [facility] Glucopha Adverse Active Info Not [facility] t ge Reaction Available [facility] - Memoria l [facility] ent [facility] Codeine Adverse Active Info Not [facility] Sulfate Reaction Available [place] s - Memoria l [facility] ent Clinics Social History Social Habit Start Date Stop Date Quantity Comments Source Sex Assigned At [facility] ethodist Tobacco use and 2018-06-03 2018-06-03 Never used [facility] ethodist exposure 00:00:00 00:00:00 Alcohol intake 2018-06-03 2018-06-03 Current [facility] thodist 00:00:00 00:00:00 non-drinker of alcohol (finding) Smoking Status Start Date Stop Date Source Never smoker Claude Julesis yas Medications Ordered Filled Start Stop Current Ordering Indication Dosage Frequency Signature Comments Components Source Medication Medication Date Date Medication? Clinician (SIG) Name Name spironolact 2019-07 Yes Take 1 [place] one -23 tablet by Methodi (ALDACTONE) 00:00: mouth once st 25 MG 00 daily tablet potassium 2019-07 Yes SOB Take 1 [place] chloride 1-23 (shortness tablet by Methodi (KLOR-CON) 00:00: of breath) mouth once st 10 MEQ CR 00 daily tablet Glucose Glucose Yes Miriam as [facility] testing testing 03-01 [place] directed [facility] - strips strips 00:00: (dispense Emanuel zachary 00 testing l strips of Outpati record) ent Clinics ezetimibe Yes Take 1 [place] (ZETIA) 10 6-22 tablet by [place] mg tablet 00:00: mouth st 00 nightly potassium 2020- No SOB Take 1 [place] chloride 6-15 -23 (shortness tablet by Methodi (KLOR-CON) 00:00: 00:00 of breath) mouth once st 10 MEQ CR 00 :00 daily tablet ezetimibe 2020- No 10mg QD Take 1 [place] (ZETIA) 10 4-27 -22 tablet (10 Me thodi mg tablet 00:00: 00:00 mg total) st 00 :00 by mouth nightly. potassium 2020- No SOB Take 1 [place] chloride 3-27 06-15 (shortness tablet by Methodi (KLOR-CON) 00:00: 00:00 of breath) mouth once st 10 MEQ CR 00 :00 daily tablet aspirin 2018-07 Yes 81mg QD Take 81 mg [place] (ECOTRIN) 1-12 by mouth Method i 81 MG 14:05: daily. st enteric 28 coated tablet magnesium 2018-07 Yes 250mg QD Take 250 Sara ston oxide 250 1-12 mg by Methodi mg tablet 14:05: mouth st 28 daily. hydrALAZINE 2018-07 Yes 25mg Q.5D Take 25 mg Arce (APRESOLINE 1-12 by mouth 2 Me thodi ) 25 MG 14:05: (two) st tablet 28 times a day. Patient is taking 25mg(50mg) 2 tablets twice a day loratadine 2018-07 Yes 10mg QD Take 10 mg [place] (CLARITIN) 1-12 by mouth Metho di 10 mg 14:05: daily. st tablet 28 spironolact 2018-07- No 25mg QD Take 1 Sara ston one 1-12 11-23 tablet (25 Methodi (ALDACTONE) 00:00: 00:00 mg total) st 25 MG 00 :00 by mouth tablet daily. potassium 2019- No SOB 10meq QD Take 1 [place] chloride 27 -27 (shortness tablet (10 Methodi (KLOR-CON) 00:00: 00:00 of breath) mEq total) st 10 MEQ CR 00 :00 by mouth tablet daily. Prilosec Prilosec Yes Miriam [address] [facility] OTC OTC 3-25 [place] [facility] furosemide 2017-07 Yes SOB TAKE ONE Sara ston (LASIX) 40 2-06 (shortness TABLET BY Methodi mg tablet 00:00: of breath) MOUTH ONCE st 00 DAILY omega-3 2017-07 Yes 1{capsu QD Take 1 [place] fatty 2-04 le} capsule by Methodi acids-fish 11:28: mouth st oil (FISH 12 daily. OIL) 360-1,200 mg capsule vitamin E 2017-07 Yes 400U QD Take 400 [place] 400 UNIT 2-04 Units by Methodi capsule 11:28: mouth st 12 daily. vit B comp 2017-07 Yes 1{tbl} QD Take 1 Sara ston no.3-folic- 2-04 tablet by Met palacios C-biotin 11:28: mouth st (NEPHRO-VIT 12 daily. E RX) 1-60-300 mg-mg-mcg tablet JANUVIA 50 Yes 50mg QD Take 50 mg [place] mg tablet 1-12 by mouth Method i 00:00: daily. st 00 ezetimibe 2019- No 10mg QD Take 10 mg [place] (ZETIA) 10 1-12 -27 by mouth Meth [place] mg tablet 00:00: 00:[address] 00 :00 Metoprolol Metoprolol Yes Miriam [address] Tartrate Tartrate [facility] Miguel A Grady Yes Miriam [address] [facility] Millender [facility] - Memoria l Outpati ent Clinics Zetia Zetia Yes Miriam [address] [facility] [address] Millender [facility] - Memoria l Outpati ent Clinics Potassium Potassium Yes Miriam [address] Chloride Chloride Mill[place] with food Lukes - Cece ER Cece ER Memoria l Outpati ent Clinics Tramadol Tramadol Yes Miriam [address] HCl HCl Mill[place] as needed [facility] - Memoria l Outpati ent Clinics HydrALAZINE HydrALAZINE Yes Miriam [address] [facility] [address] HCl HCl [place] with food [facility] - Memoria l Outpati ent Clinics Ezetimibe Ezetimibe Yes Miriam [address] [facility] [address] Millender [facility] - Memoria l Outpati ent Clinics Ryan Ryan Yes Miriam USE TO [facility] Contour Contour Millender TEST BLOOD Lukes - Test Test GLUCOSE Memoria THREE l TIMES Outpati DAILY ent Clinics TRUEplus TRUEplus Yes Miriam USE TO [facility] Lancets 28G Lancets 28G Millender TEST BLOOD Lukes - GLUCOSE Memoria THREE l TIMES Outpati DAILY ent Clinics Prilosec Prilosec Yes Miriam TAKE [address] [facility] Millender CAPSULE BY Luke s - MOUTH Memoria ONCE A DAY l Outpati ent Clinics Magnesium Magnesium Yes Miriam [address] Millender with a Lukes - meal Memoria l Outpati ent Clinics HydrALAZINE HydrALAZINE Yes Miriam [address] [facility] HCl HCl Millender [facility] - Memoria l Outpati ent Clinics Triamcinolo Triamcinolo Yes Miriam [address] [facility] ne ne Millender applicatio Luke s - Acetonide Acetonide n to Memor ia affected l area Outpati ent Clinics Lantus Lantus Yes Miriam not [facility] SoloStar SoloStar Mill[place] defined [facility] - Memoria l Outpati ent Clinics Tresiba Tresiba Yes Miriam [address] [facility] FlexTouch FlexTouch Mill[place] once daily [facility]ukes - and Memoria increase l by 2 unit Outpati every 4 ent days until Clinics fastng glucose less 120 Biotin Biotin Yes Miriam [address] Millender [facility] - Memoria l Outpati ent Clinics Aspir-Low Aspir-Low Yes Miriam [address] Millender [facility] Outpati ent Clinics Docusate Docusate Yes Miriam [address] Sodium Sodium Millender as needed L ukes - Memoria l [facility] ent Clinics Senexon Senexon Yes Miriam [address] Millender at bedtime Luke s - as needed Memoria l [facility] Clinics Furosemide Furosemide Yes Miriam [address] Millender [facility] - Memoria l [facility] Clinics Tresiba Tresiba Yes Miriam inject [facility]u [facility] FlexTouch FlexTouch [place] sub-q once Lukes - daily; Memoria increase l by 3 units Outpati every 4 ent days until Clinics fasting bg <120; max daily dose 100u Albuterol-I Albuterol-I Yes Miriam not [facility] pratropium pratropium [place] defined [facility] - Memoria l [facility] Clinics Combivent Combivent Yes Miriam [address] Respimat Respimat Millender Erlinda kes - Memoria l [facility] ent Clinics NovoFine NovoFine Yes Miriam as [facility] Plus Plus [place] directed [facility] - Memoria l [facility] ent Clinics Immunizations Ordered Filled Immunization Date Status Comments Chau e Immunization Name Name FluAD FluAD 2019-03-[address] [facility] - 00:[facility]00 [facility] Vital Signs Vital Name Observation Time Observation Value Comments Source Systolic blood 2019-06-16 08:58:00 150 mm[Hg] Amandato n Confucianism pressure Diastolic blood 2019-06-16 08:58:00 66 mm[Hg] [place] on Confucianism pressure Heart rate 2019-06-16 08:58:00 48 /min Claude Ellington Body height 2019-06-16 08:58:00 162.6 cm Claude Ellington Body weight 2019-06-16 08:58:00 87.544 kg Claude Ellington BMI 2019-06-16 08:58:00 33.13 kg/m2 Claude Ellington Procedures Procedure Date / Time Performed Performing Clinician Chau andrade NM MYOCARDIAL PERFUSION 2019-06-12 15:20:11 Ankit Reis Confucianism REST STRESS 1 DAY CV STRESS TEST 2019-06-09 11:30:34 Ankit Reis Plan of Care Planned Activity Planned Date Details Comments Source Future Scheduled 2020-01-30 INFLUENZA VACCINE [place] Confucianism Test 00:00:00 [code = INFLUENZA VACCINE] Future Scheduled 2009 65+ PNEUMOCOCCAL Ar[place] Confucianism Test 00:00:00 VACCINE (1 of 1 - PPSV23) [code = 65+ PNEUMOCOCCAL VACCINE (1 of 1 - PPSV23)] Future Scheduled 1994 BREAST CANCER [facility] Mn thodist Test 00:00:00 SCREENING [code = BREAST CANCER SCREENING] Future Scheduled 1994 COLONOSCOPY SCREENING [facility] Confucianism Test 00:00:00 [code = COLONOSCOPY SCREENING] Future Scheduled 1994 SHINGLES VACCINES (#1) [place] Confucianism Test 00:00:00 [code = SHINGLES VACCINES (#1)] Future Scheduled 1954 DIABETES: RETINAL EYE [place] Confucianism Test 00:00:00 EXAM [code = DIABETES: RETINAL EYE EXAM] Future Scheduled 1954 DIABETIC FOOT EXAM [place] Confucianism Test 00:00:00 [code = DIABETIC FOOT EXAM] Encounters Start End Encounter Admission Attending Care Care Encounter Source Date/Time Date/Time Type Type Clinicians Facility Department ID 2020-03-01 2020-03-01 [place] [facility] [id number] [facility] 13:26:00 13:26:00 [facility] Family Medicine Medicine Outpati ent Clinics 2020-03-01 2020-03-01 [facility] [place] [id number] 10:20:00 10:20:00 [facility] Medicine l Medicine Outpati ent Clinics 2020-02-29 2020-02-29 [facility] [place] [id number] 10:34:00 10:34:00 [facility] Medicine l Medicine Outpati ent Clinics 2020-01-25 2020-01-25 [place] [facility] [id number] 16:00:00 16:00:00 [facility]ate [place] [facility] Medicine l Medicine Outpati ent Clinics 2019-12-19 2019-12-19 Orders Doctor MENENDEZ [id number] 00:00:00 00:00:00 Only Unassigned, KIM [id number] [place] [facility] [id number] 2019-11-27 2019-11-27 Orders Doctor MENENDEZ [id number] 00:00:00 00:00:00 Only Unassigned, KIM [id number] [place] [facility] [id number] 2019-11-13 2019-11-13 [facility] [id number] 13:27:00 13:27:00 [facility] 2019-11-13 2019-11-13 [facility] [place] [id number] 10:13:00 10:13:00 Info[facility]ate [facility] ent [facility] 2019-11-11 2019-11-11 Transition Andre Barcenas [id number] 00:00:00 00:00:00 of Care Tori Todd [id number] Patrick [id number] 2019-11-07 2019-11-09 [facility] [id number] 22:15:27 15:27:00 Encounter Kristine Calderon [id number] [place] [id number] [place] [id number] 2019-10-26 2019-10-26 Refceleste Manriquez [facility] [id number] 00:00:00 00:00:00 Le [place] [id number] [place] [id number] Professio [id number] [facility] Building 2019-10-18 2019-10-18 [facility] [id number] 00:00:00 00:00:00 Le Gardner [id number] [facility] [id number] Professio [id number] [facility] Building 2019-10-15 2019-10-15 [facility] [id number] [address] 16:04:00 16:04:[address] [facility] l Medicine Outpati ent Clinics 2019-10-09 2019-10-09 Mery Manriquez [facility] [id number] 00:00:00 00:00:00 Le [place] [id number] Adriel Worley [id number] [place] [id number] [address] 2019-09-22 2019-09-22 [facility] [id number] 15:35:00 15:35:00 [place] [facility] l Medicine Outpati ent Clinics 2019-09-11 2019-09-11 [facility] [place] [id number] 11:45:00 11:45:00 [place] [facility] Medicine Outpati ent Clinics 2019-09-03 2019-09-03 [facility] [place] [id number] 15:31:00 15:31:00 t [place] [facility] Medicine Outpati ent Clinics 2019-08-20 2019-08-20 [facility] [place] [id number] 16:47:00 16:47:00 t [place] [facility] Medicine Outpati ent Clinics 2019-08-11 2019-08-11 [facility] [place] [id number] 09:20:00 09:20:00 [place] [facility] Medicine Medicine Outpati ent Clinics 2019-07-10 2019-07-10 [facility] [place] [facility] [id number] 10:00:00 10:00:00 t [place] [facility] Medicine Medicine Outpati ent Clinics 2019-07-08 2019-07-08 [facility] [place] [id number] 08:59:00 08:59:00 t [place] [facility] Medicine Outpati ent Clinics 2019-06-19 2019-06-19 [facility] [id number] 14:55:00 14:55:00 t [place] [employer] [facility] Medicine Outpati ent Clinics 2019-06-12 2019-06-12 [facility] [id number] 10:48:00 10:48:00 t [facility] [address] Luke s - Road [facility] Family Medicine l Medicine Outpati ent Clinics 2019-05-21 2019-05-21 [facility] [id number] 11:21:00 11:21:[address] Luke s - [address] [facility] Medicine l Medicine Outpati ent Clinics 2019-04-27 2019-04-27 [facility] [id number] 13:40:00 13:40:[address] Luke s - [address] [place] [facility] Medicine l Medicine Outpati ent Clinics 2019-03-24 2019-03-24 [facility] [id number] [facility] 14:40:00 14:40:[address] [place] [address] - Drive [facility] Medicine l Medicine Outpati ent Clinics 2019-03-17 2019-03-17 [facility] [id number] [facility] 09:00:00 09:00:[address] [place] - Drive [facility] Medicine l Medicine Outpati ent Clinics 2019-02-09 2019-02-09 [facility] [id number] [facility] [address] 14:31:00 14:31:[address] [place] - Drive [facility] Medicine l Medicine Outpati ent Clinics 2018-12-18 2018-12-18 [facility] [id number] [facility] 11:40:00 11:40:[address] [place] - Drive [facility] Medicine l Medicine Outpati ent Clinics 2018-12-02 2018-12-02 [facility] [id number] [facility] 09:20:00 09:20:[address] [place] - Drive [facility] Medicine l Medicine Outpati ent Clinics 2018-10-30 2018-10-30 [facility] [id number] [address] 15:21:00 15:21:[address] [place] - Drive [facility] Medicine l Medicine Outpati ent Clinics 2018-10-16 2018-10-16 [facility] [id number] 15:20:00 15:20:[address] [place] - Drive [facility] Medicine Medicine Outpati ent Clinics 2018-09-30 2018-09-30 [facility] [id number] 15:00:00 15:00:[address] [place] - Drive [facility] Medicine l Medicine Outpati ent Clinics 2018-09-22 2018-09-22 [facility] [id number] [address] 15:53:00 15:53:[address] [employer] s - Drive [facility] Medicine Medicine Outpati ent Clinics 2018-09-18 2018-09-18 [facility] [id number] 11:00:00 11:00:00 [place] [employer] s - Drive [facility] l Medicine Outpati ent Clinics 2018-08-21 2018-08-21 [facility] [id number] [facility] 10:30:00 10:30:00 t [place] [employer] s - Drive [facility] Medicine Outpati ent Clinics 2018-08-06 2018-08-06 [facility] [id number] [address] 16:58:00 16:58:00 [place] [employer] s - Drive [facility] Medicine l Medicine Outpati ent Clinics 2018-07-17 2018-07-17 [facility] [id number] [address] 14:50:00 14:50:00 t [place] [employer] - Drive [facility] Medicine l Medicine Outpati ent Clinics 2018-07-08 2018-07-08 [facility] [id number] [facility] 10:23:00 10:23:00 [address] [place] [employer] - Drive [facility] Medicine Medicine Outpati ent Clinics 2018-06-09 2018-06-09 [facility] [id number] [address] 08:21:00 08:21:00 t [facility] [employer] s - Road [facility] l Medicine Outpati ent Clinics 2018-06-06 2018-06-06 [facility] [id number] [address] 09:41:00 09:41:00 [place] [employer] s - Drive [facility] l Medicine Outpati ent Clinics 2018-06-05 2018-06-05 [facility] [id number] 11:15:00 11:15:[address] [place] [facility] Outpati ent Clinics 2018-04-07 2018-04-07 [facility] [id number] [facility] [address] 15:00:00 15:00:[address] [place] [facility] 2017-11-07 2017-11-07 Outpatient Brazaiden Brittt [id number] [facility] [address] 09:00:00 09:00:[address] [facility] Results This patient has no known results.
--- OUTSIDE RECORDS SUMMARY | 2020-05-26 10:27 | XMS REPORT ---
:1945 Author Organization eClinicalWorks Care Team Providers Name Role Phone Miriam Govea Provider Role Unavailable Allergies, Adverse Reactions, Alerts Substance Reaction Event Type Vicodin Info Not Available Drug Allergy Neurontin Info Not Available Drug Allergy Lyrica Info Not Available Drug Allergy Lipitor Info Not Available Drug Allergy Glucophage Info Not Available Drug Allergy Codeine Sulfate Info Not Available Drug Allergy Problems Problem Type Condition Code Onset Dates Condition Statu s Problem Diabetes mellitus, type 2 E11.9 Ac tive Problem Hypertension I10 Active Problem Mixed hyperlipidemia E78.2 Active Problem Seasonal allergic rhinitis J30.2 A ctive Problem Sleep apnea, unspecified G47.30 Act rosalio Problem Urinary incontinence, unspecified R32 Active type Problem 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 Problem Diabetic retinopathy associated E11.319 Active with controlled type 2 diabetes mellitus Problem Nonadherence with dietary Z91.11 Ac tive restriction Problem Nonadherence to medication Z91.14 A ctive Problem Uncontrolled type 2 diabetes E11.65 Active mellitus with hyperglycemia Problem Hypertensive urgency I16.0 Active Problem Cellulitis of left leg L03.116 Activ e Problem Mild congestive heart failure I50.9 Active Problem Essential hypertension I10 Activ e Problem Psoriasis L40.9 Active Problem Bullous pemphigoid L12.0 Active Problem Hospital discharge follow-up Z09 Active Problem Chronic diastolic heart failure I50.32 Active Problem Type 2 diabetes mellitus with E11.22 Active diabetic chronic kidney disease Problem PAD (peripheral artery disease) I73.9 Active Problem Chronic kidney disease, stage 4 N18.4 Active (severe) Assessment Mixed hyperlipidemia E78.2 Active Assessment Obesity (BMI 30.0-34.9) E66.9 Acti ve Assessment Low back pain M54.5 Active Assessment Other chronic pain G89.29 Active Assessment Type 2 diabetes mellitus with E11.21 Active diabetic nephropathy Assessment Uncontrolled type 2 diabetes E11.65 Active mellitus with hyperglycemia Assessment On supplemental oxygen by nasal Z78.9 Active cannula Assessment 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 Problem Hypertensive chronic kidney disease I12.9 Active with stage 1 through stage 4 chronic kidney disease, or unspecified chronic kidney disease Assessment Stage 4 chronic kidney disease N18.4 Active Problem Unspecified systolic (congestive) I50.20 Active heart failure Problem 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 Problem 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 Problem Biventricular heart failure I50.82 Active Problem Low back pain M54.5 Active Problem Other chronic pain G89.29 Active Problem Obesity (BMI 30.0-34.9) E66.9 Acti ve Problem Stage 3 chronic kidney disease N18.3 Active Problem Stage 4 chronic kidney disease N18.4 Active Problem Atherosclerosis of coronary artery I25.10 Active of [place] heart without angina pectoris, unspecified vessel or lesion type Problem On supplemental oxygen by nasal Z78.9 Active cannula Problem Type 2 diabetes mellitus with E11.21 Active diabetic nephropathy Assessment Essential hypertension I10 Activ e Problem Coronary artery disease involving I25.10 Active [place] coronary artery of [place] heart without angina pectoris Assessment Coronary artery disease involving I25.10 Active [place] coronary artery of [place] heart without angina pectoris Problem Renal failure N19 Active Problem GERD (gastroesophageal reflux K21.9 Active disease) Problem Dermatitis L30.9 Active Problem Rosacea L71.9 Active Problem Klebsiella pneumoniae [K. B96.1 Ac tive pneumoniae] as the cause of diseases classified elsewhere Problem Urinary tract infection, site not N39.0 Active specified Medications Medication Code Code Instructions Start End Status Dosage System Date Date Potassium [facility] [address]-40 10 MEQ Orally Active 1 tablet with Chloride Cece Once a day food ER Tramadol HCl [facility] 25752533128 50 MG Orally Active 1 tablet as every 6 hrs needed HydrALAZINE HCl [facility] 31012650209 25 MG Orally Active 1 tablet with Three times a food day, hold if BP less 150/90 Ezetimibe [facility] 11465035729 10 MG Orally Active 1 tab let Once a day Metoprolol [facility] 21114157322 25 MG Orally Active 1 ta blet Tartrate Twice a day Ryan Contour [facility] 90308039335 N/A Active USE TO TEST Test BLOOD GLUCOSE THREE TIMES DAILY TRUEplus [facility] 58340456013 N/A Active USE TO TEST Lancets 28G BLOOD GLUCOS E THREE TIMES DAILY Prilosec [facility] 59809456107 20 MG Active TAKE 1 CAPSULE BY MOUTH ONCE A DAY Magnesium [facility] 19294941672 250 MG Orally Active 1 ta blet with Once a day a meal Zetia [facility] 27080767675 10 MG Orally Active 1 table t Once a day Januvia [facility] 80916584011 50 MG Orally Inactive 1 tabl et Once a day HydrALAZINE HCl [facility] 25246105773 25 mg Orally Active 1 tablet Three times a day Prilosec OTC [facility] 94995676693 20 MG Orally August Active 1 tablet Once a day 2018 Glucose testing [facility] [address] n/s Sept Active as d irected strips subcutaneous , (dispense Test BS three 2019 testing times daily strips of record) Triamcinolone [facility] 41779626141 0.1 % Active 1 appl ication Acetonide Externally to affected Twice a day area Lantus SoloStar [facility] 86199813563 100 UNIT/ML Active not defined Subcutaneous Tresiba [facility] 29477710414 100 UNIT/ML Active 36 units once FlexTouch Subcutaneous daily and increase by 2 unit every 4 days until fastng glucose less 120 Biotin [facility] 48328665351 1000 MCG Active 1 tablet Orally Once a day Aspir-Low [facility] 67495922787 81 MG Orally Active 1 tab let Once a day Docusate Sodium [facility] 35556460997 100 MG Orally Active 1 capsule as Twice a day needed Senexon [facility] 53651298323 8.6 MG Orally Active 2 tabl ets at Once a day bedtime as needed Furosemide ND 96698235860 80 MG Orally Active 1 ta blet Once a day Tresiba [facility] 42220216139 200 UNIT/ML Active inject 5 0u FlexTouch Subcutaneous sub-q onc e as directed daily; increase by 3 units every 4 days until fasting bg <120; max daily dose 100u Albuterol-Iprat ND 0 Active not defi tony ropium Combivent [facility] 00217980246 20-100 MCG/ACT Active 1 p uff Respimat Inhalation Four times a day NovoFine Plus [facility] 21479674410 32G X 4 MM SC Active as directed once daily Results No Known Results Summary Purpose eClinicalWorks Submission
--- OUTSIDE RECORDS SUMMARY | 2020-05-26 10:27 | XMS REPORT ---
:1945 Author Organization eClinicalWorks Care Team Providers Name Role Phone Miriam Govea Provider Role Unavailable Allergies No Known Allergies Problems Problem Type Condition Code Onset Dates Condition Statu s Problem Klebsiella pneumoniae [K. B96.1 Ac tive pneumoniae] as the cause of diseases classified elsewhere Problem Stage 3 chronic kidney disease N18.3 Active Problem Urinary tract infection, site not N39.0 Active specified Problem Dermatitis L30.9 Active Problem Mixed hyperlipidemia E78.2 Active Problem Rosacea L71.9 Active Problem Renal failure N19 Active Problem GERD (gastroesophageal reflux K21.9 Active disease) Problem Obesity E66.9 Active Problem Hypertension I10 Active Problem Hospital discharge follow-up Z09 Active Problem Bullous pemphigoid L12.0 Active Problem Diabetes mellitus, type 2 E11.9 Ac tive Problem Essential hypertension I10 Activ e Problem Chronic kidney disease, stage 4 N18.4 Active (severe) Problem Psoriasis L40.9 Active Problem 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 Problem Biventricular heart failure I50.82 Active Problem 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 Problem Sleep apnea, unspecified G47.30 Act rosalio Problem Unspecified systolic (congestive) I50.20 Active heart failure Problem Seasonal allergic rhinitis J30.2 A ctive Problem Type 2 diabetes mellitus with E11.22 Active diabetic chronic kidney disease Problem PAD (peripheral artery disease) I73.9 Active Problem Hypertensive chronic kidney disease I12.9 Active with stage 1 through stage 4 chronic kidney disease, or unspecified chronic kidney disease Problem Chronic diastolic heart failure I50.32 Active Problem Nonadherence to medication Z91.14 A ctive Problem Atherosclerosis of coronary artery I25.10 Active of [place] heart without angina pectoris, unspecified vessel or lesion type Problem Uncontrolled type 2 diabetes E11.65 Active mellitus with hyperglycemia Problem Urinary incontinence, unspecified R32 Active type Problem Nonadherence with dietary Z91.11 Ac tive restriction Problem Hypertensive urgency I16.0 Active Problem Cellulitis of left leg L03.116 Activ e Problem Diabetic retinopathy associated E11.319 Active with controlled type 2 diabetes mellitus Problem Mild congestive heart failure I50.9 Active Medications No Known Medications Results No Known Results Summary Purpose eClinicalWorks Submission
--- OUTSIDE RECORDS SUMMARY | 2020-05-26 10:27 | XMS REPORT ---
[...] Nonadherence to medication Z91.14 A ctive Problem Hypertensive chronic kidney disease I12.9 Active with stage 1 through stage 4 chronic kidney disease, or unspecified chronic kidney disease Problem Unspecified systolic (congestive) I50.20 Active heart failure Problem Uncontrolled type 2 diabetes E11.65 Active mellitus with hyperglycemia Problem 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 Problem 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 Problem Biventricular heart failure I50.82 Active Problem Low back pain M54.5 Active Problem Other chronic pain G89.29 Active Problem Hypertensive urgency I16.0 Active Problem Cellulitis of left leg L03.116 Activ e Problem Stage 3 chronic kidney disease N18.3 Active Problem Obesity (BMI 30.0-34.9) E66.9 Acti ve Problem Mild congestive heart failure I50.9 Active Problem Atherosclerosis of coronary artery I25.10 Active of [place] heart without angina pectoris, unspecified vessel or lesion type Problem Stage 4 chronic kidney disease N18.4 Active Problem On supplemental oxygen by nasal Z78.9 Active cannula Problem Type 2 diabetes mellitus with E11.21 Active diabetic nephropathy Problem Coronary artery disease involving I25.10 Active [place] coronary artery of [place] heart without angina pectoris Problem Renal failure N19 Active Problem Essential hypertension I10 Activ e Problem GERD (gastroesophageal reflux K21.9 Active disease) Problem Psoriasis L40.9 Active Problem Dermatitis L30.9 Active Problem Bullous pemphigoid L12.0 Active Problem Rosacea L71.9 Active Problem Hospital discharge follow-up Z09 Active Problem Klebsiella pneumoniae [K. B96.1 Ac tive pneumoniae] as the cause of diseases classified elsewhere Problem Chronic diastolic heart failure I50.32 Active Problem Urinary tract infection, site not N39.0 Active specified Problem Type 2 diabetes mellitus with E11.22 Active diabetic chronic kidney disease Problem PAD (peripheral artery disease) I73.9 Active Problem Chronic kidney disease, stage 4 N18.4 Active (severe) Medications No Known Medications Results No Known Results Summary Purpose eClinicalWorks Submission
--- NOTE | 2020-05-26 11:07 | RAD REPORT ---
EXAM DESCRIPTION: CT - Ct Stroke Brain Wo Cont - 05/26/2020 10:52 am CLINICAL HISTORY: Confusion/alteration of awareness COMPARISON: none TECHNIQUE: Computed axial tomography of the head was obtained. All CT scans are performed using dose optimization technique as appropriate and may include automated exposure control or mA/KV adjustment according to patient size. FINDINGS: An intracranial bleed is not seen . The ventricles are normal in caliber. No extra-axial fluid collection is noted. 6 millimeter low-density area left basal ganglia Mild low-density within periventricular, deep and subcortical white matter likely ischemic changes se condary to small vessel disease Fluid within the sinuses/ mastoids is not seen. IMPRESSION: A 6 millimeter low-density area left basal ganglia consistent with an infarct. It is ind eterminate but has more of the appearance being chronic than acute. If patient's symptoms persist MRI of the brain would be recommended. Dr Espinosa of the emergency room was notified at 10:56 a.m. May 26, 2020
[2020-05-26 11:18] LABS: Absolute Lymphocytes (CBC) 1.5 K/uL (0.7-4.9); Basophils % 0.9 % (0-1.3); Hematocrit 37.2 % (36.0-45.0); Lymphocytes % 17.3 % (15.3-44.8); MPV 8.4 fL (7.6-11.3); RBC Red Blood Cell Count 4.13 M/uL (3.86-4.86)
[2020-05-26 11:22] LABS: Protime INR 0.92
[2020-05-26 11:47] LABS: Magnesium 2.4 mg/dL (1.8-2.4); Potassium 4.9 mmol/L (3.5-5.1)
[2020-05-26 11:58] LABS: Troponin (Emerg Dept Use Only) 0.51 ng/mL (0.0-0.045)
--- NOTE | 2020-05-26 12:17 | RAD REPORT ---
EXAM DESCRIPTION: Nesha Single View05/26/2020 10:54 am CLINICAL HISTORY: Congestion COMPARISON: 2019 FINDINGS: The lungs appear clear of acute infiltrate. The heart is mildly enlarged. Postsurgical ch anges involve the chest. IMPRESSION: No acute abnormalities displayed
--- NOTE | 2020-05-26 13:10 | ER ---
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 I was trying to talk and couldn't. I also felt weakness on the L side of my body. It lasted maybe 30 - 60 seconds". Reports symptoms resolved 30 mins SOFTBALL WINDER. A\\T\\Ox4, Negative slurring of speech, VAN negative. Coronavirus screen: Client denies travel out of the [place] in the last 14 days. At this time, the client does not indicate any symptoms associated with coronavirus-19. Ebola Screen: Patient negative for fever greater than or equal to 101.5 degrees Fahrenheit, and additional compatible Ebola Virus Disease symptoms Patient denies exposure to infectious person. Patient denies travel to an Ebola-affected area in the 21 days before illness onset. No symptoms or risks identified at this time. Initial Sepsis Screen: Does the patient meet any 2 criteria? No. Patient's initial sepsis screen is negative. Does the patient have a suspected source of infection? No. Patient's initial sepsis screen is negative. Risk Assessment: Do you want to hurt yourself or someone else? Patient reports no desire to harm self or others. Onset of symptoms was May 26, 2020 at 09:30. 10:25 Method Of Arrival: Wheelchair ca1 10:25 Acuity: LUBA 3 ca1 10:25 No acute neurological deficit is noted. The patients blood glucose was checked before ca1 arriving to the hospital and was found to be normal. Triage Assessment: 11:15 The onset of the patients symptoms was May 26, 2020 at 09:30. General: Appears. ca1 Neuro: Reports. Historical: - Allergies: 10:37 Codeine; ca1 10:37 Djtixqe-Hjc-Bdk Reductase Inhibitors; ca1 10:37 Hydrocodone-Acetaminophen; ca1 10:37 steroids; ca1 - PMHx: 10:37 CHF; Diabetes - NIDDM; Hyperlipidemia; ca1 - PSHx: 10:37 CABG; ca1 - Immunization history:: Adult Immunizations up to date, Pneumococcal vaccine is up to date, Flu vaccine is up to date. - Social history:: Smoking status: Patient denies any tobacco usage or history of. Patient/guardian denies using alcohol, street drugs, The patient lives with spouse. - Family history:: not pertinent. - Hospitalizations: : No recent hospitalization is reported. Screenin:35 Abuse screen: Denies threats or abuse. Denies injuries from another. Nutritional ca1 screening: No deficits noted. Tuberculosis screening: No symptoms or risk factors identified. Fall Risk IV access (20 points). Assessment: 10:35 VAN Scoring: Arm Drift: Patients demonstrates NO arm weakness. Patient is VAN Negative. ca1 T-PA (Activase) Screening: Contraindications:. General: Appears in no apparent distress. comfortable, Behavior is calm, cooperative, appropriate for age. Pain: Denies pain. Neuro: Level of Consciousness is awake, alert, obeys commands, Oriented to person, place, time, situation, Graduate Nurse are equal bilaterally Moves all extremities. Gait is steady, Speech is normal, Facial symmetry appears normal, Pupils are PERRLA, Intact. Cardiovascular: Heart tones S1 S2 present Capillary refill < 3 seconds Patient's skin is warm and dry. Respiratory: Airway is patent Respiratory effort is even, unlabored, Respiratory pattern is regular, symmetrical, Breath sounds are clear bilaterally. GI: Abdomen is flat, non-distended, Bowel sounds present X 4 quads. Abd is soft and non tender X 4 quads. : No signs and/or symptoms were reported regarding the genitourinary system. EENT: No signs and/or symptoms were reported regarding the EENT system. Derm: Skin is intact, is healthy with good turgor, Skin is pink, warm \\T\\ dry. Musculoskeletal: Circulation, motion, and sensation intact. Capillary refill < 3 seconds. 10:40 Reassessment: Pt in CT at this time. ca1 11:12 Patient has been NPO before screening. The patient is alert, and able to follow ca1 commands. The patient does not exhibit slurred or garbled speech. The patient is not exhibiting difficulty speaking. The patient does not exhibit difficulty understanding words. The patient is able to swallow own secretions with no drooling or need for suction. Patient tolerated one teaspoon of water. No drooling, immediate coughing, gurgling, or clearing of the throat was noted. The patient tolerated 90mL of water. No drooling, immediate coughing, gurgling, or clearing of the throat was noted. The patient passed the bedside swallow screening. Oral medications may be given as ordered. Contact Physician for further diet orders. Provider notified of bedside swallow screening results: Ora Espinosa MD. 11:31 Reassessment: Patient appears in no apparent distress at this time. Patient and/or ca1 family updated on plan of care and expected duration. Pain level reassessed. Patient is alert, oriented x 3, equal unlabored respirations, skin warm/dry/pink. 12:24 Reassessment: Patient appears in no apparent distress at this time. Patient and/or ca1 family updated on plan of care and expected duration. Pain level reassessed. Patient is alert, oriented x 3, equal unlabored respirations, skin warm/dry/pink. 13:32 Reassessment: Patient appears in no apparent distress at this time. Patient and/or ca1 family updated on plan of care and expected duration. Pain level reassessed. Patient is alert, oriented x 3, equal unlabored respirations, skin warm/dry/pink. 13:48 Reassessment: called report to MARIO Keith. ca1 14:16 Reassessment: Patient appears in no apparent distress at this time. Patient and/or ca1 family updated on plan of care and expected duration. Pain level reassessed. Patient is alert, oriented x 3, equal unlabored respirations, skin warm/dry/pink. 14:40 Reassessment: Patient appears in no apparent distress at this time. Patient and/or ca1 family updated on plan of care and expected duration. Pain level reassessed. Patient is alert, oriented x 3, equal unlabored respirations, skin warm/dry/pink. Vital Signs: 10:25 BP 186 / 64; Pulse 60; Resp 17 S; Temp 97.6(TE); Pulse Ox 95% on R/A; Weight 83.91 kg ca1 (R); Height 5 ft. 4 in. (162.56 cm) (R); Pain 0/10; 11:32 BP 187 / 75; Pulse 54; Resp 19 S; Pulse Ox 96% on R/A; ca1 12:24 BP 186 / 72; Pulse 57; Resp 18 S; Pulse Ox 97% on R/A; ca1 13:00 BP 191 / 60; Pulse 57; Resp 17 S; Pulse Ox 96% on R/A; ca1 13:48 BP 165 / 71; Pulse 59; Resp 20 S; Pulse Ox 97% on R/A; ca1 14:16 BP 155 / 60; Pulse 56; Resp 16 S; Pulse Ox 95% on R/A; ca1 14:40 BP 158 / 63; Pulse 57; Resp 16 S; Pulse Ox 96% on R/A; ca1 10:25 Body Mass Index 31.75 (83.91 kg, 162.56 cm) ca1 NIH Stroke Scale Scores: 10:35 NIHSS Score: 0 ca1 ED Course: 10:24 Patient arrived in ED. as 10:24 Ora Espinosa MD is Attending Physician. ma2 10:25 Arm band placed on right wrist. ca1 10:31 Summer Bermeo RN is Primary Nurse. ca1 10:35 Patient has correct armband on for positive identification. Placed in gown. Bed in low ca1 position. Call light in reach. Side rails up X2. meat counter worker on. Pulse ox on. NIBP on. Warm blanket given. 10:36 Triage completed. ca1 10:52 CT Stroke Brain w/o Contrast In Process Unspecified. EDMS 10:54 Stroke CXR 1 View In Process Unspecified. EDMS 11:10 Initial lab(s) drawn, by me, sent to lab. Inserted saline lock: 22 gauge in right ca1 antecubital area, using aseptic technique. Blood collected. 11:58 Notified ED physician of a critical lab result(s). Trop 0.51. ca1 12:37 initiated a transfer with Linda from the [facility]/ per Linda they are at capacity. 12:47 initiated a transfer with Rebeka Peralta from the [facility]. 13:[address] Esteban the neurologist psychological operations officer for [facility] with Dr. Espinosa for patient transfer consultation. 13:20 administrative approval given by Rebeka Peralta Rn/ patient has been accepted to [facility] bed 2263/ Dr. Mckeon has accepted the patient in transfer. report to be called to [phone]. 14:41 No provider procedures requiring assistance completed. Patient transferred, IV remains ca1 in place. Administered Medications: 13:32 Drug: Aspirin Chewable Tablet 324 mg Route: PO; ca1 14:18 Follow up: Response: No adverse reaction ca1 14:40 Not Given (BP 158/63, HR 59): Labetalol 10 mg IVP once over 2 mins; For SBP greater ca1 than 140. Hold for HR less than 60, notify provider. Point of Care Testing: Blood Glucose: 11:10 Blood Glucose: 306 mg/dL; ca1 Ranges: Outcome: 13:09 ER care complete, transfer ordered by MD. hillman 14:41 Transferred by ground EMS to [facility], Transfer form completed. ca1 X-rays sent w/ patient. 14:41 Condition: stable 14:41 Instructed on the need for transfer. 14:41 Patient left the ED. ca1 NIH Stroke Scale - NIH Stroke Score Date: 05/26/2020 Time: 10:35 Total Score = 0 1a. Level of Consciousness (LOC) - 0(Alert) 1b. Level of Consciousness (LOC) (Year \\T\\ Age) - 0(Both) 1c. LOC Commands (Open \\T\\ Closes Eyes/Covered Buckle Assembler) - 0(Both) 2. Best Gaze (Lateral Gaze Paresis) - 0(Normal) 3. Visual Field Loss - 0(No visual loss) 4. Facial Palsy - 0(Normal) 5a. Left Arm: Motor (10-second hold) - 0(No drift) 5b. Right Arm: Motor (10-second hold) - 0(No drift) 6a. Left Leg: Motor (5-second hold - always test supine) - 0(No drift) 6b. Right Leg: Motor (5-second hold - always test supine) - 0(No drift) 7. Limb Ataxia (finger/nose \\T\\ heel/blakely - test with eyes open) - 0(Absent) 8. Sensory Loss (pinprick arms/legs/face) - 0(Normal) 9. Best Language: Aphasia (description/naming/reading) - 0(No aphasia) 10. Dysarthria (speech clarity - read or repeat words) - 0(Normal) 11. Extinction and Inattention (visual/tactile/auditory/spatial/personal) - 0(No abnormality) Initials: ca1 Signatures: Dispatcher [employer] EDJoan Vidalri, Mohammad, MD MD ma2 Merline Vickers Cheryl, RN RN ca1 Corrections: (The following items were deleted from the chart) 10:56 10:37 Arm band placed on right wrist. 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 I was trying to talk and couldn't. I also felt weakness on the L side of my body. It lasted maybe 30 - 60 seconds". A\\T\\Ox4, Negative slurring of speech, VAN negative. ca1 11:31 10:35 Cardiovascular: Heart tones S1 S2 present Capillary refill < 3 seconds ca1 Patient's skin is warm and dry. Pulses are all present. Edema is 1+ to left foot, left toes, right foot and right toes ca1 13:48 13:32 BP 191 / 60; Pulse 57bpm; Resp 17bpm; Spontaneous; Pulse Ox 96% RA; ca1 ca1
--- NOTE | 2020-05-26 13:10 | EDPHYS ---
Physician Documentation [facility] Name: Agata Felix Age: 74 yrs Sex: Female : 1945 Arrival Date: 05/26/2020 Time: 10:24 Bed 15 Private MD: ED Physician Ora Espinosa HPI: 05/26 10:42 This 74 yrs old Female presents to ER via Wheelchair with complaints of S/S ma2 of Possible Stroke. 10:42 The patient's problem is reported as weakness, in the left upper extremity, in the left ma2 lower extremity. Onset: The symptoms/episode began/occurred suddenly, 1 hour(s) ago. Associated signs and symptoms: Pertinent negatives: ataxia, chest pain, diaphoresis, diarrhea. Severity of symptoms: At their worst the symptoms were very mild in the emergency department the symptoms have resolved. The patient has not experienced similar symptoms in the past. hx of htn, dm and cad, on asa every other day, was talking to her daughter and suddenly became unable to talk and felt weakness on left side, all syx resolved after 15 min. i/e half an hour ago .. no symptoms at this time . Historical: - Allergies: 10:37 Codeine; ca1 10:37 Oihbjul-Vsq-Snt Reductase Inhibitors; ca1 10:37 Hydrocodone-Acetaminophen; ca1 10:37 steroids; ca1 - PMHx: 10:37 CHF; Diabetes - NIDDM; Hyperlipidemia; ca1 - PSHx: 10:37 CABG; ca1 - Immunization history:: Adult Immunizations up to date, Pneumococcal vaccine is up to date, Flu vaccine is up to date. - Social history:: Smoking status: Patient denies any tobacco usage or history of. Patient/guardian denies using alcohol, street drugs, The patient lives with spouse. - Family history:: not pertinent. - Hospitalizations: : No recent hospitalization is reported. ROS: 10:42 Constitutional: Negative for fever, chills, and weight loss. ma2 10:42 All other systems are negative. Exam: 10:42 Constitutional: This is a well developed, well nourished patient who is awake, alert, ma2 and in no acute distress. Head/Face: Normocephalic, atraumatic. Eyes: Pupils equal round and reactive to light, extra-ocular motions intact. Lids and lashes normal. Conjunctiva and sclera are non-icteric and not injected. Cornea within normal limits. Periorbital areas with no swelling, redness, or edema. ENT: Nares patent. No nasal discharge, no septal abnormalities noted. Tympanic membranes are normal and external auditory canals are clear. Oropharynx with no redness, swelling, or masses, exudates, or evidence of obstruction, uvula midline. Mucous membranes moist. Neck: Trachea midline, no thyromegaly or masses palpated, and no cervical lymphadenopathy. Supple, full range of motion without nuchal rigidity, or vertebral point tenderness. No Meningismus. Chest/axilla: Normal chest wall appearance and motion. Nontender with no deformity. No lesions are appreciated. Cardiovascular: Regular rate and rhythm with a normal S1 and S2. No gallops, murmurs, or rubs. Normal PMI, no JVD. No pulse deficits. Respiratory: Lungs have equal breath sounds bilaterally, clear to auscultation and percussion. No rales, rhonchi or wheezes noted. No increased work of breathing, no retractions or nasal flaring. Abdomen/GI: Soft, non-tender, with normal bowel sounds. No distension or tympany. No guarding or rebound. No evidence of tenderness throughout. Back: No spinal tenderness. No costovertebral tenderness. Full range of motion. Skin: Warm, dry with normal turgor. Normal color with no rashes, no lesions, and no evidence of cellulitis. MS/ Extremity: Pulses equal, no cyanosis. Neurovascular intact. Full, normal range of motion. Neuro: Awake and alert, GCS 15, oriented to person, place, time, and situation. Cranial nerves II-XII grossly intact. Motor strength 5/5 in all extremities. Sensory grossly intact. Cerebellar exam normal. Normal gait. Psych: Awake, alert, with orientation to person, place and time. Behavior, mood, and affect are within normal limits. 13:09 Radiologist reports: possible acute bg stroke ma2 Vital Signs: 10:25 BP 186 / 64; Pulse 60; Resp 17 S; Temp 97.6(TE); Pulse Ox 95% on R/A; Weight 83.91 kg ca1 (R); Height 5 ft. 4 in. (162.56 cm) (R); Pain 0/10; 11:32 BP 187 / 75; Pulse 54; Resp 19 S; Pulse Ox 96% on R/A; ca1 12:24 BP 186 / 72; Pulse 57; Resp 18 S; Pulse Ox 97% on R/A; ca1 13:00 BP 191 / 60; Pulse 57; Resp 17 S; Pulse Ox 96% on R/A; ca1 13:48 BP 165 / 71; Pulse 59; Resp 20 S; Pulse Ox 97% on R/A; ca1 14:16 BP 155 / 60; Pulse 56; Resp 16 S; Pulse Ox 95% on R/A; ca1 14:40 BP 158 / 63; Pulse 57; Resp 16 S; Pulse Ox 96% on R/A; ca1 10:25 Body Mass Index 31.75 (83.91 kg, 162.56 cm) ca1 NIH Stroke Scale Scores: 10:35 NIHSS Score: 0 ca1 MDM: 10:24 Patient medically screened. ma2 10:42 Differential diagnosis: TIA, paralysis, Parkinson disease, metabolic disorder, drug ma2 effects. 13:06 Data reviewed: vital signs, nurses notes. Counseling: I had a detailed discussion with ma2 the patient and/or guardian regarding: the historical points, exam findings, and any diagnostic results supporting the discharge/admit diagnosis, the presence of at least one elevated blood pressure reading (>120/80) during this emergency department visit, the need to transfer to another facility. 13:06 ED course: ct consistent with acute vs chronic 6 mm hypo densities on left basal ma2 ganglion, ?ischemic stroke.. no neurology available in our hospital, will transfer for higher level of care. discussed with dr. wood. 05/26 10:25 Order name: UDS; Complete Time: 13:47 ma2 05/26 10:25 Order name: Lipase; Complete Time: 12:00 ma2 05/26 10:25 Order name: Troponin (emerg Dept Use Only); Complete Time: 12:00 ma2 05/26 10:25 Order name: Magnesium; Complete Time: 12:00 ma2 05/26 10:25 Order name: Basic Metabolic Panel; Complete Time: 12:00 ma2 05/26 10:25 Order name: CBC with Diff; Complete Time: 11:57 ma2 05/26 10:25 Order name: Protime (+inr); Complete Time: 11: ma2 05/26 10:25 Order name: Ptt, Activated; Complete Time: 11:57 ma2 05/26 10:25 Order name: CT Stroke Brain w/o Contrast; Complete Time: 11:57 ma2 05/26 10:25 Order name: Stroke CXR 1 View; Complete Time: 13:05 ma2 05/26 11:21 Order name: Glucose, Ancillary Testing; Complete Time: 11:57 EDMS 05/26 13:14 Order name: Urine Dipstick--Ancillary (enter results); Complete Time: 13:47 eb 05/26 10:25 Order name: EKG; Complete Time: 10:27 ma2 05/26 10:25 Order name: Accucheck; Complete Time: 11:12 ma2 05/26 10:25 Order name: Cardiac monitoring; Complete Time: 11:12 ma2 05/26 10:25 Order name: EKG - Nurse/Tech; Complete Time: 11:24 ma2 05/26 10:25 Order name: IV Saline Lock; Complete Time: 11:12 ma2 05/26 10:25 Order name: Labs collected and sent; Complete Time: 11:12 ma2 05/26 10:25 Order name: NPO; Complete Time: 11:00 ma2 05/26 10:25 Order name: O2 Per Protocol; Complete Time: 11:12 ma2 05/26 10:25 Order name: O2 Sat Monitoring; Complete Time: 11:12 ma2 05/26 10:25 Order name: Stroke Swallow Screen; Complete Time: 11:12 ma2 Administered Medications: 13:32 Drug: Aspirin Chewable Tablet 324 mg Route: PO; ca1 14:18 Follow up: Response: No adverse reaction ca1 14:40 Not Given (BP 158/63, HR 59): Labetalol 10 mg IVP once over 2 mins; For SBP greater ca1 than 140. Hold for HR less than 60, notify provider. Point of Care Testing: Blood Glucose: 11:10 Blood Glucose: 306 mg/dL; ca1 Ranges: Critical Glucose Levels:Adult <50 mg/dl or >400 mg/dl <40 mg/dl or >180 mg/dl Disposition: 05/26/20 13:09 Transfer ordered to [facility]. Diagnosis is Transient cerebral ischemic attack, unspecified. - Reason for transfer: Higher level of care. - Accepting physician is Dr. Wood. - Condition is Stable. - Problem is new. - Symptoms are unchanged. NIH Stroke Scale - NIH Stroke Score Date: 05/26/2020 Time: 10:35 Total Score = 0 1a. Level of Consciousness (LOC) - 0(Alert) 1b. Level of Consciousness (LOC) (Year \T\ Age) - 0(Both) 1c. LOC Commands (Open \T\ Closes Eyes/Land Agent) - 0(Both) 2. Best Gaze (Lateral Gaze Paresis) - 0(Normal) 3. Visual Field Loss - 0(No visual loss) 4. Facial Palsy - 0(Normal) 5a. Left Arm: Motor (10-second hold) - 0(No drift) 5b. Right Arm: Motor (10-second hold) - 0(No drift) 6a. Left Leg: Motor (5-second hold - always test supine) - 0(No drift) 6b. Right Leg: Motor (5-second hold - always test supine) - 0(No drift) 7. Limb Ataxia (finger/nose \T\ heel/blakely - test with eyes open) - 0(Absent) 8. Sensory Loss (pinprick arms/legs/face) - 0(Normal) 9. Best Language: Aphasia (description/naming/reading) - 0(No aphasia) 10. Dysarthria (speech clarity - read or repeat words) - 0(Normal) 11. Extinction and Inattention (visual/tactile/auditory/spatial/personal) - 0(No abnormality) Initials: [facility] Signatures: Dispatcher [employer] EDMS Ora Espinosa MD MD ma2 Summer Bermeo RN RN ca1 Corrections: (The following items were deleted from the chart) 14:41 13:09 05/26/2020 13:09 Transfer ordered to [address] Diagnosis is Transient cerebral ischemic attack, unspecified. Reason for transfer: Higher level of care. Accepting physician is Dr. Wood. Condition is Stable. Problem is new. Symptoms are unchanged. kady
[2020-05-26 13:11] LABS: Barbiturates NEGATIVE (NEGATIVE); Benzodiazepines NEGATIVE (NEGATIVE); Cocaine NEGATIVE (NEGATIVE); METHAMPHETAM NEGATIVE (NEGATIVE); Methadone NEGATIVE (NEGATIVE); Opiates NEGATIVE (NEGATIVE); Phencyclidine NEGATIVE (NEGATIVE); THC Cannibis NEGATIVE (NEGATIVE)
[2020-05-26 13:35] LABS: Urine Blood TRACE (NEG); Urine Glucose 2+ (NEG); Urine Protein 3+ (NEG); Urine Specific Gravity 1.025 (1.005-1.030); Urine pH 7.5 (5.0-7.0)
[2020-05-26] MEDS ORDERED: ASPIRIN 81 MG CHEWABLE TABLET ONE (13:42)
[2020-05-26] MEDS ORDERED: LABETALOL 20 MG/4ML SYRINGE IV ONE (13:42)
[2020-05-26 15:55] VITALS: TEMP 97.6
[2020-05-26 16:11] VITALS: BP 158/63; O2SAT 96
== END 2020-05-26 14:41 | disposition short-term general hospital (02) ==
LOC: ER 10:23
DX: G45.9 Transient cerebral ischemic attack, unspecified (principal); I50.9 Heart failure, unspecified; I10 Essential (primary) hypertension; Z95.1 Presence of aortocoronary bypass graft; Z88.5 Allergy status to narcotic agent; Z88.8 Allergy status to other drugs, medicaments and biological substances
CPT/HCPCS: 36415; 70450; 71045; 80048; 80307; 81003; 82947; 83690; 83735; 84484; 85025; 85610; 85730; 93005; 99285

== ENCOUNTER 2020-11-11 06:46 | Inpatient (IN) | payer OTHER ==
--- OUTSIDE RECORDS SUMMARY | 2020-11-11 06:53 | XMS REPORT | Continuity of Care Document ---
:1945 Author Organization [facility] t Address [address] [place] [address] Care Team Providers Name Role Phone Betzy Apodaca DO Primary Care Physician Doctor Unassigned, Name Attending Clinician Unavailable Kelsey LIM Attending Clinician Spencer Kruse MD Attending Clinician Asael Oliver MD Attending Clinician Juan Francisco Bella MD Attending Clinician Toñito LIM Attending Clinician Virtual Attending Clinician Unavailable Mike Rodriguez MD Attending Clinician Armaan LIM Attending Clinician KELSEY Attending Clinician Unavailable Rachele Reis MD Attending Clinician Swapna MARTIN Attending Clinician Jozef LIM Attending Clinician Kvng LIM Attending Clinician Adriel Manriquez MD Attending Clinician Unavailable SPENCER KRUSE Admitting Clinician Unavailable Kvng LIM Admitting Clinician Payers Payer Name Policy Type Policy Effective Date Expiration Source Number Date ARIAN [id number] 2019 [id number] 2019-Pr esentMaps Contracted ARIAN [id number] 2019 [facility] 00:00:00 Methodi Critical access hospitalO [facility] [id number] 2019-Pr esentHMO Problems Condition Condition Condition Status Onset Resolution Last Treating Co mments Source Name Details Category Date Date Treatment Clinician Date Carotid Carotid Disease Active 2019-[address] [facility] [address] stenosis, stenosis, 2-04 Luke [facility] - right right 00:00: Medical 00 Center CVA CVA Disease Active 2019-[address] [facility] (cerebral (cerebral 07-26 Luke s - vascular vascular 00:00: Medica l accident) accident) 00 Cent er Stenosis Stenosis Disease Active 2018-07 [place] of right of right 2-17 Method i carotid carotid 00:00: st artery artery 00 Edema Edema Disease Active [place] 7-10 Methodi 00:00: st 00 CAD in CAD in Disease Active [place] agdaagux agdaagux 3-27 Methodi artery artery 00:00: st 00 PAD PAD Disease Active [place] (periphera (periphera 3-27 Me thodi l artery l artery 00:00: st disease) disease) 00 Atelectasi Atelectasi Disease Active 2016-07 [place] of left s of left 2-19 [facility] [place] lung lung 00:00: st 00 Pleural Pleural Disease Active 2016-07 [place] effusion, effusion, 2-19 [place] left left 00:00: st 00 Acute Acute Disease Active 2016-07 [place] postoperat postoperat 2-19 Me thodi rosalio rosalio 00:00: st respirator respirator 00 y y insufficie insufficie ncy ncy Hx of CABG Hx of CABG Disease Active 2016-07 [place] 2- Methodi 00:00: st 00 Anemia due Anemia due Disease Active 2016-07 [place] to to 2- [facility] surgical surgical 00:00: st blood blood 00 loss, loss, acute acute superimpos superimpos ed on ed on chronic chronic anemia anemia Acute Acute Disease Active 2016-07 [place] kidney kidney 2-13 [facility] injury injury 00:00: st superimpos superimpos 00 ed on ed on chronic chronic kidney kidney disease disease Ischemic Ischemic Disease Active 2016-07 [place] cardiomyop cardiomyop 2-13 Me thodi athy athy 00:00: st 00 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 2-13 Method i mellitus mellitus 00:00: st with stage with stage 00 3 chronic 3 chronic kidney kidney disease, disease, with with long-term long-term current current use of use of insulin insulin NSTEMI NSTEMI Disease Active 2016-07 [place] (non-ST (non-ST 2-06 [facility] elevated elevated 00:00: st myocardial myocardial 00 infarction infarction ) ) SOB SOB Disease Active [place] (shortness (shortness 8-22 Me thodi of breath) of breath) 00:00: st 00 Essential Essential Disease Active Sara ston hypertensi hypertensi 8-22 Me thodi on on 00:00: st 00 Pure Pure Disease Active [place] hyperchole hyperchole 8-22 Me thodi sterolemia sterolemia 00:00: st 00 Coronary Coronary Diagnosis Active [facility] artery artery [facility] - disease disease Memoria involving involving l agdaagux agdaagux Outpati coronary coronary ent artery of artery of Clin ics agdaagux agdaagux heart heart without without angina angina pectoris pectoris Secondary Secondary Problem Active [facility] diabetes diabetes [facility]ukes - with with Memoria peripheral peripheral l neuropathy neuropathy Ou tpati ent Clinics Stage 3 Stage 3 Problem Active [facility] chronic chronic [facility]ukes - kidney kidney Memoria disease disease l [facility] Urinary Urinary Problem Active [facility] incontinen incontinen Alie kes - ce, ce, Memoria unspecifie unspecifie l d type d type [facility] Diabetes Diabetes Problem Active [facility] mellitus, mellitus, Luke [facility] - type 2 type 2 Memoria [facility] Sleep Sleep Problem Active [facility] apnea, apnea, Lukes - unspecifie unspecifie Me moria d d l [facility] Clinics Obesity Obesity Problem Active [facility] (BMI (BMI Lukes - 30.0-34.9) 30.0-34.9) [facility] GERD GERD Problem Active [facility] (gastroeso (gastroeso Alie kes - phageal phageal Memoria reflux reflux l disease) disease) Outpat i ent Clinics Klebsiella Klebsiella Problem Active [facility] pneumoniae pneumoniae Alie kes - [K. [K. Memoria pneumoniae pneumoniae l ] as the ] as the Outpat i cause of cause of ent diseases diseases Clinic s classified classified elsewhere elsewhere Essential Essential Diagnosis Active [facility] hypertensi hypertensi Alie kes - on on Memoria l [facility] Clinics Urinary Urinary Problem Active [facility] tract tract [facility]ukes - infection, infection, Me moria site not site not l specified specified Outp ati ent Clinics Mixed Mixed Diagnosis Active [facility] hyperlipid hyperlipid Alie kes - emia emia Memoria l [facility] Seasonal Seasonal Problem Active [facility] allergic allergic [facility]ukes - rhinitis rhinitis Memori a l [facility] Renal Renal Problem Active [facility] failure failure Lukes - Memoria l [facility] Rosacea Rosacea Problem Active [facility] Dermatitis Dermatitis Problem Active [facility] - Memoria l [facility] Nonadheren Nonadheren Problem Active [facility] ce with ce with Lukes - dietary dietary Memoria restrictio restrictio l n n [facility] Nonadheren Nonadheren Problem Active [facility] ce to ce to Lukes - medication medication Me moria l [facility] Clinics Uncontroll Uncontroll Diagnosis Active [facility] ed type 2 ed type 2 Luke s - diabetes diabetes Memori a mellitus mellitus l with with Outpati hyperglyce hyperglyce en t [facility] Diabetic Diabetic Problem Active [facility] retinopath retinopath Alie kes - y y Memoria associated associated l with with Outpati controlled controlled en t type 2 type 2 Clinics diabetes diabetes mellitus mellitus 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 Alie kes - Memoria l [facility] Cellulitis Cellulitis Problem Active [facility] of left of left [facility]ukes - leg leg Memoria l [facility] Hospital Problem Active [facility] discharge discharge Luke s - follow-up follow-up Emanuel zachary l [facility]ics Hypertensi Hypertensi Problem Active [facility] ve urgency ve urgency Alie kes - Memoria l [facility] Clinics Mild Mild Problem Active [facility] congestive congestive Alie kes - heart heart Memoria failure failure l [facility]ics Psoriasis Psoriasis Problem Active [facility] - Mem[facility] l [facility]ics Chronic Chronic Problem Active [facility] diastolic diastolic Luke s - heart heart Memoria failure failure l [facility] Clinics Hypertensi Hypertensi Problem Active [facility] ve chronic ve chronic Alie kes - kidney kidney Memoria disease disease [...] - kidney kidney Memoria disease disease l [facility] ent Clinics PAD PAD Problem Active [facility] (periphera (periphera Alie kes - l artery l artery Memori a disease) disease) l [facility] ent Clinics Biventricu Biventricu Problem Active [facility] lar heart lar heart Luke s - failure failure Memoria l [facility] ent Clinics Unspecifie Unspecifie Problem Active [facility] d systolic d systolic Alie kes - (congestiv (congestiv Me moria e) heart e) heart l failure failure [facility] 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 [facility]ukes - systolic systolic Memori a and and l diastolic diastolic Outp ati congestive congestive en t heart heart Clinics failure failure H/O four H/O four Problem Active [facility] vessel vessel [facility] - coronary coronary Memori a artery artery l bypass bypass [facility] graft graft ent Clinics Low back Low back Problem Active [facility] pain pain [facility] - Memoria l [facility] ent Clinics Other Other Problem Active [facility] chronic chronic [facility]ukes - pain pain Memoria l [facility] ent Clinics On On Problem Active [facility] supplement supplement Alie kes - al oxygen al oxygen Emanuel zachary by nasal by nasal l cannula cannula [facility] Type 2 Type [address] diabetes diabetes Lukes - mellitus mellitus Memori a with with l diabetic diabetic Outpat i nephropath nephropath en t y y Clinics Allergies, Adverse Reactions, Alerts Allergy Allergy Status Severity Reaction(s) Onset Inactive Treating Comm ents Source Name Type Date Date Clinician Vasiliy Delatorre Active Swelling 2019-07 [facility] ty to 07-26 [facility] - adverse 00:00: Medical reaction 00 Center s Hydrocod Propensi Active 2019-07 Doesn't [facility] one-Acet ty to 07-26 remember [facility]ukes - aminophe adverse 00:00: Medical n reaction 00 Center s Steroids Propensi Active 2019-07 Doesn't [facility] ty to 07-26 remeber [facility] - adverse 00:00: Medical reaction 00 Center s Codeine Propensi Active Rash Rash on [place] [...] Not [facility] n Reaction Available [facility] Lyrica Adverse Active Info Not [facility] Reaction Available [facility] Lipitor Adverse Active Info Not [facility] Reaction Available [facility] Vicodin Adverse Active Info Not [facility] Reaction Available [facility] Glucopha Adverse Active Info Not [facility] ge Reaction Available [facility] Codeine Adverse Active Info Not [facility] Sulfate Reaction Available [facility] Social History Social Habit Start Date Stop Date Quantity Comments Source Sex Assigned At [facility] Tobacco use and 2018-06-03 2018-06-03 Never used [facility] ethodist exposure 00:00:00 00:00:00 Alcohol intake 2018-06-03 2018-06-03 Current [facility] thodist 00:00:00 00:00:00 non-drinker of alcohol (finding) Smoking Status Start Date Stop Date Source Never smoker [facility] Medications Ordered Filled Start Stop Current Ordering Indication Dosage Frequency Signature Comments Components Source Medication Medication Date Date Medication? Clinician (SIG) Name Name furosemide 2019-07- No 40mg QD Take [address] [facility] (LASIX) 40 2-11 12- tablet (40 Alie kes - MG tablet 00:00: 23:59 mg total) Me dical 00 :00 by mouth Center daily. amLODIPine 2019-07 No 10mg QD Take [address] [facility] (NORVASC) 2-11 12-11 tablet (10 Shelly es - 10 MG 00:00: 23:59 mg total) Medica l tablet 00 :00 by mouth Center daily. ezetimibe 2019-07 Yes 10mg QD Take [address] (ZETIA) 10 2-10 by mouth Lukes - mg tablet 16:21: daily. Medica l 52 Center b complex 2019-07 Yes 1{tbl} QD Take [address] [facility] [facility] vitamins 2-10 tablet by Lukes - tablet 16:21: mouth Medical 52 daily. [place] cholecalcif 2019-07 Yes 1000U QD Take 1,[address] kvng, 2-10 Units by Lukes - vitamin D3, 16:21: mouth Medic al 25 mcg 52 daily. [place] (1,000 unit) capsule magnesium 2019-07 Yes 250mg Q.5D Take [address] gluconate 2-10 mg by Lukes - (MAGONATE) 16:21: mouth 2 Medi robert 27.5 mg 52 (two) [place] magne- sium times (500 mg) daily. tablet vitamin E 2019-07 Yes 400U QD Take [address] 400 UNIT 2-10 Units by Lukes - capsule 16:21: mouth Medical 52 daily. [place] omega-3 2019-07 Yes 2g Q.5D Take [address] fatty 2-10 by mouth 2 Lukes - acids-fish 16:21: (two) Medica l oil 52 times Center 340-1,000 daily. mg Cap per capsule insulin 2019-07 Yes 50U QD Inject 50 [facility] degludec 2-10 Units Lukes - (TRESIBA 16:21: subcutaneo [facility]Q) omeprazole 2019-07 Yes 20mg QD Take [address] (PriLOSEC) 2-10 by mouth [facility]ukes - 20 MG 16:21: daily. Medical capsule 52 Center furosemide 2019-07- No 80mg QD Take [address] [facility] (LASIX) 80 2-10 12-10 by mouth Luke s - MG tablet 13:57: 00:00 daily. Medic al 52 :00 [place] aspirin 81 2019-07- No 81mg QD Take [address] MG EC 2-10 12-10 by mouth Lukes - tablet 13:57: 00:00 daily. Medical 52 :00 Center hydrALAZINE 2019-07- No 25mg [id number] Take [address] [facility] (APRESOLINE 2-10 12-10 [id number] by mouth 3 [facility]ukes - ) 25 MG 13:57: 00:00 3D (three) Medica l tablet 52 :00 times Center daily. metoprolol 2019-07- No 25mg Q.5D Take [address] tartrate 2-10 12-10 by mouth 2 Luke s - (LOPRESSOR) 13:57: 00:00 (two) Medi robert 25 MG 52 :00 times Center tablet daily. potassium 2019-07- No 10meq QD Take [address] [facility] chloride 2-10 12-10 mEq by Lukes - (KLOR-CON) 13:57: 00:00 mouth Medic al 10 MEQ CR 52 :00 daily. Center tablet aspirin 81 2019-07 Yes 81mg QD Take 1 [facility] MG EC 2-10 tablet (81 [facility]ukes - tablet 00:00: mg total) Medica l 00 by mouth Center daily. ticagrelor 2019-07 Yes 90mg Q.5D Take 1 [facility] (BRILINTA) 2-10 tablet (90 Shelly es - 90 mg Tab 00:00: mg total) Med ical tablet 00 by mouth 2 Center (two) times daily. hydrALAZINE 2019-07- No 100mg Take [address] (APRESOLINE 2-10 12-10 tablet Lukes - ) 100 MG 00:00: 23:59 (100 mg Medic al tablet 00 :00 total) by Center mouth every 8 (eight) hours. isosorbide 2019-07- No 60mg Take [address] [facility] [facility] mononitrate 2-10 12-10 tablet (60 L ukes - (IMDUR) 60 00:00: 23:59 mg total) M edical MG 24 hr 00 :00 by mouth Center tablet daily with dinner. spironolact 2019-07 Yes Take 1 [place]-23 tablet by Methodi (ALDACTONE) 00:00: mouth once st 25 MG 00 daily tablet potassium 2019-07 Yes SOB Take 1 [place] chloride 1-23 (shortness tablet by Methodi (KLOR-CON) 00:00: of breath) mouth once st 10 MEQ CR 00 daily tablet Glucose Glucose Yes Miriam peña [facility] testing testing 03-01 [place] directed [facility] - strips strips 00:00: (dispense Emanuel zachary 00 testing l strips of Outpati record) ent Clinics ezetimibe Yes Take 1 [place] (ZETIA) 10 6-22 tablet by Meth [place] mg tablet 00:00: mouth st 00 nightly potassium 2019- No SOB Take 1 [place] chloride 6-15 - (shortness tablet by Methodi (KLOR-CON) 00:00: 00:00 of breath) mouth once st 10 MEQ CR 00 :00 daily tablet ezetimibe 2019- No 10mg QD Take 1 [place] (ZETIA) 10 4-27 - tablet (10 Me thodi mg tablet 00:00: 00:00 mg total) st 00 :00 by mouth nightly. potassium 2019- No SOB Take 1 [place] chloride -27 -15 (shortness tablet by Methodi (KLOR-CON) 00:00: 00:00 [...] mg 14:05: daily. st tablet 28 spironolact 2018-07 2020- No 25mg QD Take 1 Sara ston one -12 - tablet (25 [facility]i (ALDACTONE) 00:00: 00:00 mg total) st 25 MG 00 :00 by mouth tablet daily. Prilosec Prilosec Yes Miriam [address] [facility] OTC OTC 3-25 [place] [facility]ukes - 00:00: Memoria 00 l Outpati ent Clinics furosemide 2017-07 Yes SOB TAKE ONE Sara [...] mouth Method i 00:00: daily. st 00 Aspir-Low Aspir-Low Yes Miriam [address] [facility] Millender [facility] - Memoria l Outpati ent Clinics Docusate Docusate Yes Miriam [address] Sodium Sodium [place] as needed L ukes - Memoria l Outpati ent Clinics Senexon Senexon Yes Miriam [address] [facility] [facility] Millender at bedtime Luke s - as needed Memoria l Outpati ent Clinics Furosemide Furosemide Yes Miriam [address] [facility] [place] - Memoria l Outpati ent Clinics Tresiba Tresiba Yes Miriam inject 50u [facility] FlexTouch FlexTouch [place] sub-q once Lukes - daily; Memoria increase l by 3 units Outpati every 4 ent days until Clinics fasting bg <120; max daily dose 100u Albuterol-I Albuterol-I Yes Miriam not [facility] pratropium pratropium [place] defined [facility] - Memoria l Outpati ent Clinics Combivent Combivent Yes Miriam [address] Respimat Respimat [place] Alie kes - Memoria l Outpati ent Clinics NovoFine NovoFine Yes Miriam as [facility] Plus Plus [place] directed [facility]ukes - Memoria l Outpati ent Clinics Metoprolol Metoprolol Yes Miriam [address] Tartrate Tartrate [place] Alie kes - Memoria l Outpati ent Clinics Januvia Januvia Yes Miriam [address] [facility] Millender [...] [facility] - Memoria l [facility] Immunizations Ordered Filled Immunization Date Status Comments [facility] e Immunization Name Name Sabrina FluAD 2019-03-17 Completed [facility] - 00:00:00 [facility] Vital Signs Vital Name Observation Time Observation Value Comments Source Heart rate 2020-06-09 15:00:00 69 /min [facility] Body temperature 2020-06-09 15:00:00 36.11 Inés [facility] Respiratory rate 2020-06-09 15:00:00 19 /min [facility] Oxygen saturation in 2020-06-09 15:00:00 95 /min [facility] Arterial blood by Medical Ce nter Pulse oximetry Systolic blood 2020-06-09 15:00:00 154 mm[Hg] [facility] Diastolic blood 2020-06-09 15:00:00 67 mm[Hg] [facility] Body weight 2020 06:00:00 81.4 kg [facility] BMI 2020 06:00:00 30.80 kg/m2 [facility] Body height 2020-06-02 15:25:00 162.6 cm [facility] Procedures Procedure Date / Time Performed Performing Clinician [facility] e POCT-GLUCOSE METER 2020-06-09 12:02:00 Zoya Kruse [facility] POCT-GLUCOSE METER 2020-06-09 07:57:00 Zoya Kruse [facility] CBC W/PLT+MANUAL DIFF 2020-06-09 04:20[facility] [facility] BASIC METABOLIC PANEL 2020-06-09 04:20:00 Vickie Gonsales [facility] - (7) [facility] CBC WITH PLATELET COUNT 2020-06-09 04:20:00 Vickie Gonsales [place] [facility] - + MANUAL DIFF [facility] (CELLAVISION MANUAL 2020-06-09 04:20:00 [facility]ickie [facility]onsales [facility] POCT-GLUCOSE METER 2020 21:26:00 [facility] SARS-COV2/RT-PCR ([facility] & 2020 19:05:00 [facility] POCT-GLUCOSE METER 2020 17:10:00 [facility] POCT-GLUCOSE METER 2020 12:30:00 [facility] POCT-GLUCOSE METER 2020 08:20:00 [facility] CBC W/PLT+MANUAL DIFF 2020 05:42:00 [facility] BASIC METABOLIC PANEL 2020 05:42:00 Vickie Gonsales [facility] (7) [facility] CBC WITH PLATELET COUNT 2020 05:42:[address] [facility] [address] [facility] - + MANUAL DIFF [facility] (CELLAVISION MANUAL 2020 05:42:00 [facility]FF) [facility] POCT-GLUCOSE METER 2020-06-07 21:44:00 Hoodmi [facility] POCT-GLUCOSE METER 2020-06-07 18:30:00 [facility] POCT-GLUCOSE METER 2020-06-07 11:14:00 [facility] POCT-GLUCOSE METER 2020-06-07 07:11:00 [facility] CBC W/PLT+MANUAL DIFF 2020-06-07 04:19:00 [facility] BASIC METABOLIC PANEL 2020-06-07 04:19:00 Vickie Gonsales [facility] - (7) [facility] MAGNESIUM 2020-06-07 04:19:00 Gina Chambers [facility] CBC WITH PLATELET COUNT 2020-06-07 04:19:[address] [facility] - + MANUAL DIFF [facility] (CELLAVISION MANUAL 2020-06-07 04:19:00 Vickie Gonsales [facility] - DIFF) [facility] POCT-GLUCOSE METER 2020-06-06 21:49:[address] [facility] POCT-GLUCOSE METER 2020-06-06 15:02:00 Shanique Oliver [facility] [place] CAROTID ARTERY STENT 2020-06-06 11:59:00 Kirill Frank [facility] - PLACEMENT W PROTECTION Medical C enter PLATELET COUNT 2020-06-06 02:29:00 Ernestine Danielson [facility] CBC W/PLT+MANUAL DIFF 2020-06-06 02:29:00 [facility]lect [facility] BASIC METABOLIC PANEL 2020-06-06 02:29:00 N[facility]lect [facility]ierraVickie[facility] - (7) [facility] PROTHROMBIN TIME/INR 2020-06-06 02:29:00 Ernestine Danielson [facility] APTT 2020-06-06 02:29:00 Yaz Danielsonpily [facility] FIBRINOGEN 2020-06-06 02:29:00 Erum [facility] TYPE AND SCREEN, 2020-06-06 02:29:00 Ernestine Danielson [facility] AUTOMATED Medical Center CBC WITH PLATELET COUNT 2020-06-06 02:29:00 Kirill Frank [facility] - + MANUAL DIFF [facility] (CELLAVISION MANUAL 2020-06-06 02:29:00 Kirill Frank [facility] - DIFF) [facility] POCT-GLUCOSE METER 2020-06-05 21:19:00 Shanique Oliver [facility] POCT-GLUCOSE METER 2020-06-05 08:55:00 Shanique Oliver [facility] CBC W/PLT+MANUAL DIFF 2020-06-05 04:18:00 [facility] BASIC METABOLIC PANEL 2020-06-05 04:18:00 Vickie Gonsales [facility] (7) [facility] CBC WITH PLATELET COUNT 2020-06-05 04:18:00 Zac Kirill Zepeda [facility] - + MANUAL DIFF [facility] (MANUAL DIFFERENTIAL) 2020-06-05 04:18:[address] [facility] POCT-GLUCOSE METER 2020-06-04 23:37:00 Vallumi, [facility] LACTIC ACID, VENOUS 2020-06-04 17:22:00 Alino, Margaret Molly [facility] POCT-GLUCOSE METER 2020-06-04 17:07:00 [facility] POCT-GLUCOSE METER 2020-06-04 09:11:00 Valaliemi [facility] CBC W/PLT+MANUAL DIFF 2020-06-04 03:24:[address] [facility] BASIC METABOLIC PANEL 2020-06-04 03:24:00 Nnekaselect [facility]innatiMayraV[facility]ie[facility] (7) [facility] CBC WITH PLATELET COUNT 2020-06-04 03:24:00 Zac Kirill Zepeda [facility] - + MANUAL DIFF [facility] (MANUAL DIFFERENTIAL) 2020-06-04 03:24:00 Suresh Crook [facility] POCT-GLUCOSE METER 2020-06-03 23:28:[address] [facility] POCT-GLUCOSE METER 2020-06-03 17:55:00 Valluri, [facility] POCT-GLUCOSE METER 2020-06-03 12:06:00 Valluri [facility] POCT-GLUCOSE METER 2020-06-03 07:36:00 [facility] CBC W/PLT+MANUAL DIFF 2020-06-03 03:38:00 [facility] [place] [facility] BASIC METABOLIC PANEL 2020-06-03 03:38:00 Vickie Gonsales [facility] - (7) [facility] MAGNESIUM 2020-06-03 03:38:00 [place] Roy [facility] CBC WITH PLATELET COUNT 2020-06-03 03:38:00 Kirill Frank [facility] - + MANUAL DIFF [facility] (CELLAVISION MANUAL 2020-06-03 03:38:00 Kirill Frank [facility] ukes - DIFF) [facility] [place] POCT-GLUCOSE METER 2020-06-03 00:10:00 Shanique Oliver [facility] SARS-COV2/RT-PCR ([facility] & 2020-06-02 23:00:00 [facility] - REF LABS) [facility] BASIC METABOLIC PANEL 2020-06-02 22:59:00 Aravind Nicholson [facility] (7) [facility] CBC (HEMOGRAM ONLY) 2020-06-02 22:59:00 Aravind Nicholson [facility] ABORH, MANUAL 2020-06-02 22:59:00 Jena Wolf [facility] XR CHEST 1 VIEW 2020-06-02 21:58:00 [place] Roy [facility] - PORTABLE/BEDSIDE Medical Center POCT-GLUCOSE METER 2020-06-02 21:47:00 Shanique Oliver [facility] L CATH & PCI 2020-06-02 17:08:00 Armaan [facility] TEMPORARY PACING 2020-06-02 17:08:00 [facility] CATHETHER INSERTION Medical Cent er TYPE AND SCREEN, 2020-06-02 16:21:00 Aravind Nicholson [facility] AUTOMATED Medical [place] POCT-GLUCOSE METER 2020-06-02 12:07:00 Zoya Kruse [facility] ECG 12-LEAD 2020-06-02 10:44:40 [facility] POCT-P2Y12 PLATELET 2020-06-02 09:53:00 Zac, Kirill [facility] POCT-GLUCOSE METER 2020-06-02 08:30:00 [facility] POCT-P2Y12 PLATELET 2020-06-02 04:12:00 [facility] AGGREGATION [facility] POCT-ASPIRIN PLATELET 2020-06-02 04:12:00 ZacKirill [facility] CBC W/PLT+MANUAL DIFF 2020-06-02 04:11:00 [facility]ierraVickieSaint [facility] BASIC METABOLIC PANEL 2020-06-02 04:11:00 [facility] - (7) [facility] CBC WITH PLATELET COUNT 2020-06-02 04:11:00 [facility]ill [facility] + MANUAL DIFF [facility] (CELLAVISION MANUAL 2020-06-02 04:11:00 Kirill Frank [facility] - DIFF) [facility] POCT-GLUCOSE METER 2020-06-01 21:07:00 [facility] POCT-GLUCOSE METER 2020-06-01 17:13:00 [facility] POCT-GLUCOSE METER 2020-06-01 12:08:00 [facility] SARS-COV2/RT-PCR ([facility] & 2020-06-01 09:21:00 [facility] Center[facility]ierraVcikie[facility] - REF LABS) [facility] XR CHEST 1 VIEW 2020-06-01 08:47:00 Kirill Frank [facility] PORTABLE/BEDSIDE Medical Center POCT-GLUCOSE METER 2020-06-01 07:45:00 [facility] CBC W/PLT+MANUAL DIFF 2020-06-01 03:55:00 [facility]innati[facility] BASIC METABOLIC PANEL 2020-06-01 03:55:00 Sierra [facility] - (7) [facility] CBC WITH PLATELET COUNT 2020-06-01 03:55:00 Kirill Frank [facility] - + MANUAL DIFF Medical Center (CELLAVISION MANUAL 2020-06-01 03:55:00 Kirill Frank [facility] - DIFF) [facility] POCT-GLUCOSE METER 2020-05-31 21:17:00 [facility] POCT-GLUCOSE METER 2020-05-31 16:52:00 [facility]el[facility] [place] NM MYOCARDIAL PERFUSION 2020-05-31 16:18:00 Uriah [facility] - PET/CT (REST & STRESS) Medical C enter TREADMILL 2020-05-31 16:13:37 Unknown, Hl7 [facility] TOLERANCE(NON-NUCLEAR Medical Ce nter TREADMILL) ECG 12-LEAD 2020-05-31 16:09:55 Unknown, Hl7 [facility] POCT-GLUCOSE METER 2020-05-31 12:06:00 [facility] POCT-GLUCOSE METER 2020-05-31 08:05:00 [facility] CBC W/PLT+MANUAL DIFF 2020-05-31 04:22:00 [facility] BASIC METABOLIC PANEL 2020-05-31 04:22:00 [facility] ([facility] CBC WITH PLATELET COUNT 2020-05-31 04:22:[address] [facility] [address] [facility] - + MANUAL DIFF [facility] (CELLAVISION MANUAL 2020-05-31 04:22:00 Kirill Frank [facility] - DIFF) [facility] POCT-GLUCOSE METER 2020-05-30 21:53:00 Zoya Kruse [facility] POCT-GLUCOSE METER 2020-05-30 17:00:00 [facility] POCT-GLUCOSE METER 2020-05-30 11:34:00 [facility] POCT-GLUCOSE METER 2020-05-30 10:01:00 [facility] [place] CEREBRAL 4 VESSEL 2020-05-30 09:25:00 Vanessa Franker [facility] ANGIOGRAM [facility] POCT-GLUCOSE METER 2020-05-30 07:58:00 [facility] ECG 12-LEAD 2020-05-30 07:57:46 [facility] 2020-05-30 07:44:00 Zac [facility] CBC W/PLT+MANUAL DIFF 2020-05-30 04:16:00 [facility] CenterSierraVickieSaint [facility] [place] BASIC METABOLIC PANEL 2020-05-30 04:16:00 [facility] (7) [facility] CBC WITH PLATELET COUNT 2020-05-30 04:16:00 [facility] + MANUAL DIFF [facility] (CELLAVISION MANUAL 2020-05-30 04:16:00 BubbaMostafa [facility] - DIFF) [facility] POCT-GLUCOSE METER 2020-05-29 21:21:00 [facility]ara [facility] POCT-GLUCOSE METER 2020-05-29 17:29:00 [facility] POCT-GLUCOSE METER 2020-05-29 11:58:00 [facility] CBC W/PLT+MANUAL DIFF 2020-05-29 04:37:00 [facility] CBC WITH PLATELET COUNT 2020-05-29 04:37:00 BubbaNia [facility] - + MANUAL DIFF [facility] (CELLAVISION MANUAL 2020-05-29 04:37:00 Bubba, afa [facility] - DIFF) [facility] BASIC METABOLIC PANEL 2020-05-29 04:33:00 Sierra [facility] (7) [facility] POCT-GLUCOSE METER 2020-05-28 23:06:00 [facility] CBC W/PLT+MANUAL DIFF 2020-05-28 05:45:00 [facility] [place] [facility] BASIC METABOLIC PANEL 2020-05-28 05:45:00 Sierra [facility] - (7) [facility] CBC WITH PLATELET COUNT 2020-05-28 05:45:00 [facility] - + MANUAL DIFF [facility] (MANUAL DIFFERENTIAL) 2020-05-28 05:45:00 Zoya Kruse [facility] TROPONIN I 2020-05-28 05:39:00 Zoya Kruse [facility] 2D ECHO W/ DOPPLER 2020-05-27 08:37:15 Bubba [facility] (CW/PW/COLOR) [facility] MRA HEAD WITHOUT IV 2020-05-27 08:03:00 Bubba [facility] CONTRAST [facility] MRA NECK WITHOUT IV 2020-05-27 08:03:00 Bubba [facility] CONTRAST [facility] MR BRAIN WITHOUT IV 2020-05-27 08:03:00 Bubba [facility] CBC W/PLT+MANUAL DIFF 2020-05-27 03:53:00 Sierra [facility] BASIC METABOLIC PANEL 2020-05-27 03:53:00 Sierra [facility] - (7) [facility] LIPID PANEL 2020-05-27 03:53:00 [facility] TROPONIN I 2020-05-27 03:53:00 Zoya Kruse [facility] CBC WITH PLATELET COUNT 2020-05-27 03:53:00 [facility] - + MANUAL DIFF [facility] (CELLAVISION MANUAL 2020-05-27 03:53:00 Bubba [facility] - DIFF) [facility] SARS-COV2/RT-PCR ([facility] & 2020-05-26 18:42:00 Sierra [facility] - REF LABS) [facility] POCT-GLUCOSE METER 2020-05-26 17:56:00 Zoya Kruse [facility] CBC W/PLT+MANUAL DIFF 2020-05-26 17:21:[address] [facility] BASIC METABOLIC PANEL 2020-05-26 17:21:00 [facility] CenterMay[facility] () [facility] TSH/FREE T4 IF INDICATED 2020-05-26 17:21:00 [facility] VITAMIN B12 AND FOLATE 2020-05-26 17:21:00 [facility] RPR 2020-05-26 17:21:00 [facility] HEMOGLOBIN A1C 2020-05-26 17:21:00 [facility] HOMOCYSTEINE 2020-05-26 17:21:00 [facility] TROPONIN I 2020-05-26 17:21:00 Zoya Kruse [facility] CBC WITH PLATELET COUNT 2020-05-26 17:21:00 [facility] - + MANUAL DIFF [facility] (CELLAVISION MANUAL 2020-05-26 17:21:00 [facility] - DIFF) [facility] VASCULAR DIAGRAM -SCAN 2020-05-26 00:00:00 Provider [facility] CARDIAC CATH REPORT - 2020-05-26 00:00:00 [facility], [facility] SCAN [facility] Plan of Care Planned Activity Planned Date Details Comments Source Future Scheduled 2021-03-[address] [facility] Test 00:00:00 (Season Ended) [code [facility] INFLUENZA VACCINE (Season Ended)] Future Scheduled 2021-01-29 [facility] [facility]ACCINE [place] [facility] 00:[facility]:00 [code = INFLUENZA VACCINE] Future Scheduled 2020-11-[address] [facility] 00:00:00 [facility] (procedure) [code = 90334875] Future Scheduled 2020-07-[address] [facility] Test 00:00:00 WELLNESS (YEAR 2 or Medical Center FIRST YEAR if no IPPE) [code = MEDICARE ANNUAL WELLNESS (YEAR 2 or FIRST YEAR if no IPPE)] Future Scheduled 2020-07-[address] [facility] - Test 00:00:00 (12+) [code = Medical Center DEPRESSION SCREENING (12+)] Future Scheduled 2009 PNEUMOCOCCAL 65+ YRS [facility] - Test 00:00:00 (1 of 1 - Medical Center [id number] PCV13) [code = PNEUMOCOCCAL 65+ YRS (1 of 1 - [id number] PCV13)] Future Scheduled 1994 COL[place]OSCOPY SCREENING [place] [facility] 00:00:00 [code = COLONOSCOPY SCREENING] Future Scheduled 1994 SHINGLES VACCINES (#1) [place] [facility] 00:00:00 [code = SHINGLES VACCINES (#1)] Future Scheduled 1994 SHINGLES VACCINES ([address] [facility] - Test 00:00:00 of 2) [code = SHINGLES Medic al Center VACCINES (1 of 2)] Future Scheduled 1963 DTAP/TDAP/TD VACCINES [facility] 00:00:00 (1 - Tdap) [code = Medical C enter DTAP/TDAP/TD VACCINES (1 - Tdap)] Future Scheduled 1962 Hepatitis C screening [place] [facility] 00:00:00 (procedure) [code = 110981935] Future Scheduled 1962 HEPATITIS C [facility]CRE[facility]ING [facility] 00:00:00 [code = HEPATITIS C Medical Center SCREENING] Future Scheduled 1960 COVID-19 VACCINE (1) [facility] 00:00:00 [code = COVID-19 VACCINE (1)] Future Scheduled 1954 DIABETES: RETINAL EYE [place] [facility] 00:00:00 EXAM [code = DIABETES: RETINAL EYE EXAM] Future Scheduled 1954 DIABETIC FOOT EXAM [place] [facility] 00:00:00 [code = DIABETIC FOOT EXAM] Future Scheduled 1954 DIABETIC EYE EXAM [facility] Test 00:00:00 [code = DIABETIC EYE Medical Center EXAM] Future Scheduled [address] [facility] - Test 00:00:00 examination Medical Center (regime/therapy) [code = 505590273] Future Scheduled 1954 Urine screening for [facility] Test 00:00:00 [facility] [code = 334857995] Future Scheduled 1950 65+ PNEUMOCOCCAL [facility] 00:00:00 VACCINE (1 of 4 - PCV13) [code = 65+ PNEUMOCOCCAL VACCINE (1 of 4 - PCV13)] Encounters Start End Encounter Admission Attending Care Care Encounter Source Date/Time Date/Time Type Type Clinicians Facility Department ID 2020-10-14 2020-10-14 Orders Doctor GEMMA [id number] 00:00:00 00:00:00 Only Unassigned, KIM [id number] [place] [facility] [id number] 2020-03-01 2020-03-01 [facility] [id number] 13[facility]26:00 13:26:00 [facility] 2020-03-01 2020-03-01 [facility] [id number] 10:20:00 10:20:00 [facility] Medicine [facility] ent Clinics 2020-02-29 2020-02-29 [facility] [id number] 10:34:00 10:34:00 [facility] Medicine [facility] ent Clinics 2020-01-25 2020-01-25 [facility] [id number] 16:00:00 16:00:00 [facility] Medicine [facility] ent Clinics 2019-12-19 2019-12-19 Orders Doctor GEMMA [id number] 00:00:00 00:00:00 Only Unassigned, KIM [id number] [place] [facility] [id number] 2019-11-27 2019-11-27 Orders Doctor GEMMA [id number] 00:00:00 00:00:00 Only Unassigned, KIM [id number] [place] [facility] [id number] 2019-11-13 2019-11-13 [facility] [id number] 13:27:00 13:27:00 [facility] s [facility] 2019-11-13 2019-11-13 [facility] [id number] 10:13:00 10:13:[address] [facility] [address] [facility] 2019-11-11 2019-11-11 Transition Andre Barcenas [id number] 00:00:00 00:00:00 of Care Torijosiah Reynoldsy [id number] [place] [id number] 2019-11-07 2019-11-09 [facility] Jozef [facility] [id number] 22:15:27 15:27:00 Encounter Kristine Calderon [id number] [place] [id number] [facility] [id number] 2019-10-26 2019-10-26 Refceleste ManriquezRUST [id number] 00:00:00 00:00:00 Le Gardner [id number] Adriel Worley [id number] Professio [id number] [facility] 2019-10-18 2019-10-18 Mery ManriquezRUST [id number] 00:00:00 00:00:00 Le Gardner [id number] [place] [id number] Professio [id number] [facility] 2019-10-15 2019-10-15 [facility] [id number] 16:04:00 16:04:00 [facility] 2019-10-09 2019-10-09 Refceleste Manriquez [facility] [id number] 00:00:00 00:00:00 Le Gardner [id number] More[place] [id number] [facility] [id number] [address] 2019-09-22 2019-09-22 [facility] [id number] 15:35:00 15:35:00 [place] [employer] - Zinio [facility] Medicine Outpati ent Clinics 2019-09-11 2019-09-11 [facility] [id number] 11:45:00 11:45:00 t [place] [employer] - Zinio [facility] Medicine Outpati ent Clinics 2019-09-03 2019-09-03 [facility] [id number] 15:31:00 15:31:00 t [place] [employer] - Zinio [facility] Medicine Outpati ent Clinics 2019-08-20 2019-08-20 [facility] [id number] 16:47:00 16:47:00 t [place] [employer] - Zinio [facility] Medicine Outpati ent Clinics 2019-08-11 2019-08-11 [facility] [id number] 09:20:00 09:20:00 t [place] [employer] - Zinio [facility] Medicine Outpati ent Clinics 2019-07-10 2019-07-10 [facility] [id number] 10:00:00 10:00:00 t [employer] s - Zinio [facility] Medicine Outpati ent Clinics 2019-07-08 2019-07-08 [facility] [id number] 08:59:00 08:59:00 t [place] [employer] [facility] Medicine Outpati ent Clinics 2019-06-19 2019-06-19 [facility] [id number] 14:55:00 14:55:00 t [place] [employer] [facility] Medicine Outpati ent Clinics 2019-06-12 2019-06-12 [facility] [id number] 10:48:00 10:48:00 t [facility] [address] [address] [facility] Medicine Outpati ent Clinics 2019-05-21 2019-05-21 [facility] [id number] 11:21:00 11:21:[address] Luke [address] - Drive [facility] l Medicine Outpati ent Clinics 2019-04-27 2019-04-27 [facility] [id number] 13:40:00 13:40:[address] Luke [address] - Drive [facility] Medicine l Medicine Outpati ent Clinics 2019-03-24 2019-03-24 [facility] [id number] 14:40:00 14:40:[address] Luke s - Drive [facility] Family Medicine l Medicine Outpati ent Clinics 2019-03-17 2019-03-17 [facility] [id number] 09:00:00 09:00:00 [place]io Luke s - Drive [facility] Medicine l Medicine Outpati ent Clinics 2019-02-09 2019-02-09 [facility] [id number] 14:31:00 14:31:00 t [place] Luke s - Drive [facility] Medicine l Medicine Outpati ent Clinics 2018-12-18 2018-12-18 [facility] [id number] 11:40:00 11:40:00 t [place] Luke s - Drive [facility] Medicine l Medicine Outpati ent Clinics 2018-12-02 2018-12-02 [facility] [id number] 09:20:00 09:20:00 t [place] Luke s - Drive [facility] Medicine l Medicine Outpati ent Clinics 2018-10-30 2018-10-30 [facility] [id number] 15:21:00 15:21:[address] Luke [address] - Drive [facility] Medicine l Medicine Outpati ent Clinics 2018-10-16 2018-10-16 [facility] [id number] 15:20:00 15:20:[address] Luke [address] - Drive [facility] Medicine l Medicine Outpati ent Clinics 2018-09-30 2018-09-30 [facility] [id number] 15:00:00 15:00:[address] Luke [address] - Drive [facility] Medicine l Medicine Outpati ent Clinics 2018-09-22 2018-09-22 [facility] [id number] 15:53:00 15:53:00 [place] Luke s - Drive [facility] Medicine l Medicine Outpati ent Clinics 2018-09-18 2018-09-18 [facility] [id number] 11:00:00 11:00:00 [place]io Luke s - Drive [facility] Medicine l Medicine Outpati ent Clinics 2018-08-21 2018-08-21 [facility] [id number] 10:30:00 10:30:00 [place]inio Luke s - Drive [facility] l Medicine Outpati ent Clinics 2018-08-06 2018-08-06 [facility] [id number] 16:58:00 16:58:00 [place] EVIIVO LuedPULSE s - Drive [facility] Medicine l Medicine Outpati ent Clinics 2018-07-17 2018-07-17 [facility] [id number] 14:50:00 14:50:00 [place] Zinio LuedPULSE s - Drive [facility] Medicine l Medicine Outpati ent Clinics 2018-07-08 2018-07-08 [facility] [id number] 10:23:00 10:23:00 [place] EVIIVO LuedPULSE s - Drive [facility] Medicine l Medicine Outpati ent Clinics 2018-06-09 2018-06-09 [facility] [id number] 08:21:00 08:21:[address] [facility] [address] [facility] Medicine l Medicine Outpati ent Clinics 2018-06-06 2018-06-06 [facility] [id number] 09:41:00 09:41:00 [place] EVIIVO LuedPULSE s - Drive [facility] Medicine l Medicine Outpati ent Clinics 2018-06-05 2018-06-05 [facility] [id number] 11:15:00 11:15:00 [place] [employer] s - Drive [facility] l Medicine Outpati ent Clinics 2018-04-07 2018-04-07 [facility] [id number] 15:00:00 15:00:00 [facility] 2017-11-07 2017-11-07 Outpatient Brazaiden Brittt [id number] 09:00:00 09:00:00 [facility] Results Test Description Test Time Test Comments Results Result Sourc e Comments CARDIAC CATH 2020-05-[address] [facility] REPORT - SCAN 4 unspecified provider. [facility] - 15:13:36 [facility] VASCULAR DIAGRAM 2020-05-31 Ordered by an [facility] t -SCAN 4 unspecified provider. [facility] es - 15:13:35 [facility] MIMI, CAROTID 2020-05-31 For STENT W 4 06/06Reason PROTECTION 11:13:[address] exam:->Right [facility] carotid CENTERName: CARLOS, artery MARILEE LEGLEND stenosisAnest : 1945 hesia:->MAC Sex: F FINAL REPORT Date of Procedure: 06/06/2020 Surgeon: OLGA PorterAssistant: Kirill Frank MD Pre-operative diagnosis: Right internal carotid artery stenosisPost-operative diagnosis: Right internal carotid artery stenosis Procedure: Right carotid artery stent placement Anesthesiologist: per anesthesia recordsAnesthesia Type: MAC Complications: None apparent Vessel injections:1. Left femoral artery2. Right common carotid artery Indication for procedure: Patient is a 74-year-old woman with history of CHF, diabetes, hyperlipidemia, chronic kidney disease, coronary artery disease, presented with transient left-sided weakness. On initial workup she was found to have a small subcortical infarction on the left side, and right ICA stenosis. A diagnostic cerebral angiogram revealed near occlusion of the left internal carotid artery. Given her significant medical comorbidities a right carotid artery stent was recommended to prevent further ischemic events. Procedure in Detail: Following explanation of the benefits, risks and alternatives for the procedure, informed consent was obtained from the patient. The risks including but not limited to stroke, intracranial hemorrhage, vascular injury to the cervical or access vessels were discussed. A time-out was performed. Both groins were prepped in the usual sterile fashion using Chloroprep, and sterilely draped. Access was initiated at the right femoral artery using ultrasound and fluoroscopic guidance and a 9 Italian short sheath was placed and maintained on heparinized flush. An ultrasound still frame localizing the vessel for puncture was uploaded into the medical record. At this point the patient was heparinzed with a goal ACT >250. A 6 Italian Infinity guide catheter and vertebral diagnostic catheter was introduced and brought into the aortic arch under fluoroscopic guidance. The diagnostic catheter was used to catheterize the right common carotid artery, the long sheath was advanced into the mid common segment. A common carotid run demonstrated high grade stenosis and a roadmap was made. At this point a Synchro 14 wire was used to cross the stenotic segment. A spider FX 5mm distal embolic protection device was brought up and deployed under fluoroscopy. Next, a Viatrac 4 x 30 mm balloon was advanced so that it straddled the stenotic lesion and was inflated to nominal pressure under fluoroscopic guidance. Repeat common carotid run demonstrated improved flow and slightly decreased stenosis. At this point the balloon was removed and the stent was prepared. Next the stent (Precise 6x30mm stent) was brought up into the proximal internal carotid artery and was slowly unsheathed across the stenotic segment under fluoroscopic guidance. A control angiogram at this point demonstrated adequate opening of the stent with minimal residual stenosis. An intracranial run demonstrated improved flow through the internal carotid circulation and no evidence for any distal emboli or perfusion defects. The distal embolic device was recaptured and removed. At this point the procedure was concluded and all wires, sheaths and catheters were removed. Femoral arteriotomy was closed with a 8 Italian Angio-Seal the patient was sent to the neuro ICU in stable condition. Findings: Left Femoral Artery (AP and Lateral)-The sheath enters above the femoral bifurcation. The femoral artery and bifurcation are widely patent without evidence of ulceration or stenosis. Right Common Carotid Artery - Cranial (AP, Lateral)-The visualized branches of the external carotid artery are normal in course and appearance. There is no evidence of arteriovenous shunting. The capillary and venous phases are normal -The cervical carotid artery is patent without areas of stenosis, dissection or ulceration; and is without branches -The petrous carotid artery is patent without areas of stenosis, dissection or ulceration the mandibulovidian artery is not visualized, no petrosal segment aneurysms -The cavernous carotid artery is patent without areas of stenosis, dissection, or ulceration, meningohypophyseal trunk and inferolateral trunks are not visualized, there are no cavernous segment aneurysms -The supraclinoidal carotid artery, the opthalmic, communicating, and choroidal segments are patent without areas of stenosis and without aneurysms. The posterior communicating artery is large in size, with focal area of stenosis at its origin from the ICA, stable from prior angiogram 06/06/2020. The anterior choroidal artery is visualized. The M1 segment is visualized and is without stenosis or vasospasm. -The ANGELLA territory does not fill on this injection. -The MCA's fill physiologically throughout their territory there is no noted stenosis, occlusion or vasospasm noted within its branches. There is no evidence for aneurysm. There is no evidence of arteriovenous shunting. -There is overall delayed flow to distal cortical branches instead with high-grade cervical ICA stenosis. The venous phase demonstrates a normal venous draining pattern. -Status post carotid artery stent placement there is no evidence of embolic phenomena. Perfusion is significantly improved with visualization of the right ANGELLA territory. Right Common Carotid Artery - Cervical (AP, Lateral)-The origins of the right external carotid artery is widely patent without evidence of ulceration or stenosis. A focal area of stenosis of the internal carotid artery is again seen approximately 1.8 cm from the origin, measuring greater than 90% and stenosis by NASCET criteria. -Status post internal carotid artery stent placement areas minimal residual stenosis at the prior area of near occlusion, less than 30% by NASCET criteria. There is otherwise no evidence of vessel dissection or contrast extravasation. Summary of Findings 1. Focal area of severe right proximal internal carotid artery stenosis status post successful carotid artery stent placement. There is minimal residual stenosis, significantly improved perfusion on the right side as compared to prior to stent placement. 2. No clinical or radiographic evidence of complications Signed: Sagar Medinaeport Verified Date/Time: 06/13/2020 11:13:07 Reading Location: [facility] B1 Y026 Neuro Angio Reading Room Carotid 2020-05-31 Interface, External Ris C HI St Artery Stent 4 In - 06/13/2020 11:15 L ukes - Placement 11:13:00 AM CSTFINAL REPORT Medica l w/Protection Center Date of Procedure: 06/06/2020 Surgeon: OLGA PorterAssistant: Kirill Frank MD Pre-operative diagnosis: Right internal carotid artery stenosisPost-operative diagnosis: Right internal carotid artery stenosis Procedure: Right carotid artery stent placement Anesthesiologist: per anesthesia recordsAnesthesia Type: MAC Complications: None apparent Vessel injections:1. Left femoral artery2. Right common carotid artery Indication for procedure: Patient is a 74-year-old woman with history of CHF, diabetes, hyperlipidemia, chronic kidney disease, coronary artery disease, presented with transient left-sided weakness. On initial workup she was found to have a small subcortical infarction on the left side, and right ICA stenosis. A diagnostic cerebral angiogram revealed near occlusion of the left internal carotid artery. Given her significant medical comorbidities a right carotid artery stent was recommended to prevent further ischemic events. Procedure in Detail: Following explanation of the benefits, risks and alternatives for the procedure, informed consent was obtained from the patient. The risks including but not limited to stroke, intracranial hemorrhage, vascular injury to the cervical or access vessels were discussed. A time-out was performed. Both groins were prepped in the usual sterile fashion using Chloroprep, and sterilely draped. Access was initiated at the right femoral artery using ultrasound and fluoroscopic guidance and a 9 Italian short sheath was placed and maintained on heparinized flush. An ultrasound still frame localizing the vessel for puncture was uploaded into the medical record. At this point the patient was heparinzed with a goal ACT >250. A 6 Italian Infinity guide catheter and vertebral diagnostic catheter was introduced and brought into the aortic arch under fluoroscopic guidance. The diagnostic catheter was used to catheterize the right common carotid artery, the long sheath was advanced into the mid common segment. A common carotid run demonstrated high grade stenosis and a roadmap was made. At this point a Synchro 14 wire was used to cross the stenotic segment. A spider FX 5mm distal embolic protection device was brought up and deployed under fluoroscopy. Next, a Viatrac 4 x 30 mm balloon was advanced so that it straddled the stenotic lesion and was inflated to nominal pressure under fluoroscopic guidance. Repeat common carotid run demonstrated improved flow and slightly decreased stenosis. At this point the balloon was removed and the stent was prepared. Next the stent (Precise 6x30mm stent) was brought up into the proximal internal carotid artery and was slowly unsheathed across the stenotic segment under fluoroscopic guidance. A control angiogram at this point demonstrated adequate opening of the stent with minimal residual stenosis. An intracranial run demonstrated improved flow through the internal carotid circulation and no evidence for any distal emboli or perfusion defects. The distal embolic device was recaptured and removed. At this point the procedure was concluded and all wires, sheaths and catheters were removed. Femoral arteriotomy was closed with a 8 Italian Angio-Seal the patient was sent to the neuro ICU in stable condition. Findings: Left Femoral Artery (AP and Lateral)-The sheath enters above the femoral bifurcation. The femoral artery and bifurcation are widely patent without evidence of ulceration or stenosis. Right Common Carotid Artery - Cranial (AP, Lateral)-The visualized branches of the external carotid artery are normal in course and appearance. There is no evidence of arteriovenous shunting. The capillary and venous phases are normal -The cervical carotid artery is patent without areas of stenosis, dissection or ulceration; and is without branches -The petrous carotid artery is patent without areas of stenosis, dissection or ulceration the mandibulovidian artery is not visualized, no petrosal segment aneurysms -The cavernous carotid artery is patent without areas of stenosis, dissection, or ulceration, meningohypophyseal trunk and inferolateral trunks are not visualized, there are no cavernous segment aneurysms -The supraclinoidal carotid artery, the opthalmic, communicating, and choroidal segments are patent without areas of stenosis and without aneurysms. The posterior communicating artery is large in size, with focal area of stenosis at its origin from the ICA, stable from prior angiogram 06/06/2020. The anterior choroidal artery is visualized. The M1 segment is visualized and is without stenosis or vasospasm. -The ANGELLA territory does not fill on this injection. -The MCA's fill physiologically throughout their territory there is no noted stenosis, occlusion or vasospasm noted within its branches. There is no evidence for aneurysm. There is no evidence of arteriovenous shunting. -There is overall delayed flow to distal cortical branches instead with high-grade cervical ICA stenosis. The venous phase demonstrates a normal venous draining pattern. -Status post carotid artery stent placement there is no evidence of embolic phenomena. Perfusion is significantly improved with visualization of the right ANGELLA territory. Right Common Carotid Artery - Cervical (AP, Lateral)-The origins of the right external carotid artery is widely patent without evidence of ulceration or stenosis. A focal area of stenosis of the internal carotid artery is again seen approximately 1.8 cm from the origin, measuring greater than 90% and stenosis by NASCET criteria. -Status post internal carotid artery stent placement areas minimal residual stenosis at the prior area of near occlusion, less than 30% by NASCET criteria. There is otherwise no evidence of vessel dissection or contrast extravasation. Summary of Findings 1. Focal area of severe right proximal internal carotid artery stenosis status post successful carotid artery stent placement. There is minimal residual stenosis, significantly improved perfusion on the right side as compared to prior to stent placement. 2. No clinical or radiographic evidence of complications Signed: Sagar Medinaeport Verified Date/Time: 06/13/2020 11:13:07 Reading Location: [facility] Y026 Neuro Angio Reading Room -Glucose meter 2020-06-09 12:29:00 Test Item Value Reference Range Interpretation Comme nts POC-Glucose Meter (test code = 298 mg/dL 70-110 H : TESTED AT [facility] [address] [facility] [address]) [facility], [address]: Telegraph Messenger/Techni isaiah ID = [id number] for Ondina Roger Lab Interpretation (test code = Abnormal 82654-0) [facility] [id number] 12:29:00 Test Item Value Reference Range Interpretation Comments POC-GLUCOSE METER 298 mg/dL 70-110 H : TESTED A T [facility] [address] (BEAKER) (test code = [place] [facility], 1538) [address]: Telegraph Messenger/Techni isaiah ID = [id number] for Ondina Savage SARS-CoV2/RT-PCR (Asymptomatic ONLY)2020-06-09 10:30:00 Test Item Value Reference Range Interpretation Comments SARS-COV2/RT-PCR Negative Not Detected, (test code = Negative, See 00649-0) external report for linked test SARS-COV-2 [facility] TERI PERFORMING LAB (test code = 38950-8) EFFIE (test code = Negative result for this EFFIE) test determines that SARS-CoV-2 RNA was not present in the specimen above the Limit of Detection (LOD). However, Negative results do not preclude SARS-CoV-2 infection and should not be used as the sole basis for treatment or patient management decisions. Negative results must be combined with clinical observations, patient history, and epidemiological information. A false negative result may occur if a specimen is improperly collected, transported or handled. A false negative result should be considered if patient's recent exposures or clinical presentation indicate that COVID-19 (SARS-CoV-2) is likely and diagnostic tests for other causes of illness are negative. Re-testing should be considered in cases of suspected false negatives. The limit of detection for this assay is 800 copies/mL. This SARS CoV-2 test is a real-time RT-PCR test intended for the qualitative detection of nucleic acid from SARS-CoV-2 in a nasopharyngeal swab specimen collected from individuals suspected of COVID-19 by their healthcare provider. This test has not been Food and Drug Administration (FDA) cleared or approved. This is a modified version of an approved Emergency Use Authorization (EUA) and is in the process of review by the FDA. Once authorized by the FDA, the issued EUA will be effective until the declaration that circumstances exist justifying the authorization of the emergency use of in vitro diagnostic tests for detection and/or diagnosis of COVID-19 is terminated under Section 564(b)(2) of the Act or the EUA is revoked under Section 564(g) of the Act. Fact Sheet for Healthcare Providers:https://www.AdVolume idel.T[employer]Solutions/sites/default/f adrian/product/documents/F act_Sheet_HC_Providers_L whx_XIIR-UpI-6.pdf Fact Sheet for Healthcare Patients:https://www.[employer] del.[employer]earSolutions/sites/default/fi les/product/documents/Fa ct_Sheet_Patients_Lyra_S ARS-CoV-2.pdf Performing Laboratory:[facility] [place] [address] [facility])2020-06-09 10:30:00 Test Item Value Reference Range Interpretation Comments SARS-COV2/RT-PCR (test Negative Not Detected, Negative, code = 1752135) See external report for linked test SARS-COV-[address] [facility] TERI (test code = 5005728) Negative result for this test determines that SARS-CoV-2 RNA was not present in the specimen above the Limit of Detection (LOD). However, Negative results do not preclude SARS-CoV-2 infection and should not be used as the sole basis for treatment or patient management decisions. Negative results mustbe combined with clinical observations, patient history, and epidemiological information. A false negative result may occur if a specimen is improperly collected, transported or handled. A false negative result should be considered if patient's recent exposures or clinical presentation indicate that COVID-19 (SARS-CoV-2) is likely and diagnostic tests for other causes of illness are negative. Re-testing should be considered in cases of suspected false negatives.The limit of detection for this assay is 800 copies/mL.This SARS CoV-2 test is a real-time RT-PCR test intended for the qualitative detection of nucleic acid from SARS-CoV-2 in a nasopharyngeal swab specimen collected from individuals susp ected of COVID-19 by their healthcare provider.This test has not been Food and Drug Administration (FDA) cleared or approved. This is a modified version of an approved Emergency Use Authorization (EUA) and is in the process of review by the FDA. Once authorized by the FDA, the issued EUA will be effective until the declaration that circumstances exist justifying the authorization of the emergency use of in vitro diagnostic tests for detection and/or diagnosis of COVID-19 is terminated under Section 564(b)(2) of the Act or the EUA is revoked under Section 564(g) of the Act.Fact Sheet for Healthcare Providers:https://www.Volofy.com/sites/default/files/product/documents/Fact_Shee w_FF_Vnscgitox_Glhy_VQUZ-KjR-7.pdfFact Sheet for Healthcare Patients:https://www.Volofy.com/sites/default/files/product/ documents/Qeqj_Kpxhv_Tamfaxnu_Mpmk_WDCV-ZaI-8.pdfPerforming Laboratory:[facility], [place] [address]Yshnye Differential 2020-06-09 09:48:00 Test Item Value Reference Range Interpretation Comments % Neutros (test code = 80 % 2815) % Lymphs (test code = 10 % 2816) % Monos (test code = 2 % 2817) % Eos (test code = 2819) 2 % % Baso (test code = 1 % 2819) % Bands (test code = 4 % 0-10 6) # Neutros (test code = 7.20 K/ul 1.56-6.13 H 2830) # Lymphs (test code = 0.90 K/ul 1.18-3.74 L 2831) # Monos (test code = 0.18 K/uL 0.24-0.36 L 2832) # Eos (test code = 2834) 0.18 K/uL 0.04-0.36 # Baso (test code = 0.09 K/uL 0.01-0.08 H 2835) # Bands (test code = 0.36 K/uL 0-0.8 2840) Total Counted (test code 100 = 1351) RBC Morphology (test Normal code = 762) WBC Morphology (test Normal code = 487) Platelet Morphology Normal (test code = 486) Artifact (test code = Present 3432) Platelet Conc (test code Adequate = 3438) EFFIE (test code = EFFIE) Telegraph Messenger ID - Kelly OverholtUser comments: Slide comments: Lab Interpretation (test Abnormal code = 45998-1) [facility](CELLAVISION MANUAL DIFF)2020-06-09 09:48:00 Test Item Value Reference Range Interpretation Comments NEUTROPHILS - REL 80 % (CELLAVISION)(BEAKER) (test code = 2816) LYMPHOCYTES - REL 10 % (CELLAVISION)(BEAKER) (test code = 2817) MONOCYTES - REL 2 % (CELLAVISION)(BEAKER) (test code = 2818) EOSINOPHILS - REL 2 % (CELLAVISION)(BEAKER) (test code = 2819) BASOPHILS - REL 1 % (CELLAVISION)(BEAKER) (test code = 2820) BANDS - REL (CELLAVISION)(BEAKER) 4 % 0-10 (test code = 2826) NEUTROPHILS - ABS 7.20 K/ul 1.56-6.13 H (CELLAVISION)(BEAKER) (test code = 2830) LYMPHOCYTES - ABS 0.90 K/ul 1.18-3.74 L (CELLAVISION)(BEAKER) (test code = 2831) MONOCYTES - ABS 0.18 K/uL 0.24-0.36 L (CELLAVISION)(BEAKER) (test code = 2832) EOSINOPHILS - ABS 0.18 K/uL 0.04-0.36 (CELLAVISION)(BEAKER) (test code = 2834) BASOPHILS - ABS 0.09 K/uL 0.01-0.08 H (CELLAVISION)(BEAKER) (test code = 2835) BANDS - ABS (CELLAVISION)(BEAKER) 0.36 K/uL 0.00-0.80 (test code = 2840) TOTAL COUNTED (BEAKER) (test code = 100 1351) RBC MORPHOLOGY (BEAKER) (test code Normal = 762) WBC MORPHOLOGY (BEAKER) (test code Normal = 487) PLT MORPHOLOGY (BEAKER) (test code Normal = 486) ARTIFACT (CELLAVISION)(BEAKER) Present (test code = 3432) PLATELET CONCENTRATION Adequate (CELLAVISION)(BEAKER) (test code = 3438) Telegraph Messenger ID - Kelly OverholtUser comments: Slide comments:POCT-GLUCOSE METER 2020-06-09 08:10:00 Test Item Value Reference Range Interpretation Comments POC-GLUCOSE METER 232 mg/dL 70-110 H : TESTED A T [facility] [address] (BEAKER) (test code = [place], 1538) [address]: Telegraph Messenger/Techni isaiah ID = [id number] for Ondina Savage Basic Metabolic [id number] 06:27:00 Test Item Value Reference Range Interpretation Comments Sodium (test code = 142 meq/L 831-440 9869-2) Potassium (test code = 4.6 meq/L 3.5-5.1 2822-3) Chloride (test code = 108 meq/L 98-107 H 2074-0) CO2 (test code = 23 meq/L 22-29 2027-9) BUN (test code = 50 mg/dL 7-21 H 3094-0) Creatinine (test code 2.35 mg/dL 0.57-1.25 H = 2160-0) Glucose (test code = 233 mg/dL 70-105 H 2345-7) Calcium (test code = 8.8 mg/dL 8.4-10.2 37643-4) EGFR (test code = 20 mL/min/1.73 [place] [address]-4) NOT ACCURATE CREATININE CLEARANCE IN PREDICTING GLOMERULAR FILTRATION RATE . ESTIMATED GFR I S NOT APPLICABLE FOR DIALYSIS PATIENTS. EFFIE (test code = EFFIE) Telegraph Messenger ID - ENRICO M Lab Interpretation Abnormal (test code = 37389-9) [facility] METABOLIC [id number] 06:27:00 Test Item Value Reference Range Interpretation Comments SODIUM (BEAKER) 142 meq/L 136-145 (test code = 381) POTASSIUM (BEAKER) 4.6 meq/L 3.5-5.1 (test code = 379) CHLORIDE (BEAKER) 108 meq/L 98-107 H (test code = 382) CO2 (BEAKER) (test 23 meq/L 22-29 code = 355) BLOOD UREA NITROGEN 50 mg/dL 7-21 H (BEAKER) (test code = 354) CREATININE (BEAKER) 2.35 mg/dL 0.57-1.25 H (test code = 358) GLUCOSE RANDOM 233 mg/dL 70-105 H (BEAKER) (test code = 652) CALCIUM (BEAKER) 8.8 mg/dL 8.4-10.2 (test code = 697) EGFR (BEAKER) (test 20 mL/min/1.73 ESTIMA AYANNA GFR IS code = 1092) sq m NOT ACCURATE CREATININE CLEARANCE IN PREDICTING GLOMERULAR FILTRATION RATE . ESTIMATED GFR I S NOT APPLICABLE FOR DIALYSIS PATIEN TS. Telegraph Messenger ID - ENRICO MCBC with platelet count + manual [id number] 05:21:00 Test Item Value Reference Range Interpretation Comments WBC (test code = 6690-2) 9.0 See_Comment [A utomated message] The system [employer] generated this result transmitted ref erence range: 3.5 - 10 .5 K/L. The refe rence range was not u sed to interpret this result as normal/abnor mal. RBC (test code = 789-8) 3.31 See_Comment L [Au tomated message] The system [employer] generated this result transmitted ref erence range: 3.93 - 5 .22 M/L. The refe rence range was not u sed to interpret this result as normal/abnor mal. MCHC (test code = 786-4) 33.3 See_Comment L [A utomated message] The system [employer] generated this result transmitted ref erence range: 32.2 - 3 5.5 GM/DL. The refe rence range was not u sed to interpret this result as normal/abnor mal. Hematocrit (test code = 30.6 % 34.1-44.9 L 4544-3) MCV (test code = 787-2) 92.4 fL 79.4-94.8 MCH (test code = 785-6) 30.8 pg 25.6-32.2 RDW (test code = 788-0) 13.0 % 11.7-14.4 Platelets (test code = 258 See_Comment [Aut omated message] 777-3) The system [employer] generated this result transmitted ref erence range: 150 - 45 0 K/CU MM. The referen ce range was not u sed to interpret this result as normal/abnor mal. MPV (test code = 10.2 fL 9.4-12.3 86459-3) nRBC (test code = 413) 0 See_Comment [Aut omated message] The system [employer] generated this result transmitted ref erence range: 0 - 0 /1 00 WBC. The refere nce range was not u sed to interpret this result as normal/abnor mal. Lab Interpretation (test Abnormal code = 12565-1) [facility] WITH PLATELET COUNT + MANUAL [id number] 05:21:00 Test Item Value Reference Range Interpretation Comments WHITE BLOOD CELL COUNT (BEAKER) 9.0 K/ L 3.5-10.5 (test code = 775) RED BLOOD CELL COUNT (BEAKER) 3.31 M/ L 3.93-5.22 L (test code = 761) HEMOGLOBIN (BEAKER) (test code = 10.2 GM/DL 11.2-15.7 L 410) HEMATOCRIT (BEAKER) (test code = 30.6 % 34.1-44.9 L 411) MEAN CORPUSCULAR VOLUME (BEAKER) 92.4 fL 79.4-94.8 (test code = 753) MEAN CORPUSCULAR HEMOGLOBIN 30.8 pg 25.6-32.2 (BEAKER) (test code = 751) MEAN CORPUSCULAR HEMOGLOBIN CONC 33.3 GM/DL 32.2-35.5 (BEAKER) (test code = 752) RED CELL DISTRIBUTION WIDTH 13.0 % 11.7-14.4 (BEAKER) (test code = 412) PLATELET COUNT (BEAKER) (test 258 K/CU MM 150-450 code = 756) MEAN PLATELET VOLUME (BEAKER) 10.2 fL 9.4-12.3 (test code = 754) NUCLEATED RED BLOOD CELLS 0 /100 WBC 0-0 (BEAKER) (test code = 413) POCT-GLUCOSE [id number] 21:39:00 Test Item Value Reference Range Interpretation Comments POC-GLUCOSE METER 125 mg/dL 70-110 H : TESTED A T [facility] 67 ([facility]) (test code = JULIANA Bowers [facility], 153) [address]: Telegraph Messenger/Techni isaiah ID = [id number] for YVES LUIS MNICHO VERNELL POCT-GLUCOSE [id number] 17:24:00 Test Item Value Reference Range Interpretation Comments POC-GLUCOSE METER 271 mg/dL 70-110 H : Notified RN/MD: TESTED ([facility]) (test code AT ST. [facility] [address] = 1538) [facility], [facility] 30: Telegraph Messenger/Techni isaiah ID = [id number] for TSEG GAI, TSIGHEREDA POCT-GLUCOSE [id number] 12:43:00 Test Item Value Reference Range Interpretation Comments POC-GLUCOSE METER 330 mg/dL 70-110 H : Notified RN/MD: TESTED ([facility]) (test code AT [facility] [address] = 1538) [facility], [facility] 30: Telegraph Messenger/Techni isaiah ID = [id number] for TSEG GAI, TSIGHEREDA CBC WITH PLATELET COUNT + MANUAL [id number] 09:07:00 Test Item Value Reference Range Interpretation Comments WHITE BLOOD CELL COUNT (BEAKER) 7.3 K/ L 3.5-10.5 (test code = 775) RED BLOOD CELL COUNT (BEAKER) 3.57 M/ L 3.93-5.22 L (test code = 761) HEMOGLOBIN (BEAKER) (test code = 10.8 GM/DL 11.2-15.7 L 410) HEMATOCRIT (BEAKER) (test code = 33.3 % 34.1-44.9 L 411) MEAN CORPUSCULAR VOLUME (BEAKER) 93.3 fL 79.4-94.8 (test code = 753) MEAN CORPUSCULAR HEMOGLOBIN 30.3 pg 25.6-32.2 (BEAKER) (test code = 751) MEAN CORPUSCULAR HEMOGLOBIN CONC 32.4 GM/DL 32.2-35.5 (BEAKER) (test code = 752) RED CELL DISTRIBUTION WIDTH 12.8 % 11.7-14.4 (BEAKER) (test code = 412) PLATELET COUNT (BEAKER) (test 257 K/CU MM 150-450 code = 756) MEAN PLATELET VOLUME (BEAKER) 10.3 fL 9.4-12.3 (test code = 754) NUCLEATED RED BLOOD CELLS 0 /100 WBC 0-0 (BEAKER) (test code = 413) (CELLAVISION MANUAL DIFF)2020 09:07:00 Test Item Value Reference Range Interpretation Comments NEUTROPHILS - REL 79 % (CELLAVISION)(BEAKER) (test code = 2816) LYMPHOCYTES - REL 9 % (CELLAVISION)(BEAKER) (test code = 2817) MONOCYTES - REL 5 % (CELLAVISION)(BEAKER) (test code = 2818) EOSINOPHILS - REL 6 % (CELLAVISION)(BEAKER) (test code = 2819) BASOPHILS - REL 1 % (CELLAVISION)(BEAKER) (test code = 2820) NEUTROPHILS - ABS 5.77 K/ul 1.56-6.13 (CELLAVISION)(BEAKER) (test code = 2830) LYMPHOCYTES - ABS 0.66 K/ul 1.18-3.74 L (CELLAVISION)(BEAKER) (test code = 2831) MONOCYTES - ABS 0.37 K/uL 0.24-0.36 H (CELLAVISION)(BEAKER) (test code = 2832) EOSINOPHILS - ABS 0.44 K/uL 0.04-0.36 H (CELLAVISION)(BEAKER) (test code = 2834) BASOPHILS - ABS 0.07 K/uL 0.01-0.08 (CELLAVISION)(BEAKER) (test code = 2835) TOTAL COUNTED (BEAKER) (test code 100 = 1351) WBC MORPHOLOGY (BEAKER) (test Normal code = 487) LARGE PLT(BEAKER) (test code = Present 2156) POLYCHROMATOPHILLIC RBCS(BEAKER) 1+ few (test code = 478) HYPOCHROMIA (BEAKER) (test code = 1+ few 963) ANISOCYTOSIS (BEAKER) (test code 2+ moderate = 961) MICROCYTES (BEAKER) (test code = 2+ moderate 965) POIKILOCYTES (BEAKER) (test code 2+ moderate = 966) SPHEROCYTES (BEAKER) (test code = 1+ few 768) OVALOCYTES (BEAKER) (test code = 1+ few 477) ARTIFACT (CELLAVISION)(BEAKER) Present (test code = 3432) PLATELET CONCENTRATION Adequate (CELLAVISION)(BEAKER) (test code = 3438) Telegraph Messenger ID - Jojo Bhatt comments: Slide comments:POCT-GLUCOSE METER 2020 08:33:00 Test Item Value Reference Range Interpretation Comments POC-GLUCOSE METER 100 mg/dL 70-110 : TESTED A T [facility] 67[address] (BEAKER) (test code [facility], = 1538) [id number]: Telegraph Messenger/Techni isaiah ID = [id number] for [facility], [facility] BASIC METABOLIC [id number] 07:26:00 Test Item Value Reference Range Interpretation Comments SODIUM (BEAKER) 142 meq/L 136-145 (test code = 381) POTASSIUM (BEAKER) 4.0 meq/L 3.5-5.1 (test code = 379) CHLORIDE (BEAKER) 107 meq/L 98-107 (test code = 382) CO2 (BEAKER) (test 24 meq/L 22-29 code = 355) BLOOD UREA NITROGEN 50 mg/dL 7-21 H (BEAKER) (test code = 354) CREATININE (BEAKER) 2.04 mg/dL 0.57-1.25 H (test code = 358) GLUCOSE RANDOM 104 mg/dL 70-105 (BEAKER) (test code = 652) CALCIUM (BEAKER) 8.9 mg/dL 8.4-10.2 (test code = 697) EGFR (BEAKER) (test 24 mL/min/1.73 ESTIMA AYANNA GFR IS code = 1092) sq m NOT ACCURATE CREATININE CLEARANCE IN PREDICTING GLOMERULAR FILTRATION RATE . ESTIMATED GFR I S NOT APPLICABLE FOR DIALYSIS PATIEN TS. [employer] Messenger ID - EDASIPOCT-GLUCOSE [id number] 21:55:00 Test Item Value Reference Range Interpretation Comments POC-GLUCOSE METER 335 mg/dL 70-110 H : TESTED A T [facility] 6720 ([facility]) (test code = [facility], 1538) [address]: Telegraph Messenger/Techni isaiah ID = [id number] for MARCIE DICKINSON ASHLEY POCT-GLUCOSE [id number] 18:43:00 Test Item Value Reference Range Interpretation Comments POC-GLUCOSE METER 195 mg/dL 70-110 H : [facility] ([facility]) (test code = [facility], 153) [address]: [employer] Messenger/Techni isaiah ID = [id number] for Lorena rush Ondina POCT-GLUCOSE [id number] 11:27:00 Test Item Value Reference Range Interpretation Comments POC-GLUCOSE METER 193 mg/dL 70-110 H : Notified RN/MD: ([facility]) (test code = [facility] 1538[facility], [address]: [employer] Messenger/Techni isaiah ID = [id number] for Hannah Barboza [id number] 10:41:00 Test Item Value Reference Range Interpretation Comments Magnesium (test code = 1.8 mg/dL 1.6-2.6 91385-0) EFFIE (test code = EFFIE) Telegraph Messenger ID - JOJO Moe Lab Interpretation (test Normal code = 21996-6) [facility]08 10:41:00 Test Item Value Reference Range Interpretation Comments MAGNESIUM (BEAKER) (test code = 1.8 mg/dL 1.6-2.6 627) Telegraph Messenger ID - JOJO Moe(CELLAVISION MANUAL DIFF)2020-06-07 09:17:00 Test Item Value Reference Range Interpretation Comments NEUTROPHILS - REL 79 % (CELLAVISION)(BEAKER) (test code = 2816) LYMPHOCYTES - REL 15 % (CELLAVISION)(BEAKER) (test code = 2817) MONOCYTES - REL 2 % (CELLAVISION)(BEAKER) (test code = 2818) EOSINOPHILS - REL 4 % (CELLAVISION)(BEAKER) (test code = 2819) NEUTROPHILS - ABS 6.79 K/ul 1.56-6.13 H (CELLAVISION)(BEAKER) (test code = 2830) LYMPHOCYTES - ABS 1.29 K/ul 1.18-3.74 (CELLAVISION)(BEAKER) (test code = 2831) MONOCYTES - ABS 0.17 K/uL 0.24-0.36 L (CELLAVISION)(BEAKER) (test code = 2832) EOSINOPHILS - ABS 0.34 K/uL 0.04-0.36 (CELLAVISION)(BEAKER) (test code = 2834) TOTAL COUNTED (BEAKER) (test code = 100 1351) WBC MORPHOLOGY (BEAKER) (test code Normal = 487) PLT MORPHOLOGY (BEAKER) (test code Normal = 486) ANISOCYTOSIS (BEAKER) (test code = 1+ few 961) MICROCYTES (BEAKER) (test code = 1+ few 965) ACANTHOCYTES (BEAKER) (test code = 1+ few 471) ARTIFACT (CELLAVISION)(BEAKER) Present (test code = 3432) PLATELET CONCENTRATION Adequate (CELLAVISION)(BEAKER) (test code = 3438) [employer] Messenger ID - Aleah Sheldon comments: Slide comments:POCT-GLUCOSE METER 2020-06-07 07:24:00 Test Item Value Reference Range Interpretation Comments POC-GLUCOSE METER 152 mg/dL 70-110 H : Notified RN/MD: (BEAKER) (test code = TESTED AT [facility] 6720 1538) [facility], [address]: Telegraph Messenger/Techni isaiah ID = [id number] for Hannah Barboza BASIC METABOLIC [id number] 05:25:00 Test Item Value Reference Range Interpretation Comments SODIUM (BEAKER) 143 meq/L 136-145 (test code = 381) POTASSIUM (BEAKER) 4.8 meq/L 3.5-5.1 (test code = 379) CHLORIDE (BEAKER) 109 meq/L 98-107 H (test code = 382) CO2 (BEAKER) (test 26 meq/L 22-29 code = 355) BLOOD UREA NITROGEN 56 mg/dL 7-21 H (BEAKER) (test code = 354) CREATININE (BEAKER) 2.19 mg/dL 0.57-1.25 H (test code = 358) GLUCOSE RANDOM 175 mg/dL 70-105 H (BEAKER) (test code = 652) CALCIUM (BEAKER) 8.9 mg/dL 8.4-10.2 (test code = 697) EGFR (BEAKER) (test 22 mL/min/1.73 ESTIMA AYANNA GFR IS code = 1092) sq m NOT ACCURATE CREATININE CLEARANCE IN PREDICTING GLOMERULAR FILTRATION RATE . ESTIMATED GFR I S NOT APPLICABLE FOR DIALYSIS PATIEN TS. Telegraph Messenger ID - EDASICBC WITH PLATELET COUNT + MANUAL [id number] 04:42:00 Test Item Value Reference Range Interpretation Comments WHITE BLOOD CELL COUNT (BEAKER) 8.6 K/ L 3.5-10.5 (test code = 775) RED BLOOD CELL COUNT (BEAKER) 3.43 M/ L 3.93-5.22 L (test code = 761) HEMOGLOBIN (BEAKER) (test code = 10.5 GM/DL 11.2-15.7 L 410) HEMATOCRIT (BEAKER) (test code = 32.4 % 34.1-44.9 L 411) MEAN CORPUSCULAR VOLUME (BEAKER) 94.5 fL 79.4-94.8 (test code = 753) MEAN CORPUSCULAR HEMOGLOBIN 30.6 pg 25.6-32.2 (BEAKER) (test code = 751) MEAN CORPUSCULAR HEMOGLOBIN CONC 32.4 GM/DL 32.2-35.5 (BEAKER) (test code = 752) RED CELL DISTRIBUTION WIDTH 13.0 % 11.7-14.4 (BEAKER) (test code = 412) PLATELET COUNT (BEAKER) (test 254 K/CU MM 150-450 code = 756) MEAN PLATELET VOLUME (BEAKER) 10.2 fL 9.4-12.3 (test code = 754) NUCLEATED RED BLOOD CELLS 0 /100 WBC 0-0 (BEAKER) (test code = 413) POCT-GLUCOSE [id number] 22:02:00 Test Item Value Reference Range Interpretation Comments POC-GLUCOSE METER 242 mg/dL 70-110 H : TESTED A T [facility] 6720 (BEAKER) (test code = JULIANA [facility]ers [facility], 1538) [address]: Telegraph Messenger/Techni isaiah ID = [id number] for GO TYREE JULIAN POCT-GLUCOSE [id number] 15:14:00 Test Item Value Reference Range Interpretation Comments POC-GLUCOSE METER 174 mg/dL 70-110 H : Notified RN/MD: ([facility]) (test code = TESTED AT [facility] 6720 1538) [facility], [address]: Telegraph Messenger/Techni isaiah ID = [id number] for Si mmons, Hannah (CELLAVISION MANUAL DIFF)2020-06-06 10:10:00 Test Item Value Reference Range Interpretation Comments NEUTROPHILS - REL 78 % (CELLAVISION)(BEAKER) (test code = 2816) LYMPHOCYTES - REL 6 % (CELLAVISION)(BEAKER) (test code = 2817) MONOCYTES - REL 9 % (CELLAVISION)(BEAKER) (test code = 2818) EOSINOPHILS - REL 4 % (CELLAVISION)(BEAKER) (test code = 2819) BASOPHILS - REL 1 % (CELLAVISION)(BEAKER) (test code = 2820) BANDS - REL (CELLAVISION)(BEAKER) 2 % 0-10 (test code = 2826) ATYPICAL LYMPHOCYTES - REL 1 % 0-0 H (CELLAVISION)(BEAKER) (test code = 2829) NEUTROPHILS - ABS 6.86 K/ul 1.56-6.13 H (CELLAVISION)(BEAKER) (test code = 2830) LYMPHOCYTES - ABS 0.53 K/ul 1.18-3.74 L (CELLAVISION)(BEAKER) (test code = 2831) MONOCYTES - ABS 0.79 K/uL 0.24-0.36 H (CELLAVISION)(BEAKER) (test code = 2832) EOSINOPHILS - ABS 0.35 K/uL 0.04-0.36 (CELLAVISION)(BEAKER) (test code = 2834) BASOPHILS - ABS 0.09 K/uL 0.01-0.08 H (CELLAVISION)(BEAKER) (test code = 2835) BANDS - ABS (CELLAVISION)(BEAKER) 0.18 K/uL 0.00-0.80 (test code = 2840) ATYPICAL LYMPHOCYTES - ABS 0.09 K/uL 0.00-0.00 H (CELLAVISION)(BEAKER) (test code = 2858) TOTAL COUNTED (BEAKER) (test code = 100 1351) RBC MORPHOLOGY (BEAKER) (test code Normal = 762) WBC MORPHOLOGY (BEAKER) (test code Normal = 487) PLT MORPHOLOGY (BEAKER) (test code Normal = 486) ARTIFACT (CELLAVISION)(BEAKER) Present (test code = 3432) PLATELET CONCENTRATION Adequate (CELLAVISION)(BEAKER) (test code = 3438) [employer] Messenger ID - Kelly OverholtUser comments: Slide comments: [employer] Messenger ID - Kelly OverholtUser comments: Slide comments:Type and screen, [id number] 04:58:00 Test Item Value Reference Range Interpretation Comments ABO/RH AUTOMATED (BEAKER) (test B POSITIVE code = 2260) Ab Scrn (test code = 890-4) [facility]GATIVE [facility]OL[facility] [id number] 03:43:00 Test Item Value Reference Range Interpretation Comments SODIUM (BEAKER) 139 meq/L 136-145 (test code = 381) POTASSIUM (BEAKER) 4.3 meq/L 3.5-5.1 (test code = 379) CHLORIDE (BEAKER) 106 meq/L 98-107 (test code = 382) CO2 (BEAKER) (test 25 meq/L 22-29 code = 355) BLOOD UREA NITROGEN 51 mg/dL 7-21 H (BEAKER) (test code = 354) CREATININE (BEAKER) 2.08 mg/dL 0.57-1.25 H (test code = 358) GLUCOSE RANDOM 232 mg/dL 70-105 H (BEAKER) (test code = 652) CALCIUM (BEAKER) 8.4 mg/dL 8.4-10.2 (test code = 697) EGFR (JOSHUAAKER) (test 23 mL/min/1.73 ESTIMA AYANNA GFR IS code = 1092) sq m NOT ACCURATE CREATININE CLEARANCE IN PREDICTING GLOMERULAR FILTRATION RATE . ESTIMATED GFR I S NOT APPLICABLE FOR DIALYSIS PATIEN KAREN. [employer] Messenger ID - PIAYA [id number] 02:59:00 Test Item Value Reference Range Interpretation Comments Fibrinogen (test code = 3255-7) 505 mg/dl 225-434 H Lab Interpretation (test code = Abnormal 49095-9) [facility] Center[facility]th[facility] time/[id number] 02:59:00 Test Item Value Reference Interpretation Comments Range Protime (test code = 13.9 See_Comment [Autom ated 8822-2) message] The system which generated this result transmitted reference range : 11.9 - 14.2 seconds. The reference range was not used to interpret this result as normal/abnormal . INR (test code = 1.10 See_Comment [Automated 0431-6) message] The system which generated this result transmitted reference range : <=5.90. The reference range was not used to interpret this result as normal/abnormal . EFFIE (test code = Effective 11/26/2018: EFFIE) PT Reference Range ChangeNew: 11.9-14.2 Previous: 11.7-14.7 RECOMMENDED COUMADIN/WARFARIN INR THERAPY RANGESSTANDARD DOSE: 2.0-3.0 Includes: PROPHYLAXIS for venous thrombosis, systemic embolization; TREATMENT for venous thrombosis and/or pulmonary embolus.HIGH RISK: Target INR is 2.5-3.5 for patients wiht mechanical heart valves. Lab Interpretation Normal (test code = 26366-4) [facility] CenteraPTT2020-12-07 02:59:00 Test Item Value Reference Range Interpretation Comments PTT (test code = 06845-9) 24.8 See_Comment [ Automated message] The system whic h generated this result transmitted ref erence range: 22.5 - 3 6.0 seconds. The re ference range was not u sed to interpret this result as normal/abnor mal. Lab Interpretation (test Normal code = 24652-3) [facility] CenterPROTHROMBIN TIME/[id number] 02:59:00 Test Item Value Reference Range Interpretation Comments PROTIME (BEAKER) (test code = 13.9 seconds 11.9-14.2 759) INR (BEAKER) (test code = 370) 1.10 <=5.90 Effective 11/26/2018: PT Reference Range ChangeNew: 11.9-14.2 Previous: 11.7- 14.7RECOMMENDED COUMADIN/WARFARIN INR THERAPY RANGESSTANDARD DOSE: 2.0-3.0 Includes: PROPHYLAXIS for venous thrombosis, systemic embolization; TREATMENT for venous thrombosis and/or pulmonary embolus.HIGH RISK: Target INR is2.5-3.5 for patients wiht mechanical heart valves.[id number] 02:59:00 Test Item Value Reference Range Interpretation Comments FIBRINOGEN LEVEL (BEAKER) (test 505 mg/dl 225-434 H code = 658) [id number] 02:59:00 Test Item Value Reference Range Interpretation Comments PARTIAL THROMBOPLASTIN TIME 24.8 seconds 22.5-36.0 (BEAKER) (test code = 760) Platelet [id number] 02:51:00 Test Item Value Reference Range Interpretation Comments Platelets (test code = 243 See_Comment [Aut omated message] 777-3) The system [employer] generated this result transmitted ref erence range: 150 - 45 0 K/CU MM. The referen ce range was not u sed to interpret this result as normal/abnor mal. Lab Interpretation (test Normal code = 28182-8) [facility] CenterPLATELET [id number] 02:51:00 Test Item Value Reference Range Interpretation Comments PLATELET COUNT (BEAKER) (test 243 K/CU MM 150-450 code = 756) CBC WITH PLATELET COUNT + MANUAL [id number] 02:51:00 Test Item Value Reference Range Interpretation Comments WHITE BLOOD CELL COUNT (BEAKER) 8.8 K/ L 3.5-10.5 (test code = 775) RED BLOOD CELL COUNT (BEAKER) 3.57 M/ L 3.93-5.22 L (test code = 761) HEMOGLOBIN (BEAKER) (test code = 10.8 GM/DL 11.2-15.7 L 410) HEMATOCRIT (BEAKER) (test code = 32.4 % 34.1-44.9 L 411) MEAN CORPUSCULAR VOLUME (BEAKER) 90.8 fL 79.4-94.8 (test code = 753) MEAN CORPUSCULAR HEMOGLOBIN 30.3 pg 25.6-32.2 (BEAKER) (test code = 751) MEAN CORPUSCULAR HEMOGLOBIN CONC 33.3 GM/DL 32.2-35.5 (BEAKER) (test code = 752) RED CELL DISTRIBUTION WIDTH 12.8 % 11.7-14.4 (BEAKER) (test code = 412) PLATELET COUNT (BEAKER) (test 243 K/CU MM 150-450 code = 756) MEAN PLATELET VOLUME (BEAKER) 10.1 fL 9.4-12.3 (test code = 754) NUCLEATED RED BLOOD CELLS 0 /100 WBC 0-0 (BEAKER) (test code = 413) POCT-GLUCOSE [id number] 21:31:00 Test Item Value Reference Range Interpretation Comments POC-GLUCOSE METER 292 mg/dL 70-110 H : TESTED A T [facility] 6720 (BEAKER) (test code = [facility], 1538) [address]: [employer] Messenger/Techni isaiah ID = [id number] for Venkat WHITTEN Manual [id number] 09:59:00 Test Item Value Reference Range Interpretation Comments % Neutros (manual) (test 71 % code = 1359) % Lymphs (manual) (test 15 % code = 1360) % Monos (manual) (test 8 % code = 1361) % Eos (manual) (test 2 % code = 1362) % Bands (manual) (test 4 % 0-10 code = 1348) # Neutros (manual) (test 6.46 See_Comment [A utomated message] code = 1365) The system [employer] generated this result transmitted ref erence range: 1.80 - 8 .00 K/L. The refe rence range was not u sed to interpret this result as normal/abnor mal. # Lymphs (manual) (test 1.37 See_Comment L [Au tomated message] code = 1366) The system [employer] generated this result transmitted ref erence range: 1.48 - 4 .50 K/L. The refe rence range was not u sed to interpret this result as normal/abnor mal. # Monos (manual) (test 0.73 See_Comment [Aut omated message] code = 1367) The system [employer] generated this result transmitted ref erence range: 0.00 - 1 .30 K/L. The refe rence range was not u sed to interpret this result as normal/abnor mal. # Eos (manual) (test 0.18 See_Comment [Autom ated message] code = 1368) The system [employer] generated this result transmitted ref erence range: 0.00 - 0 .50 K/L. The refe rence range was not u sed to interpret this result as normal/abnor mal. # Bands (manual) (test 0.4 See_Comment [Aut omated message] code = 1349) The system [employer] generated this result transmitted ref erence range: 0.0 - 0. 8 K/L. The refe rence range was not u sed to interpret this result as normal/abnor mal. Total Counted (test code 100 = 1351) Bands plus Segmented 6.83 Neutrophils (test code = 1352) WBC Morphology (test Normal code = 487) Platelet Morphology Normal (test code = 486) RBC Morphology (test Normal code = 762) Lab Interpretation (test Abnormal code = 95531-9) [facility](MANUAL DIFFERENTIAL)2020-06-05 09:59:00 Test Item Value Reference Range Interpretation Comments NEUTROPHILS - REL (DIFF) (BEAKER) 71 % (test code = 1359) LYMPHOCYTES - REL (DIFF) (BEAKER) 15 % (test code = 1360) MONOCYTES - REL (DIFF) (BEAKER) 8 % (test code = 1361) EOSINOPHILS - REL (DIFF) (BEAKER) 2 % (test code = 1362) BANDS - REL (DIFF) (BEAKER) (test 4 % 0-10 code = 1348) NEUTROPHILS - ABS (DIFF) (BEAKER) 6.46 K/ L 1.80-8.00 (test code = 1365) LYMPHOCYTES - ABS (DIFF) (BEAKER) 1.37 K/ L 1.48-4.50 L (test code = 1366) MONOCYTES - ABS (DIFF) (BEAKER) 0.73 K/ L 0.00-1.30 (test code = 1367) EOSINOPHILS - ABS (DIFF) (BEAKER) 0.18 K/ L 0.00-0.50 (test code = 1368) BANDS-ABS (DIFF) (BEAKER) (test 0.4 K/ L 0.0-0.8 code = 1349) TOTAL COUNTED (BEAKER) (test code = 100 1351) BANDS + SEGMENTED NEUTROPHILS 6.83 (BEAKER) (test code = 1352) WBC MORPHOLOGY (BEAKER) (test code Normal = 487) PLT MORPHOLOGY (BEAKER) (test code Normal = 486) RBC MORPHOLOGY (BEAKER) (test code Normal = 762) POCT-GLUCOSE [id number] 09:06:00 Test Item Value Reference Range Interpretation Comments POC-GLUCOSE METER 153 mg/dL 70-110 H : TESTED A T [facility] 6720 (BEAKER) (test code = JULIANA [facility]ers [facility], 1538) [address]: [employer] Messenger/Techni isaiah ID = [id number] for IVELISSE PÉREZ BASIC METABOLIC [id number] 05:48:00 Test Item Value Reference Range Interpretation Comments SODIUM (BEAKER) 142 meq/L 136-145 (test code = 381) POTASSIUM (BEAKER) 4.5 meq/L 3.5-5.1 (test code = 379) CHLORIDE (BEAKER) 108 meq/L 98-107 H (test code = 382) CO2 (BEAKER) (test 24 meq/L 22-29 code = 355) BLOOD UREA NITROGEN 54 mg/dL 7-21 H (BEAKER) (test code = 354) CREATININE (BEAKER) 2.13 mg/dL 0.57-1.25 H (test code = 358) GLUCOSE RANDOM 141 mg/dL 70-105 H (BEAKER) (test code = 652) CALCIUM (BEAKER) 8.9 mg/dL 8.4-10.2 (test code = 697) EGFR (BEAKER) (test 23 mL/min/1.73 ESTIMA AYANNA GFR IS code = 1092) sq m NOT ACCURATE CREATININE CLEARANCE IN PREDICTING GLOMERULAR FILTRATION RATE . ESTIMATED GFR I S NOT APPLICABLE FOR DIALYSIS PATIEN TS. [employer] Messenger ID - PIAYA LCBC WITH PLATELET COUNT + MANUAL [id number] 05:10:00 Test Item Value Reference Range Interpretation Comments WHITE BLOOD CELL COUNT (BEAKER) 9.1 K/ L 3.5-10.5 (test code = 775) RED BLOOD CELL COUNT (BEAKER) 3.59 M/ L 3.93-5.22 L (test code = 761) HEMOGLOBIN (BEAKER) (test code = 10.9 GM/DL 11.2-15.7 L 410) HEMATOCRIT (BEAKER) (test code = 33.8 % 34.1-44.9 L 411) MEAN CORPUSCULAR VOLUME (BEAKER) 94.2 fL 79.4-94.8 (test code = 753) MEAN CORPUSCULAR HEMOGLOBIN 30.4 pg 25.6-32.2 (BEAKER) (test code = 751) MEAN CORPUSCULAR HEMOGLOBIN CONC 32.2 GM/DL 32.2-35.5 (BEAKER) (test code = 752) RED CELL DISTRIBUTION WIDTH 12.7 % 11.7-14.4 (BEAKER) (test code = 412) PLATELET COUNT (BEAKER) (test 247 K/CU MM 150-450 code = 756) MEAN PLATELET VOLUME (BEAKER) 10.3 fL 9.4-12.3 (test code = 754) NUCLEATED RED BLOOD CELLS 0 /100 WBC 0-0 (BEAKER) (test code = 413) POCT-GLUCOSE [id number] 23:48:00 Test Item Value Reference Range Interpretation Comments POC-GLUCOSE METER 232 mg/dL 70-110 H : TESTED A T [facility] 6720 (BEAKER) (test code = [facility], 153) [id number]: Telegraph Messenger/Techni isaiah ID = [id number] for PRINCESS ROYCE JOYA POCT-GLUCOSE [id number] 18:13:00 Test Item Value Reference Range Interpretation Comments POC-GLUCOSE METER 268 mg/dL 70-110 H : TESTED A T [facility] 6720 (BEAKER) (test code = [facility], 153) 20969: [employer] Messenger/Techni isaiah ID = [id number] for SCOTT SCHWARTZWenIVELISSE Lactic acid, [id number] 17:51:00 Test Item Value Reference Range Interpretation Comments Lactate, Venous (test code = 0.99 mmol/L 0.5-2.2 2872) EFIFE (test code = EFFIE) [employer] Messenger ID - DB Lab Interpretation (test Normal code = 44298-8) [facility] [id number] 17:51:00 Test Item Value Reference Range Interpretation Comments LACTATE BLOOD VENOUS (2) (BEAKER) 0.99 mmol/L 0.50-2.20 (test code = 2872) [employer] Messenger ID - DBPOCT-GLUCOSE [id number] 09:22:00 Test Item Value Reference Range Interpretation Comments POC-GLUCOSE METER 125 mg/dL 70-110 H : TESTED A T [facility] 6720 (BEAKER) (test code = [place], 1538) 23336: Telegraph Messenger/Techni isaiah ID = [id number] for IVELISSE PÉREZ (MANUAL DIFFERENTIAL)2020-06-04 08:19:00 Test Item Value Reference Range Interpretation Comments NEUTROPHILS - REL (DIFF) (BEAKER) 60 % (test code = 1359) LYMPHOCYTES - REL (DIFF) (BEAKER) 19 % (test code = 1360) MONOCYTES - REL (DIFF) (BEAKER) 14 % (test code = 1361) EOSINOPHILS - REL (DIFF) (BEAKER) 3 % (test code = 1362) BANDS - REL (DIFF) (BEAKER) (test 4 % 0-10 code = 1348) NEUTROPHILS - ABS (DIFF) (BEAKER) 7.20 K/ L 1.80-8.00 (test code = 1365) LYMPHOCYTES - ABS (DIFF) (BEAKER) 2.28 K/ L 1.48-4.50 (test code = 1366) MONOCYTES - ABS (DIFF) (BEAKER) 1.68 K/ L 0.00-1.30 H (test code = 1367) EOSINOPHILS - ABS (DIFF) (BEAKER) 0.36 K/ L 0.00-0.50 (test code = 1368) BANDS-ABS (DIFF) (BEAKER) (test 0.5 K/ L 0.0-0.8 code = 1349) TOTAL COUNTED (BEAKER) (test code = 100 1351) BANDS + SEGMENTED NEUTROPHILS 7.68 (BEAKER) (test code = 1352) WBC MORPHOLOGY (BEAKER) (test code Normal = 487) PLT MORPHOLOGY (BEAKER) (test code Normal = 486) ANISOCYTOSIS (BEAKER) (test code = 1+ few 961) BASIC METABOLIC [id number] 03:56:00 Test Item Value Reference Range Interpretation Comments SODIUM (BEAKER) 143 meq/L 136-145 (test code = 381) POTASSIUM (BEAKER) 4.0 meq/L 3.5-5.1 (test code = 379) CHLORIDE (BEAKER) 108 meq/L 98-107 H (test code = 382) CO2 (BEAKER) (test 26 meq/L 22-29 code = 355) BLOOD UREA NITROGEN 53 mg/dL 7-21 H (BEAKER) (test code = 354) CREATININE (BEAKER) 2.18 mg/dL 0.57-1.25 H (test code = 358) GLUCOSE RANDOM 51 mg/dL 70-105 L (BEAKER) (test code = 652) CALCIUM (BEAKER) 9.0 mg/dL 8.4-10.2 (test code = 697) EGFR (BEAKER) (test 22 mL/min/1.73 ESTIMA AYANNA GFR IS code = 1092) sq m NOT ACCURATE CREATININE CLEARANCE IN PREDICTING GLOMERULAR FILTRATION RATE . ESTIMATED GFR I S NOT APPLICABLE FOR DIALYSIS PATIEN TS. Telegraph Messenger ID - EDASICBC WITH PLATELET COUNT + MANUAL [id number] 03:34:00 Test Item Value Reference Range Interpretation Comments WHITE BLOOD CELL COUNT (BEAKER) 12.0 K/ L 3.5-10.5 H (test code = 775) RED BLOOD CELL COUNT (BEAKER) 3.75 M/ L 3.93-5.22 L (test code = 761) HEMOGLOBIN (BEAKER) (test code = 11.3 GM/DL 11.2-15.7 410) HEMATOCRIT (BEAKER) (test code = 34.8 % 34.1-44.9 411) MEAN CORPUSCULAR VOLUME (BEAKER) 92.8 fL 79.4-94.8 (test code = 753) MEAN CORPUSCULAR HEMOGLOBIN 30.1 pg 25.6-32.2 (BEAKER) (test code = 751) MEAN CORPUSCULAR HEMOGLOBIN CONC 32.5 GM/DL 32.2-35.5 (BEAKER) (test code = 752) RED CELL DISTRIBUTION WIDTH 12.9 % 11.7-14.4 (BEAKER) (test code = 412) PLATELET COUNT (BEAKER) (test 264 K/CU MM 150-450 code = 756) MEAN PLATELET VOLUME (BEAKER) 10.2 fL 9.4-12.3 (test code = 754) NUCLEATED RED BLOOD CELLS 0 /100 WBC 0-0 (BEAKER) (test code = 413) POCT-GLUCOSE [id number] 23:40:00 Test Item Value Reference Range Interpretation Comments POC-GLUCOSE METER 177 mg/dL 70-110 H : TESTED A T [facility] 67 ([facility]) (test code = [facility], 1538) [id number]: Telegraph Messenger/Techni isaiah ID = [id number] for Michael Hall POCT-GLUCOSE [id number] 18:07:00 Test Item Value Reference Range Interpretation Comments POC-GLUCOSE METER 291 mg/dL 70-110 H : Notified RN/MD: ([facility]) (test code = TESTED AT [place] [address]38) [facility], [address]: Telegraph Messenger/Techni isaiah ID = [id number] for VANESSA BLOOD POCT-GLUCOSE [id number] 12:18:00 Test Item Value Reference Range Interpretation Comments POC-GLUCOSE METER 278 mg/dL 70-110 H : Not[facility] RN/MD: [facility] (test code = TESTED AT [place] [address] 1538) [facility], [address]: Telegraph Messenger/Techni isaiah ID = [id number] for VANESSA BLOOD (CELLAVISION MANUAL DIFF)2020-06-03 10:43:00 Test Item Value Reference Range Interpretation Comments NEUTROPHILS - REL 81 % (CELLAVISION)(BEAKER) (test code = 2816) LYMPHOCYTES - REL 12 % (CELLAVISION)(BEAKER) (test code = 2817) MONOCYTES - REL 1 % (CELLAVISION)(BEAKER) (test code = 2818) EOSINOPHILS - REL 4 % (CELLAVISION)(BEAKER) (test code = 2819) BASOPHILS - REL 1 % (CELLAVISION)(BEAKER) (test code = 2820) METAMYELOCYTES - REL 1 % 0-0 H (CELLAVISION)(BEAKER) (test code = 2821) NEUTROPHILS - ABS 7.21 K/ul 1.56-6.13 H (CELLAVISION)(BEAKER) (test code = 2830) LYMPHOCYTES - ABS 1.07 K/ul 1.18-3.74 L (CELLAVISION)(BEAKER) (test code = 2831) MONOCYTES - ABS 0.09 K/uL 0.24-0.36 L (CELLAVISION)(BEAKER) (test code = 2832) EOSINOPHILS - ABS 0.36 K/uL 0.04-0.36 (CELLAVISION)(BEAKER) (test code = 2834) BASOPHILS - ABS 0.09 K/uL 0.01-0.08 H (CELLAVISION)(BEAKER) (test code = 2835) METAMYELOCYTES - ABS 0.09 K/uL 0.00-0.00 H (CELLAVISION)(BEAKER) (test code = 2836) TOTAL COUNTED (BEAKER) (test code = 100 1351) SMUDGE CELLS (BEAKER) (test code = Present 1371) GIANT PLATELETS (BEAKER) (test code Present = 313) POIKILOCYTES (BEAKER) (test code = 1+ few 966) PLATELET CONCENTRATION Adequate (CELLAVISION)(BEAKER) (test code = 3438) Telegraph Messenger ID - Emerita Coppola comments: Slide comments:SARS-COV2/RT-PCR ([facility])2020-06-03 10:23:00 Test Item Value Reference Range Interpretation Comments SARS-COV2/RT-PCR (test Negative Not Detected, Negative, code = 2122298) See external report for linked test SARS-COV-2 PERFORMING LAB [facility] (test code = 8622229) Negative result for this test determines that SARS-CoV-2 RNA was not present in the specimen above the Limit of Detection (LOD). However, Negative results do not preclude SARS-CoV-2 infection and should not be used as the sole basis for treatment or patient management decisions. Negative results mustbe combined with clinical observations, patient history, and epidemiological information. A false negative result may occur if a specimen is improperly collected, transported or handled. A false negative result should be considered if patient's recent exposures or clinical presentation indicate that COVID-19 (SARS-CoV-2) is likely and diagnostic tests for other causes of illness are negative. Re-testing should be considered in cases of suspected false negatives.The limit of detection for this assay is 800 copies/mL.This SARS CoV-2 test is a real-time RT-PCR test intended for the qualitative detection of nucleic acid from SARS-CoV-2 in a nasopharyngeal swab specimen collected from individuals susp ected of COVID-19 by their healthcare provider.This test has not been Food and Drug Administration (FDA) cleared or approved. This is a modified version of an approved Emergency Use Authorization (EUA) and is in the process of review by the FDA. Once authorized by the FDA, the issued EUA will be effective until the declaration that circumstances exist justifying the authorization of the emergency use of in vitro diagnostic tests for detection and/or diagnosis of COVID-19 is terminated under Section 564(b)(2) of the Act or the EUA is revoked under Section 564(g) of the Act.Fact Sheet for Healthcare Providers:https://www.Hemarina/sites/default/files/product/documents/Fact_Shee p_US_Pzeqzeuok_Ojuy_BQNQ-BrT-9.pdfFact Sheet for Healthcare Patients:https://www.Hemarina/sites/default/files/product/ documents/Asim_Gkrbw_Caltjpfx_Majp_UGRP-JlP-1.pdfPerforming Laboratory:[address], [place] [address]XFUS-YHILYPK METER 2020-06-03 07:48:00 Test Item Value Reference Range Interpretation Comments POC-GLUCOSE METER 187 mg/dL 70-110 H : Notified RN/MD: (STEPHANIE) (test code = TESTED AT [facility] 6720 1538) [facility], [address]: Telegraph Messenger/Techni isaiah ID = [id number] for VANESSA BLOOD [id number] 06:42:00 Test Item Value Reference Range Interpretation Comments MAGNESIUM (BEAKER) (test code = 1.9 mg/dL 1.6-2.6 627) Telegraph Messenger ID - [facility] METABOLIC [id number] 04:37:00 Test Item Value Reference Range Interpretation Comments SODIUM (BEAKER) 142 meq/L 136-145 (test code = 381) POTASSIUM (BEAKER) 4.2 meq/L 3.5-5.1 (test code = 379) CHLORIDE (BEAKER) 107 meq/L 98-107 (test code = 382) CO2 (BEAKER) (test 26 meq/L 22-29 code = 355) BLOOD UREA NITROGEN 51 mg/dL 7-21 H (BEAKER) (test code = 354) CREATININE (BEAKER) 2.29 mg/dL 0.57-1.25 H (test code = 358) GLUCOSE RANDOM 259 mg/dL 70-105 H (BEAKER) (test code = 652) CALCIUM (BEAKER) 9.0 mg/dL 8.4-10.2 (test code = 697) EGFR (BEAKER) (test 21 mL/min/1.73 ESTIMA AYANNA GFR IS code = 1092) sq m NOT ACCURATE CREATININE CLEARANCE IN PREDICTING GLOMERULAR FILTRATION RATE . ESTIMATED GFR I S NOT APPLICABLE FOR DIALYSIS PATIEN TS. Telegraph Messenger ID - ADMINCBC WITH PLATELET COUNT + MANUAL [id number] 04:27:00 Test Item Value Reference Range Interpretation Comments WHITE BLOOD CELL COUNT (BEAKER) 8.9 K/ L 3.5-10.5 (test code = 775) RED BLOOD CELL COUNT (BEAKER) 3.88 M/ L 3.93-5.22 L (test code = 761) HEMOGLOBIN (BEAKER) (test code = 11.9 GM/DL 11.2-15.7 410) HEMATOCRIT (BEAKER) (test code = 36.5 % 34.1-44.9 411) MEAN CORPUSCULAR VOLUME (BEAKER) 94.1 fL 79.4-94.8 (test code = 753) MEAN CORPUSCULAR HEMOGLOBIN 30.7 pg 25.6-32.2 (BEAKER) (test code = 751) MEAN CORPUSCULAR HEMOGLOBIN CONC 32.6 GM/DL 32.2-35.5 (BEAKER) (test code = 752) RED CELL DISTRIBUTION WIDTH 13.0 % 11.7-14.4 (BEAKER) (test code = 412) PLATELET COUNT (BEAKER) (test 263 K/CU MM 150-450 code = 756) MEAN PLATELET VOLUME (BEAKER) 10.1 fL 9.4-12.3 (test code = 754) NUCLEATED RED BLOOD CELLS 0 /100 WBC 0-0 (BEAKER) (test code = 413) POCT-GLUCOSE [id number] 00:22:00 Test Item Value Reference Range Interpretation Comments POC-GLUCOSE METER 293 mg/dL 70-110 H : [facility] (BEAKER) (test code = [place], 1538) [address]: Telegraph Messenger/Techni isaiah ID = [id number] for PRINCESS ROYCE JOYA [id number] 23:51:00 Test Item Value Reference Range Interpretation Comments Rh Factor (test code = 2589) POS ABO Grouping (test code = 2588) [facility] [id number] 23:43:00 Test Item Value Reference Range Interpretation Comments SODIUM (BEAKER) 140 meq/L 136-145 (test code = 381) POTASSIUM (BEAKER) 4.5 meq/L 3.5-5.1 (test code = 379) CHLORIDE (BEAKER) 104 meq/L 98-107 (test code = 382) CO2 (BEAKER) (test 27 meq/L 22-29 code = 355) BLOOD UREA NITROGEN 50 mg/dL 7-21 H (BEAKER) (test code = 354) CREATININE (BEAKER) 2.42 mg/dL 0.57-1.25 H (test code = 358) GLUCOSE RANDOM 300 mg/dL 70-105 H (BEAKER) (test code = 652) CALCIUM (BEAKER) 8.8 mg/dL 8.4-10.2 (test code = 697) EGFR (BEAKER) (test 19 mL/min/1.73 ESTIMA AYANNA GFR IS code = 1092) sq m NOT ACCURATE CREATININE CLEARANCE IN PREDICTING GLOMERULAR FILTRATION RATE . ESTIMATED GFR I S NOT APPLICABLE FOR DIALYSIS PATIEN TS. Telegraph Messenger ID - BSCBC (Hemogram only)2020-06-02 23:19:00 Test Item Value Reference Range Interpretation Comments WBC (test code = 6690-2) 9.8 See_Comment [A utomated message] The system [employer] generated this result transmitted ref erence range: 3.5 - 10 .5 K/L. The refe rence range was not u sed to interpret this result as normal/abnor mal. RBC (test code = 789-8) 4.09 See_Comment [Au tomated message] The system [employer] generated this result transmitted ref erence range: 3.93 - 5 .22 M/L. The refe rence range was not u sed to interpret this result as normal/abnor mal. MCHC (test code = 786-4) 32.5 See_Comment [A utomated message] The system [employer] generated this result transmitted ref erence range: 32.2 - 3 5.5 GM/DL. The refe rence range was not u sed to interpret this result as normal/abnor mal. Hematocrit (test code = 38.5 % 34.1-44.9 4544-3) MCV (test code = 787-2) 94.1 fL 79.4-94.8 MCH (test code = 785-6) 30.6 pg 25.6-32.2 RDW (test code = 788-0) 13.1 % 11.7-14.4 Platelets (test code = 265 See_Comment [Aut omated message] 777-3) The system [employer] generated this result transmitted ref erence range: 150 - 45 0 K/CU MM. The referen ce range was not u sed to interpret this result as normal/abnor mal. MPV (test code = 39977-8) 10.4 fL 9.4-12.3 nRBC (test code = 413) 0 See_Comment [Aut omated message] The system [employer] generated this result transmitted ref erence range: 0 - 0 /1 00 WBC. The refere nce range was not u sed to interpret this result as normal/abnor mal. Lab Interpretation (test Normal code = 55790-1) [facility] (HEMOGRAM ONLY)2020-06-02 23:19:00 Test Item Value Reference Range Interpretation Comments WHITE BLOOD CELL COUNT (BEAKER) 9.8 K/ L 3.5-10.5 (test code = 775) RED BLOOD CELL COUNT (BEAKER) 4.09 M/ L 3.93-5.22 (test code = 761) HEMOGLOBIN (BEAKER) (test code = 12.5 GM/DL 11.2-15.7 410) HEMATOCRIT (BEAKER) (test code = 38.5 % 34.1-44.9 411) MEAN CORPUSCULAR VOLUME (BEAKER) 94.1 fL 79.4-94.8 (test code = 753) MEAN CORPUSCULAR HEMOGLOBIN 30.6 pg 25.6-32.2 (BEAKER) (test code = 751) MEAN CORPUSCULAR HEMOGLOBIN CONC 32.5 GM/DL 32.2-35.5 (BEAKER) (test code = 752) RED CELL DISTRIBUTION WIDTH 13.1 % 11.7-14.4 (BEAKER) (test code = 412) PLATELET COUNT (BEAKER) (test 265 K/CU MM 150-450 code = 756) MEAN PLATELET VOLUME (BEAKER) 10.4 fL 9.4-12.3 (test code = 754) NUCLEATED RED BLOOD CELLS 0 /100 WBC 0-0 (BEAKER) (test code = 413) RAD, CHEST, 1 VIEW, NON [id number] 22:19:00Reason for exam:->respiratory insufficiencyShould this be performed at the bedside?->Yes [facility] : 1945 Sex: FFINAL REPORT CLINICAL INDICATION: Respiratory divisions a Comparison: 06/01/2020 The patient is rotated to the left. A transvenous pacer lead from a femoral approach has its tip overlying the left lower cardiac silhouette. The cardiomediastinal contours are otherwise stable. The lung volumes are slightly decreased when compared to previous. There is worsening central vascular engorgement and bilateral perihilar interstitial and airspace opacity, suggesting worsening atelectasis and edema.. There is no pneumothorax. Signed: [facility] Verified Date/Time: 06/02/2020 22:19:39 XR chest 1 view portable / [id number] 22:19:00Interface, External Ris In - 06/02/2020 10:21 PM CSTFINAL REPORT CLINICAL INDICATION: Respiratory divisions a Comparison: 06/01/2020 The patient is rotated to the left. A transvenous pacer lead from a femoral approach has its tip overlying the left lower cardiac silhouette. The cardiomediastinal contours are otherwise stable. The lung volumes are slightly decreased when compared to previous. There is worsening central vascular engorgement and bilateral perihilar interstitial and airspace opacity, suggesting worsening atelectasis and edema.. There is no pneumothorax. Signed: Jodee Benitez MDReport Verified Date/Time: 06/02/2020 22:19:39 [facility] [id number] 21:59:00 Test Item Value Reference Range Interpretation Comments POC-GLUCOSE METER 172 mg/dL 70-110 H : TESTED A T [facility] 6720 (BEAKER) (test code = [place] [facility], 1538) [id number]: Telegraph Messenger/Techni isaiah ID = [id number] for TYREE BREEN (CELLAVISION MANUAL DIFF)2020-06-02 16:22:00 Test Item Value Reference Range Interpretation Comments NEUTROPHILS - REL 71 % (CELLAVISION)(BEAKER) (test code = 2816) LYMPHOCYTES - REL 20 % (CELLAVISION)(BEAKER) (test code = 2817) MONOCYTES - REL 7 % (CELLAVISION)(BEAKER) (test code = 2818) EOSINOPHILS - REL 2 % (CELLAVISION)(BEAKER) (test code = 2819) ATYPICAL LYMPHOCYTES - REL 1 % 0-0 H (CELLAVISION)(BEAKER) (test code = 2829) NEUTROPHILS - ABS 6.25 K/ul 1.56-6.13 H (CELLAVISION)(BEAKER) (test code = 2830) LYMPHOCYTES - ABS 1.76 K/ul 1.18-3.74 (CELLAVISION)(BEAKER) (test code = 2831) MONOCYTES - ABS 0.62 K/uL 0.24-0.36 H (CELLAVISION)(BEAKER) (test code = 2832) EOSINOPHILS - ABS 0.18 K/uL 0.04-0.36 (CELLAVISION)(BEAKER) (test code = 2834) ATYPICAL LYMPHOCYTES - ABS 0.09 K/uL 0.00-0.00 H (CELLAVISION)(BEAKER) (test code = 2858) TOTAL COUNTED (BEAKER) (test code = 100 1351) WBC MORPHOLOGY (BEAKER) (test code Normal = 487) GIANT PLATELETS (BEAKER) (test code Present = 313) POIKILOCYTES (BEAKER) (test code = 1+ few 966) LUCIO CELLS (BEAKER) (test code = 1+ few 474) ARTIFACT (CELLAVISION)(BEAKER) Present (test code = 3432) PLATELET CONCENTRATION Adequate (CELLAVISION)(BEAKER) (test code = 3438) Telegraph Messenger ID - Arlette Escudero comments: Slide comments:ECG 12 [id number] 15:29:27Interface, External Ris In - 06/02/2020 3:29 PM CSTVentricular Rate 59 BPMAtrial Rate 59 BPMP-R Interval 226 msQRS Duration 160 msQ-T Interval 484 msQTC Calculation(Bazett) 479 msP Cameron 47 degreesR Cameron -59 degreesT Cameron 82 degreesSinus bradycardia with 1st degree A-V block and Premature ventricular c omplexes or Fusion complexesRight bundle branch blockLeft anterior fascicular block Bifascicular block Left ventricular hypertrophy with repolarization abnormalityAbnormal ECGWhen compared with ECGof 30-MAY-2020 07:57,Significant changes have occurredConfirmed by MD Camarena Roberto ([id number])on 06/02/2020 3:29:25 [facility] [id number] 12:31:00 Test Item Value Reference Range Interpretation Comments POC-GLUCOSE METER 160 mg/dL 70-110 H : TESTED A T [facility] 6720 (BEAKER) (test code [facility], = 1538) [address]: Telegraph Messenger/Techni isaiah ID = [id number] for TSEG GAI, TSIGHEREDA POCT-P2Y12 PLATELET [id number] 10:13:00 Test Item Value Reference Range Interpretation Comments POC-P2Y12 Plt Agg 36 PRU (test code = 2303) EFFIE (test code = RANGE INFORMATION: PRU EFFIE) reference range is 194-418. Post Drug Results: Lower PRU levels are associated with expected antiplatelet effect. Values may be below the stated reference range above. The post-drug PRU values reported in the VerifyNow P2Y12 package insert are [id number]. [facility] PL[facility]LET [id number] 10:13:00 Test Item Value Reference Range Interpretation Comments POC-P2Y12 PLATELET AGG (BEAKER) (test 36 PRU code = 2303) RANGE INFORMATION: PRU reference range is 194-418. Post Drug Results: Lower PRU levels are associated with expected antiplatelet effect. Values may be below the stated reference range above. The post-drug PRU values reported in the VerifyNow P2Y12 package insert are [id number].POCT-GLUCOSE [id number] 08:56:00 Test Item Value Reference Range Interpretation Comments POC-GLUCOSE METER 150 mg/dL 70-110 H : [facility] (BEAKER[facility] (test code [facility], = 1538) [address]: Telegraph Messenger/Techni isaiah ID = [id number] for GUSTAVO BARAJAS BASIC METABOLIC [id number] 05:56:00 Test Item Value Reference Range Interpretation Comments SODIUM (BEAKER) 141 meq/L 136-145 (test code = 381) POTASSIUM (BEAKER) 4.3 meq/L 3.5-5.1 (test code = 379) CHLORIDE (BEAKER) 108 meq/L 98-107 H (test code = 382) CO2 (BEAKER) (test 24 meq/L 22-29 code = 355) BLOOD UREA NITROGEN 56 mg/dL 7-21 H (BEAKER) (test code = 354) CREATININE (BEAKER) 2.44 mg/dL 0.57-1.25 H (test code = 358) GLUCOSE RANDOM 182 mg/dL 70-105 H (BEAKER) (test code = 652) CALCIUM (BEAKER) 9.0 mg/dL 8.4-10.2 (test code = 697) EGFR (BEAKER) (test 19 mL/min/1.73 ESTIMA AYANNA GFR IS code = 1092) sq m NOT ACCURATE CREATININE CLEARANCE IN PREDICTING GLOMERULAR FILTRATION RATE . ESTIMATED GFR I S NOT APPLICABLE FOR DIALYSIS PATIEN TS. Telegraph Messenger ID - [place] MPOCT-ASPIRIN PLATELET [id number] 05:39:00 Test Item Value Reference Range Interpretation Comments POC-Aspirin Plt Agg 444 ARU (test code = 2302) EFFIE (test code = RANGE INFORMATION: 350-549 EFFIE) ARU Therapeutic range for platelet function. 550-700 ARU Non-Therapeutic range for platelet function. [facility]PO[facility] PL[facility] [id number] 05:39:00 Test Item Value Reference Range Interpretation Comments POC-ASPIRIN PLATELET AGG (BEAKER) 444 ARU (test code = 2302) RANGE INFORMATION: 350-549 ARU Therapeutic range for platelet function. 550-700 ARU Non-Therapeutic range for platelet function.POCT-P2Y12 PLATELET [id number] 05:39:00 Test Item Value Reference Range Interpretation Comments POC-P2Y12 PLATELET AGG (BEAKER) (test 245 PRU code = 2303) RANGE INFORMATION: PRU reference range is 194-418. Post Drug Results: Lower PRU levels are associated with expected antiplatelet effect. Values may be below the stated reference range above. The post-drug PRU values reported in the VerifyNow P2Y12 package insert are [id number].CBC WITH PLATELET COUNT + MANUAL [id number] 05:03:00 Test Item Value Reference Range Interpretation Comments WHITE BLOOD CELL COUNT (BEAKER) 8.8 K/ L 3.5-10.5 (test code = 775) RED BLOOD CELL COUNT (BEAKER) 3.84 M/ L 3.93-5.22 L (test code = 761) HEMOGLOBIN (BEAKER) (test code = 11.7 GM/DL 11.2-15.7 410) HEMATOCRIT (BEAKER) (test code = 35.4 % 34.1-44.9 411) MEAN CORPUSCULAR VOLUME (BEAKER) 92.2 fL 79.4-94.8 (test code = 753) MEAN CORPUSCULAR HEMOGLOBIN 30.5 pg 25.6-32.2 (BEAKER) (test code = 751) MEAN CORPUSCULAR HEMOGLOBIN CONC 33.1 GM/DL 32.2-35.5 (BEAKER) (test code = 752) RED CELL DISTRIBUTION WIDTH 13.1 % 11.7-14.4 (BEAKER) (test code = 412) PLATELET COUNT (BEAKER) (test 262 K/CU MM 150-450 code = 756) MEAN PLATELET VOLUME (BEAKER) 10.5 fL 9.4-12.3 (test code = 754) NUCLEATED RED BLOOD CELLS 0 /100 WBC 0-0 (BEAKER) (test code = 413) POCT-GLUCOSE [id number] 21:19:00 Test Item Value Reference Range Interpretation Comments POC-GLUCOSE METER 352 mg/dL 70-110 H : TESTED A T [facility] 6720 ([facility]) (test code = [place] [facility], 1532) [address]: Telegraph Messenger/Techni isaiah ID = [id number] for DE NNIS, VINCENT Treadmill tolerance(Non-Nuclear Treadmill)2020-06-01 17:55:16Interface, External Ris In - 06/01/2020 5:55 PM CSTProtocol Name Regadenoson Time In Exercise Phase 00:01:00 Max. Systolic BP 150 mmHgMax Diastolic BP 134 mmHgMax Heart Rate 67 BPMMax Predicted Heart Rate 145 BPMReason For Termination Predetermined end point Reason for Test Pre Operative Cardiac Clearance Target HR Formula (220 - Age)*100% Arrhythmias none Resting ECG Normal Sinus Rhythm, LAD, LAFB,RBBB ST Changes <1mm ST DEPRESSIONDown slopingOverall Impression Indeterminate due to pharmacological stress Chest Pain none HR Response To Exercise BP Response To Exercise asa,clopidogrel,zetiahydralazine,metoprololConfirmed by fellow Vimal Lynch ([id number]) on 05/31/2020 4:49:37 PMConfirmed by Cristobal HERRERA BASANT ([id number]) on 06/01/2020 5:55:11 [place] [facility]PO[facility] [id number] 17:26:00 Test Item Value Reference Range Interpretation Comments POC-GLUCOSE METER 313 mg/dL 70-110 H : Notified RN/: TESTED (STEPHANIE) (test code AT [facility] [address] [place] = [id number]) [facility], [address]: Telegraph Messenger/Techni isaiah ID = [id number] for TSEG GAI, TSIGHEREDA NV, ANGIOGRAM, [id number] 13:33:00For 05/30Reason for exam:->Right carotid stenosisAnesthesia:->MAC [facility] : 1945 Sex: FFINAL REPORT Date of Procedure: 05/30/2020 Surgeon: OLGA PorterAssistant: Kirill Frank MD Pre-operative diagnosis: Carotid artery stenosisPost-operative diagnosis: Carotid artery stenosis Procedure: Diagnostic cerebral angiogram Anesthesiologist: per anesthesia recordsAnesthesia Type: MAC Complications: None apparent Vessel injections:1. Right radial artery2. Left common carotid artery3. Right common carotid artery Indication for procedure: Patient is [id number] woman with history of CHF, diabetes, CKD, presented with transient left upper extremity weakness, found to have a small subcortical ischemic infarct MRI. An MRA of the neck revealed significant right internal carotid artery stenosis. A diagnostic cerebral angiogram is recommended for further evaluation. Procedure in Detail: Following explanation of the benefits, risks and alternatives forthe procedure, informed consent was obtained from the patient. The risks including but not limited to stroke, intracranial hemorrhage, vascular injury to the cervical or access vessels were discussed. A time-out was performed. Both groins and wrists were prepped in the usual sterile fashion using Chloroprep, and sterilely draped. Access was initiated at the right radial artery under ultrasound guidance (see medical chart for images) and a 5 Italian selective sheath was placed and maintained on heparinized flush. A 5 Italian Ayoub 2 diagnostic catheter was introduced and brought into the aortic arch under fluoroscopic guidance. The diagnostic catheter was used to catheterize left common carotid artery and right common carotid artery. Upon each successive selective catheterization, digital subtraction angiography using the appropriate rate and volume of contrast in multiple projections was perfo rmed. After adequate visualization of all vessels all sheaths and catheters were removed and a Prelude band was used for radial artery hemostasis. The patient was transported to PACU in stable condition Findings: Right Radial Artery (AP)- The sheath enters at the distal wrist and is not visualized. The radial artery and brachial artery and bifurcation are widely patent without evidence of ulceration or stenosis. Left Common Carotid Artery - Cervical (AP, Lateral,)-The origins of the left internal and external carotid arteries are widely patent without evidence of ulceration or stenosis. There is a focal area of mild stenosis of the internal carotid artery related to atherosclerotic changes, measuring 20% by NASCET criteria, approximately 3 cm from the origin. Left Common Carotid Artery - Cranial (AP, Lateral)-The visualized branches of the external carotid artery are normal in course and appearance. There is no evidence of arteriovenous shunting. The capillary and venous phases are normal - The cervical carotid artery is patent without areas of stenosis, dissection or ulceration; and is withoutbranches -The petrous carotid artery is patent without areas of stenosis, dissection or ulceration the mandibulovidian artery is not visualized, no petrosal segment aneurysms -The cavernous carotid artery is patent without areas of stenosis, dissection, or ulceration, meningohypophyseal trunk and inferolateral trunks are not visualized, there are no cavernous segment aneurysms -The supraclinoidal carotid artery, the opthalmic, communicating, and choroidal segments are patent without areas of stenosis and without aneurysms. The posterior communicating artery is normal in appearance, the anterior choroidal artery is visualized. The A1 and M1 segments are visualized and are without stenosis or vasospasm. -The ANGELLA fill physiologically throughout their territory with cross-filling across the anteriorcommunicating artery, with filling of the contralateral distal MCA territory, likely as a result of hyperperfusion from the right internal carotid artery. There is no noted stenosis or vasospasm noted within its branches. There are no noted aneurysms of the pericallosal or callosomarginal branches. There is no evidence of arteriovenous shunting -The MCA's fill physiologically throughout their territory there is no noted stenosis, occlusion or vasospasm noted within its branches. There are no noted aneurysms. There is no evidence of arteriovenous shunting. The capillary phase is normal without areas of malperfusion, the venous phase demonstrates a normal venous draining pattern Right Common Carotid Artery - Cervical (AP, Lateral)-The origins of the right internal and external carotid arteries are widely patent with mild atherosclerotic changes. There is a focal area of near occlusion of the internal carotid artery 1.4 cm distal to the bifurcation with evidence of hemodynamic compromise, with slow filling of the internal carotid compared with the ECA. Right Common Carotid Artery - Cranial(AP, Lateral)-The visualized branches of the external carotid artery are normal in course and appearance. There is no evidence of arteriovenous shunting. The capillary and venous phases are normal -The cervical carotid artery is patent without areas of stenosis, dissection or ulceration; and is without branc hes -The petrous carotid artery is patent without areas of stenosis, dissection or ulceration the mandibulovidian artery is not visualized, no petrosal segment aneurysms -The cavernous carotid artery is patent without areas of stenosis, dissection, or ulceration, meningohypophyseal trunk and inferolateral trunks are not visualized, there are no cavernous segment aneurysms -The supraclinoidal carotidartery, the opthalmic, communicating, and choroidal segments are patent without areas of stenosis and without aneurysms. The posterior communicating artery is large. The origin of the posterior communicating artery is stenotic, likely due to intracranial atherosclerotic disease. The anterior choroidalartery is visualized. The M1 segment is visualized and is without stenosis or vasospasm. -The anterior cerebral artery territory does not fill likely related to competitive flow from the contralateral side across the anterior communicating artery. -The MCA's fill physiologically throughout their territory there is no noted stenosis, occlusion or vasospasm noted within its branches. There is no evidence for aneurysm. There is no evidence of arteriovenous shunting. -Filling in the arterial phase is overall delayed as compared with the left side, suggesting a relative hyperperfusion state. Summary of Findings 1. Near occlusion of the right cervical internal carotid artery (>90% stenosis by NASCET criteria), with evidence of hemodynamic compromise to the right ICA circulation with early filling of the ECA vessels in comparison with the ICA. 2. There is relative hyperperfusion with delayed distal filling of the right internal carotid artery territories. There is collateral flow via the posterior communicating artery and anterior communicating artery. 3. Mild left internal carotid artery stenosis measuring 20% by NASCET criteria. 4. No clinical or radiographic evidence of complications. Signed: Sagar Medina MDReport Verified Date/Time: 06/01/2020 13:33:18 Reading Location: [facility] Y6 NeuroAngio Reading Room NV cerebral 4 vessel [id number] 13:33:00Interface, External Ris In - 06/01/2020 1:35 PM CSTFINAL REPORT Date of Procedure: 05/30/2020 Surgeon: OLGA PorterAssistant: Kirill Frank MD Pre-operative diagnosis: Carotid artery stenosisPost-operative diagnosis: Carotid artery stenosis Procedure: Diagnostic cerebral angiogram Anesthesiologist: per anesthesia recordsAnesthesia Type: MAC Complications: None apparent Vessel injections:1. Right radial artery2. Left common carotid artery3. Right common carotid artery Indication for procedure: Patient is a 74-year-old woman with history of CHF, diabetes, CKD, presentedwith transient left upper extremity weakness, found to have a small subcortical ischemic infarct MRI. An MRA of the neck revealed significant right internal carotid artery stenosis. A diagnostic cerebral angiogram is recommended for further evaluation. Procedure in Detail: Following explanation of thebenefits, risks and alternatives for the procedure, informed consent was obtained from the patient. The risks including but not limited to stroke, intracranial hemorrhage, vascular injury to the cervical or access vessels were discussed. A time-out was performed. Both groins and wrists were prepped in the usual sterile fashion using Chloroprep, and sterilely draped. Access was initiated at the right radial artery under ultrasound guidance (see medical chart for images) and a 5 Italian selective sheath was placed and maintained on heparinized flush. A 5 Italian Ayoub 2 diagnostic catheter was introduced and brought into the aortic arch under fluoroscopic guidance. The diagnostic catheter was used to catheterize left common carotid artery and right common carotid artery. Upon each successive selective catheterization, digital subtraction angiography using the appropriate rate and volume of contrast in multiple projections was performed. After adequate visualization of all vessels all sheaths and catheters were removed and a Prelude band was used for radial artery hemostasis. The patient was transported to PACU in stable condition Findings: Right Radial Artery (AP)-The sheath enters at the distal wrist and is not visualized. The radial artery and brachial artery and bifurcation are widely patent without evidence of ulceration or stenosis. Left Common Carotid Artery - Cervical (AP, Lateral,)-The origins of the left internal and external carotid arteries are widely patent without evidence of ulceration or stenosis. There is a focal area of mild stenosis of the internal carotid artery related to atherosclerotic changes, measuring 20% by NASCET criteria, approximately 3 cm from the origin. L eft Common Carotid Artery - Cranial (AP, Lateral)-The visualized branches of the external carotid artery are normal in course and appearance. There is no evidence of arteriovenous shunting. The capillary and venous phases are normal - The cervical carotid artery is patent without areas of stenosis, dissection or ulceration; and is without branches -The petrous carotid artery is patent without areas ofstenosis, dissection or ulceration the mandibulovidian artery is not visualized, no petrosal segmentaneurysms -The cavernous carotid artery is patent without areas of stenosis, dissection, or ulceration, meningohypophyseal trunk and inferolateral trunks are not visualized, there are no cavernous segme nt aneurysms -The supraclinoidal carotid artery, the opthalmic, communicating, and choroidal segments are patent without areas of stenosis and without aneurysms. The posterior communicating artery is normal in appearance, the anterior choroidal artery is visualized. The A1 and M1 segments are visualized and are without stenosis or vasospasm. -The ANGELLA fill physiologically throughout their territory with cross-filling across the anterior communicating artery, with filling of the contralateral distal MCA territory, likely as a result of hyperperfusion from the right internal carotid artery. There is no noted stenosis or vasospasm noted within its branches. There are no noted aneurysms of the pericallosal or callosomarginal branches. There is no evidence of arteriovenous shunting -The MCA's fill physiologically throughout their territory there is no noted stenosis, occlusion or vasospasm noted within its branches. There are no noted aneurysms. There is no evidence of arteriovenous shunting. The capillary phase is normal without areas of malperfusion, the venous phase demonstrates a normal venousdraining pattern Right Common Carotid Artery - Cervical (AP, Lateral)-The origins of the right internal and external carotid arteries are widely patent with mild atherosclerotic changes. There is a focal area of near occlusion of the internal carotid artery 1.4 cm distal to the bifurcation with evidence of hemodynamic compromise, with slow filling of the internal carotid compared with the ECA. RightCommon Carotid Artery - Cranial(AP, Lateral)-The visualized branches of the external carotid artery are normal in course and appearance. There is no evidence of arteriovenous shunting. The capillary and venous phases are normal -The cervical carotid artery is patent without areas of stenosis, dissection or ulceration; and is without branches - The petrous carotid artery is patent without areas of stenosis, dissection or ulceration the mandibulovidian artery is not visualized, no petrosal segment aneurysms -The cavernous carotid artery is patent without areas of stenosis, dissection, or ulceration, meningohypophyseal trunk and inferolateral trunks are not visualized, there are no cavernous segment aneurysms -The supraclinoidal carotid artery, the opthalmic, communicating, and choroidal segments are patent without areas of stenosis and without aneurysms. The posterior communicating artery is large. The origin of the posterior communicating artery is stenotic, likely due to intracranial atherosclerotic disease. The anterior choroidal artery is visualized. The M1 segment is visualized and is without stenosis or vasospasm. -The anterior cerebral artery territory does not fill likely related to competitive flow from the contralateral side across the anterior communicating artery. -The MCA's fill physiologically throughout their territory there is no noted stenosis, occlusion or vasospasm noted within its branches. There is no evidence for aneurysm. There is no evidence of arteriovenous shunting. -Filling in the arterial phase is overall delayed as compared with the left side, suggesting a relative hyperperfusion state. Summary of Findings 1. Near occlusion of the right cervical internal carotid artery (>90% stenosis by NASCET criteria), with evidence of hemodynamic compromise to the right ICA circulation with early filling of the ECA vessels in comparison with the ICA. 2. There is relative hyperperfusion with delayed distal filling of the right internal carotid artery territories. There is collateral flow via the posterior communicating artery and anterior communicating artery. 3. Mild left internal carotid artery stenosis measuring 20% by NASCET criteria. 4. No clinical or radiographic evidence of complications. Signed: Sagar Medina MDReport Verified Date/Time: 06/01/2020 13:33:18 Reading Location: [facility] Y026 Neuro Angio [facility] 2020-06-01 13:13:00 Test Item Value Reference Range Interpretation Comments SARS-COV2/RT-PCR (test Negative Not Detected, Negative, code = 1074814) See external report for linked test SARS-COV-[address] [facility] (test code = 7995993) Negative result for this test determines that SARS-CoV-2 RNA was not present in the specimen above the Limit of Detection (LOD). However, Negative results do not preclude SARS-CoV-2 infection and should not be used as the sole basis for treatment or patient management decisions. Negative results mustbe combined with clinical observations, patient history, and epidemiological information. A false negative result may occur if a specimen is improperly collected, transported or handled. A false negative result should be considered if patient's recent exposures or clinical presentation indicate that COVID-19 (SARS-CoV-2) is likely and diagnostic tests for other causes of illness are negative. Re-testing should be considered in cases of suspected false negatives.The limit of detection for this assay is 800 copies/mL.This SARS CoV-2 test is a real-time RT-PCR test intended for the qualitative detection of nucleic acid from SARS-CoV-2 in a nasopharyngeal swab specimen collected from individuals susp ected of COVID-19 by their healthcare provider.This test has not been Food and Drug Administration (FDA) cleared or approved. This is a modified version of an approved Emergency Use Authorization (EUA) and is in the process of review by the FDA. Once authorized by the FDA, the issued EUA will be effective until the declaration that circumstances exist justifying the authorization of the emergency use of in vitro diagnostic tests for detection and/or diagnosis of COVID-19 is terminated under Section 564(b)(2) of the Act or the EUA is revoked under Section 564(g) of the Act.Fact Sheet for Healthcare Providers:https://www.AdVolumeidel.com/sites/default/files/product/documents/Fact_Shee j_XQ_Zeyjuocsz_Umjg_SHVQ-OtP-4.pdfFact Sheet for Healthcare Patients:https://www.Volofy.com/sites/default/files/product/ documents/Jvoa_Gzcyb_Tqkjflqs_Reos_LXGR-EiZ-7.pdfPerforming Laboratory:[facility], [place] [address]BSUR-CVYRFCA METER 2020-06-01 12:20:00 Test Item Value Reference Range Interpretation Comments POC-GLUCOSE METER 243 mg/dL 70-110 H : Notified RN/MD: TESTED (BEAKER) (test code AT [facility] [address] = 1538) [facility], [facility] 30: Telegraph Messenger/Techni isaiah ID = [id number] for GUSTAVO BARAJAS (CELLAVISION MANUAL DIFF)2020-06-01 11:53:00 Test Item Value Reference Range Interpretation Comments NEUTROPHILS - REL 70 % (CELLAVISION)(BEAKER) (test code = 2816) LYMPHOCYTES - REL 15 % (CELLAVISION)(BEAKER) (test code = 2817) MONOCYTES - REL 3 % (CELLAVISION)(BEAKER) (test code = 2818) EOSINOPHILS - REL 5 % (CELLAVISION)(BEAKER) (test code = 2819) BANDS - REL (CELLAVISION)(BEAKER) 6 % 0-10 (test code = 2826) NEUTROPHILS - ABS 6.79 K/ul 1.56-6.13 H (CELLAVISION)(BEAKER) (test code = 2830) LYMPHOCYTES - ABS 1.46 K/ul 1.18-3.74 (CELLAVISION)(BEAKER) (test code = 2831) MONOCYTES - ABS 0.29 K/uL 0.24-0.36 (CELLAVISION)(BEAKER) (test code = 2832) EOSINOPHILS - ABS 0.49 K/uL 0.04-0.36 H (CELLAVISION)(BEAKER) (test code = 2834) BANDS - ABS (CELLAVISION)(BEAKER) 0.58 K/uL 0.00-0.80 (test code = 2840) TOTAL COUNTED (BEAKER) (test code = 100 1351) WBC MORPHOLOGY (BEAKER) (test code Normal = 487) PLT MORPHOLOGY (BEAKER) (test code Normal = 486) ANISOCYTOSIS (BEAKER) (test code = 1+ few 961) POIKILOCYTES (BEAKER) (test code = 1+ few 966) ARTIFACT (CELLAVISION)(BEAKER) Present (test code = 4712) PLATELET CONCENTRATION Adequate (CELLAVISION)(BEAKER) (test code = 3438) Telegraph Messenger ID - Kelly OverholtUser comments: Slide comments:RAD, CHEST, 1 VIEW, NON [id number] 09:09:00Reason for exam:->pre-op assessmentShould this be performed at the bedside?->Yes [facility] : 1945 Sex: FFINAL REPORT INDICATION: pre-op assessment COMPARISON: None TECHNIQUE: Single frontal view of the chest. FINDINGS: Lungs and pleura: Clear lungs. No effusion.Heartand mediastinum: Normal heart size. Unremarkable mediastinal contours.Osseous structures: No acute abnormality.Other: None. IMPRESSION: No acute intrathoracic abnormality. Signed: Bernarda Deng Verified Date/Time: 06/01/2020 09:09:03 Reading Location: [facility] Radiology Reading Room POCT-GLUCOSE [id number] 07:58:00 Test Item Value Reference Range Interpretation Comments POC-GLUCOSE METER 123 mg/dL 70-110 H : TESTED A T [facility] 67[address] (BEAKER) (test code [facility], = 1538) [address]: Telegraph Messenger/Techni isaiah ID = [id number] for TSEG GAI, TSIGHEREDA BASIC METABOLIC [id number] 06:32:00 Test Item Value Reference Range Interpretation Comments SODIUM (BEAKER) 140 meq/L 136-145 (test code = 381) POTASSIUM (BEAKER) 4.1 meq/L 3.5-5.1 (test code = 379) CHLORIDE (BEAKER) 106 meq/L 98-107 (test code = 382) CO2 (BEAKER) (test 24 meq/L 22-29 code = 355) BLOOD UREA NITROGEN 60 mg/dL 7-21 H (BEAKER) (test code = 354) CREATININE (BEAKER) 2.80 mg/dL 0.57-1.25 H (test code = 358) GLUCOSE RANDOM 173 mg/dL 70-105 H (BEAKER) (test code = 652) CALCIUM (BEAKER) 8.7 mg/dL 8.4-10.2 (test code = 697) EGFR (BEAKER) (test 16 mL/min/1.73 ESTIMA AYANNA GFR IS code = 1092) sq m NOT ACCURATE CREATININE CLEARANCE IN PREDICTING GLOMERULAR FILTRATION RATE . ESTIMATED GFR I S NOT APPLICABLE FOR DIALYSIS PATIEN TS. Telegraph Messenger ID - ENRICO [facility] WITH PLATELET COUNT + MANUAL [id number] 05:45:00 Test Item Value Reference Range Interpretation Comments WHITE BLOOD CELL COUNT (BEAKER) 9.7 K/ L 3.5-10.5 (test code = 775) RED BLOOD CELL COUNT (BEAKER) 3.67 M/ L 3.93-5.22 L (test code = 761) HEMOGLOBIN (BEAKER) (test code = 11.2 GM/DL 11.2-15.7 410) HEMATOCRIT (BEAKER) (test code = 34.8 % 34.1-44.9 411) MEAN CORPUSCULAR VOLUME (BEAKER) 94.8 fL 79.4-94.8 (test code = 753) MEAN CORPUSCULAR HEMOGLOBIN 30.5 pg 25.6-32.2 (BEAKER) (test code = 751) MEAN CORPUSCULAR HEMOGLOBIN CONC 32.2 GM/DL 32.2-35.5 (BEAKER) (test code = 752) RED CELL DISTRIBUTION WIDTH 13.1 % 11.7-14.4 (BEAKER) (test code = 412) PLATELET COUNT (BEAKER) (test 266 K/CU MM 150-450 code = 756) MEAN PLATELET VOLUME (BEAKER) 10.5 fL 9.4-12.3 (test code = 754) NUCLEATED RED BLOOD CELLS 0 /100 WBC 0-0 (BEAKER) (test code = 413) POCT-GLUCOSE [id number] 21:29:00 Test Item Value Reference Range Interpretation Comments POC-GLUCOSE METER 306 mg/dL 70-110 H : TESTED A [facility]ately[facility] 6720 ([place]ANIE) (test code = [place], 1538) [address]: Telegraph Messenger/Techni isaiah ID = [id number] for LAKSHMI NI PET/CT, CARDIAC PERF REST AND [id number] 17:56:00Reason for exam:- >Preoperative evaluation [facility] : 1945 Sex: FFINAL REPORT PROCEDURE: MYOCARDIAL PERFUSION PET IMAGING (Rest/ Stress)CPT CODE: 21406 INDICATION: Preoperative cardiovascular risk stratification for carotid endarterectomy, obesity BMI=33 CARDIOVASCULAR PROFILE:CAD History: CABGRisk Factors: Diabetes, hypertension, stroke, cerebrovascular disease, obesityBMI: 33Medications: Aspirin, Plavix, Zetia, Hydralazine, Metoprolol STRESS PROTOCOL:Pharmacologic stress was achieved with a 10-second intravenous infusion ofregadenoson 0.4 mg. The radiopharmaceutical was administered 30 seconds after the start of the regadenoson infusion. IMAGING PROTOCOL:Limited low-dose CT imaging was performed for attenuation correction. 40.0 mCi of Rb-82 chloride was injected intravenously at rest, and gated PET images were obtained.Then, 40.0 mCi of Rb-82 chloride was injected intravenously at peak stress, and gated PET images were obtained. Image quality is good. REST FINDINGS:HR: 58/minBP: 141/44 mmHgPrelim. EKG: Normal sinus rhythm, RBBB, LAFB.Perfusion: Mild; apical anterior, apical, apical inferior, and mid inferolateral defects.Wall Motion: Mild inferolateral hypokinesis (LVEF 50%).LV Volume: Normal.RV Volume: Normal. STRESS FINDINGS:HR: 67/min (46% of MPHR)BP: 150/134 mmHgPrelim. EKG: < 1mm ST Depressions, Downsloping .Symptoms: None (treatment not required).Perfusion: Mild to moderate; apical anterior, apical, apical inferior, and inferolateral defects.Wall Motion: Mild inferolateral hypokinesis (LVEF 48%).LV Volume: Not significantly changed from rest. IMPRESSION:1. Abnormal study.2. Abnormal myocardial perfusion. There is a medium sized, mild to moderate severity, mostly fixed perfusion abnormality in the apical/periapical and inferolateral LV.3. Borderline normal resting LVEF, which does not significantly deteriorate with pharmacologic stress.4. Normal extracardiac tracer distribution.5. There is no prior study for comparison. Signed: Rasta Cash MDReport Verified Date/Time: 05/31/2020 17:56:19 Reading Location: [address] Reading Room [place] Myocardial Perfusion Pet/CT (Rest & Stress)2020-05-31 17:56:00Interface, External Ris In - 05/31/2020 5:58 PM CSTFINAL REPORT PROCEDURE: MYOCARDIAL PERFUSION PET IMAGING (Rest/Stress)CPT CODE: 15140 INDICATION: Preoperative cardiovascular risk stratification for carotid endarterectomy, obesity BMI=33 CARDIOVASCULAR PROFILE:CAD History: CABGRisk Factors: Diabetes, hypertension, stroke, cerebrovascular disease, obesityBMI: 33Medications: Aspirin, Plavix, Zetia, Hydralazine, Metoprolol STRESS PROTOCOL:Pharmacologic stress was achieved with a 10-second intravenous infusion of regadenoson 0.4 mg. The radiopharmaceutical was administered 30seconds after the start of the regadenoson infusion. IMAGING PROTOCOL:Limited low-dose CT imaging was performed for attenuation correction. 40.0 mCi of Rb-82 chloride was injected intravenously at rest, and gated PET images were obtained. Then, 40.0 mCi of Rb-82 chloride was injected intravenously at peak stress, and gated PET images were obtained. Image quality is good. REST FINDINGS:HR: 58/minBP: 141/44 mmHgPrelim. EKG: Normal sinus rhythm, RBBB, LAFB.Perfusion: Mild; apical anterior, apical, apical inferior, and mid inferolateral defects.Wall Motion: Mild inferolateral hypokinesis (LVEF 50%).LV Volume: Normal.RV Volume: Normal. STRESS FINDINGS:HR: 67/min (46% of MPHR)BP: 150/134 mmHgPrelim. EKG: < 1mm ST Depressions, Downsloping .Symptoms: None (treatment not required).Perfusion: Mild to moderate; apical anterior, apical, apical inferior, and inferolateral defects.Wall Motion: Mild inferolateral hypokinesis (LVEF 48%).LV Volume: Not significantly changed from rest. IMPRESSION:1. Abnormal study.2. Abnormal myocardial perfusion. There is a medium sized, mild to moderate severity, mostly fixed perfusion abnormality in the apical/periapical and inferolateral LV.3. Borderline normal resting LVEF, which does not significantly deteriorate with pharmacologic stress.4. Normal extracardiac tracer distribution.5. There is no prior study for comparison. Signed: Rasta Cash MDReport Verified Date/Time: 05/31/2020 17:56:19 Reading Location: [address] Reading Room [facility] POCT-GLUCOSE [id number] 17:06:00 Test Item Value Reference Range Interpretation Comments POC-GLUCOSE METER 87 mg/dL 70-110 : TESTED A T [employer] [address] ([place]) (test code = [facility], 1538) [address]: Telegraph Messenger/Techni isaiah ID = [id number] for RODG ERS, ROLAECA POCT-GLUCOSE [id number] 12:23:00 Test Item Value Reference Range Interpretation Comments POC-GLUCOSE METER 110 mg/dL 70-110 : TESTED A T [facility] 67[address] ([place]) (test code = [facility], 1538) [address]: Telegraph Messenger/Techni isaiah ID = [id number] for RO DGERS, JAMECA (CELLAVISION MANUAL DIFF)2020-05-31 11:20:00 Test Item Value Reference Range Interpretation Comments NEUTROPHILS - REL 88 % (CELLAVISION)(BEAKER) (test code = 2816) LYMPHOCYTES - REL 3 % (CELLAVISION)(BEAKER) (test code = 2817) MONOCYTES - REL 4 % (CELLAVISION)(BEAKER) (test code = 2818) EOSINOPHILS - REL 2 % (CELLAVISION)(BEAKER) (test code = 2819) METAMYELOCYTES - REL 1 % 0-0 H (CELLAVISION)(BEAKER) (test code = 2821) ATYPICAL LYMPHOCYTES - REL 2 % 0-0 H (CELLAVISION)(BEAKER) (test code = 2829) NEUTROPHILS - ABS 7.74 K/ul 1.56-6.13 H (CELLAVISION)(BEAKER) (test code = 2830) LYMPHOCYTES - ABS 0.26 K/ul 1.18-3.74 L (CELLAVISION)(BEAKER) (test code = 2831) MONOCYTES - ABS 0.35 K/uL 0.24-0.36 (CELLAVISION)(BEAKER) (test code = 2832) EOSINOPHILS - ABS 0.18 K/uL 0.04-0.36 (CELLAVISION)(BEAKER) (test code = 2834) METAMYELOCYTES - ABS 0.09 K/uL 0.00-0.00 H (CELLAVISION)(BEAKER) (test code = 2836) ATYPICAL LYMPHOCYTES - ABS 0.18 K/uL 0.00-0.00 H (CELLAVISION)(BEAKER) (test code = 2858) TOTAL COUNTED (BEAKER) (test code = 100 1351) WBC MORPHOLOGY (BEAKER) (test code Normal = 487) CLUMPED PLATELETS (BEAKER) (test Present code = 436) ANISOCYTOSIS (BEAKER) (test code = 1+ few 961) MICROCYTES (BEAKER) (test code = 1+ few 965) OVALOCYTES (BEAKER) (test code = 1+ few 477) ACANTHOCYTES (BEAKER) (test code = 1+ few 471) ARTIFACT (CELLAVISION)(BEAKER) Present (test code = 3432) PLATELET CONCENTRATION Adequate (CELLAVISION)(BEAKER) (test code = 3438) Telegraph Messenger ID - Aleah Sheldon comments: Slide comments:POCT-GLUCOSE METER 2020-05-31 08:17:00 Test Item Value Reference Range Interpretation Comments POC-GLUCOSE METER 148 mg/dL 70-110 H : TESTED A T [facility] 6720 (BEAKER) (test code = [place], 1538) [address]: Telegraph Messenger/Techni isaiah ID = [id number] for LAKSHMI NI BASIC METABOLIC [id number] 05:16:00 Test Item Value Reference Range Interpretation Comments SODIUM (BEAKER) 142 meq/L 136-145 (test code = 381) POTASSIUM (BEAKER) 4.9 meq/L 3.5-5.1 (test code = 379) CHLORIDE (BEAKER) 109 meq/L 98-107 H (test code = 382) CO2 (BEAKER) (test 24 meq/L 22-29 code = 355) BLOOD UREA NITROGEN 60 mg/dL 7-21 H (BEAKER) (test code = 354) CREATININE (BEAKER) 2.82 mg/dL 0.57-1.25 H (test code = 358) GLUCOSE RANDOM 217 mg/dL 70-105 H (BEAKER) (test code = 652) CALCIUM (BEAKER) 8.6 mg/dL 8.4-10.2 (test code = 697) EGFR (BEAKER) (test 16 mL/min/1.73 ESTIMA AYANNA GFR IS code = 1092) sq m NOT ACCURATE CREATININE CLEARANCE IN PREDICTING GLOMERULAR FILTRATION RATE . ESTIMATED GFR I S NOT APPLICABLE FOR DIALYSIS PATIEN TS. Telegraph Messenger ID - EDASICBC WITH PLATELET COUNT + MANUAL [id number] 04:32:00 Test Item Value Reference Range Interpretation Comments WHITE BLOOD CELL COUNT (BEAKER) 8.8 K/ L 3.5-10.5 (test code = 775) RED BLOOD CELL COUNT (BEAKER) 3.87 M/ L 3.93-5.22 L (test code = 761) HEMOGLOBIN (BEAKER) (test code = 12.0 GM/DL 11.2-15.7 410) HEMATOCRIT (BEAKER) (test code = 36.3 % 34.1-44.9 411) MEAN CORPUSCULAR VOLUME (BEAKER) 93.8 fL 79.4-94.8 (test code = 753) MEAN CORPUSCULAR HEMOGLOBIN 31.0 pg 25.6-32.2 ([facility]) (test code = 751) MEAN CORPUSCULAR HEMOGLOBIN CONC 33.1 GM/DL 32.2-35.5 ([facility]) (test code = 752) RED CELL DISTRIBUTION WIDTH 13.2 % 11.7-14.4 (AKER) (test code = 412) PLATELET COUNT ([facility]) (test 281 K/CU MM 150-450 code = 756) MEAN PLATELET VOLUME ([facility]) 10.2 fL 9.4-12.3 (test code = 754) NUCLEATED RED BLOOD CELLS 0 /100 WBC 0-0 ([facility]) (test code = 413) POCT-GLUCOSE [id number] 22:05:00 Test Item Value Reference Range Interpretation Comments POC-GLUCOSE METER 313 mg/dL 70-110 H : Notified RN/MD: ([facility]) (test code = TESTED AT [place] [address]) [facility], [address]: Telegraph Messenger/Techni isaiah ID = [id number] for DE NNIS, VINCENT POCT-GLUCOSE [id number] 17:15:00 Test Item Value Reference Range Interpretation Comments POC-GLUCOSE METER 224 mg/dL 70-110 H : TESTED A T [facility] 6720 ([facility]) (test code = [facility], 153) [address]: Telegraph Messenger/Techni isaiah ID = [id number] for RO DGJEANE, ROLAECA POCT-GLUCOSE [id number] 12:35:00 Test Item Value Reference Range Interpretation Comments POC-GLUCOSE METER 132 mg/dL 70-110 H : TESTED A T [facility] 6720 ([facility]) (test code = [facility], 153) [address]: Telegraph Messenger/Techni isaiah ID = [id number] for RO DGERS, ROLAECA (CELLAVISION MANUAL DIFF)2020-05-30 10:25:00 Test Item Value Reference Range Interpretation Comments NEUTROPHILS - REL 68 % (CELLAVISION)(BEAKER) (test code = 2816) LYMPHOCYTES - REL 21 % (CELLAVISION)(BEAKER) (test code = 2817) MONOCYTES - REL 5 % (CELLAVISION)(BEAKER) (test code = 2818) EOSINOPHILS - REL 2 % (CELLAVISION)(BEAKER) (test code = 2819) ATYPICAL LYMPHOCYTES - REL 4 % 0-0 H (CELLAVISION)(BEAKER) (test code = 2829) NEUTROPHILS - ABS 6.73 K/ul 1.56-6.13 H (CELLAVISION)(BEAKER) (test code = 2830) LYMPHOCYTES - ABS 2.08 K/ul 1.18-3.74 (CELLAVISION)(BEAKER) (test code = 2831) MONOCYTES - ABS 0.50 K/uL 0.24-0.36 H (CELLAVISION)(BEAKER) (test code = 2832) EOSINOPHILS - ABS 0.20 K/uL 0.04-0.36 (CELLAVISION)(BEAKER) (test code = 2834) ATYPICAL LYMPHOCYTES - ABS 0.40 K/uL 0.00-0.00 H (CELLAVISION)(BEAKER) (test code = 2858) TOTAL COUNTED (BEAKER) (test code = 100 1351) RBC MORPHOLOGY (BEAKER) (test code Normal = 762) WBC MORPHOLOGY (BEAKER) (test code Normal = 487) PLT MORPHOLOGY (BEAKER) (test code Normal = 486) ARTIFACT (CELLAVISION)(BEAKER) Present (test code = 3432) PLATELET CONCENTRATION Adequate (CELLAVISION)(BEAKER) (test code = 3438) Telegraph Messenger ID - Turner Esposito comments: Slide comments:POCT-GLUCOSE METER 2020-05-30 10:13:00 Test Item Value Reference Range Interpretation Comments POC-GLUCOSE METER 146 mg/dL 70-110 H : TESTED A T [facility] 6720 (BEAKER) (test code = [facility], 1538) [id number]: Telegraph Messenger/Techni isaiah ID = [id number] for Oneil nicolásdNan POCT-GLUCOSE [id number] 08:26:00 Test Item Value Reference Range Interpretation Comments POC-GLUCOSE METER 143 mg/dL 70-110 H : TESTED A T [facility] 6720 (BEAKER) (test code = [facility], 153) [address]: Telegraph Messenger/Techni isaiah ID = [id number] for RO DGERS, JAMECA [id number] 08:07:00 Test Item Value Reference Interpretation Comments Range Protime (test code = 13.3 See_Comment [Autom ated 5902-2) message] The system which generated this result transmitted reference range : 11.9 - 14.2 seconds. The reference range was not used to interpret this result as normal/abnormal . INR (test code = 1.04 See_Comment [Automated 6301-6) message] The system which generated this result transmitted reference range : <=5.90. The reference range was not used to interpret this result as normal/abnormal . PTT (test code = 23.9 See_Comment [Automated 63677-2) message] The system which generated this result transmitted reference range : 22.5 - 36.0 seconds. The reference range was not used to interpret this result as normal/abnormal . EFFIE (test code = Effective 11/26/2018: EFFIE) PT Reference Range ChangeNew: 11.9-14.2 Previous: 11.7-14.7 RECOMMENDED COUMADIN/WARFARIN INR THERAPY RANGESSTANDARD DOSE: 2.0-3.0 Includes: PROPHYLAXIS for venous thrombosis, systemic embolization; TREATMENT for venous thrombosis and/or pulmonary embolus.HIGH RISK: Target INR is 2.5-3.5 for patients wiht mechanical heart valves. Lab Interpretation Normal (test code = 53642-2) [facility][id number] 08:07:00 Test Item Value Reference Range Interpretation Comments PROTIME (BEAKER) (test code = 13.3 seconds 11.9-14.2 759) INR (BEAKER) (test code = 370) 1.04 <=5.90 PARTIAL THROMBOPLASTIN TIME 23.9 seconds 22.5-36.0 (BEAKER) (test code = 760) Effective 11/26/2018: PT Reference Range ChangeNew: 11.9-14.2 Previous: 11.7- 14.7RECOMMENDED COUMADIN/WARFARIN INR THERAPY RANGESSTANDARD DOSE: 2.0-3.0 Includes: PROPHYLAXIS for venous thrombosis, systemic embolization; TREATMENT for venous thrombosis and/or pulmonary embolus.HIGH RISK: Target INR is2.5-3.5 for patients wiht mechanical heart valves.BASIC METABOLIC [id number] 05:36:00 Test Item Value Reference Range Interpretation Comments SODIUM (BEAKER) 139 meq/L 136-145 (test code = 381) POTASSIUM (BEAKER) 3.8 meq/L 3.5-5.1 (test code = 379) CHLORIDE (BEAKER) 104 meq/L 98-107 (test code = 382) CO2 (BEAKER) (test 25 meq/L 22-29 code = 355) BLOOD UREA NITROGEN 60 mg/dL 7-21 H (BEAKER) (test code = 354) CREATININE (BEAKER) 2.59 mg/dL 0.57-1.25 H (test code = 358) GLUCOSE RANDOM 232 mg/dL 70-105 H (BEAKER) (test code = 652) CALCIUM (BEAKER) 8.8 mg/dL 8.4-10.2 (test code = 697) EGFR (BEAKER) (test 18 mL/min/1.73 ESTIMA AYANNA GFR IS code = 1092) sq m NOT ACCURATE CREATININE CLEARANCE IN PREDICTING GLOMERULAR FILTRATION RATE . ESTIMATED GFR I S NOT APPLICABLE FOR DIALYSIS PATIEN TS. Telegraph Messenger ID - EDASICBC WITH PLATELET COUNT + MANUAL [id number] 05:00:00 Test Item Value Reference Range Interpretation Comments WHITE BLOOD CELL COUNT (BEAKER) 9.9 K/ L 3.5-10.5 (test code = 775) RED BLOOD CELL COUNT (BEAKER) 4.21 M/ L 3.93-5.22 (test code = 761) HEMOGLOBIN (BEAKER) (test code = 12.7 GM/DL 11.2-15.7 410) HEMATOCRIT (BEAKER) (test code = 38.3 % 34.1-44.9 411) MEAN CORPUSCULAR VOLUME (BEAKER) 91.0 fL 79.4-94.8 (test code = 753) MEAN CORPUSCULAR HEMOGLOBIN 30.2 pg 25.6-32.2 (BEAKER) (test code = 751) MEAN CORPUSCULAR HEMOGLOBIN CONC 33.2 GM/DL 32.2-35.5 (BEAKER) (test code = 752) RED CELL DISTRIBUTION WIDTH 13.1 % 11.7-14.4 (BEAKER) (test code = 412) PLATELET COUNT (BEAKER) (test 294 K/CU MM 150-450 code = 756) MEAN PLATELET VOLUME (BEAKER) 10.4 fL 9.4-12.3 (test code = 754) NUCLEATED RED BLOOD CELLS 0 /100 WBC 0-0 (BEAKER) (test code = 413) POCT-GLUCOSE [id number] 21:34:00 Test Item Value Reference Range Interpretation Comments POC-GLUCOSE METER 302 mg/dL 70-110 H : TESTED A T [facility] 6720 (BEAKER) (test code = [facility], 1538) [address]: Telegraph Messenger/Techni isaiah ID = [id number] for VERNELL RODRIGUEZ POCT-GLUCOSE [id number] 17:42:00 Test Item Value Reference Range Interpretation Comments POC-GLUCOSE METER 273 mg/dL 70-110 H : TESTED A T [facility] 6720 (BEAKER) (test code = [facility], 1538) [address]: Telegraph Messenger/Techni isaiah ID = [id number] for ROLA NIECA POCT-GLUCOSE [id number] 12:16:00 Test Item Value Reference Range Interpretation Comments POC-GLUCOSE METER 287 mg/dL 70-110 H : TESTED A T [facility] 6720 (BEAKER) (test code = [facility], 1538) [address]: Telegraph Messenger/Techni isaiah ID = [id number] for RO DGROLA CHINGECA (CELLAVISION MANUAL DIFF)2020-05-29 09:45:00 Test Item Value Reference Range Interpretation Comments NEUTROPHILS - REL 67 % (CELLAVISION)(BEAKER) (test code = 2816) LYMPHOCYTES - REL 19 % (CELLAVISION)(BEAKER) (test code = 2817) MONOCYTES - REL 6 % (CELLAVISION)(BEAKER) (test code = 2818) EOSINOPHILS - REL 2 % (CELLAVISION)(BEAKER) (test code = 2819) BANDS - REL (CELLAVISION)(BEAKER) 5 % 0-10 (test code = 2826) NEUTROPHILS - ABS 6.16 K/ul 1.56-6.13 H (CELLAVISION)(BEAKER) (test code = 2830) LYMPHOCYTES - ABS 1.75 K/ul 1.18-3.74 (CELLAVISION)(BEAKER) (test code = 2831) MONOCYTES - ABS 0.55 K/uL 0.24-0.36 H (CELLAVISION)(BEAKER) (test code = 2832) EOSINOPHILS - ABS 0.18 K/uL 0.04-0.36 (CELLAVISION)(BEAKER) (test code = 2834) BANDS - ABS (CELLAVISION)(BEAKER) 0.46 K/uL 0.00-0.80 (test code = 2840) TOTAL COUNTED (BEAKER) (test code = 100 1351) WBC MORPHOLOGY (BEAKER) (test code Normal = 487) PLT MORPHOLOGY (BEAKER) (test code Normal = 486) POLYCHROMATOPHILLIC RBCS(BEAKER) 1+ few (test code = 478) ANISOCYTOSIS (BEAKER) (test code = 1+ few 961) ARTIFACT (CELLAVISION)(BEAKER) Present (test code = 3432) PLATELET CONCENTRATION Adequate (CELLAVISION)(BEAKER) (test code = 3438) Telegraph Messenger ID - Kelly OverholtUser comments: Slide comments:BASIC METABOLIC PANEL 2020-05-29 05:57:00 Test Item Value Reference Range Interpretation Comments SODIUM (BEAKER) 140 meq/L 136-145 (test code = 381) POTASSIUM (BEAKER) 4.2 meq/L 3.5-5.1 (test code = 379) CHLORIDE (BEAKER) 106 meq/L 98-107 (test code = 382) CO2 (BEAKER) (test 24 meq/L 22-29 code = 355) BLOOD UREA NITROGEN 55 mg/dL 7-21 H (BEAKER) (test code = 354) CREATININE (BEAKER) 2.62 mg/dL 0.57-1.25 H (test code = 358) GLUCOSE RANDOM 243 mg/dL 70-105 H (BEAKER) (test code = 652) CALCIUM (BEAKER) 9.1 mg/dL 8.4-10.2 (test code = 697) EGFR (BEAKER) (test 18 mL/min/1.73 ESTIMA AYANNA GFR IS code = 1092) sq m NOT ACCURATE CREATININE CLEARANCE IN PREDICTING GLOMERULAR FILTRATION RATE . ESTIMATED GFR I S NOT APPLICABLE FOR DIALYSIS PATIEN TS. [employer] Messenger ID - EDASICBC WITH PLATELET COUNT + MANUAL [id number] 05:14:00 Test Item Value Reference Range Interpretation Comments WHITE BLOOD CELL COUNT (BEAKER) 9.2 K/ L 3.5-10.5 (test code = 775) RED BLOOD CELL COUNT (BEAKER) 4.01 M/ L 3.93-5.22 (test code = 761) HEMOGLOBIN (BEAKER) (test code = 12.0 GM/DL 11.2-15.7 410) HEMATOCRIT (BEAKER) (test code = 36.5 % 34.1-44.9 411) MEAN CORPUSCULAR VOLUME (BEAKER) 91.0 fL 79.4-94.8 (test code = 753) MEAN CORPUSCULAR HEMOGLOBIN 29.9 pg 25.6-32.2 (BEAKER) (test code = 751) MEAN CORPUSCULAR HEMOGLOBIN CONC 32.9 GM/DL 32.2-35.5 (BEAKER) (test code = 752) RED CELL DISTRIBUTION WIDTH 13.1 % 11.7-14.4 (BEAKER) (test code = 412) PLATELET COUNT (BEAKER) (test 281 K/CU MM 150-450 code = 756) MEAN PLATELET VOLUME (BEAKER) 10.4 fL 9.4-12.3 (test code = 754) NUCLEATED RED BLOOD CELLS 0 /100 WBC 0-0 (BEAKER) (test code = 413) POCT-GLUCOSE [id number] 23:19:00 Test Item Value Reference Range Interpretation Comments POC-GLUCOSE METER 338 mg/dL 70-110 H : TESTED A T [facility] 6720 (BEAKER) (test code = [place], 1538) [address]: Telegraph Messenger/Techni isaiah ID = [id number] for YVES ULIS MVERNELL TORRE (MANUAL DIFFERENTIAL)2020-05-28 10:01:00 Test Item Value Reference Range Interpretation Comments NEUTROPHILS - REL (DIFF) (BEAKER) 69 % (test code = 1359) LYMPHOCYTES - REL (DIFF) (BEAKER) 21 % (test code = 1360) MONOCYTES - REL (DIFF) (BEAKER) 6 % (test code = 1361) EOSINOPHILS - REL (DIFF) (BEAKER) 4 % (test code = 1362) NEUTROPHILS - ABS (DIFF) (BEAKER) 5.87 K/ L 1.80-8.00 (test code = 1365) LYMPHOCYTES - ABS (DIFF) (BEAKER) 1.79 K/ L 1.48-4.50 (test code = 1366) MONOCYTES - ABS (DIFF) (BEAKER) 0.51 K/ L 0.00-1.30 (test code = 1367) EOSINOPHILS - ABS (DIFF) (BEAKER) 0.34 K/ L 0.00-0.50 (test code = 1368) TOTAL COUNTED (BEAKER) (test code = 100 1351) WBC MORPHOLOGY (BEAKER) (test code Normal = 487) PLT MORPHOLOGY (BEAKER) (test code Normal = 486) RBC MORPHOLOGY (BEAKER) (test code Normal = 762) Troponin [id number] 07:15:00 Test Item Value Reference Range Interpretation Comments Troponin I (test code = 0.13 ng/mL 0-0.03 H 24518-2) EFFIE (test code = EFFIE) Troponin I (TnI) levels must be interpreted in the context of the presenting symptoms and the clinical findings. Elevated TnI levels indicate myocardial damage, but are not specific for ischemic heart disease. Elevated TnI levels are seen in patients with other cardiac conditions (including myocarditis and congestive heart failure), and slight TnI elevations occur in patients with other conditions, including sepsis, renal failure, acidosis, acute neurological disease, and persistent tachyarrhythmia.Opera tor ID - EDASI Lab Interpretation (test Abnormal code = 20375-4) [facility] Center[facility] [id number] 07:15:00 Test Item Value Reference Range Interpretation Comments TROPONIN I (BEAKER) (test code = 0.13 ng/mL 0.00-0.03 H 397) Troponin I (TnI) levels must be interpreted in the context of the presenting symptoms and the clinical findings. Elevated TnI levels indicate myocardial damage, but are not specific for ischemic heart disease. Elevated TnI levels are seen in patients with other cardiac conditions (including myocarditis and congestive heart failure), and slight TnI elevations occur in patients with other conditions, including sepsis, renal failure, acidosis, acute neurological disease, and persistent tachyarrhythmia.Telegraph Messenger ID - EDASIBASIC METABOLIC PANEL 2020-05-28 07:12:00 Test Item Value Reference Range Interpretation Comments SODIUM (BEAKER) 141 meq/L 136-145 (test code = 381) POTASSIUM (BEAKER) 4.5 meq/L 3.5-5.1 (test code = 379) CHLORIDE (BEAKER) 107 meq/L 98-107 (test code = 382) CO2 (BEAKER) (test 24 meq/L 22-29 code = 355) BLOOD UREA NITROGEN 49 mg/dL 7-21 H (BEAKER) (test code = 354) CREATININE (BEAKER) 2.28 mg/dL 0.57-1.25 H (test code = 358) GLUCOSE RANDOM 193 mg/dL 70-105 H (BEAKER) (test code = 652) CALCIUM (BEAKER) 9.2 mg/dL 8.4-10.2 (test code = 697) EGFR (BEAKER) (test 21 mL/min/1.73 ESTIMA AYANNA GFR IS code = 1092) sq m NOT ACCURATE CREATININE CLEARANCE IN PREDICTING GLOMERULAR FILTRATION RATE . ESTIMATED GFR I S NOT APPLICABLE FOR DIALYSIS PATIEN TS. [employer] Messenger ID - EDASICBC WITH PLATELET COUNT + MANUAL [id number] 06:53:00 Test Item Value Reference Range Interpretation Comments WHITE BLOOD CELL COUNT (BEAKER) 8.5 K/ L 3.5-10.5 (test code = 775) RED BLOOD CELL COUNT (BEAKER) 3.88 M/ L 3.93-5.22 L (test code = 761) HEMOGLOBIN (BEAKER) (test code = 11.7 GM/DL 11.2-15.7 410) HEMATOCRIT (BEAKER) (test code = 35.6 % 34.1-44.9 411) MEAN CORPUSCULAR VOLUME (BEAKER) 91.8 fL 79.4-94.8 (test code = 753) MEAN CORPUSCULAR HEMOGLOBIN 30.2 pg 25.6-32.2 (BEAKER) (test code = 751) MEAN CORPUSCULAR HEMOGLOBIN CONC 32.9 GM/DL 32.2-35.5 (BEAKER) (test code = 752) RED CELL DISTRIBUTION WIDTH 13.0 % 11.7-14.4 (BEAKER) (test code = 412) PLATELET COUNT (BEAKER) (test 288 K/CU MM 150-450 code = 756) MEAN PLATELET VOLUME (BEAKER) 10.5 fL 9.4-12.3 (test code = 754) NUCLEATED RED BLOOD CELLS 0 /100 WBC 0-0 (BEAKER) (test code = 413) [id number] 14:51:00 Test Item Value Reference Range Interpretation Comments RPR (test code = 13325-0) Nonreactive Nonreactive Lab Interpretation (test code = Normal 93853-9) [facility] Center[facility]PR2020-[facility]-27 14:51:00 Test Item Value Reference Range Interpretation Comments RPR SCREEN (BEAKER) (test code = Nonreactive Nonreactive 420) SARS-COV2/RT-PCR (HS & REF LABS)2020-05-27 11:24:00 Test Item Value Reference Range Interpretation Comments SARS-COV2/RT-PCR (test Negative Not Detected, Negative, code = 2150491) See external report for linked test SARS-COV-[address] [facility] TERI (test code = 7833389) Negative result for this test determines that SARS-CoV-2 RNA was not present in the specimen above the Limit of Detection (LOD). However, Negative results do not preclude SARS-CoV-2 infection and should not be used as the sole basis for treatment or patient management decisions. Negative results mustbe combined with clinical observations, patient history, and epidemiological information. A false negative result may occur if a specimen is improperly collected, transported or handled. A false negative result should be considered if patient's recent exposures or clinical presentation indicate that COVID-19 (SARS-CoV-2) is likely and diagnostic tests for other causes of illness are negative. Re-testing should be considered in cases of suspected false negatives.The limit of detection for this assay is 800 copies/mL.This SARS CoV-2 test is a real-time RT-PCR test intended for the qualitative detection of nucleic acid from SARS-CoV-2 in a nasopharyngeal swab specimen collected from individuals susp ected of COVID-19 by their healthcare provider.This test has not been Food and Drug Administration (FDA) cleared or approved. This is a modified version of an approved Emergency Use Authorization (EUA) and is in the process of review by the FDA. Once authorized by the FDA, the issued EUA will be effective until the declaration that circumstances exist justifying the authorization of the emergency use of in vitro diagnostic tests for detection and/or diagnosis of COVID-19 is terminated under Section 564(b)(2) of the Act or the EUA is revoked under Section 564(g) of the Act.Fact Sheet for Healthcare Providers:https://www.Volofy.[employer]/sites/default/files/product/documents/Fact_Shee g_YV_Rumsawqhs_Brdq_BUHP-EpQ-8.pdfFact Sheet for Healthcare Patients:https://www.Hemarina/sites/default/files/product/ documents/Qgsz_Osneu_Zqelhptn_Jpez_VYFO-OeX-3.pdfPerforming Laboratory:[facility], [place] [address]J Echo W/Doppler(CW/PW/Color)2020-05-27 11:14:26Ejection FractionSLEH ECHO HEARTLAB MKCKESSON CPACSInterface, External Ris In - 05/27/2020 11:14 AM CSTTransthoracic Echocardiography Report (TTE) Demographics Patient Name MARILEE GONZALEZ Date of Study 05/27/2020 JOANN GenderFemale Visit Number [id number] Race Unknown Room Number 2231 Number Date of 1945 Referring Reji Mckeon Physician Age 74 year(s) Organ Grinder Minh Rivera RDCS Vp Clinical Research Royce Copeland RD Interpreting Eben Gonzalez MD PhysicianProcedure Type of Study TTE procedure:2DECHO W DOPPLER(CW/PW/COLOR) (Routine) Indications:Suspected cardiac source of emboli.Clinical HistoryCVA, CHF, CKD, DM, HTN, CADACB C8Wkruhetc Medium: Definity.Height: 64 inches Weight: 86.64 kg (191 lbs) BSA: 1.92 m^2 BMI: 32.78 kg/m^2HR: 55 bpm BP: 194/102mmHg Summary 1. LV is mildly enlarged. LV function is mildly reduced. LVEF is 50-54% 2. Diastology:Grade 2 diastolic dysfunction 3. Normal RV size. RV function is reduced 4. Moderate TR. Estimated PASPis 75-80 mm Hg 5. No pericardial effusion Previous Study No prior studies available for comparison. Signature Findings Technical Quality: Technically adequate exam. Left Ventricle LV endocardium is adequately visualized with IV ultrasound enhancing agent. The left ventricle is chamber size (by vol index) is mildly enlarged (female - LVED 62-70ml/m2). No evidence of LV hypertrophy. Septal motion is abnormal, likely related to prior cardiac surgery . The following segment(s) appear aneurysmal: apical septum, apical inferior . The following segment(s) appear akinetic: basal mid inferolateral . The other segments have low normal contractility. Global LV systolic function lower limits of normal . LVEF by Calle's method of disk assessment is mildly reduced(50-55%) . Grade 2 diastolic dysfunction (moderately increased LA pressure). Left Atrium LA size is severely enlarged (>48 ml/m2) . Right Ventricle RV chamber size is normal . Global RV systolic function is reduced . Right Atrium RA size is normal. Atrial Septum IV saline contrast injection was negative for a PFO (patent foramenovale) at rest and post Valsalva . Aortic Valve Mild AoV cusp thickening abd calcification. No evidence of aortic regurgitation. Mitral Valve Mild mitral annular calcification. Mild MV leaflet thickening. Mild to moderate mitral regurgitation. Tricuspid Valve TV structure is normal. Moderate tricuspid regurgitation. Estimated peak systolic PA pressure is 75- 80 mmHg (severe pulmonary hypertension) . Pulmonic Valve Normal PV structure and function by limited views and Doppler. Aorta Aortic root size (SInus of Valsalva diameter) is normal . Pericardium No pericardial effusion is visualized. IVC/SVC/PA/PV/Pleural The estimated RA pressure by IVC dynamics 5-10mmHg . Chambers/Structures Left Atrium LA Volume: 98.72 ml LA Area: 26.5 cm^2 LA Vol. Index: 51 ml/m^2 Left Ventricle LVIDd: 4.89 cm LV Septum Diastolic: 0.98 cm LV PW Diastolic: 0.92 cm LVEDV Calle's:124.4 ml LVESV Calle's:57.98 ml LVEF Calle's: 53.4 % LVEDVI: 65 ml/m^2 LVESV I: 30 ml/m^2 LVOT Diameter: 2.02 cm Right Atrium RA Area: 16.29 cm^2 Right Ventricle RVOT VTI: 13.19 cm TAPSE: 1.28 cm Aorta Ao Root S of [place].: 3.3 cm Doppler/Quantitative Measurements Mitral Valve MV Peak E-Wave: 1.04 m/s MV Peak A-Wave: 0.7 m/s E/A Ratio: 1.47 Peak Gradient: 4.3 mmHg Deceleration Time: 163.3 msec MV Rigoberto. Peak: Tissue Doppler E' Lateral Velocity: 0.04 m/s E/E': 25.91 Aortic Valve Peak Velocity: 1.34 m/s Mean Velocity: 0.89 m/s Peak Gradient: 7.15 mmHg Mean Gradient: 3.71 mmHg AV Area (continuity): 1.88 cm^2 AV VTI: 35.3 cm AV DVI: 0.59 LVOT Peak Velocity: 0.73 m/s Peak Gradient: 2.16 mmHg Mean Velocity: 0.53 m/s Mean Gradient: 1.28 mmHg LVOT Diameter: 2.02 cm LVOT VTI: 20.69 cm LVOT Area: 3.2 cm^2 LVOT SV:66.27 ml LVOT CO: 3.64 l/min LVOT CI: 1.9 l/min/m^2 Tricuspid Valve TR Velocity: 4.17 m/s TR Gradient: 69.49 mmHgF[facility]FF)2020-05-27 10:07:00 Test Item Value Reference Range Interpretation Comments NEUTROPHILS - REL 81 % (CELLAVISION)(BEAKER) (test code = 2816) LYMPHOCYTES - REL 13 % (CELLAVISION)(BEAKER) (test code = 2817) MONOCYTES - REL 2 % (CELLAVISION)(BEAKER) (test code = 2818) EOSINOPHILS - REL 3 % (CELLAVISION)(BEAKER) (test code = 2819) BASOPHILS - REL 1 % (CELLAVISION)(BEAKER) (test code = 2820) NEUTROPHILS - ABS 7.13 K/ul 1.56-6.13 H (CELLAVISION)(BEAKER) (test code = 2830) LYMPHOCYTES - ABS 1.14 K/ul 1.18-3.74 L (CELLAVISION)(BEAKER) (test code = 2831) MONOCYTES - ABS 0.18 K/uL 0.24-0.36 L (CELLAVISION)(BEAKER) (test code = 2832) EOSINOPHILS - ABS 0.26 K/uL 0.04-0.36 (CELLAVISION)(BEAKER) (test code = 2834) BASOPHILS - ABS 0.09 K/uL 0.01-0.08 H (CELLAVISION)(BEAKER) (test code = 2835) TOTAL COUNTED (BEAKER) (test code = 100 1351) WBC MORPHOLOGY (BEAKER) (test code Normal = 487) PLT MORPHOLOGY (BEAKER) (test code Normal = 486) ANISOCYTOSIS (BEAKER) (test code = 1+ few 961) MICROCYTES (BEAKER) (test code = 1+ few 965) POIKILOCYTES (BEAKER) (test code = 1+ few 966) SPHEROCYTES (BEAKER) (test code = 1+ few 768) ARTIFACT (CELLAVISION)(BEAKER) Present (test code = 3432) PLATELET CONCENTRATION Adequate (CELLAVISION)(BEAKER) (test code = 3438) [employer] Messenger ID - Vaishnavi comments: Slide comments:MR, MRA, BRAIN, WITHOUT CONTRAST 2020-05-27 09:37:00Unlisted Reason for Exam - Click Yes and Enter Reason Below- >NoDeos the patient have an implantedelectronic device?->No [facility] : 1945 Sex: FFINAL REPORT MR, MRA, NECK, WITHOUT IV CONTRAST, MR, MRA, BRAIN, WITHOUT CONTRAST INDICATION: Neuro deficit, acute, stroke suspected TECHNIQUE: Multiplanar, multisequence MR images of the brain. 3-D time of flight MRA of the cranial and cervical circulation. 2-D time of flight MRA of the neck. 3D MIP angiographic post-processing was performed. Stenosis evaluation utilized NASCET criteria. COMPARISON: Noncontrast brain CT of the same date FINDINGS:MRA BRAIN:Internal carotid arteries: Normal flow related enhancement without flow- limiting stenosisMiddle cerebralarteries: Normal flow related enhancement within the bilateral MCA M1-M2 segments without flow limiting stenosisAnterior cerebral arteries: Normal flow-related enhancement within the bilateral ANGELLA A1-A2 segments without flow limiting stenosisBasilar system: Normal flow-related enhancement within the bilateral V4 segments and the basilar artery without flow-limiting stenosis Posterior cerebral arteries: Normal flow-related enhancement within the bilateral WINDOW DISPLAY DESIGNER P1-P2 segments without flow-limiting donna nosisAdditional findings: None. MRA NECK:Common carotid arteries: Unremarkable. Cervical internal carotid arteries: Multifocal severe short segment flow- limiting stenosis of the right cervical internalcarotid artery. Left internal carotid artery. Normal flow-related enhancement without significant donna nosis.Vertebral arteries: Origins are not well-seen. No flow limiting stenosis within the visualizedcervical vertebral arterial segments. Limited assessment of the V3 segment secondary to noncontrast technique. 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 Signed: Bernarda Deng MDReport Verified Date/Time: 05/27/2020 09:37:04 Reading Location: [address] Neuro Reading Room MR, MRA, NECK, WITHOUT IV [id number] 09:37:00Unlisted Reason for Exam - Click Yes and Enter Reason Below->NoDeos the patient have an implantedelectronic device?->[facility] DOB: 1945 Sex: FFINAL REPORT MR, MRA, NECK, WITHOUT IV CONTRAST, MR, MRA, BRAIN , WITHOUT CONTRAST INDICATION: Neuro deficit, acute, stroke suspected TECHNIQUE: Multiplanar, multisequence MR images of the brain. 3-D time of flight MRA of the cranial and cervical circulation. 2-D time of flight MRA of the neck. 3D MIP angiographic post-processing was performed. Stenosis evaluation utilized NASCET criteria. COMPARISON: Noncontrast brain CT of the same date FINDINGS:MRA BRAIN:Internal carotid arteries: Normal flow related enhancement without flow- limiting stenosisMiddle cerebralarteries: Normal flow related enhancement within the bilateral MCA M1-M2 segments without flow limiting stenosisAnterior cerebral arteries: Normal flow-related enhancement within the bilateral ANGELLA A1-A2 segments without flow limiting stenosisBasilar system: Normal flow-related enhancement within the bilateral V4 segments and the basilar artery without flow-limiting stenosis Posterior cerebral arteries: Normal flow-related enhancement within the bilateral WINDOW DISPLAY DESIGNER P1-P2 segments without flow-limiting donna nosisAdditional findings: None. MRA NECK:Common carotid arteries: Unremarkable. Cervical internal carotid arteries: Multifocal severe short segment flow- limiting stenosis of the right cervical internalcarotid artery. Left internal carotid artery. Normal flow-related enhancement without significant donna nosis.Vertebral arteries: Origins are not well-seen. No flow limiting stenosis within the visualizedcervical vertebral arterial segments. Limited assessment of the V3 segment secondary to noncontrast technique. 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 Signed: Bernarda Deng MDReport Verified Date/Time: 05/27/2020 09:37:04 Reading Location: [facility] C013V Neuro Reading Room MRA head without IV [id number] 09:37:00Interface, External Ris In - 05/27/2020 9:39 AM CSTFINAL REPORT MR, MRA, NECK, WITHOUT IV CONTRAST, MR, MRA, BRAIN, WITHOUT CONTRAST INDICATION: Neuro deficit, acute, stroke suspected TECHNIQUE: Multiplanar, multisequence MR images of the brain. 3-D time of flight MRA of the cranial and cervical circulation. 2-D time of flight MRA of the neck. 3D MIP angiographic post-processing was performed. Stenosis evaluation utilized NASCET criteria. COMPARISON: Noncontrast brain CT of the same date FINDINGS:MRA BRAIN:Internal carotid arteries: Normal flow related enhancement without flow-limiting stenosisMiddle cerebral arteries: Normal flow related enhancement within the bilateral MCA M1-M2 segments without flow limiting stenosisAnterior cerebral arteries: Normal flow-related enhancement within the bilateral ANGELLA A1-A2 segments without flow limiting stenosisBasilar system: Normal flow-related enhancement within the bilateral V4 segments and the basilar artery without flow-limiting stenosis Posterior cerebral arteries: Normal flow- related enhancement within the bilateral WINDOW DISPLAY DESIGNER P1-P2 segments without flow- limiting stenosisAdditional findings: None. MRA NECK:Common carotid arteries: Unremarkable. 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 Left internal carotid artery. Normal flow-related enhancement without significant stenosis.Vertebral arteries: Origins are not well-seen. No flow bejarano iting stenosis within the visualized cervical vertebral arterial segments. Limited assessment of theV3 segment secondary to noncontrast technique. 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 Signed: Bernarda Deng MDReport Verified Date/Time: 05/27/2020 09:37:04 Reading Location: [address] Neuro Reading Room Electronicallysigned by: BERNARDA DENG MD on 05/27/2020 09:37 [facility] [id number] 09:37:00 Interface, External Ris In - 05/27/2020 9:39 AM CSTFINAL REPORT MR, MRA, NECK, WITHOUT IV CONTRAST, MR, MRA, BRAIN, WITHOUT CONTRAST INDICATION: Neuro deficit, acute, stroke suspected TECHNIQUE: Multiplanar, multisequence MR images of the brain. 3-D time of flight MRA of the cranial and cervical circulation. 2-D time of flight MRA of the neck. 3D MIP angiographic post-processing was performed. Stenosis evaluation utilized NASCET criteria. COMPARISON: Noncontrast brain CT of the same date FINDINGS:MRA BRAIN:Internal carotid arteries: Normal flow related enhancement without flow-limiting stenosisMiddle cerebral arteries: Normal flow related enhancement within the bilateral MCA M1-M2 segments without flow limiting stenosisAnterior cerebral arteries: Normal flow-related enhancement within the bilateral ANGELLA A1-A2 segments without flow limiting stenosisBasilar system: Normal flow-related enhancement within the bilateral V4 segments and the basilar artery without flow-limiting stenosis Posterior cerebral arteries: Normal flow-related enhancement within the bilateral WINDOW DISPLAY DESIGNER P1-P2 segments without flow-limiting stenosisAdditional findings: None. MRA NECK:Common carotid arteries: Unremarkable. 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 Left internal carotid artery. Normal flow-related enhancement without significant stenosis.Vertebral arteries: Origins are not well-seen. No flow bejarano iting stenosis within the visualized cervical vertebral arterial segments. Limited assessment of theV3 segment secondary to noncontrast technique. 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 Signed: Bernarda Deng MDReport Verified Date/Time: 05/27/2020 09:37:04 Reading Location: [address] Neuro Reading Room Electronicallysigned by: BERNARDA DENG MD on 05/27/2020 09:37 [facility] CenterMR, [facility]RAIN, WITHOUT [id number] 08:05:00 Unlisted Reason for Exam - Click Yes and Enter Reason Below->NoDeos the patient have an implantedelectronic device?->No [facility] : 1945 Sex: FFINAL REPORT MR, BRAIN, WITHOUT CONTRAST INDICATION: Neuro deficit, acute, stroke suspected TECHNIQUE: Multiplanar, multisequence MR imaging of the brain was obtained. COMPARISON: None FINDINGS: Small subcentimeter acute infarct within the right frontal subcortical white matter. Remote infarct of the left cerebellar hemisphere. Midline structures are normally developed. No restricted diffusion to suggest recent ischemic insult. No abnormal susceptibility. Scatter ed T2/FLAIR hyperintense foci within the periventricular and subcortical white matter are nonspecific, however, statistically represent chronic microvascular ischemic changes. No hydrocephalus. Orbits are within normal limits. Prior left lens surgery. No obstructive paranasal sinus disease. IMPRESSION: Small subcentimeter acute infarct within the right frontal subcortical white matter. Remote infarct of the left cerebellar hemisphere. Signed: Bernarda Deng Verified Date/Time: 05/27/202008:05:50 Reading Location: [address] Neuro Reading Room MR brain without IV [id number] 08:05:00Interface, External Ris In - 05/27/2020 8:07 AM CSTFINAL REPORT MR, BRAIN, WITHOUT CONTRAST INDICATION: Neuro deficit, acute, stroke suspected TECHNIQUE: Multiplanar, multisequence MR imaging of the brain was obtained. COMPARISON: None FINDINGS: Small subcentimeter acute infarct within the right frontal subcortical white matter. Remote infarct of the left cerebellar hemisphere. Midline structures are normally developed. No restricted diffusion to suggest recent ischemic insult. No abnormal susceptibility. Scattered T2/FLAIR hyperintense foci within the periventricular and subcortical white matter are nonspecific, however, statistically represent chronic microvascular ischemic changes. No hydrocephalus. Orbits are within normal limits. Prior left lens surgery. No obstructive paranasal sinus disease. IMPRESSION: Small subcentimeter acute infarct within the right frontal subcortical white matter. Remote infarct of the left cerebellar hemisphere. Signed: Bernarda Deng Verified Date/Time: 05/27/2020 08:05:50 Reading Location: [address] Neuro Reading Room [facility] CenterHemoglobin [id number] 07:29:00 Test Item Value Reference Range Interpretation Comments Hemoglobin A1C (test code = 4548-4) 8.8 % 4.3-6.1 H Lab Interpretation (test code = Abnormal 24530-7) [facility] CenterHEMOGLOBIN [id number] 07:29:00 Test Item Value Reference Range Interpretation Comments HEMOGLOBIN A1C (BEAKER) (test code = 8.8 % 4.3-6.1 H 368) BASIC METABOLIC [id number] 05:51:00 Test Item Value Reference Range Interpretation Comments SODIUM (BEAKER) 139 meq/L 136-145 (test code = 381) POTASSIUM (BEAKER) 4.5 meq/L 3.5-5.1 (test code = 379) CHLORIDE (BEAKER) 108 meq/L 98-107 H (test code = 382) CO2 (BEAKER) (test 23 meq/L 22-29 code = 355) BLOOD UREA NITROGEN 47 mg/dL 7-21 H (BEAKER) (test code = 354) CREATININE (BEAKER) 2.07 mg/dL 0.57-1.25 H (test code = 358) GLUCOSE RANDOM 217 mg/dL 70-105 H (BEAKER) (test code = 652) CALCIUM (BEAKER) 9.0 mg/dL 8.4-10.2 (test code = 697) EGFR (BEAKER) (test 23 mL/min/1.73 ESTIMA AYANNA GFR IS code = 1092) sq m NOT ACCURATE CREATININE CLEARANCE IN PREDICTING GLOMERULAR FILTRATION RATE . ESTIMATED GFR I S NOT APPLICABLE FOR DIALYSIS PATIEN TS. [employer] Messenger ID - EDASITROPONIN [id number] 05:49:00 Test Item Value Reference Range Interpretation Comments TROPONIN I (BEAKER) (test code = 0.14 ng/mL 0.00-0.03 H 397) Troponin I (TnI) levels must be interpreted in the context of the presenting symptoms and the clinical findings. Elevated TnI levels indicate myocardial damage, but are not specific for ischemic heart disease. Elevated TnI levels are seen in patients with other cardiac conditions (including myocarditis and congestive heart failure), and slight TnI elevations occur in patients with other conditions, including sepsis, renal failure, acidosis, acute neurological disease, and persistent tachyarrhythmia.[employer] Messenger ID - EDASILipid [id number] 05:42:00 Test Item Value Reference Range Interpretation Comments Triglycerides (test 176 mg/dL code = 2571-8) Cholesterol (test code 189 mg/dL = 2093-3) HDL (test code = 24 mg/dL 5-9) LDL Calculated (test 130 mg/dL code = 73096-4) EFFIE (test code = EFFIE) Triglyceride Reference Range: Low Risk <150 Borderline 150-199 High Risk 200-499 Very High Risk >=500 Cholesterol Reference Range: Low Risk <200 Borderline 200-239 High Risk >240 HDL Cholesterol Reference Range: Low Risk >=60 High Risk <40 LDL Cholesterol Reference Range: Optimal <100 Near Optimal 100-129 Borderline 130-159 High 160-189 Very High >=190 Telegraph Messenger ID - LEE HARRISON [facility] CenterLIPID [id number] 05:42:00 Test Item Value Reference Range Interpretation Comments TRIGLYCERIDES (BEAKER) (test code = 176 mg/dL 540) CHOLESTEROL (BEAKER) (test code = 189 mg/dL 631) HDL CHOLESTEROL (BEAKER) (test code 24 mg/dL = 976) LDL CHOLESTEROL CALCULATED (BEAKER) 130 mg/dL (test code = 633) Triglyceride Reference Range: Low Risk <150 Borderline 150-199 High Risk 200-499 Very High Risk >=500Cholesterol Reference Range: Low Risk <200 Borderline 200-239 High Risk >240HDL Cholesterol Reference Range: Low Risk >=60 High Risk <40LDL Cholesterol Reference Range: Optimal <100 Near Optimal 100-129 Borderline 130-159 High 160-189 Very High >=190 [employer] Messenger ID - EDASICBC WITH PLATELET COUNT + MANUAL [id number] 05:21:00 Test Item Value Reference Range Interpretation Comments WHITE BLOOD CELL COUNT (BEAKER) 8.8 K/ L 3.5-10.5 (test code = 775) RED BLOOD CELL COUNT (BEAKER) 3.76 M/ L 3.93-5.22 L (test code = 761) HEMOGLOBIN (BEAKER) (test code = 11.4 GM/DL 11.2-15.7 410) HEMATOCRIT (BEAKER) (test code = 35.0 % 34.1-44.9 411) MEAN CORPUSCULAR VOLUME (BEAKER) 93.1 fL 79.4-94.8 (test code = 753) MEAN CORPUSCULAR HEMOGLOBIN 30.3 pg 25.6-32.2 (BEAKER) (test code = 751) MEAN CORPUSCULAR HEMOGLOBIN CONC 32.6 GM/DL 32.2-35.5 (BEAKER) (test code = 752) RED CELL DISTRIBUTION WIDTH 13.2 % 11.7-14.4 (BEAKER) (test code = 412) PLATELET COUNT (BEAKER) (test 255 K/CU MM 150-450 code = 756) MEAN PLATELET VOLUME (BEAKER) 10.6 fL 9.4-12.3 (test code = 754) NUCLEATED RED BLOOD CELLS 0 /100 WBC 0-0 (BEAKER) (test code = 413) (CELLAVISION MANUAL DIFF)2020-05-26 19:19:00 Test Item Value Reference Range Interpretation Comments NEUTROPHILS - REL 77 % (CELLAVISION)(BEAKER) (test code = 2816) LYMPHOCYTES - REL 10 % (CELLAVISION)(BEAKER) (test code = 2817) MONOCYTES - REL 2 % (CELLAVISION)(BEAKER) (test code = 2818) EOSINOPHILS - REL 2 % (CELLAVISION)(BEAKER) (test code = 2819) BASOPHILS - REL 2 % (CELLAVISION)(BEAKER) (test code = 2820) BANDS - REL (CELLAVISION)(BEAKER) 1 % 0-10 (test code = 2826) ATYPICAL LYMPHOCYTES - REL 6 % 0-0 H (CELLAVISION)(BEAKER) (test code = 2829) NEUTROPHILS - ABS 7.32 K/ul 1.56-6.13 H (CELLAVISION)(BEAKER) (test code = 2830) LYMPHOCYTES - ABS 0.95 K/ul 1.18-3.74 L (CELLAVISION)(BEAKER) (test code = 2831) MONOCYTES - ABS 0.19 K/uL 0.24-0.36 L (CELLAVISION)(BEAKER) (test code = 2832) EOSINOPHILS - ABS 0.19 K/uL 0.04-0.36 (CELLAVISION)(BEAKER) (test code = 2834) BASOPHILS - ABS 0.19 K/uL 0.01-0.08 H (CELLAVISION)(BEAKER) (test code = 2835) BANDS - ABS (CELLAVISION)(BEAKER) 0.10 K/uL 0.00-0.80 (test code = 2840) ATYPICAL LYMPHOCYTES - ABS 0.57 K/uL 0.00-0.00 H (CELLAVISION)(BEAKER) (test code = 2858) TOTAL COUNTED (BEAKER) (test code = 100 1351) RBC MORPHOLOGY (BEAKER) (test code Normal = 762) WBC MORPHOLOGY (BEAKER) (test code Normal = 487) PLT MORPHOLOGY (BEAKER) (test code Normal = 486) ARTIFACT (CELLAVISION)(BEAKER) Present (test code = 3432) PLATELET CONCENTRATION Adequate (CELLAVISION)(BEAKER) (test code = 3438) [employer] Messenger ID - Brick Shader (created by the system)User comments: Slide comments:Vitamin B12 and [id number] 18:43:00 Test Item Value Reference Range Interpretation Comments Vitamin B12 (test 472 pg/mL 213-816 code = 2132-9) Folate (test code = 19.90 ng/mL See_Comment [Automa ayanna 2284-8) message] The system which generated this result transmit ayanna reference range : >=7.00. The reference range was not used to interpret this result as normal/abnormal . EFFIE (test code = EFFIE) [employer] Messenger ID - DB Lab Interpretation Normal (test code = 52194-9) [facility] CenterVITAMIN B12 AND [id number] 18:43:00 Test Item Value Reference Range Interpretation Comments VITAMIN B12 (BEAKER) (test code = 472 pg/mL 213-816 774) FOLATE (BEAKER) (test code = 362) 19.90 ng/mL >=7.00 [employer] ID - [id number] 18:36:00 Test Item Value Reference Range Interpretation Comments Homocysteine (test code = 15.3 umol/L 5.1-15.4 42635-3) EFFIE (test code = EFFIE) [employer] Messenger ID - DB Lab Interpretation (test Normal code = 48425-6) [facility] CenterTSH/Free T4 If [id number] 18:36:00 Test Item Value Reference Range Interpretation Comments TSH (test code = 1.846 See_Comment [Automated 87743-6) message] The system which generated this result transmit ayanna reference range : 0.350 - 4.940 uIU/mL. The reference range was not used to interpret this result as normal/abnormal . EFFIE (test code = EFFIE) [employer] Messenger ID - DB Lab Interpretation Normal (test code = 01563-7) [facility] CenterHOMOCYSTEINE2020-11-26 18:36:00 Test Item Value Reference Range Interpretation Comments HOMOCYSTEINE (BEAKER) (test code 15.3 umol/L 5.1-15.4 = 642) [employer] Messenger ID - DBTSH/FREE T4 IF [id number] 18:36:00 Test Item Value Reference Range Interpretation Comments THYROID STIMULATING HORMONE 1.846 uIU/mL 0.350-4.940 (BEAKER) (test code = 772) [employer] Messenger ID - DBBASIC METABOLIC [id number] 18:11:00 Test Item Value Reference Range Interpretation Comments SODIUM (BEAKER) 141 meq/L 136-145 (test code = 381) POTASSIUM (BEAKER) 5.0 meq/L 3.5-5.1 (test code = 379) CHLORIDE (BEAKER) 108 meq/L 98-107 H (test code = 382) CO2 (BEAKER) (test 25 meq/L 22-29 code = 355) BLOOD UREA NITROGEN 49 mg/dL 7-21 H (BEAKER) (test code = 354) CREATININE (BEAKER) 2.20 mg/dL 0.57-1.25 H (test code = 358) GLUCOSE RANDOM 225 mg/dL 70-105 H (BEAKER) (test code = 652) CALCIUM (BEAKER) 9.4 mg/dL 8.4-10.2 (test code = 697) EGFR (BEAKER) (test 22 mL/min/1.73 ESTIMA AYANNA GFR IS code = 1092) sq m NOT ACCURATE CREATININE CLEARANCE IN PREDICTING GLOMERULAR FILTRATION RATE . ESTIMATED GFR I S NOT APPLICABLE FOR DIALYSIS PATIEN TS. [employer] Messenger ID - DBTROPONIN [id number] 18:11:00 Test Item Value Reference Range Interpretation Comments TROPONIN I (BEAKER) (test code = 0.16 ng/mL 0.00-0.03 H 397) Troponin I (TnI) levels must be interpreted in the context of the presenting symptoms and the clinical findings. Elevated TnI levels indicate myocardial damage, but are not specific for ischemic heart disease. Elevated TnI levels are seen in patients with other cardiac conditions (including myocarditis and congestive heart failure), and slight TnI elevations occur in patients with other conditions, including sepsis, renal failure, acidosis, acute neurological disease, and persistent tachyarrhythmia.[employer] Messenger ID - DBPOCT-GLUCOSE METER 2020-05-26 18:08:00 Test Item Value Reference Range Interpretation Comments POC-GLUCOSE METER 228 mg/dL 70-110 H : TESTED A T BSC 6720 (BEAKER) (test code = [place], 1538) [address]: Telegraph Messenger/Techni isaiah ID = [id number] for SYLVAIN BARNES CBC WITH PLATELET COUNT + MANUAL [id number] 17:44:00 Test Item Value Reference Range Interpretation Comments WHITE BLOOD CELL COUNT (BEAKER) 9.5 K/ L 3.5-10.5 (test code = 775) RED BLOOD CELL COUNT (BEAKER) 3.92 M/ L 3.93-5.22 L (test code = 761) HEMOGLOBIN (BEAKER) (test code = 11.8 GM/DL 11.2-15.7 410) HEMATOCRIT (BEAKER) (test code = 36.5 % 34.1-44.9 411) MEAN CORPUSCULAR VOLUME (BEAKER) 93.1 fL 79.4-94.8 (test code = 753) MEAN CORPUSCULAR HEMOGLOBIN 30.1 pg 25.6-32.2 (BEAKER) (test code = 751) MEAN CORPUSCULAR HEMOGLOBIN CONC 32.3 GM/DL 32.2-35.5 (BEAKER) (test code = 752) RED CELL DISTRIBUTION WIDTH 13.1 % 11.7-14.4 (BEAKER) (test code = 412) PLATELET COUNT (BEAKER) (test 261 K/CU MM 150-450 code = 756) MEAN PLATELET VOLUME (BEAKER) 10.3 fL 9.4-12.3 (test code = 754) NUCLEATED RED BLOOD CELLS 0 /100 WBC 0-0 (BEAKER) (test code = 413)
[2020-11-11] MEDS ORDERED: NITROGLYCERIN 1 GM PKT TD ONE (07:51)
[2020-11-11] MEDS ORDERED: FAMOTIDINE 20 MG/2 ML VIAL IV ONE (07:52)
[2020-11-11] MEDS ORDERED: FUROSEMIDE 40 MG/4 ML VIAL ONE (07:52)
[2020-11-11] MEDS ORDERED: ASPIRIN 81 MG CHEWABLE TABLET ONE (07:52)
[2020-11-11 08:10] LABS: Absolute Lymphocytes (CBC) 1.5 K/uL (0.7-4.9); Basophils % 1.3 % (0-1.3); Hematocrit 30.5 % (36.0-45.0); Lymphocytes % 14.4 % (15.3-44.8); MPV 8.6 fL (7.6-11.3); Protime INR 1.01; RBC Red Blood Cell Count 3.37 M/uL (3.86-4.86)
[2020-11-11 08:30] LABS: Albumin 3.1 g/dL (3.4-5.0); Bilirubin Direct 0.1 mg/dL (0-0.2); Bilirubin Total 0.4 mg/dL (0.2-1.0); Magnesium 2.4 mg/dL (1.8-2.4); Potassium 4.7 mmol/L (3.5-5.1); Protein, Total 8.1 g/dL (6.4-8.2); Troponin (Emerg Dept Use Only) 0.5 ng/mL (0.0-0.045)
--- NOTE | 2020-11-11 08:45 | RAD REPORT ---
EXAM DESCRIPTION: RAD - Chest Single View - 11/11/2020 8:14 am CLINICAL HISTORY: DYSPNEA Chest pain. COMPARISON: Chest Single View dated 05/26/2020; Chest Single View dated 11/19/2018; Chest Single View dated 11/17/2018; Chest Single View dated 05/25/2018 FINDINGS: Portable technique limits examination quality. Mild interstitial pulmonary edema is seen. The heart is mildly enlarged in size. Postsurgical changes of prior CABG. IMPRESSION: Mild CHF.
--- NOTE | 2020-11-11 08:47 | EDPHYS ---
Physician Documentation [facility] Name: Agata Felix Age: 75 yrs Sex: Female : 1945 Arrival Date: 11/11/2020 Time: 06:49 Bed 6 Private MD: ED Physician Stewart Resendiz HPI: 11/11 07:27 This 75 yrs old Female presents to ER via Wheelchair with complaints of christiano Breathing Difficulty. 07:27 The patient has shortness of breath at rest, with light activity. Onset: The christiano symptoms/episode began/occurred 3 day(s) ago. Duration: The symptoms are continuous, and are steadily getting worse. The patient's shortness of breath has no apparent modifying factors. Associated signs and symptoms: Pertinent positives: non-productive cough. Severity of symptoms: At their worst the symptoms were moderate in the emergency department the symptoms are unchanged. The patient has experienced similar episodes in the past, multiple times. Historical: - Allergies: 07:07 Codeine; bb 07:07 Hydrocodone-Acetaminophen; bb 07:07 Giczxwy-Mic-Kly Reductase Inhibitors; bb 07:07 steroids; bb - Home Meds: 07:07 furosemide 80 mg Oral tab 1 tab once daily [Active]; aspirin 81 mg Oral chew 1 tab once bb daily [Active]; ezetimibe oral 10 mg oral 1 tab once daily [Active]; hydralazine 25 mg Oral tab 1 tab three times a day [Active]; metoprolol tartrate 25 mg Oral tab 1 tab 2 times per day [Active]; biotin 1,000 mcg oral chew daily [Active]; Vitamin D Oral 1,000 unit daily [Active]; magnesium oxide 250 mg Oral tab twice a day [Active]; Vitamin E Oral [Active]; vitamins [Active]; Fish Oil oral 1200 mg oral twice a day [Active]; B-complex [Active]; potassium chloride 10 mEq oral TbER once daily [Active]; Tresiba FlexTouch U-100 100 unit/mL (3 mL) subcutaneous inpn [Active]; omeprazole 20 mg Oral cpDR 1 cap once daily [Active]; - PMHx: 07:07 CHF; Diabetes - NIDDM; Hyperlipidemia; bb - PSHx: 07:07 CABG; bb - Immunization history:: Adult Immunizations up to date. - Social history:: Smoking status: Patient denies any tobacco usage or history of. ROS: 07:28 Constitutional: Negative for fever, chills, and weight loss, Eyes: Negative for injury, christiano pain, redness, and discharge, ENT: Negative for injury, pain, and discharge, Neck: Negative for injury, pain, and swelling, Cardiovascular: Negative for chest pain, palpitations, and edema, Abdomen/GI: Negative for abdominal pain, nausea, vomiting, diarrhea, and constipation, Back: Negative for injury and pain, : Negative for injury, bleeding, discharge, and swelling, Skin: Negative for injury, rash, and discoloration, Neuro: Negative for headache, weakness, numbness, tingling, and seizure, Psych: Negative for depression, anxiety, suicide ideation, homicidal ideation, and hallucinations, Allergy/Immunology: Negative for hives, rash, and allergies, Endocrine: Negative for neck swelling, polydipsia, polyuria, polyphagia, and marked weight changes. 07:28 Respiratory: Positive for cough, dyspnea on exertion, orthopnea, shortness of breath, at rest. 07:28 MS/extremity: Positive for pain, swelling, tenderness, of the right leg and left leg. Exam: 07:28 Constitutional: This is a well developed, well nourished patient who is awake, alert, christiano and in no acute distress. Head/Face: Normocephalic, atraumatic. Eyes: Pupils equal round and reactive to light, extra-ocular motions intact. Lids and lashes normal. Conjunctiva and sclera are non-icteric and not injected. Cornea within normal limits. Periorbital areas with no swelling, redness, or edema. ENT: Nares patent. No nasal discharge, no septal abnormalities noted. Tympanic membranes are normal and external auditory canals are clear. Oropharynx with no redness, swelling, or masses, exudates, or evidence of obstruction, uvula midline. Mucous membranes moist. Neck: Trachea midline, no thyromegaly or masses palpated, and no cervical lymphadenopathy. Supple, full range of motion without nuchal rigidity, or vertebral point tenderness. No Meningismus. Chest/axilla: Normal chest wall appearance and motion. Nontender with no deformity. No lesions are appreciated. Cardiovascular: Regular rate and rhythm with a normal S1 and S2. No gallops, murmurs, or rubs. Normal PMI, no JVD. No pulse deficits. Abdomen/GI: Soft, non-tender, with normal bowel sounds. No distension or tympany. No guarding or rebound. No evidence of tenderness throughout. Back: No spinal tenderness. No costovertebral tenderness. Full range of motion. Female : Normal external genitalia. Neuro: Awake and alert, GCS 15, oriented to person, place, time, and situation. Cranial nerves II-XII grossly intact. Motor strength 5/5 in all extremities. Sensory grossly intact. Cerebellar exam normal. Normal gait. Psych: Awake, alert, with orientation to person, place and time. Behavior, mood, and affect are within normal limits. 07:28 Respiratory: mild respiratory distress is noted, Respirations: no acute changes, that is mild is noted, Breath sounds: rales, that are mild, are located in both bases, rhonchi, that are mild, are scattered, Respiratory rate: 20 07:53 ECG was reviewed by the Attending Physician. christiano Vital Signs: 07:00 BP 155 / 67; Pulse 76; Resp 20 S; Temp 98(O); Pulse Ox 89% on R/A; Weight 86.18 kg (R); bb Height 5 ft. 4 in. (162.56 cm) (R); Pain 2/10; 08:28 BP 181 / 90; Pulse 81; Resp 22; Pulse Ox 100% on 3 lpm NC; ap3 08:45 BP 133 / 73; Pulse 76; Pulse Ox 100% 3 lpm ; ap3 10:10 BP 151 / 81; Pulse 60; Resp 18; Pulse Ox 96% on R/A; jl7 11:37 BP 151 / 81; Pulse 58; Pulse Ox 96% on R/A; ap3 07:00 Body Mass Index 32.61 (86.18 kg, 162.56 cm) bb 10:10 Pt removed nasal cannula, states "I usually just wear it at night." Denies discomfort jl7 MDM: 07:18 Patient medically screened. christiano 07:30 Differential diagnosis: Anemia CHF exacerbation, pulmonary edema. Antibiotic christiano administration: Not indicated. The patient's Wells Deep Vein Thrombosis Score was calculated as follows: Total Score: 0-2 Pts- Low Risk. The patient's pulmonary embolism risk score was calculated as follows: Total Score: 0-2 points. This patient was found to be at low risk for a pulmonary embolism by using the Well's assessment criteria. Immunization status: Pneumococcal vaccine: Influenza vaccine: Data reviewed: vital signs, nurses notes, lab test result(s), EKG, radiologic studies. Data interpreted: clinical pharmacologist: rate is 76 beats/min, rhythm is regular, Pulse oximetry: on room air is 89 %. Test interpretation: by ED physician or midlevel provider: ECG, plain radiologic studies. Counseling: I had a detailed discussion with the patient and/or guardian regarding: the historical points, exam findings, and any diagnostic results supporting the discharge/admit diagnosis, lab results. 11/11 07:26 Order name: Basic Metabolic Panel [facility] 11/11 07:26 Order name: CBC with Diff [facility] 11/11 07:26 Order name: LFT's; Complete Time: 08:37 [facility] 11/11 07:26 Order name: Magnesium; Complete Time: 08:37 [facility] 11/11 07:26 Order name: NT PRO-BNP; Complete Time: 08:37 [facility] 11/11 07:26 Order name: PT-INR; Complete Time: 08:17 [facility] 11/11 07:26 Order name: Troponin (emerg Dept Use Only); Complete Time: 08:37 [facility] 11/11 07:26 Order name: XRAY Chest (1 view) [facility] 11/11 07:26 Order name: Urine Culture [facility] 11/11 07:27 Order name: Basic Metabolic Panel; Complete Time: 08:37 [facility] 11/11 07:27 Order name: CBC with Automated Diff; Complete Time: 08:17 [facility] 11/11 09:30 Order name: SARS-COV-2 RT PCR [facility] 11/11 07:26 Order name: EKG; Complete Time: 07:27 [facility] 11/11 07:26 Order name: Cardiac monitoring; Complete Time: 07:48 [facility] 11/11 07:26 Order name: EKG - Nurse/Tech; Complete Time: 07:27 [facility] 11/11 07:26 Order name: IV Saline Lock; Complete Time: 07:27 [facility] 11/11 07:26 Order name: Labs collected and sent; Complete Time: 07:52 [facility] 11/11 07:26 Order name: O2 Per Protocol; Complete Time: 07:27 [facility] 11/11 07:26 Order name: O2 Sat Monitoring; Complete Time: 07:27 [facility] 11/11 09:45 Order name: CONS Physician Consult [facility] 11/11 09:50 Order name: Echo with Doppler [facility] 11/11 07:26 Order name: Oxygen; Complete Time: :27 christiano EC:53 Rate is 79 beats/min. Rhythm is regular. QRS [place] is Normal. [place] interval is normal. QRS christiano interval is normal. QT interval is normal. No Q waves. T waves are Normal. No ST changes noted. Clinical impression: NSR w/ Non-specific ST/T Changes, LVH, and No evidence of ischemia. Interpreted by me. Reviewed by me. Administered Medications: 07:51 Drug: Pepcid (famotidine) 20 mg Route: IVP; Site: left forearm; ap3 09:01 Follow up: Response: No adverse reaction ap3 07:52 Drug: Lasix (furosemide) 40 mg Route: IVP; Site: left forearm; ap3 09:01 Follow up: Response: No adverse reaction ap3 07:52 Drug: Nitro-Bid (nitroglycerin) Ointment 2 % 0.5 inches Route: Transdermal; Site: ap3 anterior chest wall; 07:52 Drug: Aspirin 162 mg Route: PO; ap3 09:01 Follow up: Response: No adverse reaction ap3 09:00 Drug: Lasix (furosemide) 20 mg Route: IVP; Site: left forearm; ap3 11:01 Follow up: Response: No adverse reaction ap3 09:00 Drug: Lovenox (enoxaparin) 60 mg Route: Sub-Q; Site: right lower abdomen; ap3 11:01 Follow up: Response: No adverse reaction ap3 09:01 Drug: Lopressor (metoprolol TARTRATE) 50 mg Route: PO; ap3 11:02 Follow up: Response: No adverse reaction; Blood pressure is lowered ap3 Disposition: 11/11/20 08:46 Hospitalization ordered by César Winslow for Inpatient Admission. Preliminary diagnosis are Dyspnea, Systolic (congestive) heart failure, Unspecified kidney failure - chronic, Type 2 diabetes mellitus, Obesity, unspecified, Non-ST elevation (NSTEMI) myocardial infarction. - Bed requested for Telemetry/MedSurg (Inpatient). - Status is Inpatient Admission. ap3 - Condition is Fair. - Problem is new. - Symptoms have improved. Signatures: Dispatcher [employer] EDStewart Pennington MD MD cha Ballard Jennie, RN RN bb Grace Banuelos RN RN ap3 Merline Vickers Corrections: (The following items were deleted from the chart) 08:33 07:50 CORONAVIRUS+ ordered. [facility] EDMS 10:41 08:46 Hospitalization Ordered by César Winslow MD for Inpatient Admission. Preliminary eb diagnosis is Dyspnea; Systolic (congestive) heart failure; Unspecified kidney failure - chronic; Type 2 diabetes mellitus; Obesity, unspecified; Non-ST elevation (NSTEMI) myocardial infarction. Bed requested for Telemetry/MedSurg (Inpatient). Status is Inpatient Admission. Condition is Fair. Problem is new. Symptoms have improved. [facility] 12:09 10:41 11/11/2020 08:46 Hospitalization Ordered by César Winslow MD for Inpatient ap3 Admission. Preliminary diagnosis is Dyspnea; Systolic (congestive) heart failure; Unspecified kidney failure - chronic; Type 2 diabetes mellitus; Obesity, unspecified; Non-ST elevation (NSTEMI) myocardial infarction. Bed requested for Telemetry/MedSurg (Inpatient). Status is Inpatient Admission. Condition is Fair. Problem is new. Symptoms have improved. eb
--- NOTE | 2020-11-11 08:47 | ER ---
Nurse's Notes [facility] Name: Agata Felix Age: 75 yrs Sex: Female : 1945 Arrival Date: 11/11/2020 Time: 06:49 Bed 6 Private MD: Diagnosis: Dyspnea;Systolic (congestive) heart failure;Unspecified kidney failure-chronic;Type 2 diabetes mellitus;Obesity, unspecified;Non-ST elevation (NSTEMI) myocardial infarction Presentation: 11/11 07:00 Chief complaint: Patient states: she has been short of breath since approx 0200 this morning. Coronavirus screen: shortness of breath, Client presents with at least one sign or symptom that may indicate coronavirus-19. Standard/surgical mask placed on the client. Ebola Screen: No symptoms or risks identified at this time. Initial Sepsis Screen: Does the patient meet any 2 criteria? No. Patient's initial sepsis screen is negative. Does the patient have a suspected source of infection? No. Patient's initial sepsis screen is negative. Risk Assessment: Do you want to hurt yourself or someone else? Patient reports no desire to harm self or others. Onset of symptoms was November 11, 2020. 07:00 Method Of Arrival: Wheelchair bb 07:00 Acuity: LUBA 3 bb Triage Assessment: 08:27 Respiratory: Reports shortness of breath Onset: The symptoms/episode began/occurred ap3 gradually, the patient has moderate shortness of breath. Historical: - Allergies: 07:07 Codeine; bb 07:07 Hydrocodone-Acetaminophen; bb 07:07 Eoeinzu-Vqj-Hjz Reductase Inhibitors; bb 07:07 steroids; bb - Home Meds: 07:07 furosemide 80 mg Oral tab 1 tab once daily [Active]; aspirin 81 mg Oral chew 1 tab once bb daily [Active]; ezetimibe oral 10 mg oral 1 tab once daily [Active]; hydralazine 25 mg Oral tab 1 tab three times a day [Active]; metoprolol tartrate 25 mg Oral tab 1 tab 2 times per day [Active]; biotin 1,000 mcg oral chew daily [Active]; Vitamin D Oral 1,000 unit daily [Active]; magnesium oxide 250 mg Oral tab twice a day [Active]; Vitamin E Oral [Active]; vitamins [Active]; Fish Oil oral 1200 mg oral twice a day [Active]; B-complex [Active]; potassium chloride 10 mEq oral TbER once daily [Active]; Tresiba FlexTouch U-100 100 unit/mL (3 mL) subcutaneous inpn [Active]; omeprazole 20 mg Oral cpDR 1 cap once daily [Active]; - PMHx: 07:07 CHF; Diabetes - NIDDM; Hyperlipidemia; bb - PSHx: 07:07 CABG; bb - Immunization history:: Adult Immunizations up to date. - Social history:: Smoking status: Patient denies any tobacco usage or history of. Screenin:26 Abuse screen: Denies threats or abuse. Nutritional screening: No deficits noted. ap3 Tuberculosis screening: No symptoms or risk factors identified. Fall Risk No fall in past 12 months (0 pts). Secondary diagnosis (15 points) CHF, zac lower extremity swelling. IV access (20 points). Ambulatory Aid- None/Bed Rest/Nurse Assist (0 pts). Gait- Normal/Bed Rest/Wheelchair (0 pts) Mental Status- Oriented to own ability (0 pts). Total Zambrano Fall Scale indicates Low Risk Score (25-44 pts). Fall prevention measures have been instituted. Side Rails Up X 2 Placed close to Nursing Station Frequent Obs/Assesments occuring Family Present and informed to notify staff if they need to leave bedside. Assessment: 07:55 General: Appears distressed, comfortable, Behavior is calm, cooperative, appropriate ap3 for age. Pain: Denies pain. Neuro: Level of Consciousness is awake, alert, obeys commands, Oriented to person, place, time, situation. Cardiovascular: Capillary refill < 3 seconds Patient's skin is warm and dry. Pulses are all present. Rhythm is sinus rhythm. Respiratory: Airway is patent Respiratory effort is even, unlabored, Respiratory pattern is regular, symmetrical, bilateral upper lobe expiratory wheezes with diminished bases. GI: No signs and/or symptoms were reported involving the gastrointestinal system. Abdomen is round Bowel sounds present X 4 quads. : No signs and/or symptoms were reported regarding the genitourinary system. EENT: No signs and/or symptoms were reported regarding the EENT system. Derm: No signs and/or symptoms reported regarding the dermatologic system. Musculoskeletal: Swelling present in right leg and left leg. 10:10 Reassessment: Pt cleaned of urine incontinence, switched pt from ER bed to hospital jl7 bed. Pt reports she uses the restroom at home but when she needs to go she needs to go quickly, bedside commode placed at bedside for quick access to pt. Pt educated to use call self when needing to get up so that we can assist her, pt verbalized understanding, call self in reach. 11:01 General: attempted report to second floor. receiving nurse will return phone call. . ap3 11:35 General: report called to receiving nurse. ap3 Vital Signs: 07:00 BP 155 / 67; Pulse 76; Resp 20 S; Temp 98(O); Pulse Ox 89% on R/A; Weight 86.18 kg (R); bb Height 5 ft. 4 in. (162.56 cm) (R); Pain 2/10; 08:28 BP 181 / 90; Pulse 81; Resp 22; Pulse Ox 100% on 3 lpm NC; ap3 08:45 BP 133 / 73; Pulse 76; Pulse Ox 100% 3 lpm ; ap3 10:10 BP 151 / 81; Pulse 60; Resp 18; Pulse Ox 96% on R/A; jl7 11:37 BP 151 / 81; Pulse 58; Pulse Ox 96% on R/A; ap3 07:00 Body Mass Index 32.61 (86.18 kg, 162.56 cm) bb 10:10 Pt removed nasal cannula, states "I usually just wear it at night." Denies discomfort [facility] ED Course: 06:49 Patient arrived in ED. bp1 07:02 Triage completed. bb 07:07 Arm band placed on Patient placed in an exam room, on a stretcher, on oxygen, on bb lunchroom monitor, on pulse oximetry. 07:18 Grace Banuelos, RN is Primary Nurse. ap3 07:18 Stewart Resendiz MD is Attending Physician. christiano 07:23 Initial lab(s) drawn, by ED staff, sent to lab. EKG done, by ED staff, reviewed by esha Resendiz MD. Inserted saline lock: 20 gauge in left forearm, using aseptic technique. Blood collected. 07:54 xray at bedside. ap3 08:00 XRAY Chest (1 view) In Process Unspecified. EDMS 08:28 Patient has correct armband on for positive identification. Placed in gown. Bed in low ap3 position. Call light in reach. Side rails up X2. Adult w/ patient. patient monitor on. Pulse ox on. NIBP on. Door closed. Noise minimized. Warm blanket given. 08:43 César Winslow MD is Hospitalizing Provider. christiano 11:36 No provider procedures requiring assistance completed. Patient admitted, IV remains in ap3 place. Administered Medications: 07:51 Drug: Pepcid (famotidine) 20 mg Route: IVP; Site: left forearm; ap3 09:01 Follow up: Response: No adverse reaction ap3 07:52 Drug: Lasix (furosemide) 40 mg Route: IVP; Site: left forearm; ap3 09:01 Follow up: Response: No adverse reaction ap3 07:52 Drug: Nitro-Bid (nitroglycerin) Ointment 2 % 0.5 inches Route: Transdermal; Site: ap3 anterior chest wall; 07:52 Drug: Aspirin 162 mg Route: PO; ap3 09:01 Follow up: Response: No adverse reaction ap3 09:00 Drug: Lasix (furosemide) 20 mg Route: IVP; Site: left forearm; ap3 11:01 Follow up: Response: No adverse reaction ap3 09:00 Drug: Lovenox (enoxaparin) 60 mg Route: Sub-Q; Site: right lower abdomen; ap3 11:01 Follow up: Response: No adverse reaction ap3 09:01 Drug: Lopressor (metoprolol TARTRATE) 50 mg Route: PO; ap3 11:02 Follow up: Response: No adverse reaction; Blood pressure is lowered ap3 Outcome: 08:46 Decision to Hospitalize by Provider. christiano 11:36 Admitted to Med/surg accompanied by tech, via wheelchair, room 228, with chart, Report ap3 called to receiving nurse 11:36 Condition: stable 11:36 Instructed on the need for admit. 12:09 Patient left the ED. ap3 Signatures: Dispatcher [employer] EDMS Stewart Resendiz MD MD cha Ballard, Brenda, RN RN Natividad Craft RN RN jl7 Grace Banuelos RN RN ap3 Galina Corea bp1
[2020-11-11] MEDS ORDERED: FUROSEMIDE 20 MG/ 2ML VIAL ONE (09:08)
[2020-11-11] MEDS ORDERED: ENOXAPARIN 60 MG/0.6 ML SQ ONE (09:09)
[2020-11-11] MEDS ORDERED: METOPROLOL TAR 50 MG TAB ONE (09:09)
--- NOTE | 2020-11-11 10:01 | P.HP ---
Certification for Inpatient Patient admitted to: Inpatient With expected LOS: >2 Midnights Practitioner: I am a practitioner with admitting privileges, knowledge of patient current condition, hospital course, and medical plan of care. Services: Services provided to patient in accordance with Admission requirements found in Title 42 Section 412.3 of the Code of Federal Regulations Patient History Date of Service: 11/11/20 Reason for admission: acute on chronic CHF Exacerbation, NSTEMI History of Present Illness: 75yo F, presents to ED due to progressively worsening SOB/MAHONEY over the last several days, and sudden significant worsening early this morning. PMH: diastolic CHF, DM2-insulin dependent, HLD, CAD s/p CAG, SALVADOR s/p R stent, HTN, CKD3 She reports difficulty obtaining some of her medications and also forgetting to take her medications. She has been off her lasix (80mg daily) for nearly 2 weeks now. She reports she has chronic leg swelling and this is slightly worse, with chronic tenderness due to the swelling. She otherwise denies cough, fever, chills, no chest pain/tightness, no abdominal pain, no n/v, no diarrhea, no dysuria. no new muscle aches/pains, no numbness/tingling. She took one dose of lasix yesterday with not much improvement. Has associated orthopnea. In the ED, she was noted to be Hypoxic to ~89% and placed on oxygen. She uses 2- 3 L NC at nighttime at home, but typically does not have to wear it during the day. She had elevated BNP, trop: 0.5, Cr: 2.04, and CXR consistent with CHF exacerbation. Allergies codeine Allergy (Unknown, Verified 11/18/18 01:34) Itching/Hives/Rash hydrocodone Allergy (Unknown, Verified 11/18/18 01:34) Increased heartbeat Gbqdovb-Krz-Vrk Reductase Inhibitor Allergy (Unknown, Verified 11/18/18 01:34) Hives gabapentin Allergy (Verified 11/18/18:34) Shortness of breath metformin Allergy (Verified 11/18/18 01:34) Diarrhea Home Medications: Ascorbic Acid/Vitamin E/Biotin [Hair Skin Nails-Biotin Gummies] 1 each PO DAILY 11/18/18 Aspirin Chewable [Aspirin Chewable*] 1 tab PO DAILY 11/18/18 Biotin 1,000 mcg PO DAILY 11/18/18 Cholecalciferol (Vitamin D3) [Vitamin D 1000 Iu Tab*] 1 tab PO DAILY 11/18/18 Ezetimibe [Zetia] 10 mg PO DAILY 11/18/18 Fish Oil/Dha/Epa [Fish Oil 1,200 mg Fish Oil] 1 cap PO BID 11/18/18 Hydralazine [Apresoline] 25 mg PO TID 11/18/18 Insulin Degludec [Tresiba] 50 units SQ DAILY 11/18/18 Magnesium Oxide [Magnesium] 500 mg PO DAILY 11/18/18 Metoprolol Succinate [Toprol Xl] 25 mg PO BID 11/18/18 Omeprazole 20 mg PO DAILY 11/18/18 Potassium Chloride [Klor-Con 10] 10 meq PO DAILY 11/18/18 Vitamin B Complex [B Complex] 1 tab PO DAILY 11/18/18 Vitamin E 400 unit PO DAILY 11/18/18 Furosemide [Lasix] 80 mg PO BID #60 tablet 11/21/18 - Past Medical/Surgical History Diabetic: Yes -: HTN -: Hyperlipidemia -: CHF -: Diabetes Mellitus type 2, insulin dependent -: CAD s/p CABG -: appendectomy -: cholecystectomy -: tubal ligation -: CABG -: R carotid stent - Family History Mother -: Kidney disease Father -: Heart disease Sister -: Cancer Notes: Kidney cancer - Social History Smoking Status: Never smoker Alcohol use: No CD- Drugs: No Caffeine use: Yes Place of Residence: Home Review of Systems 10-point ROS is otherwise unremarkable Physical Examination - Physical Exam General: Alert, In no apparent distress, Oriented x3 HEENT: EOMI, Sclerae nonicteric Neck: Supple Respiratory: Diminished (at bases), Crackles/rales (mild at bases bilaterally), Other (slightly labored) Cardiovascular: Regular rate/rhythm, Normal S1 S2, Edema (2+ bilaterally up to knees) Capillary refill: <2 Seconds Gastrointestinal: Normal bowel sounds, Soft and benign, Non-distended Musculoskeletal: Tenderness (b/l legs from ankles up to calves), Other (no joint swelling) Integumentary: No rashes Neurological: Normal speech, Normal strength at 5/5 x4 extr, Normal affect - Studies Laboratory Data (last 24 hrs) 11/11/20 07:35: PT 11.6, INR 1.01 11/11/20 07:35: WBC 10.70, Hgb 10.1 L, Hct 30.5 L, Plt Count 343 11/11/20 07:35: Sodium 141, Potassium 4.7, BUN 42 H, Creatinine 2.04 H, Glucose 216 H, Magnesium 2.4, Total Bilirubin 0.4, AST 21, ALT 27, Alkaline Phosphatase 156 H Assessment and Plan - Advance Directives Does patient have a Living Will: No Does patient have a Durable POA for Healthcare: Yes Physician Review Additional Text: Problem List acute hypoxemia secondary to Acute on Chronic CHF Exacerbation (Diastolic) NSTEMI CAD s/p CABG R carotid stenosis s/p stent CKD3 DM2, insulin dependent HLD HTN -now requiring oxygen supplementation, previously only at night -received 60 IV Lasix in ED -continue with 80mg IV BID for now -aspirin, metoprolol, pt with allergy to statins -monitor on telemetry -likely brought on by missing lasix at home for 2 weeks -nephrology consulted, pt with h/o CKD3 / 4 -Cardiology consulted, pt with trop: 0.5, but denies chest pain / pressure, less likely ACS, suspect demand ischemia in acute CHF -will obtain echo, last done in 2019 -confirm home medications, restart as appropriate -insulin sliding scale, accucheks ACHS -pt reports no difficulty urinating, hold off on ibrahim for now, but will monitor I/O's closely VTE: lovenox Code: Full Dispo: anticipate dc home in ~48hrs Time Spent Managing Pts Care (In Minutes): 60
[2020-11-11] MEDS: INSULIN -REGULAR HUMAN 50 UNIT/0.5 ML ML SQ SCH ×3 (12:18→20:49)
--- NOTE | 2020-11-11 12:21 | CON ---
Date of Consultation: 11/11/2020 Reason For Consultation: CHF. History Of Present Illness: This is a 75-year-old female, history of coronary artery disease status post bypass surgery multiple years ago. Comes in with shortness of breath, orthopnea, dyspnea on exe rtion, lower extremity edema. The patient has been on diuretics; however, she does not take it, ran out of medicine. Has chronic kidney disease, hypertension as well. Denies having any chest pain. A fter given Lasix in the emergency room, she felt much better. She denies any chest pain. Past Medical History: As outlined above in the HPI. Medications: Refer to reconciliation sheet for detailed list. Past Surgical History: Coronary artery bypass surgery and cardiac stent placement. Allergies: REVIEWED. REFER TO NURSE'S NOTE. Social History: Does not smoke or drink. Does not use any drugs. Family History: No premature coronary artery disease or cancer. Review of Systems: All systems reviewed and they were negative except for what is mentioned in the HPI. Physical Examination: Vital Signs: Reviewed. Head and Neck: Pupils are equal, reactive to light. Intact eye movements. Positive JVD. No cervic al lymphadenopathy. Neck: Supple. Thyroid is not enlarged. Lungs: Crackles on the bases. No accessory muscle use or muscle retraction. Heart: Regular rate and rhythm. No extra sounds. Abdomen: Soft, nontender. Bowel sounds positive. No organomegaly. No masses or hernia. No rigidi ty or rebound. Extremities: No edema, clubbing, or cyanosis. Intact pulses. Skin: No rash noted. Neurologic: Alert, awake, oriented x3. No acute focal deficits appreciated. Investigations: BMP is 4655. Troponin is 0.5. Creatinine is 2.0. Hemoglobin is 10.1. Assessment And Recommendations: Acute on chronic congestive heart failure exacerbation. Agree with Lasix 80 mg q.8 hours. Monitor BUN, creatinine, electrolytes, and please obtain echocardiogram and t rend troponins and further plan accordingly. Thank you for the consult. /NAYE Voice ID: [id number] Report ID: [id number]
--- NOTE | 2020-11-11 12:38 | P.CNS ---
Date of Consult: 11/11/20 Reason for Consult: Volume overload, Renal failure Requesting Physician: César Winslow Chief Complaint: acute on chronic CHF Exacerbation, NSTEMI History of Present Illness: 75F w/ pMHx of CKD3, baseline SCr 1.2 in 2017 (equiv baseline GFR around 45), Htn, CHF, DM2, HLD, CAD s/p CABG, & SALVADOR s/p stent, who p/w several hour hx of worsening SOB. In the E.R. she was hypoxic. She has elevated BNP. CXR appeared congested. She is admitted for acute on chronic CHF mngt. She was noted to have ANJANA w/ SCr on admission 2.04. Allergies codeine Allergy (Unknown, Verified 11/11/20 12:22) Itching/Hives/Rash hydrocodone Allergy (Unknown, Verified 11/11/20 12:22) Increased heartbeat Xytyufi-Vwh-Bzb Reductase Inhibitor Allergy (Unknown, Verified 11/11/20 12:22) Hives gabapentin Allergy (Verified 11/11/20 12:22) Shortness of breath metformin Allergy (Verified 11/11/20 12:22) Diarrhea Home Medications: Aspirin 81 mg PO DAILY 11/11/20 Biotin 1,000 mcg PO DAILY 11/11/20 Cholecalciferol (Vitamin D3) [Vitamin D 1000 Iu Tab*] 1,000 unit PO DAILY 11/11/20 Ezetimibe [Zetia*] 10 mg PO DAILY 11/11/20 Fish Oil/Dha/Epa [Fish Oil 1,200 mg Fish Oil] 1,200 mg PO BID 11/11/20 Furosemide 80 mg PO DAILY 11/11/20 Hydralazine [Apresoline*] 25 mg PO BID 11/11/20 Insulin Degludec [Tresiba] 50 units SQ DAILY 11/11/20 Magnesium Oxide [Magnesium] 250 mg PO BID 11/11/20 Metoprolol Succinate 25 mg PO BID 11/11/20 Omeprazole 20 mg PO DAILY 11/11/20 Potassium Oral Tab [Klor-Con 10 mEq Tab*] 10 meq PO DAILY 11/11/20 Vitamin B Complex [B Complex] 1 tab PO DAILY 11/11/20 - Past Medical/Surgical History Diabetic: Yes -: HTN -: Hyperlipidemia -: CHF -: Diabetes Mellitus type 2, insulin dependent -: CAD s/p CABG -: appendectomy -: cholecystectomy -: tubal ligation -: CABG -: R carotid stent - Family History Mother Medical History: Kidney disease Father Medical History: Heart disease Sister Medical History: Cancer Notes: Kidney cancer - Social History Alcohol use: No CD- Drugs: No Caffeine use: Yes Place of Residence: Home Review of Systems General: Weakness Eyes: Unremarkable ENT: Unremarkable Respiratory: Shortness of Breath Cardiovascular: Orthopnea Gastrointestinal: Unremarkable Genitourinary: Unremarkable Musculoskeletal: Pedal edema Integumentary: Unremarkable Neurological: Weakness Lymphatics: Unremarkable Physical Examination Temp Pulse Resp BP Pulse Ox 98 F 58 18 151/81 H 11/11/20 07:00 11/11/20 11:37 11/11/20 10:10 11/11/20 11:37 General: Mild distress HEENT: Atraumatic, Normocephalic Neck: Supple Respiratory: Crackles/rales Cardiovascular: No rubs, No murmurs Gastrointestinal: Soft and benign, Non-distended Musculoskeletal: Swelling Integumentary: Other (Normal temp) Neurological: Normal speech, Normal tone Lymphatics: No axilla or inguinal lymphadenopathy Urinary: Other (No ibrahim cath) External genitalia: Deferred Rectal: Deferred Laboratory Data (last 24 hrs) 11/11/20 07:35: PT 11.6, INR 1.01 11/11/20 07:35: WBC 10.70, Hgb 10.1 L, Hct 30.5 L, Plt Count 343 11/11/20 07:35: Sodium 141, Potassium 4.7, BUN 42 H, Creatinine 2.04 H, Glucose 216 H, Magnesium 2.4, Total Bilirubin 0.4, AST 21, ALT 27, Alkaline Phosphatase 156 H Conclusions/Impression: # ANJANA 2/2 CRS1 & uncontrolled Htn on proteinuric CKD3 SCr 2.04 on hosp adm Check urinalysis, random UPCR, urine chem, iPTH, renal US BP control, see below Cont lasix 80 mg IV bid Check CK level Monitor renal panel, I/O # CKD3 Baseline SCr 1.2 in 2017 (equiv baseline GFR around 45) Monitor renal panel # Acute on chronic CHF BNP elevated, f/u trop Check TTE Lasix as above Cont metoprolol Strictly low Na diet < 2g/d Do NOT restrict free water intake unless she becomes hyponatremic # Nephrotic range proteinuria Random UPCR 7.8g in 2019 F/u urinalysis, urine chem, random UPCR Will need proteinuria serologies sent if still nephrotic range # Htn BP above goal Cont metoprolol same dose Start amlodipine 5 mg po daily
[2020-11-11] MEDS ORDERED: PNEUMOCOCCAL VACCINE 0.5 ML IMVAC ONE (13:00)
[2020-11-11] MEDS: AMLODIPINE 5 MG TAB PO SCH (13:31)
[2020-11-11 14:26] VITALS: BMI 32.5
--- NOTE | 2020-11-11 15:05 | RAD REPORT ---
EXAM DESCRIPTION: US - Renal Ultrasound-Complete - 11/11/2020 2:33 pm CLINICAL HISTORY: Acute renal insufficiency. Chronic renal disease. COMPARISON: 2018 FINDINGS: The right kidney measures 12 cm with a mildly increased echotexture. The left kidney measures 12 cm with a mildly increased l echotexture. Hydronephrosis is not seen. No gross abnormality of bladder IMPRESSION: Mildly increased renal echotexture consistent with parenchymal disease No hydronephrosis
[2020-11-11] MEDS: FUROSEMIDE 40 MG/4 ML VIAL IV SCH (17:56)
[2020-11-11] MEDS: METOPROLOL TAR 25 MG TAB PO SCH (17:56)
[2020-11-11] MEDS ORDERED: ONDANSETRON 4 MG/2 ML VIAL IV PRN (18:16)
[2020-11-11 23:22] LABS: Urine Protein/Creatinine Ratio 6.41 ratio (<0.15)
[2020-11-12 04:08] LABS: Absolute Lymphocytes (CBC) 1.5 K/uL (0.7-4.9); Basophils % 0.8 % (0-1.3); Hematocrit 28.8 % (36.0-45.0); Lymphocytes % 16.5 % (15.3-44.8); MPV 8.4 fL (7.6-11.3); RBC Red Blood Cell Count 3.19 M/uL (3.86-4.86)
[2020-11-12 04:29] LABS: Albumin 2.8 g/dL (3.4-5.0); Bilirubin Total 0.4 mg/dL (0.2-1.0); Magnesium 2.3 mg/dL (1.8-2.4); Potassium 4.3 mmol/L (3.5-5.1); Protein, Total 7.3 g/dL (6.4-8.2)
[2020-11-12] MEDS: METOPROLOL TAR 25 MG TAB PO SCH ×3 (05:31→18:00)
--- NOTE | 2020-11-12 05:41 | P.PN ---
Subjective Date of Service: 11/12/20 Chief Complaint: acute on chronic CHF Exacerbation, NSTEMI Subjective: No new changes Physical Examination - Vital Signs Temperature: 96.9 F Blood Pressure: 144/60 Pulse: 48 Respirations: 16 Pulse Ox (%): 98 - Physical Exam General: Other (appears as her stated age) HEENT: Normocephalic Neck: Supple Respiratory: Other (symmetric chest expansio) Cardiovascular: No rubs, No murmurs Gastrointestinal: Soft and benign, Non-distended Neurological: Normal tone - Studies Laboratory Data (last 24 hrs) 11/11/20 07:35: PT 11.6, INR 1.01 11/11/20 07:35: WBC 10.70, Hgb 10.1 L, Hct 30.5 L, Plt Count 343 11/11/20 07:35: Sodium 141, Potassium 4.7, BUN 42 H, Creatinine 2.04 H, Glucose 216 H, Magnesium 2.4, Total Bilirubin 0.4, AST 21, ALT 27, Alkaline Phosphatase 156 H Assessment And Plan - Plan # ANJANA 2/2 CRS1 & uncontrolled Htn, aggravated by hyperglycemia-induced diuresis, on proteinuric CKD3 Baseline serum creatinine around 1.2 Serum intact PTH elevated at 150 indicative of a more advanced CKD at baseline SCr 2.04 on hosp adm, increased to 2.3 today Renal ultrasound unremarkable CK wnl +Nephrotic-range proteinuria BP control, see below Cont lasix as below Monitor renal panel, I/O # CKD3 Baseline SCr 1.2 in 2017 (equiv baseline GFR around 45) Monitor renal panel # 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 Plan to switch to po dosing in 1-2d Cont metoprolol Strictly low Na diet < 2g/d Do NOT restrict free water intake unless she becomes hyponatremic # Htn BP goal < 140/90 Cont metoprolol & amlodipine # DM2 Mngt per primary team
[2020-11-12] MEDS ORDERED: METOPROLOL TAR 25 MG TAB PO SCH (06:00)
[2020-11-12] MEDS: INSULIN -REGULAR HUMAN 50 UNIT/0.5 ML ML SQ SCH ×4 (07:30→20:44)
[2020-11-12] MEDS: ENOXAPARIN 30 MG/0.3 ML SQ SCH (09:18)
[2020-11-12] MEDS: ASPIRIN EC 81 MG TAB PO SCH (09:18)
[2020-11-12] MEDS: AMLODIPINE 5 MG TAB PO SCH (09:19)
[2020-11-12] MEDS: FUROSEMIDE 40 MG/4 ML VIAL IV SCH ×2 (09:21→17:07)
--- NOTE | 2020-11-12 12:31 | P.PN ---
Subjective Date of Service: 11/12/20 Chief Complaint: acute on chronic CHF Exacerbation, NSTEMI Subjective: Improving (feels she is breathing more comfortably but still increased work of breathing. feels swelling is slightly better in legs. voiding without issue.) Review of Systems 10-point ROS is otherwise unremarkable Physical Examination - Vital Signs Temperature: 97.9 F Blood Pressure: 140/63 Pulse: 51 Respirations: 16 Pulse Ox (%): 99 Assessment & Plan Physician Review Additional Text: Physical Exam General: Alert, NAD HEENT: EOMI, Sclerae nonicteric Respiratory: Diminished (at bases), Crackles/rales (mild at bases bilaterally), slightly labored at rest on 2L NC Cardiovascular: Regular rate/rhythm, Normal S1 S2, 1-2+ Edema to knees b ilaterally Gastrointestinal: Soft and benign, Non-distended, non-tender Integumentary: No rashes Neurological: Normal speech, Normal strength at 5/5 x4 extr, Normal affect Problem List acute hypoxemia secondary to Acute on Chronic CHF Exacerbation (Diastolic) NSTEMI CAD s/p CABG R carotid stenosis s/p stent CKD3 DM2, insulin dependent HLD HTN -now requiring oxygen supplementation, previously only at night -continue with 80mg IV BID for now -aspirin, metoprolol, pt with allergy to statins, continue home zetia -monitor on telemetry -likely brought on by missing lasix at home for 2 weeks -nephrology consulted, pt with h/o CKD3, renal function slightly worse today, has nephrotic range proteinuria, multiple labs/workup sent -Cardiology consulted, pt with trop: 0.5, but denies chest pain / pressure, less likely ACS, suspect demand ischemia in acute CHF -f/u echo, last done in 2019 -insulin sliding scale, accucheks ACHS, confirm home dosage, restart long-acting VTE: lovenox Code: Full Dispo: anticipate dc home in ~24-48hrs, still SOB/MAHONEY and edematous Time Spent Managing Pts Care (In Minutes): 35
[2020-11-13] MEDS: METOPROLOL TAR 25 MG TAB PO SCH ×2 (05:47→16:59)
--- NOTE | 2020-11-13 06:56 | P.PN ---
Subjective Date of Service: 11/13/20 Chief Complaint: acute on chronic CHF Exacerbation, NSTEMI Subjective: Other (Reports no worsening of shortness of breath.) Physical Examination - Vital Signs Temperature: 96.9 F Blood Pressure: 136/62 Pulse: 55 Respirations: 17 Pulse Ox (%): 98 - Physical Exam General: Other (Appears as her stated age) HEENT: Atraumatic, Normocephalic Neck: Supple Respiratory: Other (Symmetric chest expansion) Cardiovascular: Normal S1 S2, No rubs, No murmurs Gastrointestinal: Soft and benign, Non-distended Neurological: Normal speech, Normal tone Assessment And Plan - Plan # ANJANA 2/2 CRS1 & uncontrolled Htn, on proteinuric CKD3 Baseline serum creatinine around 1.2 Serum intact PTH elevated at 150 indicative of a more advanced CKD at baseline SCr 2.04 on hosp adm, increased to 2.6 today Renal ultrasound unremarkable CK wnl +Nephrotic-range proteinuria BP control, see below Lasix on hold starting today Encouraged liberal po fluid intake Monitor renal panel, I/O # CKD3 Baseline SCr 1.2 in 2017 (equiv baseline GFR around 45) Monitor renal panel # Nephrotic-range proteinuria 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 [place] po fluid intake Cont metoprolol Strictly low Na diet < 2g/d Do NOT restrict free water intake unless she becomes hyponatremic # Htn BP goal < 140/90 Cont metoprolol & amlodipine # DM2 Mngt per primary team
[2020-11-13 06:57] LABS: Hematocrit 29.3 % (36.0-45.0); MPV 8.5 fL (7.6-11.3); RBC Red Blood Cell Count 3.26 M/uL (3.86-4.86)
[2020-11-13 06:59] LABS: Albumin 2.9 g/dL (3.4-5.0); Magnesium 2.5 mg/dL (1.8-2.4); Phosphorus 5.2 mg/dL (2.5-4.9); Potassium 4.2 mmol/L (3.5-5.1)
[2020-11-13] MEDS: INSULIN -REGULAR HUMAN 50 UNIT/0.5 ML ML SQ SCH ×4 (07:30→21:00)
[2020-11-13] MEDS: EZETIMIBE 10 MG TAB PO SCH (08:38)
[2020-11-13] MEDS: ENOXAPARIN 30 MG/0.3 ML SQ SCH (08:38)
[2020-11-13] MEDS: AMLODIPINE 5 MG TAB PO SCH (08:38)
[2020-11-13] MEDS: VITAMIN D 1000 UNIT TAB PO SCH (08:38)
[2020-11-13] MEDS: ASPIRIN EC 81 MG TAB PO SCH (08:38)
--- NOTE | 2020-11-13 15:52 | P.PN ---
Subjective Date of Service: 11/13/20 Chief Complaint: acute on chronic CHF Exacerbation, NSTEMI Subjective: Improving (slight improvement in breathing, hasn't gotten out of bed, felt unsteady yesterday. swelling is improving) Review of Systems 10-point ROS is otherwise unremarkable Physical Examination - Vital Signs Temperature: 97.8 F Blood Pressure: 141/62 Pulse: 59 Respirations: 16 Pulse Ox (%): 98 Assessment & Plan Physician Review Additional Text: Physical Exam General: Alert, NAD HEENT: EOMI, Sclerae nonicteric Respiratory: Crackles/rales (mild at bases bilaterally), nonlabored on room air Cardiovascular: Regular rate/rhythm, Normal S1 S2, 1+ Edema to knees bilaterally Gastrointestinal: Soft and benign, Non-distended, non-tender Integumentary: No rashes Neurological: Normal speech, Normal strength at 5/5 x4 extr, Normal affect Problem List acute hypoxemia secondary to Acute on Chronic CHF Exacerbation (Diastolic) NSTEMI CAD s/p CABG R carotid stenosis s/p stent ANJANA on CKD3 DM2, insulin dependent HLD HTN -worse renal function this morning, lasix held per nephrology -continues with oxygen requirement - previously only needed at night -aspirin, metoprolol, pt with allergy to statins, continue home zetia -monitor on telemetry -likely brought on by missing lasix at home for 2 weeks -nephrology consulted, pt with h/o CKD3, renal function worsening, has nephrotic range proteinuria, multiple labs/workup sent -Cardiology consulted, pt with trop: 0.5 -f/u echo, last done in 2019 -insulin sliding scale, accucheks ACHS VTE: lovenox Code: Full Dispo: anticipate dc home in ~24-48hrs, still SOB/MAHONEY and edematous, worse renal function Time Spent Managing Pts Care (In Minutes): 35
[2020-11-13 17:47] LABS: Urine Appearance CLOUDY (Clear); Urine Bilirubin NEGATIVE (Negataive); Urine Blood NEGATIVE (Negative); Urine Color YELLOW (Yellow); Urine Glucose 1+ (Negative); Urine Protein 2+ (Negative); Urine Specific Gravity 1.015 (1.005-1.030); Urine pH 5.5 (5.0-7.0)
[2020-11-13 17:49] LABS: Urine Microscopic Reflex ORDER UMIC
[2020-11-13 17:56] LABS: Urine Amorphous Sediment 2+ /HPF (NONE SEEN); Urine Bacteria >50 /HPF (<20); Urine RBC NONE SEEN /HPF (NONE SEEN)
--- NOTE | 2020-11-13 19:25 | RAD REPORT ---
EXAM DESCRIPTION: CT - Thorax Wo Con - 11/13/2020 7:17 pm CLINICAL HISTORY: Assess pulmo Htn interstitial/chronic lung dse COMPARISON: Chest For Pe Angio dated 12/05/2016; Chest Single View dated 11/11/2020 TECHNIQUE: Axial 5 mm thick images of the chest were obtained without IV contrast. All CT scans are performed using dose optimization technique as appropriate and may include automated exposure control or mA/KV adjustment according to patient size. FINDINGS: Trace amounts of apical pleural thickening and fibrotic change present. Mild interstitial edema pattern matches the chest film from 2 days earlier. No mass or consolidation of the lung parenc hyma. Mild lung base interstitial fibrotic change present. Only trace amounts of pleural fluid seen i n each posterior gutter along with trace amounts of atelectasis. No pneumothorax. Small nonspecific mediastinal and hilar lymph nodes are present similar to comparison. Aortic and Cor onary artery calcifications are present. No pericardial effusion. No gross aortic or pulmonary artery finding suspected. Assessment is limited in the absence of IV contrast. No chest wall mass or abnormal axillary lymphadenopathy. IMPRESSION: Mild interstitial edema pattern present superimposed on minimal interstitial fibrotic alie ng disease. Trace amounts of pleural effusion in each lung base.
[2020-11-14] MEDS: METOPROLOL TAR 25 MG TAB PO SCH ×2 (06:00→17:23)
[2020-11-14 06:15] LABS: RPR (Rapid Plasma Reagin) NON-REACT (NON-REACT)
[2020-11-14 06:21] LABS: Rheumatoid Factor NEG (NEG)
[2020-11-14 06:23] LABS: Hematocrit 28.9 % (36.0-45.0); MPV 8.5 fL (7.6-11.3); RBC Red Blood Cell Count 3.25 M/uL (3.86-4.86)
[2020-11-14 06:41] LABS: Albumin 2.8 g/dL (3.4-5.0); Magnesium 2.4 mg/dL (1.8-2.4); Phosphorus 4.2 mg/dL (2.5-4.9); Potassium 4.2 mmol/L (3.5-5.1)
[2020-11-14] MEDS: INSULIN -REGULAR HUMAN 50 UNIT/0.5 ML ML SQ SCH ×4 (07:30→21:00)
--- NOTE | 2020-11-14 08:20 | ECHO ---
HEIGHT: 5 ft 4 in WEIGHT: 190 lb 0 oz DATE OF STUDY: 11/11/[address]: César Winslow MD 2-DIMENSIONAL: YES M.MODE: YES DOPPLER: YES COLOR FLOW: YES TDS: YES PORTABLE: NO DEFINITY: NO BUBBLE STUDY: NO DIAGNOSIS: EVALUATE FUNCTION, CONGESTIVE HEART FAILURE EXACERBATION, ELEVATED TROPONIN CARDIAC HISTORY: CATHERIZATION: YES SURGERY: YES PROSTHETIC VALVE: NO PACEMAKER: NO MEASUREMENTS (cm) DIASTOLIC (NORMALS) SYSTOLIC (NORMALS) IVSd 1.2 (0.6-1.2) LA Diam 3.1 (1.9-4.0) LVEF 54% LVIDd 4.7 (3.5-5.7) LVIDs 3.4 (2.0-3.5) %FS 28% LVPWd 1.1 (0.6-1.2) Ao Diam 2.9 (2.0-3.7) 2 DIMENSIONAL ASSESSMENT: RIGHT ATRIUM: NORMAL LEFT ATRIUM: NORMAL RIGHT VENTRICLE: NORMAL LEFT VENTRICLE: NORMAL TRICUSPID VALVE: MITRAL VALVE: MITRAL ANNULAR CALCIFICATION PULMONIC VALVE: NORMAL AORTIC VALVE: PERICARDIAL EFFUSION: NONE AORTIC ROOT: NORMAL LEFT VENTRICULAR WALL MOTION: NORMAL DOPPLER/COLOR FLOW: SEE BELOW COMMENTS: NORMAL LEFT VENTRIUCLAR EJECTION FRACTION 55-60%. DIASTOLIC DYSFUNCTION. SEVERE TRICUSPID REGURGITATION. SEVERE PULMONARY HYPERTENSION WITH RIGHT VENTRICULAR SYSOTLIC PRESSURE >60 mmHg. TECHNOLOGIST: Mary HADDAD
[2020-11-14] MEDS: VITAMIN D 1000 UNIT TAB PO SCH (08:27)
[2020-11-14] MEDS: AMLODIPINE 5 MG TAB PO SCH (08:27)
[2020-11-14] MEDS: ASPIRIN EC 81 MG TAB PO SCH (08:27)
[2020-11-14] MEDS: EZETIMIBE 10 MG TAB PO SCH (08:27)
[2020-11-14] MEDS ORDERED: HEPA 1000U/500MLS 2,000 UNIT/1,000 ML BAG IV ONE (10:01)
[2020-11-14] MEDS ORDERED: Levofloxacin 750mg IV 750 MG/150 ML BAG IV ONE (11:00)
[2020-11-14] MEDS: NA CHLORIDE 0.9% 1,000 ML IV SCH (12:45)
[2020-11-14] MEDS: ACETYLCYST 20% 800 MG/4 ML VIAL PO SCH ×2 (13:33→21:00)
[2020-11-14] MEDS ORDERED: HEPARIN 5000 UNIT/ML 1 ML VIAL ONE (14:37)
[2020-11-14] MEDS ORDERED: MIDAZOLAM HCL 2 MG/2 ML INJ ONE (14:37)
[2020-11-14] MEDS ORDERED: ATROPINE SULF 1 MG/10 ML SYR IV ONE (14:38)
[2020-11-14] MEDS ORDERED: FENTANYL CITR 100 MCG/2 ML ONE (14:38)
[2020-11-14] MEDS ORDERED: VERAPAMIL HCL 10 MG/4 ML VIAL IV ONE (14:38)
[2020-11-14] MEDS ORDERED: ONDANSETRON 4 MG/2 ML VIAL ONE (15:24)
[2020-11-14] MEDS ORDERED: NA CHLORIDE 0.9% 0 ML IV ONE (15:24)
[2020-11-14] MEDS ORDERED: HYDRALAZINE HCL 20 MG/ML VIAL ONE (16:12)
--- NOTE | 2020-11-14 17:52 | P.PN ---
Subjective Date of Service: 11/14/20 Chief Complaint: acute on chronic CHF Exacerbation, NSTEMI Subjective: Other (slight improvement, after further discussion, pt has been having some UTI symptoms, repeat UA suggestive of UTI still SOB, swelling improving, anxious for right heart cath today) Review of Systems 10-point ROS is otherwise unremarkable Physical Examination - Vital Signs Temperature: 98.5 F Blood Pressure: 153/68 Pulse: 63 Respirations: 12 Pulse Ox (%): 100 Assessment & Plan Physician Review Additional Text: Physical Exam General: Alert, NAD HEENT: EOMI, Sclerae nonicteric Respiratory: Crackles/rales (mild at bases bilaterally), nonlabored on 2L NC Cardiovascular: Regular rate/rhythm, Normal S1 S2, 1+ Edema to knees bilaterally Gastrointestinal: Soft and benign, Non-distended, non-tender Integumentary: No rashes Neurological: Normal speech, Normal strength at 5/5 x4 extr, Normal affect Problem List acute hypoxemia secondary to Acute on Chronic CHF Exacerbation (Diastolic) likely moderate-severe pulmonary hypertension NSTEMI CAD s/p CABG R carotid stenosis s/p stent ANJANA on CKD3 DM2, insulin dependent HLD HTN -worse renal function yesterday, lasix held per nephrology -continues with oxygen requirement - previously only needed at night -aspirin, metoprolol, pt with allergy to statins, continue home zetia -monitor on telemetry -likely brought on by missing lasix at home for 2 weeks -nephrology consulted, pt with h/o CKD3, renal function worsening, has nephrotic range proteinuria, multiple labs/workup sent -Cardiology consulted, pt with trop: 0.5 -echo suggesting high pulmonary hypertension -scheduled for right heart cath today to further evaluation -insulin sliding scale, accucheks ACHS VTE: lovenox Code: Full Dispo: anticipate dc home in ~24-48hrs, still SOB/MAHONEY and edematous, right heart cath has home O2 Time Spent Managing Pts Care (In Minutes): 35
[2020-11-14 19:15] LABS: Potassium 4.3 mmol/L (3.5-5.1)
[2020-11-14] MEDS: HYDRALAZINE HCL 25 MG TABLET PO SCH (22:04)
[2020-11-14] MEDS ORDERED: ACETAMINOPHEN 500 MG TAB PO PRN (22:21)
--- NOTE | 2020-11-15 03:08 | OP ---
Date of Procedure: 11/14/2020 Surgeon: ANTIONETTE HAMILTON Procedure Performed: 1.Selective coronary angiogram with bypass graft study. 2.Left heart catheterization. Access: 1.Right femoral artery 4-[place], closed with manual pressure. 2.Right femoral artery 7-[place], closed with manual pressure. 3.Right femoral vein 7-[place], closed with manual pressure. 4.Right femoral artery 4-[place], closed with manual pressure. 5.Right femoral vein 7-[place], closed with manual pressure. Indication: 1.Non-ST elevation myocardial infarction. 2.Severe pulmonary hypertension by echo. Description Of Procedure: After risks, benefits, and alternatives were explained, the patient agreed to the procedure and signed informed consent and brought the patient to cardiac catheterization [facility], prepped and draped in usual sterile fashion. Using micropuncture kit and ultrasound guidance , we accessed the right femoral artery and placed 4-[place] sheath and right femoral vein was accessed , placed 7-[place] sheath. We took balloon tip 7-[place] Tonica catheter into the right atrium, recorded waveform pressure and then the RV waveform pressure recorded and then the PA waveform pressure recor ded, and then the wedge waveform pressure recorded and PA sat was done and cardiac output by thermal dilution was done. Then, we removed the Tonica catheter and then took a 4-[place] JL4 catheter into the aortic root, engaged left main, took standard views and then exchanged for a JL4 catheter engaged th e right coronary artery and the jump graft into the OM and the CRUZ and took the catheter out. I cou ld not find a graft for the RCA. I elected to stop the procedure to avoid overuse of contrast due to chronic kidney failure. Then catheter was removed. Sheath was removed and manual pressure was appl ied with good hemostasis. Findings: 1.Left main is patent. 2.LAD diffusely diseased with mid CODE ENFORCEMENT INSPECTOR. 3.Left circumflex proximal 90% and OMs are occluded. 4.RCA appears to be a small vessel with proximal 90% and diffuse disease. 5. patent CRUZ to LAD. 6.Patent jump graft to OMs and gives to 2 grafts. 7.Questionable occluded RCA graft. Attempts to find to avoid overuse of contrast. Right Heart Catheterization Findings: 1.RA pressure was 11. RV pressure was 67/10, mean of 13, PA pressure of 72/24, mean of 42, pulmonar y wedge pressure was 24. Cardiac output was 4.5 L/minutes. Total contrast amount used was 22 cc. Conclusion: 1.Severe [place] coronary artery disease with patent grafts. Three grafts at least are patent. 2.Severe mixed pulmonary hypertension venous and arterial. Recommendation: Continue diuresis and medical management for coronary artery disease. SR/MODL Voice ID: [id number] Report ID: [id number]
--- NOTE | 2020-11-15 03:08 | PN ---
Date of Progress Note: 11/14/2020 Chief Complaint: Acute and chronic congestive heart failure, a non-ST elevation myocardial infarction, acute on chronic kidney injury with cardiorenal syndrome. Patient developed acute kidney injury secondary to cardiorenal syndrome and uncontrolled hypertension. Baseline creatinine level is around 1 or 2. During this admission, creatinine level was up to 2.6. Patient had renal ultrasound which was unremarkable. CK level was within normal limits though there was no evidence of rhabdomyolysis. Lasix was started for cardiorenal syndrome and it was stopped yesterday. Patient was encouraged to liberalize p.o. fluid. Today, patient is started on IV fluids as part of preparation for cardiac catheterization. Patient was started also on Mucomyst as preparation for cardiac catheterization. Review of Systems: Denies fever, chills. Physical Examination: Lungs: Diminished breath at bases. Heart: S1, S2. Abdomen: Soft, benign. Extremities: Minimal edema. Impression And Plan: 1. Acute on chronic kidney injury. 2. Cardiorenal syndrome. 3. Uncontrolled hypertension, adjust blood pressure medication. 4. Chronic kidney disease stage 3. Monitor for any evidence of monoclonal gammopathy amongst significance. Patient has nonnephrotic range proteinuria likely secondary to diabetic nephropathy. Has nephrotic range proteinuria likely secondary to diabetes mellitus and diabetic nephropathy. 5. Follow up on proteinuria workup. 6. Acute on chronic congestive heart failure, elevated troponin, qru-ER-lnldawbm myocardial infarction. Cardiac catheterization was scheduled for today. Continue Mucomyst and IV fluids. 7. Hypertension. Continue metoprolol, amlodipine. Adjust medication for optimal blood pressure control. SOCORRO/NAYE Voice ID: [id number] Report ID: [id number] [facility] HOSPITALVenkat
[2020-11-15] MEDS: NA CHLORIDE 0.9% 1,000 ML IV SCH (04:07)
[2020-11-15 05:35] LABS: MPV 8.6 fL (7.6-11.3); RBC Red Blood Cell Count 3.22 M/uL (3.86-4.86)
[2020-11-15 05:59] LABS: Albumin 2.7 g/dL (3.4-5.0); Magnesium 2.3 mg/dL (1.8-2.4); Phosphorus 4.1 mg/dL (2.5-4.9); Potassium 4.4 mmol/L (3.5-5.1)
[2020-11-15] MEDS: METOPROLOL TAR 25 MG TAB PO SCH (06:24)
[2020-11-15] MEDS: INSULIN -REGULAR HUMAN 50 UNIT/0.5 ML ML SQ SCH ×2 (07:30→12:30)
[2020-11-15] MEDS: VITAMIN D 1000 UNIT TAB PO SCH (08:03)
[2020-11-15] MEDS: EZETIMIBE 10 MG TAB PO SCH (08:03)
[2020-11-15] MEDS: ASPIRIN EC 81 MG TAB PO SCH (08:03)
[2020-11-15] MEDS: HYDRALAZINE HCL 25 MG TABLET PO SCH ×2 (08:03→13:16)
[2020-11-15] MEDS: ACETYLCYST 20% 800 MG/4 ML VIAL PO SCH (08:04)
[2020-11-15] MEDS: AMLODIPINE 5 MG TAB PO SCH (08:05)
[2020-11-15 11:26] VITALS: O2SAT 95
--- NOTE | 2020-11-15 13:44 | P.DS ---
Admission Date: 11/11/20 Discharge Date: 11/15/20 Disposition: CT HOME/HOME HEALTH CARE Discharge Condition: FAIR Reason for Admission: acute on chronic CHF Exacerbation, NSTEMI Consultations: CARDIOLOGY - Problems (1) Acute worsening of stage 3 chronic kidney disease Current Visit: Yes Status: Acute (2) Acute on chronic diastolic (congestive) heart failure Current Visit: Yes Status: Acute (3) NSTEMI (non-ST elevated myocardial infarction) Onset Date: 12/06/16 Current Visit: No Status: Acute (4) Diabetes mellitus Onset Date: 05/26/18 Current Visit: No Status: Chronic Qualifiers: Diabetes mellitus type: type 2 Diabetes mellitus middle or intermediate [employer] principal insulin use: with skilled nursing use Diabetes mellitus complication status: with kidney complications Diabetes mellitus complication detail: with chronic kidney disease Chronic kidney disease stage: stage 3 (moderate) Qualified Code(s): E11.22 - Type 2 diabetes mellitus with diabetic chronic kidney disease; N18.3 - Chronic kidney disease, stage 3 (moderate); Z79.4 - skilled nursing (current) use of insulin Brief History of Present Illness: 75-year-old woman with a history of diastolic heart failure, diabetes mellitus, hypertension, hyperlipidemia, coronary artery disease status post stent, CABG was brought to the emergency department due to progressive worsening shortness of breath. Patient at baseline is supposed to take Lasix 80 mg daily but was noncompliant with it. She uses oxygen during sleep. She took a dose of Lasix but that did not help with the symptoms and therefore presented to the emergency department. She was borderline hypoxemic with oxygen saturation of 89%. Patient was placed on oxygen by nasal cannula. Chest x-ray was consistent with CHF exacerbation. BNP was elevated, troponin elevated to 0.5. Patient was hospitalized for further management. Hospital Course: Patient admitted to the medical floor and started on IV Lasix. Troponin trended flat at 0.4. She was seen in consultation by cardiology, Dr. Lowry will performed cardiac catheterization. Patient noted to have multiple vessel disease. Dr. Lowry recommended to continue medical treatment. Patient noted to have elevated creatinine around 2. Review of medical records shows a recent baseline of 1.8. She was seen in consultation by nephrology. Patient was given Mucomyst prior to the cardiac catheterization lab and after the procedure. Her serum creatinine was stable at 2. Patient seen by PT. She was able to ambulate in the hallway without difficulty. Overall she has clinically improved. She is discharged to continue on her maintenance Lasix therapy. She will follow with Cardiology within the next 1 week. She is also discharged with home health for nursing and physical therapy. Vital Signs/Physical Exam: Temp Pulse Resp BP Pulse Ox 98.3 F 58 16 161/72 H 96 11/15/20 08:00 11/15/20 08:05 11/15/20 08:00 11/15/20 08:05 11/15/20 08:00 General: Alert, In no apparent distress, Oriented x3 Neck: JVD not distended Respiratory: Clear to auscultation bilaterally, Normal air movement Cardiovascular: Regular rate/rhythm, Normal S1 S2, Edema (Trace bilateral lower extremity edema) Gastrointestinal: Normal bowel sounds, Soft and benign, Non-distended, No tenderness Musculoskeletal: No swelling Neurological: Normal strength at 5/5 x4 extr Laboratory Data at Discharge: WBC 9.70 K/uL (4.3-10.9) 11/15/20 05:00 Hgb 9.8 g/dL (12.0-15.0) L 11/15/20 05:00 Hct 29.0 % (36.0-45.0) L 11/15/20 05:00 Plt Count 312 K/uL (152-406) 11/15/20 05:00 PT 11.6 SECONDS (9.5-12.5) 11/11/20 07:35 INR 1.01 11/11/20 07:35 Sodium 142 mmol/L (136-145) 11/15/20 05:00 Potassium 4.4 mmol/L (3.5-5.1) 11/15/20 05:00 BUN 54 mg/dL (7-18) H 11/15/20 05:00 Creatinine 2.09 mg/dL (0.55-1.3) H 11/15/20 05:00 Glucose 205 mg/dL (74-106) H 11/15/20 05:00 Phosphorus 4.1 mg/dL (2.5-4.9) 11/15/20 05:00 Magnesium 2.3 mg/dL (1.8-2.4) 11/15/20 05:00 Total Bilirubin 0.4 mg/dL (0.2-1.0) 11/12/20 03:53 AST 17 U/L (15-37) 11/12/20 03:53 ALT 29 U/L (12-78) 11/12/20 03:53 Alkaline Phosphatase 147 U/L (45-117) H 11/12/20 03:53 Troponin I 0.48 ng/mL (0.0-0.045) H 11/11/20 20:30 Triglycerides 131 mg/dL (<150) 11/12/20 03:53 Cholesterol 164 mg/dL (<200) 11/12/20 03:53 HDL Cholesterol 31 mg/dL (40-60) L 11/12/20 03:53 Cholesterol/HDL Ratio 5.29 11/12/20 03:53 Home Medications: Aspirin 81 mg PO DAILY 11/11/20 Biotin 1,000 mcg PO DAILY 11/11/20 Cholecalciferol (Vitamin D3) [Vitamin D 1000 Iu Tab*] 1,000 unit PO DAILY 11/11/20 Ezetimibe [Zetia*] 10 mg PO DAILY 11/11/20 Fish Oil/Dha/Epa [Fish Oil 1,200 mg Fish Oil] 1,200 mg PO BID 11/11/20 Furosemide 80 mg PO DAILY 11/11/20 Insulin Degludec [Tresiba] 50 units SQ DAILY 11/11/20 Magnesium Oxide [Magnesium] 250 mg PO BID 11/11/20 Omeprazole 20 mg PO DAILY 11/11/20 Potassium Oral Tab [Klor-Con 10 mEq Tab*] 10 meq PO DAILY 11/11/20 Vitamin B Complex [B Complex] 1 tab PO DAILY 11/11/20 Acetylcyst 20% Oral [place] [Mucomyst 20% (ORAL)*] 3 ml PO BID #2 vial 11/15/20 Amlodipine [Norvasc*] 10 mg PO DAILY #30 tab 11/15/20 Metoprolol Tartrate [Lopressor*] 12.5 mg PO BID 6AM 6PM #60 tab 11/15/20 New Medications: Metoprolol Tartrate [Lopressor*] 12.5 mg PO BID 6AM 6PM #60 tab Acetylcyst 20% Oral [place] [Mucomyst 20% (ORAL)*] 3 ml PO BID #2 vial Amlodipine [Norvasc*] 10 mg PO DAILY #30 tab Diet: ADA Activity: Fall precautions Followup: Unknown,U [Primary Care Provider] - 1-2 Weeks Derrick Lowry MD [ACTIVE - CAN ADMIT] - 1 Week Time spent managing pt's care (in minutes): 33
[2020-11-15 13:55] VITALS: BP 144/63; TEMP 98.5
[2020-11-15 13:58] LABS: HIV AG/AB 4TH GEN Non-reactive (Non-reactive)
--- NOTE | 2020-11-15 14:05 | P.PN ---
Subjective Date of Service: 11/15/20 Chief Complaint: acute on chronic CHF Exacerbation, NSTEMI Physical Examination - Vital Signs Temperature: 98.5 F Blood Pressure: 144/63 Pulse: 51 Respirations: 16 Pulse Ox (%): 98 Assessment And Plan - Plan # ANJANA 2/2 CRS1 & uncontrolled Htn, on proteinuric CKD3 Baseline serum creatinine around 1.2 Serum intact PTH elevated at 150 indicative of a more advanced CKD at baseline SCr 2.04 on hosp adm, increased to 2.6 today Renal ultrasound unremarkable CK wnl +Nephrotic-range proteinuria BP control, see below Lasix on hold starting today Encouraged liberal po fluid intake Monitor renal panel, I/O # CKD3 Baseline SCr 1.2 in 2017 (equiv baseline GFR around 45) Monitor renal panel # Nephrotic-range proteinuria 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 [place] fluid intake Cont metoprolol Strictly low Na diet < 2g/d Do NOT restrict free water intake unless she becomes hyponatremic # Htn BP goal < 140/90 Cont metoprolol & amlodipine # DM2 Mngt per primary team Physician Review Additional Text: Physical Exam General: Alert, NAD HEENT: EOMI, Sclerae nonicteric Respiratory: Crackles/rales (mild at bases bilaterally), nonlabored on 2L NC Cardiovascular: Regular rate/rhythm, Normal S1 S2, 1+ Edema to knees bilaterally Gastrointestinal: Soft and benign, Non-distended, non-tender Integumentary: No rashes Neurological: Normal speech, Normal strength at 5/5 x4 extr, Normal affect Problem List acute hypoxemia secondary to Acute on Chronic CHF Exacerbation (Diastolic) likely moderate-severe pulmonary hypertension NSTEMI CAD s/p CABG R carotid stenosis s/p stent ANJANA on CKD3 DM2, insulin dependent HLD HTN -worse renal function yesterday, lasix held per nephrology -continues with oxygen requirement - previously only needed at night -aspirin, metoprolol, pt with allergy to statins, continue home zetia -monitor on telemetry -likely brought on by missing lasix at home for 2 weeks -nephrology consulted, pt with h/o CKD3, renal function worsening, has nephrotic range proteinuria, multiple labs/workup sent -Cardiology consulted, pt with trop: 0.5 -echo suggesting high pulmonary hypertension -scheduled for right heart cath today to further evaluation -insulin sliding scale, accucheks ACHS VTE: lovenox Code: Full Dispo: anticipate dc home in ~24-48hrs, still SOB/MAHONEY and edematous, right heart cath has home O2
[2020-11-16] MEDS ORDERED: AMLODIPINE 10 MG TAB PO SCH (09:00)
[2020-11-16] MEDS ORDERED: Levofloxacin500mg IV 500 MG/100 ML BAG IV SCH (11:00)
[2020-11-17 05:44] LABS: Albumin, (SPE) 3.1 g/dL (3.8-4.8); Alpha-1-Globulins 0.3 g/dL (0.2-0.3); Alpha-2-Globulins 0.9 g/dL (0.5-0.9); Gamma Globulins 1.3 g/dL (0.8-1.7); INTERPRETATION REPORT
[2020-11-17 14:06] LABS: HBsAG Nonreactive (Nonreactive)
== END 2020-11-15 16:06 | disposition home health service (06) | DRG 280 ==
LOC: ER 06:46 → ERHOLD 09:42 → 2ND 11:40
PROVIDERS: ADMIT Hospitalist; ATTEND Internal Medicine
PROC: 4A023N7 Measurement of Cardiac Sampling and Pressure, Left Heart, Percutaneous Approach (ICD-10-PCS; principal; 2020-11-14)
PROC: B2111ZZ Fluoroscopy of Multiple Coronary Arteries using Low Osmolar Contrast (ICD-10-PCS; 2020-11-14)
DX: I13.0 Hypertensive heart and chronic kidney disease with heart failure and stage 1 through stage 4 chronic kidney disease, or unspecified chronic kidney disease (principal); I50.33 Acute on chronic diastolic (congestive) heart failure; I21.4 Non-ST elevation (NSTEMI) myocardial infarction; N17.9 Acute kidney failure, unspecified; N39.0 Urinary tract infection, site not specified; N18.30 Chronic kidney disease, stage 3 unspecified; E11.22 Type 2 diabetes mellitus with diabetic chronic kidney disease; E11.65 Type 2 diabetes mellitus with hyperglycemia; I25.10 Atherosclerotic heart disease of native coronary artery without angina pectoris; I27.20 Pulmonary hypertension, unspecified; F41.9 Anxiety disorder, unspecified; I65.21 Occlusion and stenosis of right carotid artery; E78.5 Hyperlipidemia, unspecified; R09.02 Hypoxemia; Z88.5 Allergy status to narcotic agent; Z88.8 Allergy status to other drugs, medicaments and biological substances; Z95.1 Presence of aortocoronary bypass graft; Z79.82 Long term (current) use of aspirin; Z79.899 Other long term (current) drug therapy; Z79.4 Long term (current) use of insulin; Z90.49 Acquired absence of other specified parts of digestive tract; Z98.51 Tubal ligation status; Z20.822 Contact with and (suspected) exposure to COVID-19
CPT/HCPCS: 36415; 71045; 71250; 76770; 80048; 80053; 80061; 80069; 80076; 81003; 81015; 82553; 82570; 82947; 83036; 83735; 83880; 83935; 83970; 84132; 84156; 84165; 84300; 84484; 85025; 85027; 85610; 86038; 86334; 86430; 86592; 86704; 86706; 86803; 87077; 87086; 87088; 87186; 87340; 87389; 93005; 93306; 93456; 94760; 96372; 96374; 96375; 97116; 97161; 97530; 99285; C1893; J0360; J1644; J1650; J1940; J2250; J2405; J3010; J7030; U0003